=== PATIENT | female | born 1975 | race Caucasian/White ===

== ENCOUNTER 2022-12-01 08:30 | Outpatient (OUT) | payer MEDICARE, MEDICAID, SELFPAY ==
--- NOTE | 2022-12-01 08:45 | XR_ITS ---
The [address] [address] Patient Name: ELIAS SIMMS MRN: [id number] date: 1975 Sex: F Assigned Patient Location: [facility] Current Patient Location: [facility] Accession/Order Number: [id number] Exam Date: 12/01/2022 08:45 Report Date: 12/01/2022 13:02 At the request of: YVONNE KOLB Procedure: XR ankle RT min 3V EXAM: XR ankle RT min 3V HISTORY: RIGHT ANKLE PAIN COMPARISON: 09/02/2022 TECHNIQUE: 3 views of the right ankle FINDINGS: Calcaneal fixation screws appear intact, with similar changes of prior calcaneal osteotomy, alignment is unchanged. No acute fracture or dislocation. Ankle mortise is congruent. Degenerative change of the tibiotalar joint. Redemonstrated degenerative calcaneal Achilles and plantar enthesophytes. Mild circumferential swelling about the visualized lower extremity. IMPRESSION: 1. No acute osseous abnormality. 2. Intact calcaneal fixation hardware, with similar changes of osteotomy in unchanged alignment. 3. Mild soft tissue swelling about the visualized lower extremity. Electronically authenticated by: BETTY ALMENDAREZ Date: 12/01/2022 13:02
== END 2022-12-01 08:31 | disposition home or self-care (01) ==
LOC: RAD 08:30
PROVIDERS: Visit Provider Physician Assistant
DX: M25.571 Pain in right ankle and joints of right foot (principal)
CPT/HCPCS: 73610

== ENCOUNTER 2023-02-28 19:51 | Emergency (ER) | payer MEDICARE, MEDICAID, SELFPAY ==
[2023-02-28 19:54] VITALS: BP 128/95; PULSE 71; RESP 16; TEMP 36.6; O2SAT 99; BMI 54.6
--- NOTE | 2023-02-28 20:08 | PC.NURSE ---
pt states she noticed a red rash on bilateral lower legs on wednesday night [place]. states is is spreading despite starting a steroid yesterday.
--- NOTE | 2023-02-28 20:28 | ED.SKABFB1 ---
HPI - Skin/Abscess/Foreign Bdy General Chief complaint: Skin/Abscess/Foreign Body Stated complaint: RASH Time Seen by Provider: 02/28/23 20:25 History of Present Illness HPI narrative: patient states she was walking around [place] 3 days ago. Afterwards noticed a rash on her left leg mostly and some on the right. No pruritis . No fever . Not short of breath. Patient does complain of left calf pain MD complaint: Reports rash Related Data Allergies Allergy/AdvReac Type Severity Reaction Status Date / Time aspirin Allergy Unknown Verified 02/28/23 20:03 divalproex sodium Allergy Unknown Verified 02/28/23 20:03 heparin Allergy Unknown Verified 02/28/23 20:03 hydrocodone Allergy Unknown Verified 02/28/23 20:03 ibuprofen [From Motrin] Allergy Unknown Verified 02/28/23 20:03 latex Allergy Unknown Verified 02/28/23 20:03 naproxen Allergy Unknown Verified 02/28/23 20:03 nitroglycerin Allergy Unknown Verified 02/28/23 20:03 propoxyphene Allergy Unknown Verified 02/28/23 20:03 sumatriptan Allergy Unknown Verified 02/28/23 20:03 tramadol Allergy Unknown Verified 02/28/23 20:03 bees Allergy Unknown Uncoded 02/28/23 20:03 Review of Systems ROS Status of ROS 10 or more systems reviewed and unremarkable except as noted in history and below [facility] Social History Smoking status: Never smoker Exam Constitutional Vital Signs, click to edit/add: Last Vital Signs Temp 97.8 F 02/28/23 19:54 Pulse 71 02/28/23 19:54 Resp 16 02/28/23 19:54 BP 128/95 H 02/28/23 19:54 Pulse Ox 99 02/28/23 19:54 O2 Del Method Room Air 02/28/23 19:54 Common normals: no apparent distress, oriented x3, no limitations, alert and well nourished Eye Common normals: EOMs intact bilaterally and conjunctivae normal Respiratory Common normals: normal respiratory effort, no retractions, no use of accessory muscles and clear to auscultation bilaterally Cardio Common normals: regular rate, regular rhythm, S1 normal heart sound and S2 normal heart sound GI Common normals: Normal to inspection, nondistended, normoactive bowel sounds present, soft to palpation and non-tender Extremity Common normals: full ROM and no joint enlargement Other: faint erythematous rash left lower leg. nontender. non blanching. sparse similar rash right lower extremity left calf nontender Neuro Common normals: oriented x3, CN's II-XII intact bilaterally, moves all extremities and no focal motor deficits Psych Appearance: grossly normal Course Vital Signs Vital signs: Vital Signs Temperature 97.8 F 02/28/23 19:54 Pulse Rate 71 02/28/23 19:54 Respiratory Rate 16 02/28/23 19:54 Blood Pressure 128/95 H 02/28/23 19:54 Pulse Oximetry 99 02/28/23 19:54 Oxygen Delivery Method Room Air 02/28/23 19:54 Temperature 97.8 F 02/28/23 19:54 Pulse Rate 71 02/28/23 19:54 Respiratory Rate 16 02/28/23 19:54 Blood Pressure 128/95 H 02/28/23 19:54 Pulse Oximetry 99 02/28/23 19:54 Oxygen Delivery Method Room Air 02/28/23 19:54 MDM - Skin/Abscess/Foreign Bdy MDM Narrative Medical decision making narrative: patient presents with atypical rash of her lower extremities. more prominent LLE than the right. complains of pain left gastroc but it is not tender. Rash does not itch and nontender. Rash has the appearance of petechial like rash grouped together. She does have trace pitting of both lower extremities. Labs unremarkable except d-dimer elevated. Patient offered Lovenox or similar but states she is not able to take blood thinners due to past history of brain bleed . She also avoids ASA and NSAIDS for the same reason. 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 Clinically I have low suspicion for DVT also. Lab Data Labs: Lab Results 02/28/23 Range/Units 20:41 WBC 10.6 (4.0-11.0) 10^3/uL RBC 4.38 (4.20-5.40) 10^6/uL Hgb 14.3 (12.0-16.0) g/dL Hct 42.0 (36.0-48.0) % MCV 95.9 (81.0-99.0) fL MCH 32.6 (26.7-34.0) pg MCHC 34.0 (29.9-35.2) g/dL RDW 13.0 (11.0-15.0) % Plt Count 375 (150-450) 10^3/uL MPV 9.1 L (9.5-13.5) fL Neut % (Auto) 69.6 (43.0-75.0) % Lymph % (Auto) 23.2 (20.5-60.0) % Vance % (Auto) 6.9 (1.7-12.0) % Eos % (Auto) 0.0 L (0.9-7.0) % Baso % (Auto) 0.1 L (0.2-2.0) % Neut # (Auto) 7.4 H (1.4-6.5) 10^3/uL Lymph # (Auto) 2.5 (1.2-3.8) 10^3/uL Vance # (Auto) 0.7 (0.3-0.8) 10^3/uL Eos # (Auto) 0.0 (0.0-0.7) 10^3/uL Baso # (Auto) 0.0 (0.0-0.1) 10^3/uL Abs Immat Gran (auto) 0.02 (0.00-0.03) 10^3/uL Imm/Tot Granulo (auto) 0.2 (0.0-0.5) % PT 10.1 (9.0-11.6) sec INR 0.95 APTT 27.9 (22.3-36.2) sec D-Dimer 0.84 H* (<=0.59) mg/L FEU Sodium 142 (136-145) mmol/L Potassium 3.8 (3.5-5.1) mmol/L Chloride 109 H (98-107) mmol/L Carbon Dioxide 23.4 (21.0-32.0) mmol/L Anion Gap 13.4 BUN 15.0 (7.0-18.0) mg/dL Creatinine 0.90 (0.55-1.02) mg/dL Est GFR ( Amer) >60 (>=60) Est GFR (Non-Af Amer) >60 (>=60) BUN/Creatinine Ratio 16.7 Glucose 100 (74-106) mg/dL Calcium 8.8 (8.5-10.1) mg/dL Total Bilirubin 0.2 (0.2-1.0) mg/dL AST 11 L (15-37) U/L ALT 29 (14-59) U/L Alkaline Phosphatase 101 (46-116) U/L Total Protein 7.7 (6.4-8.2) g/dL Albumin 3.7 (3.4-5.0) g/dL Globulin 4.0 g/dL Albumin/Globulin Ratio 0.9 Discharge Plan Discharge Chief Complaint: Skin/Abscess/Foreign Body Clinical Impression: Rash and nonspecific skin eruption, D-dimer, elevated Patient Disposition: Home, Self-Care Instructions: Acute Rash (ED) Additional Instructions: return tomorrow for ultrasound at 7am. Come to registration a few minutes early, or pre-register tonight before leaving. Stand Alone Forms: Portal Instructions Referrals: Physician,Non-Staff, MD [Primary Care Provider] - 1 week Discharge Date/Time: 02/28/23 22:42
[2023-02-28 20:49] LABS: Basophils Percent Auto 0.1 % (0.2-2.0); Hemoglobin 14.3 g/dL (12.0-16.0); Immature Granulocytes Abs Auto 0.02 10^3/uL (0.00-0.03); Immature Granulocytes Pct Auto 0.2 % (0.0-0.5); Lymphocytes Absolute Auto 2.5 10^3/uL (1.2-3.8); Lymphocytes Percent Auto 23.2 % (20.5-60.0); Mean Corpuscular Hemoglobin 32.6 pg (26.7-34.0); Mean Corpuscular Volume 95.9 fL (81.0-99.0); Mean Platelet Volume 9.1 fL (9.5-13.5); Monocytes Absolute Auto 0.7 10^3/uL (0.3-0.8); Monocytes Percent Auto 6.9 % (1.7-12.0); Neutrophils Absolute Auto 7.4 10^3/uL (1.4-6.5); Neutrophils Percent Auto 69.6 % (43.0-75.0); Platelet Count 375 10^3/uL (150-450); Red Blood Count 4.38 10^6/uL (4.20-5.40); White Blood Count 10.6 10^3/uL (4.0-11.0)
[2023-02-28 21:09] LABS: INR 0.95; Partial Thromboplastin Time 27.9 sec (22.3-36.2); Prothrombin Time 10.1 sec (9.0-11.6)
[2023-02-28 21:12] LABS: Alanine Aminotransferase 29 U/L (14-59); Albumin Globulin Ratio 0.9; Albumin Level 3.7 g/dL (3.4-5.0); Alkaline Phosphatase 101 U/L (46-116); Anion Gap 13.4; Aspartate Amino Transferase 11 U/L (15-37); BUN Creatinine Ratio 16.7; Bilirubin Total 0.2 mg/dL (0.2-1.0); Calcium 8.8 mg/dL (8.5-10.1); Carbon Dioxide 23.4 mmol/L (21.0-32.0); Chloride 109 mmol/L (98-107); Estimated GFR (African America >60 (>=60); Estimated GFR (Non-African Ame >60 (>=60); Glucose 100 mg/dL (74-106); Potassium 3.8 mmol/L (3.5-5.1); Sodium 142 mmol/L (136-145); Total Protein 7.7 g/dL (6.4-8.2)
[2023-02-28 22:11] LABS: D Dimer 0.84 mg/L FEU (<=0.59)
== END 2023-02-28 22:42 | disposition home or self-care (01) ==
PROVIDERS: Emergency Provider Internal Medicine
DX: R21 Rash and other nonspecific skin eruption (principal); R79.1 Abnormal coagulation profile
CPT/HCPCS: 36415; 80053; 85025; 85378; 85610; 85730; 99283

== ENCOUNTER 2023-03-01 06:19 | Outpatient (OUT) | payer MEDICARE, MEDICAID, SELFPAY ==
--- NOTE | 2023-03-01 | US_ITS ---
The [place] [id number] Patient Name: ELIAS SIMMS MRN: [id number] date: 1975 Sex: F Assigned Patient Location: [facility] Current Patient Location: [facility] Accession/Order Number: [id number] Exam Date: 03/01/2023 07:00 Report Date: 03/01/2023 08:41 At the request of: MIKE ORNELAS Procedure: US venous doppler LE BI EXAMINATION: US venous doppler LE BI HISTORY: DVT ; leg swelling, left leg rash COMPARISON: No relevant comparison available. FINDINGS: REGION: Bilateral lower extremities THROMBI: None. COMPRESSIBILITY: Normal compressibility. FLOW: Normal waveform and antegrade flow between 5 and 20 cm/s. OTHER: None. US/US venous doppler LE BI IMPRESSION: 1. No deep vein thrombus within the right or left lower extremity. Electronically authenticated by: SOILA NIÑO Date: 03/01/2023 08:41
== END 2023-03-01 06:20 | disposition home or self-care (01) ==
LOC: RAD 06:22
PROVIDERS: Visit Provider Internal Medicine
DX: R21 Rash and other nonspecific skin eruption (principal); R79.89 Other specified abnormal findings of blood chemistry; M79.89 Other specified soft tissue disorders
CPT/HCPCS: 93970

== ENCOUNTER 2023-05-26 08:41 | Outpatient (OUT) | payer MEDICARE, MEDICAID, SELFPAY ==
--- NOTE | 2023-05-26 | XR_ITS ---
The [address] [address] Patient Name: ELIAS SIMMS MRN: [id number] date: 1975 Sex: F Assigned Patient Location: [facility] Current Patient Location: [facility] Accession/Order Number: [id number] Exam Date: 05/26/2023 08:50 Report Date: 05/26/2023 12:23 At the request of: CANDY LEONARDO Procedure: XR ankle RT min 3V EXAM: XR ankle RT min 3V HISTORY: RIGHT ANKLE PAIN COMPARISON: Ankle radiographs from 12/01/2022 TECHNIQUE: AP, lateral, oblique radiographs of the ankle labeled right FINDINGS: Soft tissue swelling about the ankle. 2 surgical screw fixation of the calcaneus osteotomy with plantar and Achilles calcaneal enthesophytes. Fragmentation of the plantar calcaneal enthesophyte again noted. Osteophyte at the tibial plafond. Osseous body at the anterior to the tibia. Unchanged lucency at the medial talar dome. No acute fracture or dislocation. XR/XR ankle RT min 3V IMPRESSION: 1. Medial talar dome osteochondral injury again noted. 2. Postsurgical changes of calcaneal osteotomy and fixation similar to prior. 3. 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 4. No acute fracture or dislocation. Electronically authenticated by: KURT JORDAN Date: 05/26/2023 12:23
== END 2023-05-26 08:42 | disposition home or self-care (01) ==
LOC: RAD 08:41
PROVIDERS: Visit Provider Podiatrist Foot & Ankle Surgery
DX: M25.871 Other specified joint disorders, right ankle and foot (principal)
CPT/HCPCS: 73610

== ENCOUNTER 2024-02-22 08:36 | Emergency (ER) | payer MEDICARE, MEDICAID, SELFPAY ==
[2024-02-22 08:43] VITALS: BP 147/84; PULSE 67; TEMP 36.6; O2SAT 100; BMI 51.5
--- NOTE | 2024-02-22 08:48 | XR_ITS ---
The [address] [address] Patient Name: ELIAS SIMMS MRN: [id number] date: 1975 Sex: F Assigned Patient Location: ER Current Patient Location: Accession/Order Number: [id number] Exam Date: 02/22/2024 09:00 Report Date: 02/22/2024 10:57 At the request of: MAEVE MORALES Procedure: XR foot LT min 3V EXAM: XR foot LT min 3V, XR ankle LT min 3V HISTORY: pain COMPARISON: None. FINDINGS/IMPRESSION: 1. No acute fracture or dislocation 2. Mild degeneration of the mid foot. 3. Mild degeneration of the ankle joint. 4. Small calcaneal Achilles and plantar enthesophytes. 5. Ossicle adjacent to the proximal aspect of the fifth metatarsal, may represent chronic/nonunited fracture. 6. Ankle mortise is maintained. 7. Small ankle joint effusion. 8. Small ossicles distal to the medial malleolus, possibly from chronic trauma. Electronically authenticated by: EMETERIO JI Date: 02/22/2024 10:57
--- NOTE | 2024-02-22 08:48 | XR_ITS ---
The [address] [address] Patient Name: ELIAS SIMMS MRN: [id number] date: 1975 Sex: F Assigned Patient Location: ER Current Patient Location: Accession/Order Number: [id number] Exam Date: 02/22/2024 09:00 Report Date: 02/22/2024 10:57 At the request of: MAEVE MORALES Procedure: XR ankle LT min 3V EXAM: XR foot LT min 3V, XR ankle LT min 3V HISTORY: pain COMPARISON: None. FINDINGS/IMPRESSION: 1. No acute fracture or dislocation 2. Mild degeneration of the mid foot. 3. Mild degeneration of the ankle joint. 4. Small calcaneal Achilles and plantar enthesophytes. 5. Ossicle adjacent to the proximal aspect of the fifth metatarsal, may represent chronic/nonunited fracture. 6. Ankle mortise is maintained. 7. Small ankle joint effusion. 8. Small ossicles distal to the medial malleolus, possibly from chronic trauma. Electronically authenticated by: EMETERIO JI Date: 02/22/2024 10:57
--- OUTSIDE RECORDS SUMMARY | 2024-02-22 09:07 | XMS_ITS | CCD ---
Author Organization [facility] Care Team Providers Care Piece Work Checker Name Role Phone Jeremiah Topete Unavailable Triny Vega MD, [facility] Primary Care Provider TRINY VEGA, [facility] Primary Care UnavailTALITA David Attending Unava ilable [facility] Primary Care UnavailTALITA David Attending Unava ilable [facility] Primary Care UnavailDENILSON Ruggiero Attending Un[facility] UnavailArjun Vega MD, [facility] Primary Care Provider Jeremiah Topete MD Primary Care Provider YVONNE KOLB Admitting Unavailable DR CANDELARIO ALBERT Primary Care Unavailable YVONNE KOLB Consulting Unavailable YVONNE KOLB Attending Unavailable MARCELA GIRALDO Consulting Unavailable CANDY LEONARDO Consulting Unavailable CANDY LEONARDO Attending Unavailable [facility] Unava ilable CANDY LEONARDO Admitting Unavailable ALEJO MACHUCA Consulting Unavailable CANDY LEONARDO Admitting Unavailable CANDY LEONARDO Consulting Unavailable CANDY LEONARDO Attending Unavailable [facility] Unava ilable [facility] Unava ilable LANCE ., VINCENZO Admitting Unavailable DR SOILA NIÑO Consulting Unavailable LANCE ., VINCENZO Attending Unavailable CANDY LEONARDO Consulting Unavailable GUEVARA SIBLEY Consulting Unavailable JOS LEE Consulting Unavailable LANCE ., VINCENZO Consulting Unavailable SHARMAINE SIMPSON Consulting Unavailable CORTES, YVONNE Attending Unavailable CORTES, YVONNE Admitting Unavailable [facility] Unava ilable WEST, DR CORBY Goncalves Consulting Unavailable CORTES, YVONNE Consulting Unavailable CORTES, YVONNE Attending Unavailable ZIEBER, DR SOILA Davison Consulting Unavailable [facility] Unava ilable CORTES, YVONNE Admitting Unavailable CORTES, YVONNE Consulting Unavailable ZIEBDARA, DR SOILA Davison Consulting Unavailable CANDY LEONARDO Admitting Unavailable CANDY LEONARDO Attending Unavailable [facility] Unava ilable MALISSA, CANDY Das Consulting Unavailable CORTES, YVONNE Attending Unavailable ZIEBER, DR SOILA Davison Consulting Unavailable [facility] Unava ilable CORTES, YVONNE Admitting Unavailable CORTES, YVONNE Consulting Unavailable CORTES, YVONNE Admitting Unavailable WEST, DR CORBY Goncalves Consulting Unavailable YVONNE KOLB Attending Unavailable MISC, DR PALOMINO Primary Care Unavailable YVONNE KOLB Consulting Unavailable MISC, DR PALOMINO Primary Care Unavailable ZIEBDARA, DR SOILA Davison Consulting Unavailable HIGHLCANDY ABERNATHY Attending Unavailable CANDY LEONARDO Admitting Unavailable CANDY LEONARDO Consulting Unavailable Rumschlag DO, Marium K Primary Care Provider RUMSCHLAG, MARIUM K Referring Unavailable RUMSCHLAG, MARIUM K Primary Care Unavailable RUTH SHEPHERD Attending Unava ilable FRANCK-RUTH FALL Referring Unava ilable RUMSCHLAG, MARIUM K Primary Care Unavailable KEN DICKEY Referring Unavailable RUMSCHLAG, MARIUM K Primary Care Unavailable RUTH SHEPHERD Attending Unava ilable FRANCK-RUTH FALL Referring Unava ilable RUMSCHLAG, MARIUM K Primary Care Unavailable PATTI LEONARD Referring Unavailable RUMSCHLAG, MARIUM K Primary Care Unavailable RUMSCHLAG, MARIUM K Referring Unavailable RUMSCHLAG, MARIUM K Primary Care Unavailable SHAHRAM ROA Attending Unavailable KATJA HUGHES Attending Unavailable FRANCK-RUTH FALL Referring Unava ilable RUMSCHLAG, MARIUM K Primary Care Unavailable BECKY MORENO Attending Unavailable BECKY MORENO Referring Unavailable RUMSCHLAG, MARIUM K Primary Care Unavailable BECKY MORENO Admitting Unavailable BECKY MORENO Attending Unavailable RUTH SHEPHERD Referring Unava ilable RUMSCHLAG, MARIUM K Primary Care Unavailable QUINCY GONZALEZ Attending Unavailable RUMSCHLAG, MARIUM K Primary Care Unavailable PATTI LEONARD Attending Unavailable PATTI LEONARD Referring Unavailable RUMSCHLAG, MARIUM K Primary Care Unavailable PATTI LEONARD L Referring Unavailable RUMSCHLAG, MARIUM K Primary Care Unavailable KATJA HUGHES Attending Unavailable RUMSCHLAG, MARIUM K Referring Unavailable RUMSCHLAG, MARIUM K Primary Care Unavailable PATTI LEONARD L Attending Unavailable PATTI LEONARD L Referring Unavailable RUMSCHLAG, MARIUM K Primary Care Unavailable PATTI LEONARD L Attending Unavailable PATTI LEONARD L Referring Unavailable RUMSCHLAG, MARIUM K Primary Care Unavailable KEN DICKEY Attending Unavailable KEN DICKEY Referring Unavailable RUMSCHLAG, MARIUM K Primary Care Unavailable GAYATRI GASPAR Referring Unavailable RUMSCHLAG, MARIUM K Primary Care Unavailable MYERHOLTZ, ALLA K Referring Unavailab le MYERHOLTZ, ALLA K Primary Care Unavailab le PATTI LEONARD Referring Unavailable MYERHOLTZ, ALLA K Primary Care Unavailab KATJA Hall Attending Unavailable RUMSCHLAG, MARIUM K Referring Unavailable MYERHOLTZ, ALLA K Primary Care Unavailab ROC Ochoa Attending Unavailable RUTH SHEPHERD Referring Unava ilable RUMSCHLAG, MARIUM K Primary Care Unavailable GAYATRI GASPAR Attending Unavailable RUMSCHLAG, MARIUM K Referring Unavailable RUMSCHLAG, MARIUM K Primary Care Unavailable PATTI LEONARD Attending Unavailable RUMSCHLAG, MARIUM K Referring Unavailable RUMSCHLAG, MARIUM K Primary Care Unavailable GAYATRI GASPAR Attending Unavailable RUMSCHLAG, MARUIM K Referring Unavailable RUMSCHLAG, MARIUM K Primary Care Unavailable PATTI LEONARD L Attending Unavailable RUMSCHLAG, MARIUM K Referring Unavailable MYERHOLTZ, ALLA K Primary Care Unavailab le PATTI LEONARD L Attending Unavailable MYERHOLTZ, ALLA K Referring Unavailab le MYERHOLTZ, ALLA K Primary Care Unavailab le FRANCK-BUBLICK, RUTH C Attending Unava ilable MARIUM GARCIA Referring Unavailable MARIUM GARCIA Primary Care Unavailable Allergies Allergy Classification Reported Allergen(s) Allergy Type Date of Onset Reaction(s) Facility Acetaminophen / HYDROcodone (3 sources) Acetaminophen / HYDROcodone; Translations: [HYDROCODONE-ACET AMINOPHEN] Drug Allergy 12-27-19 15 Other (See Comments) [facility] Aspirin (3 sources) Aspirin; Translations: [ASPIRIN] Drug Allergy 12-27-19 15 Other (See Comments) [facility] Coconut extract (3 sources) Coconut extract; Translations: [COCONUT] Drug Allergy 12-29-19 19 Anaphylaxis [facility] Coconut Oil (3 sources) Coconut Oil; Translations: [COCONUT OIL] Drug Allergy 03-21-20 15 Hives [facility] Latex (3 sources) Latex; Translations: [LATEX] Substance [facility] Nitrate Vasodilator (3 sources) Nitroglycerin; Translations: [NITROGLYCERIN] Drug Allergy 12-27-19 15 Other (See Comments) [facility] Serotonin-1b and Serotonin-1d Receptor Agonists (3 sources) SUMAtriptan; Translations: [SUMATRIPTAN SUCCINATE] Drug Allergy 12-27-19 15 Other (See Comments) [facility] Unclassified (16 sources) Pineapple; Translations: [PINEAPPLE] Propensity to adverse reactions to drug 11-09-19 Anaphylaxis [facility] Valproate (2 sources) Valproate Drug Allergy 12-27-19 15 Other (See Comments) [facility] (20 sources) acetaminophen / HYDROcodone; Translations: [HYDROCODONE-ACET AMINOPHEN] Propensity to adverse reactions to drug 12-27-19 15 Other (See Comments), Hallucinations [facility] Work Phone: (20 sources) Adhesive Tape; Translations: [ADHESIVE] Propensity to adverse reactions to drug 12-27-19 15 Rash [facility] Work Phone: (20 sources) aspirin; Translations: [ASPIRIN] Propensity to adverse reactions to drug 12-27-19 15 Other (See Comments) [facility] Work Phone: (17 sources) coconut oil; Translations: [COCONUT OIL] Propensity to adverse reactions to drug 20 15 Hives [facility] Work Phone: (20 sources) Latex; Translations: [LATEX] Propensity to adverse reactions to drug 12-27-19 15 Hives, Rash [facility] Work Phone: (20 sources) nitroglycerin; Translations: [NITROGLYCERIN] Propensity to adverse reactions to drug 12-27-19 15 Other (See Comments), Flushing, Headache [facility] Work Phone: (17 sources) SUMAtriptan; Translations: [SUMATRIPTAN SUCCINATE] Propensity to adverse reactions to drug 12-27-19 15 Other (See Comments) [facility] Work Phone: (20 sources) valproate; Translations: [DIVALPROEX] Propensity to adverse reactions to drug 12-27-19 15 Other (See Comments) [facility] Work Phone: (20 sources) PROPOXYPHENE N-ACETAMINOPHEN; Translations: [PROPOXYPHENE N-ACETAMINOPHEN] Propensity to adverse reactions to drug 12-27-19 15 Other (See Comments), Hallucinations [facility] Work Phone: (20 sources) HEPARIN ANALOGUES; Translations: [HEPARIN ANALOGUES] Propensity to adverse reactions to drug 12-27-19 15 Other (See Comments) [facility] Work Phone: (20 sources) VENOM-WASP; Translations: [VENOM-WASP] Propensity to adverse reactions to drug 03-21-20 15 Anaphylaxis [facility] Work Phone: (20 sources) BEE VENOM PROTEIN (HONEY BEE); Translations: [BEE VENOM PROTEIN (HONEY BEE)] Propensity to adverse reactions to drug 20 15 Anaphylaxis [facility] Work Phone: (6 sources) Coconut extract; Translations: [COCONUT] Drug Allergy 12-29-19 19 Anaphylaxis [facility] (11 sources) Coconut extract Drug Allergy 12-29-19 19 Anaphylaxis, Hives, Flushing, Headache [facility] (9 sources) Heparin Analogues Propensity to adverse reactions to drug 12-27-19 15 Other (See Comments) [facility] (1 source) Acetaminophen / HYDROcodone Drug Allergy 10-11-19 15 [facility] (1 source) Aminolevulinic Acid Drug Allergy 10-11-19 15 [facility] (1 source) Aspirin Drug Allergy 10-11-19 15 [facility] (1 source) bee venom Drug allergy (disorder) [facility] (1 source) Coconut extract Drug Allergy 10-09-19 15 [facility] (1 source) heparin Drug Allergy 10-11-19 15 [facility] (1 source) Ibuprofen Drug Allergy 10-11-19 15 [facility] (1 source) Latex Drug allergy (disorder) 10-09-19 15 [facility] (1 source) Naproxen Drug Allergy 10-11-19 15 [facility] (4 sources) Naproxen; Translations: [NAPROXEN] Drug Allergy 10-25-19 15 [facility] (1 source) Plasmin Drug Allergy 10-11-19 15 [facility] (4 sources) traMADol; Translations: [TRAMADOL] Drug Allergy 05-15-20 [facility] (1 source) Valproate Drug Allergy 10-11-19 15 [facility] (1 source) vitamin K3 Drug Allergy [facility] (1 source) wasp venom Drug allergy (disorder) 10-09-19 15 [facility] (1 source) Darvocet-N 100 Drug allergy (disorder) 10-11-19 15 [facility] (9 sources) beeswax; Translations: [BEESWAX] Drug Allergy 02-02-20 19 [facility] (9 sources) Ibuprofen; Translations: [IBUPROFEN] Drug Allergy 02-02-20 19 [facility] (6 sources) Naproxen Drug Allergy 02-02-20 19 [facility] (9 sources) SUMAtriptan; Translations: [SUMATRIPTAN] Drug Allergy 02-02-20 19 [facility] (6 sources) traMADol Drug Allergy 05-15-20 [facility] Medications Current Medications Medication Drug Class(es) Dates Sig (Normalized) Sig (Original) albuterol 0.83 mg/ml inhalation solution (20 sources) beta2-Adrenergic Agonist Start: 02-19-2023 take 3 mL by inhalation every six hours as needed for wheezing albuterol (PROVENTIL,VENTOLIN ) 2.5 mg /3 mL (0.083 %) nebulizer solution Indications: Mild persistent asthma, unspecified whether complicated Inhale 3 mL (2.5 mg total) by nebulization every 6 (six) hours as needed for wheezing or shortness of breath. 360 mL 02/19/2023 Active Start: 02-19-2023 take 2 puff(s) by in halation every six hours as needed for wheezing albuterol (PROVENTIL HFA;VENTOLIN HFA) 90 mcg/actuation inhaler Indications: Mild persistent asthma, unspecified whether complicated Inhale 2 puffs every 6 (six) hours as needed for wheezing or shortness of breath. 18 g 11 02/19/2023 Active take 2 puff(s) by in halation every four hours as needed for wheezing albuterol 90 mcg/actuation inhaler Inhale 2 puffs every 4 (four) hours as needed for wheezing. 0 Active take 2 puff(s) by in halation every four hours as needed for wheezing albuterol 90 mcg/actuation inhaler Inhale 2 puffs every 4 (four) hours as needed for wheezing. 0 Active albuterol 90 mcg /actuation inhaler Inhale 2 puffs every 4 (four) hours as needed for wheezing. Active amLODIPine 10 mg oral tablet (9 sources) Dihydropyridine Calcium Channel Vinh Start: 11-16-2019 take 1 tablet by mouth in the morning amLODIPine (NORVASC) 10 mg tablet Take 1 tablet (10 mg total) by mouth in the morning. 0 11/16/2019 Active take 1 tablet by mouth once mary y amLODIPine (NORVASC) 5 MG tablet Take 5 mg by mouth daily . 0 Active atogepant (QULIPTA) 60 mg tablet (3 sources) Start: 08-02-2023 take 1 tablet by mouth in the morning atogepant (QULIPTA) 60 mg tablet Indications: Chronic migraine without aura, intractable, with status migrainosus , Neuralgia and neuritis , Cerebral cavernous malformation Take 60 mg by mouth in the morning. 30 tablet 2 08/02/2023 Active calcium acetate 667 mg oral capsule (1 source) calcium acetate,phosphat bind, (PHOSLO) 667 mg capsule Take 1,334 mg by mouth 2 (two) times a day . 0 Active cholecalciferol, vitamin D3, (VITAMIN D3 ORAL) (1 source) cholecalciferol, vitamin D3, (VITAMIN D3 ORAL) Take by mouth . 0 Active [id number] 0.3 ml EPINEPHrine 1 mg/ml auto-injector (20 sources) alpha-Adrenergic Agonist, beta-Adrenergic Agonist, Catecholamine EPINEPHrine (EPIPEN) 0.3 mg/0.3 mL auto-injector Inject 0.3 mL (0.3 mg total) into the appropriate muscle as needed. 0 Active EPINEPHrine 1:1, 000 (EPIPEN) 0.3 mg/0.3 mL (1:1,000) AtIn Inject 0.3 mg into the shoulder, thigh, or buttocks once. 0 Active EPINEPHrine 1:1, 000 (EPIPEN) 0.3 mg/0.3 mL (1:1,000) AtIn Inject 0.3 mg into the shoulder, thigh, or buttocks once. 0 Active EPINEPHrine 1:1, 000 (EPIPEN) 0.3 mg/0.3 mL (1:1,000) AtIn Inject 0.3 mg into the shoulder, thigh, or buttocks once. Active 14 actuat fluticasone furoate 0.1 mg/actuat / vilanterol 0.025 mg/actuat dry powder inhaler (7 sources) Corticosteroid, beta2-Adrenergic Agonist Start: 12-02-2022 take 1 puff(s) by mouth once daily fluticasone furoate-vilanteroL (BREO ELLIPTA) 100-25 mcg/dose blister with device Inhale 1 puff by mouth once daily 60 each 5 12/02/2022 Active fluticasone/kerwin nterol (BREO ELLIPTA INHL) Inhale . 0 Active furosemide 20 mg oral tablet (20 sources) Loop Diuretic take 2 tablets by mouth once daily furosemide (LASIX) 20 mg tablet Take 2 tablets (40 mg total) by mouth daily. 0 Active take 1 tablet by mouth once mary y furosemide (LASIX) 20 MG tablet Take 20 mg by mouth daily. 0 Active 1 ml galcanezumab-gnlm 120 mg/ml auto-injector (13 sources) Start: 07-08-2023 inject 1 mL by subcutaneous injection every month galcanezumab-gnlm (EMGALITY PEN) 120 mg/mL pen injector Indications: Chronic migraine without aura, intractable, with status migrainosus INJECT 1 PEN SUBCUTANEOUSLY ONCE EVERY MONTH 1 mL 2 07/08/2023 Active Start: 03-15-2023 End: 07-08-2023 galcanezumab-gnlm (EMGALITY PEN) 120 mg/mL pen injector Indications: Chronic migraine without aura, intractable, with status migrainosus INJECT 1 PEN SUBCUTANEOUSLY EVERY 28 DAYS. 1 mL 3 03/15/2023 07/08/2023 Discontinued Start: 10-13-2019 End: 11-07-2020 galcanezumab-gnlm (Emgality Pen) 120 mg/mL Pen Indications: Chronic nonintractable headache, unspecified headache type Inject 1 mL (120 mg total) under the skin every 28 days . 1 Syringe 11 10/25/2020 11/07/2020 Discontinued (Reorder (Suppress CancelRx Message to Pharmacy)) Start: 07-04-2018 End: 04-06-2019 galcanezumab-gnlm (EMGALITY) 120 mg/mL Pen Indications: Intractable chronic migraine without aura and without status migrainosus Inject 120 mg under the skin every 28 days Take 2 injections for loading dose. . 2 Syringe 0 07/04/2018 04/06/2019 Discontinued (Reorder (Suppress CancelRx Message to Pharmacy)) galcanezumab-gnlm (Emgality Pen) 120 mg/mL Pen (2 sources) Start: 04-06-2019 galcanezumab-g nlm (Emgality Pen) 120 mg/mL Pen Indications: Intractable chronic migraine without aura and without status migrainosus Inject 120 mg under the skin every 28 days . 1 Syringe 5 04/06/2019 Active galcanezumab-gnlm (Emgality Pen) 120 mg/mL Pen (1 source) Start: 07-17-2019 galcanezumab-g nlm (Emgality Pen) 120 mg/mL Pen Indications: Chronic nonintractable headache, unspecified headache type Inject 120 mg under the skin every 28 days . 1 Syringe 11 07/17/2019 Active galcanezumab-gnlm (EMGALITY) 120 mg/mL Pen (4 sources) Start: 07-04-2018 End: 09-27-2018 galcanezumab-gnlm (EMGALITY) 120 mg/mL Pen Indications: Intractable chronic migraine without aura and without status migrainosus Inject 120 mg under the skin every 28 days . 1 Syringe 11 07/04/2018 09/27/2018 Discontinued Start: 07-04-2018 galcanezumab-g nlm (EMGALITY) 120 mg/mL Pen Indications: Intractable chronic migraine without aura and without status migrainosus Inject 120 mg under the skin every 28 days Take 2 injections for loading dose. . 2 Syringe 0 07/04/2018 Active Start: 07-04-2018 galcanezumab-g nlm (EMGALITY) 120 mg/mL Pen Indications: Intractable chronic migraine without aura and without status migrainosus Inject 120 mg under the skin every 28 days . 1 Syringe 11 07/04/2018 Active levothyroxine sodium 0.088 mg oral tablet (9 sources) l-Thyroxine Start: 12-03-2019 take 1 tablet by mouth in the morning EUTHYROX 88 mcg tablet Take 1 tablet (88 mcg total) by mouth in the morning. 0 12/03/2019 Active 24 hr metFORMIN hydrochloride 750 mg extended release oral tablet (16 sources) Biguanide take 1 tablet by mouth once daily at breakfast metFORMIN (GLUCOPHAGE-XR) 750 MG 24 hr tablet Take 750 mg by mouth daily with breakfast. 0 Active metoprolol tartrate 25 mg oral tablet (5 sources) beta-Adrenergic Vinh Start: 06-25-2023 take 1 tablet by mouth every twelve hours, then take 1 tablet by mouth every two hours metoprolol tartrate (LOPRESSOR) 25 mg tablet Take 1 tablet PO [address] and 1 tablet [address] 1 tablet 0 06/25/2023 Active montelukast 10 mg oral tablet (9 sources) Leukotriene Receptor Antagonist Start: 11-05-2019 take 1 tablet by mouth in the morning montelukast (SINGULAIR) 10 mg tablet Take 1 tablet (10 mg total) by mouth in the morning. 0 11/05/2019 Active multivitamin (THERAGRAN) per tablet (16 sources) take 1 tablet by mouth once daily multivitamin (THERAGRAN) per tablet Take 1 tablet by mouth daily. 0 Active take 1 tablet by mouth once mary y multivitamin (THERAGRAN) per tablet Take 1 tablet by mouth daily. Active multivitamin (THERAGRAN) tablet (6 sources) take 1 tablet by mouth in the morning multivitamin (THERAGRAN) tablet Take 1 tablet by mouth in the morning. 0 Active Multivitamin Tablet (2 sources) take 1 tablet by mouth once daily multivitamin (THERAGRAN) per tablet Take 1 tablet by mouth daily. Active nebulizer accessories Kit (9 sources) nebulizer access ories Kit by Miscellaneous route . 0 Active nystatin [id number] unt/ml topical cream (6 sources) Polyene Antifungal Start: nystatin (MYCOSTATIN) cream Indications: Candidiasis of breast , PCOS (polycystic ovarian syndrome) APPLY CREAM TOPICALLY TWICE DAILY (IN THE MORNING AND AT BEDTIME) 30 g 0 03/16/2023 Active omeprazole 20 mg delayed release oral tablet (6 sources) Proton Pump Inhibitor take 1 tablet by mouth in the morning omeprazole (PriLOSEC OTC) 20 mg EC tablet Take 1 tablet (20 mg total) by mouth in the morning. 0 Active potassium chloride 20 meq extended release oral tablet (20 sources) potassium chlori de (K-TAB,KLOR-CON) 20 mEq CR tablet Take 1 tablet (20 mEq total) by mouth in the morning. 0 Active potassium chlori de (MICRO-K) 10 MEQ CR capsule Take 10 mEq by mouth daily. 0 Active predniSONE (3 sources) Start: 08-02-2023 predniSONE (ST ERAPRED DS) 10 mg tablet pack Indications: Chronic migraine without aura, intractable, with status migrainosus , Neuralgia and neuritis 60mg x 1 day then 50mg x 1 day then 40mg x 1 day then 30mg x 1 day then 20mg x 1 day then 10mg x 1 day then stop 21 tablet 0 08/02/2023 Active pregabalin 100 mg oral capsule (20 sources) Start: 08-30-2023 take 1 capsule by mouth three times daily pregabalin (LYRICA) 100 mg capsule Indications: Chronic migraine without aura, intractable, with status migrainosus , Neuralgia and neuritis TAKE 1 CAPSULE BY MOUTH THREE TIMES DAILY 270 capsule 1 08/30/2023 Active Start: 03-08-2023 End: 08-27-2023 take 1 capsule by mouth three times daily pregabalin (LYRICA) 100 mg capsule Indications: Chronic migraine without aura, intractable, with status migrainosus , Neuralgia and neuritis TAKE 1 CAPSULE BY MOUTH THREE TIMES DAILY 270 capsule 1 03/08/2023 08/27/2023 Discontinued (Reorder) Start: 05-13-2020 End: 11-07-2020 take 1 capsule by mouth three times daily pregabalin (LYRICA) 100 MG capsule Indications: Chronic nonintractable headache, unspecified headache type Take 1 (one) capsule (100 mg total) by mouth 3 (three) times a day 90 days/fill . 270 capsule 1 05/13/2020 11/07/2020 Discontinued (Reorder (Suppress CancelRx Message to Pharmacy)) Start: 03-20-2019 End: 04-06-2019 take 1 capsule by mouth three times daily pregabalin (LYRICA) 100 MG capsule Indications: Chronic nonintractable headache, unspecified headache type Take 1 (one) capsule (100 mg total) by mouth 3 (three) times a day 90 days/fill . 270 capsule 1 04/06/2019 Active Start: 04-05-2018 End: 03-18-2019 take 1 capsule by mouth three times daily pregabalin (LYRICA) 100 MG capsule Indications: Chronic nonintractable headache, unspecified headache type Take 1 (one) capsule (100 mg total) by mouth 3 (three) times a day 90 days/fill . 270 capsule 1 01/26/2019 03/18/2019 Discontinued (Reorder (Suppress CancelRx Message to Pharmacy)) Start: 12-17-2016 End: 01-24-2018 take 1 capsule by mouth three times daily pregabalin (LYRICA) 100 MG capsule Indications: Chronic nonintractable headache, unspecified headache type Take 1 (one) capsule (100 mg total) by mouth 3 (three) times a day. 270 capsule 1 07/20/2017 01/24/2018 Discontinued (Reorder (Suppress CancelRx Message to Pharmacy)) 24 hr propranolol hydrochloride 80 mg extended release oral capsule (18 sources) beta-Adrenergic Vinh Start: 04-06-2019 take 1 capsule by mouth once daily propranolol (INDERAL LA) 80 MG 24 hr capsule Indications: Chronic nonintractable headache, unspecified headache type Take 1 (one) capsule (80 mg total) by mouth daily . 30 capsule 5 04/06/2019 Active Start: 03-20-2019 End: 04-06-2019 take 1 capsule by mouth once daily propranolol (INDERAL LA) 120 MG 24 hr capsule Indications: Chronic nonintractable headache, unspecified headache type Take 1 (one) capsule (120 mg total) by mouth daily . 90 capsule 1 03/20/2019 04/06/2019 Discontinued (Reorder) Start: 04-15-2017 End: 03-18-2019 take 1 capsule by mouth once daily propranolol (INDERAL LA) 120 MG 24 hr capsule Indications: Chronic nonintractable headache, unspecified headache type Take 1 (one) capsule (120 mg total) by mouth daily . 90 capsule 1 09/27/2018 03/18/2019 Discontinued (Reorder (Suppress CancelRx Message to Pharmacy)) Start: 12-17-2016 take 1 capsule by mo uth once daily propranolol (INDERAL LA) 120 MG 24 hr capsule Indications: Chronic nonintractable headache, unspecified headache type Take 1 (one) capsule (120 mg total) by mouth daily. 90 capsule 1 12/17/2016 Active topiramate 100 mg oral tablet (18 sources) Start: 03-15-2023 take 1 tablet by mouth twice daily topiramate (TOPAMAX) 100 mg tablet Indications: Chronic migraine without aura, intractable, with status migrainosus Take 1 tablet by mouth twice daily 180 tablet 1 03/15/2023 Active Start: 11-07-2020 take 1 tablet by emanuel th twice daily topiramate (TOPAMAX) 100 MG tablet Indications: Migraine without aura and without status migrainosus, not intractable Take 1 (one) tablet (100 mg total) by mouth 2 (two) times a day . 180 tablet 1 11/07/2020 Active Start: 05-13-2020 End: 11-07-2020 take 2 tablets by mouth twice daily topiramate (TOPAMAX) 50 MG tablet Indications: Migraine without aura and without status migrainosus, not intractable Take 2 (two) tablets (100 mg total) by mouth 2 (two) times a day . 360 tablet 1 05/13/2020 11/07/2020 Discontinued (Reorder (Suppress CancelRx Message to Pharmacy)) Start: 09-27-2018 End: 04-05-2020 take 2 tablets by mouth twice daily topiramate (TOPAMAX) 50 MG tablet Take 2 (two) tablets (100 mg total) by mouth 2 (two) times a day Gradually increase to this dose as instructed . 360 tablet 1 09/27/2018 03/18/2019 Discontinued (Reorder (Suppress CancelRx Message to Pharmacy)) Start: 05-04-2018 End: 05-04-2019 take 1 tablet by mouth twice daily topiramate (TOPAMAX) 50 MG tablet Take 1 (one) tablet (50 mg total) by mouth 2 (two) times a day Gradually increase to this dose as instructed . 60 tablet 5 05/04/2018 09/27/2018 Discontinued ubrogepant 100 mg oral tablet (6 sources) Start: 08-03-2022 ubrogepant (UB RELVY) 100 mg tablet Indications: Chronic migraine without aura, intractable, with status migrainosus , Neuralgia and neuritis Take one tablet at onset of severe headache. May repeat in 2 hours if needed. Limit 2 / 24hrs. Limit 2/week and 10/month 10 tablet 2 08/03/2022 Active vitamin b12 1 mg oral tablet (3 sources) Vitamin B12 take 1 tablet by mouth once daily cyanocobalamin (B-12) 1000 MCG tablet Take 1,000 mcg by mouth daily . 0 Active Completed/Discontinued Medications Medication Drug Class(es) Dates Sig (Normalized) Sig (Original) onabotulinumtoxina 200 unt injection (2 sources) Acetylcholine Release Inhibitor Start: 7 End: 7 onabotulinumtoxinA (BOTOX) injection 0-200 Units Start: 03-22-2017 End: 03-22-2017 onabotulinumtoxinA (BOTOX) i njection 0-200 Units 0-200 Units, Intramuscular, Once, 03/22/17 at 1700, For 1 dose Given 03/22/2017 16:12 EDT 155 Units Other galcanezumab-gnlm (EMGALITY) 120 mg/mL Pen (2 sources) Start: 07-04-2018 End: 04-06-2019 galcanezumab-gnlm (EMGALITY) 120 mg/mL Pen Indications: Intractable chronic migraine without aura and without status migrainosus Inject 120 mg under the skin every 28 days Take 2 injections for loading dose. . 2 Syringe 0 07/04/2018 04/06/2019 Discontinued (Reorder) Start: 07-04-2018 galcanezumab-g nlm (EMGALITY) 120 mg/mL Pen Indications: Intractable chronic migraine without aura and without status migrainosus Inject 120 mg under the skin every 28 days Take 2 injections for loading dose. . 2 Syringe 0 07/04/2018 Active onabotulinumtoxina 200 unt injection (6 sources) Start: 12-23-2017 End: 12-23-2017 onabotulinumtoxinA (BOTOX) injection 155 Units Start: 12-23-2017 End: 12-23-2017 onabotulinumtoxinA (BOTOX) i njection 155 Units Start: 09-23-2017 End: 09-23-2017 onabotulinumtoxinA (BOTOX) i njection 155 Units Start: 09-23-2017 End: 09-23-2017 onabotulinumtoxinA (BOTOX) i njection 155 Units Start: 06-24-2017 End: 06-24-2017 onabotulinumtoxinA (BOTOX) i njection 0-200 Units Start: 06-24-2017 End: 06-24-2017 onabotulinumtoxinA (BOTOX) i njection 0-200 Units 0-200 Units, Intramuscular, Once, Dominique 06/24/17 at 1245, For 1 dose Given 06/24/2017 11:52 EST 155 Units Other Problems Active Problems Problem Classification Problem Date Documented Da te Episodic/Chronic Acquired foot deformities (4 sources) Varus deformity, not elsewhere classified, right ankle; Translations: [VARUS DEFORMITY NEC RIGHT ANKLE] Onset: 06-15-2022 Episodic Asthma (7 sources) Unspecified asthma, uncomplicated; Translations: [Asthma] Onset: 07-23-2022 06-09-2023 Chronic Blindness and vision defects (6 sources) Visual impairment; Translations: [Unspecified visual loss] Onset: 06-09-2023 06-09-2023 Chronic Cardiac and circulatory congenital anomalies (2 sources) Other malformations of cerebral vessels; Translations: [Other malformations of cerebral vessels] Onset: 08-02-2023 Chronic Cardiac dysrhythmias (2 sources) Atrial premature depolarization; Translations: [Atrial premature depolarization] Onset: 06-14-2023 Chronic Complication of device; implant or graft (1 source) Displacement of intrauterine contraceptive device, initial encounter; Translations: [Displacement of intrauterine contraceptive device, initial encounter] Onset: 11-22-2023 Episodic Contraceptive and procreative management (4 sources) Encounter for routine checking of intrauterine contraceptive device; Translations: [Encounter for removal and reinsertion of intrauterine contraceptive device] Onset: 11-04-2023 Episodic Deficiency and other anemia (6 sources) Anemia; Translations: [Anemia, unspecified] Onset: 06-09-2023 06-09-2023 Episodic Diabetes mellitus without complication (7 sources) Type 2 diabetes mellitus without complications; Translations: [Diabetes mellitus] Onset: 06-16-2022 06-09-2023 Chronic Diabetes mellitus without complication (7 sources) Prediabetes; Translations: [Prediabetes] Onset: 07-23-2022 06-09-2023 Episodic Epilepsy; convulsions (6 sources) Seizure; Translations: [Unspecified convulsions] Onset: 06-09-2023 06-09-2023 Episodic Essential hypertension (7 sources) Essential (primary) hypertension; Translations: [Hypertensive disorder] Onset: 07-23-2022 06-09-2023 Chronic Headache; including migraine (20 sources) Migraine without aura; Translations: [Refractory migraine without aura] Onset: 12-26-2014 Resolved: 11-07-2020 12-26-2014 Chronic Headache; including migraine (20 sources) Drug-induced headache, not elsewhere classified, not intractable; Translations: [Headache] Onset: 12-26-2014 Resolved: 11-09-2019 12-26-2014 Episodic Intracranial injury (1 source) Concussion with no loss of consciousness; Translations: [Concussion without loss of consciousness, initial encounter] Episodic Menopausal disorders (1 source) Hormone replacement therapy; Translations: [HORMONE REPLACEMENT THERAPY] Onset: 07-23-2022 Episodic Menstrual disorders (6 sources) Excessive and frequent menstruation with irregular cycle; Translations: [Irregular menstruation, unspecified] Onset: 11-04-2023 Chronic Nutritional deficiencies (7 sources) Cobalamin deficiency; Translations: [Deficiency of other specified B group vitamins] Onset: 06-09-2023 06-09-2023 Episodic Osteoarthritis (6 sources) Arthritis; Translations: [Unspecified osteoarthritis, unspecified site] Onset: 06-09-2023 06-09-2023 Chronic Other acquired deformities (6 sources) Scoliosis deformity of spine; Translations: [Scoliosis, unspecified] Onset: 06-09-2023 06-09-2023 Chronic Other acquired deformities (1 source) Unspecified acquired deformity of right lower leg; Translations: [UNS ACQUIRED DEFORMITY RT LOWER LEG] Onset: 07-23-2022 Episodic Other aftercare (1 source) Other long-term (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; Translations: [[facility] CURRENT DRUG THERAPY] Onset: 07-23-2022 Episodic Other and ill-defined cerebrovascular disease (6 sources) Intracranial aneurysm; Translations: [Cerebral aneurysm, nonruptured] Onset: 06-09-2023 06-09-2023 Chronic Other and unspecified benign neoplasm (1 source) Hemangioma of other sites; Translations: [HEMANGIOMA OF OTHER SITES] Onset: 07-23-2022 Episodic Other and unspecified benign neoplasm (6 sources) Cavernous hemangioma of brain; Translations: [Hemangioma of intracranial structures] Onset: 06-09-2023 06-09-2023 Episodic Other connective tissue disease (5 sources) Pain in right foot; Translations: [PAIN IN RIGHT FOOT] Onset: 08-03-2022 Episodic Other connective tissue disease (1 source) Synovitis and tenosynovitis, unspecified; Translations: [SYNOVITIS AND TENOSYNOVITIS UNS] Onset: 07-23-2022 Episodic Other connective tissue disease (1 source) Neuropathy; Translations: [Neuralgia and neuritis, unspecified] 08-27-2023 Episodic Other endocrine disorders (6 sources) Polycystic ovary syndrome; Translations: [Polycystic ovarian syndrome] Onset: 06-09-2023 06-09-2023 Chronic Other endocrine disorders (3 sources) Polycystic ovarian syndrome; Translations: [Polycystic ovarian syndrome] Onset: 06-09-2023 Chronic Other female genital disorders (2 sources) Other specified abnormal uterine and vaginal bleeding; Translations: [Other specified abnormal uterine and vaginal bleeding] Onset: 12-22-2023 Chronic Other female genital disorders (1 source) Endometrial hyperplasia, unspecified; Translations: [Endometrial hyperplasia, unspecified] Onset: 01-25-2024 Chronic Other female genital disorders (1 source) Other specified conditions associated with female genital organs and menstrual cycle; Translations: [Other specified conditions associated with female genital organs and menstrual cycle] Onset: 01-25-2024 Episodic Other injuries and conditions due to external causes (1 source) Injury, unspecified, sequela; Translations: [INJURY UNSPECIFIED SEQUELA] Onset: 07-23-2022 Episodic Other non-traumatic joint disorders (1 source) Other specified joint disorders, right ankle and foot; Translations: [OTHER SPEC JOINT D/O RT ANKLE FOOT] Onset: 09-08-2022 Episodic Other non-traumatic joint disorders (5 sources) Pain in right ankle and joints of right foot; Translations: [PAIN IN RIGHT ANKLE] Onset: 07-30-2022 Episodic Other nutritional; endocrine; and metabolic disorders (7 sources) Body mass index 40+ - severely obese; Translations: [Body mass index (BMI) 50.0-59.9, adult] Onset: 05-01-2020 06-09-2023 Chronic Other nutritional; endocrine; and metabolic disorders (6 sources) Morbid obesity; Translations: [Morbid (severe) obesity due to excess calories] Onset: 06-09-2023 06-09-2023 Chronic Other nutritional; endocrine; and metabolic disorders (3 sources) Morbid (severe) obesity due to excess calories; Translations: [Morbid (severe) obesity due to excess calories] Onset: 06-09-2023 Chronic Other nutritional; endocrine; and metabolic disorders (2 sources) Body mass index (BMI) 50.0-59.9, adult; Translations: [Body mass index (BMI) 50.0-59.9, adult] Onset: 05-01-2020 Chronic Other upper respiratory disease (1 source) Other seasonal allergic rhinitis; Translations: [OTHER SEASONAL ALLERGIC RHINITIS] Onset: 07-23-2022 Chronic Residual codes; unclassified (20 sources) Sleep apnea; Translations: [Obstructive sleep apnea syndrome] Onset: 12-26-2014 12-26-2014 Chronic Residual codes; unclassified (19 sources) Obstructive sleep apnea syndrome; Translations: [Obstructive sleep apnea (adult) (pediatric)] Onset: 10-03-2015 10-03-2015 Chronic Residual codes; unclassified (1 source) Sleep apnea, unspecified; Translations: [SLEEP APNEA UNSPECIFIED] Onset: 07-23-2022 Chronic Residual codes; unclassified (2 sources) Genetic carrier of other disease; Translations: [Genetic carrier of other disease] Onset: 12-08-2023 Episodic Spondylosis; intervertebral disc disorders; other back problems (5 sources) Degeneration of cervical intervertebral disc; Translations: [Other cervical disc degeneration, unspecified cervical region] Onset: 09-30-2023 08-30-2023 Chronic Spondylosis; intervertebral disc disorders; other back problems (6 sources) Chronic low back pain; Translations: [Lumbago with sciatica, left side] Onset: 11-07-2020 Episodic Sprains and strains (2 sources) Sprain of other ligament of right ankle, sequela; Translations: [Sprain of deltoid ligament of right ankle, sequela] Onset: 02-27-2022 Episodic Thyroid disorders (7 sources) Hypothyroidism, unspecified; Translations: [Hypothyroidism] Onset: 07-23-2022 06-09-2023 Chronic Unclassified (5 sources) Myalgia, other site; Translations: [Myofascial pain syndrome] Onset: 08-09-2017 08-09-2017 Unclassified (1 source) CONTACT W/AND (SUSP) EXPOS COVID-19; Translations: [CONTACT W/AND (SUSP) EXPOS COVID-19] Onset: 06-16-2022 Unclassified (1 source) Botulinum Toxin Injection Onset: 08-24-2023 Unclassified (1 source) EMB/Hysteroscopy Onset: 12-22-2023 Unclassified (1 source) Menstrual Problem Onset: 11-04-2023 Unclassified (1 source) Consult Onset: 09-30-2023 Past or Other Problems Problem Classification Problem Date Documented Date Episodic/Chronic Biliary tract disease (18 sources) Cholecystitis; Translations: [Cholecystitis, unspecified] Onset: 12-28-2014 12-28-2014 Episodic Conditions associated with dizziness or vertigo (18 sources) Lightheadedness; Translations: [Dizziness and giddiness] Onset: 12-26-2014 12-26-2014 Episodic Mood disorders (6 sources) Mood disorders Onset: 08-03-2022 Resolved: 08-02-2023 08-03-2022 Nonspecific chest pain (2 sources) Other chest pain; Translations: [Other chest pain] Onset: 06-14-2023 Episodic Other connective tissue disease (10 sources) Myalgia; Translations: [Fibromyositis] Onset: 08-09-2017 08-09-2017 Episodic Other connective tissue disease (4 sources) Posterior tibial tendinitis, right leg; Translations: [POSTERIOR TIBIAL TENDINITIS RT LEG] Onset: 02-24-2022 Episodic Other connective tissue disease (3 sources) Neuralgia and neuritis, unspecified; Translations: [Neuralgia and neuritis, unspecified] Onset: 08-02-2023 Episodic Other lower respiratory disease (2 sources) Shortness of breath; Translations: [Shortness of breath] Onset: 06-14-2023 Episodic Other nervous system disorders (2 sources) Paresthesia of skin; Translations: [Paresthesia of skin] Onset: 08-02-2023 Episodic Other screening for suspected conditions (not mental disorders or infectious disease) (2 sources) Abnormal electrocardiogram [ECG] [EKG]; Translations: [Abnormal electrocardiogram (ECG) (EKG)] Onset: 06-14-2023 Episodic Unclassified (6 sources) Onset: 08-03-2022 08-03-2022 Results Test Name Value Interpretation Reference Range Facility Surgical Pathologyon 024 Surgical Pathology Normal [facility] Comment on above: Result Comment: [facility] [address] [place] [address] Surgical Pathology Consultation Patient Name:BRENDA NOVAK:1975 (Age: 48)Gender:FTaken:4Reported:4Physician(s):Patti Leonard DO ([phone])Copy To: Rec. #:[id number]: #[id number] Final Pathologic Diagnosis Uterus, endometrium, biopsy: - Extensive endometrial glandular and stromal breakdown with focal gland crowding, see comment. - Focal progestational effect. Comment: The stromal breakdown has elicited surface metaplastic change, which is not interpreted as neoplastic. Focal gland crowding is also present. The differential diagnosis includes artifactual gland crowding due to stromal breakdown and focal nonatypical hyperplasia. Chip Bin Operator slides were shown at gynecologic pathology consensus conference on January 04, 2024, where a diagnosis of focal nonatypical hyperplasia was considered. Clinical correlation is recommended to determine whether the patient carried a diagnosis of hyperplasia before placement of the intrauterine device. In this case, a diagnosis of residual nonatypical hyperplasia would be favored. If there is concern for persistent or residual nonatypical hyperplasia, an endometrial curettage should be considered. NOTE: The above diagnoses and comment is that of Grady Rodrigues M.D., [facility], [place], [place]. Please see the complete report in the patient's EMR. Report Electronically Signed Out [facility]/01/05/2024Shayy Lima MD Preliminary Report (PHS) Date Reported: 12/31/2023 This case is sent to [facility] for expert consult review, Final Diagnosis pending their review. Electronically Signed Out Shayy Lima MD Interpretation performed at [facility], [address] [place] [address], License number: [id number]. Clinical History DUB (dysfunctional bleeding). Gross Description Received in formalin labeled STICKLES, EMB are multiple lewis fragments of soft tissue, embedded in lewis cloudy mucoid debris tinged with blood, aggregating to 2.5 x 1.5 x 0.3 cm. Filtered and submitted in a single cassette. (1, ns, [id number], m7) MG mjg/4AO Specimen(s) Received Endometrial biopsy Fee Codes(s): 1; 80577, 40107, 16124 VITAMIN B12on 12-22-2023 Cobalamin (Vitamin B12) [Mass/Vol] pg/mL High 180-914 [facility] Comment on above: Performed By: #### 2 132-9 #### [facility] ([id number]) [address] [place] [address], [address] [place] [address] Alpha 1 antitrypsin Nephelom etry [Mass/Vol]on 12-13-2023 ALPHA 1 ANTITRYPSIN REQUEST CREDITED Normal 83-199 [facility] Comment on above: Result Comment: DUPL ICATE ORDER Corrected on 12/12 AT 2030: Previously reported as 143 Performed By: #### 6 771-0 #### [facility] ([id number]) [address] [place] [address], [address] [place] [address] #### 03137-8 #### [facility] ([id number]) [address] [place] [address] Alpha 1 antitrypsin phenotyp ing [Interp]on 12-13-2023 Pblaj-0-Cxlbwvfaod n Phenotype MS Normal [facility] Comment on above: Result Comment: NOTE Heterozygous for M and S isoforms. This phenotype is usually associated with normal uybmg-9-fkvderhgkld concentrations. ADDITIONAL INFORMATION Method: Isoelectric Focusing, This assay identifies the phenotype of the circulating ytktw-6-pgibszgtyrd (A1A) protein. If the patient is on replacement therapy or has been recently transfused, the phenotype will detect patient and replacement or transfused plasma A1A protein. This test also cannot detect a null allele which could be responsible for an A1A deficiency. Performed By: #### 6 771-0 #### [facility] ([id number]) [address] [place] [address], [address] [place] [address] #### 50754-4 #### [facility] ([id number]) [address] [place] [address] Jicsj-1-Iunnqezdhx n, S 143 mg/dL Normal 100 - 190 [facility] Comment on above: Result Comment: NOTE ADDITIONAL INFORMATION Method: Nephelometry Test Performed by: [facility] [address] [place] [address] Comb Winder: Sav Castro Ph.D.; CLIA# [id number] Performed By: #### 6 771-0 #### [facility] ([id number]) [address], [address] [place] [address] #### 21776-4 #### [facility] ([id number]) [address] [facility] [place] [address] CT [address] PELVIS W CONT CT PELVIS W CONT Clinical history: IUD placement. Bleeding and cramping. CT pelvis with contrast: 12/06/2023. PROCEDURE: Axial images were pelvis. Coronal and sagittal reconstructions were. All CT scans at this facility use dose modulation, iterative reconstruction, and/or weight based dosing when appropriate to reduce radiation dose to as low as reasonably achievable. FINDINGS: The IUD device is positioned within the endometrial canal with a relatively low position towards the cervix. The IUD device arms are obliquely positioned and may extend into the myometrium. There is no focal myometrial irregularity or fluid collection evident. The contours of the uterus are within normal limits and has normal size. Adnexal evaluation is not optimal with a 1.6 cm complex appearing area in the left ovary superiorly likely a corpus luteum. No free fluid or gas is present within the pelvis. Visualized bowel is unremarkable. Degenerative findings are present at L5-S1 with no focal osseous abnormality IMPRESSION: Low position of the IUD within the endometrial canal with oblique orientation and arms extending into the myometrium. Finalized by Talita Au MD on 12/07/2023 6:01 AM Normal [facility] XR PELVIS 1 OR 2 VWSon 11-22 XR PELVIS 1 OR 2 VWS XR PELVIS 1 OR 2 VWS CLINICAL HISTORY: Bleeding and cramping for 6 months Comparison: None Views: 1 view FINDINGS: * IUD overlies the pelvis. * No fracture, dislocation, erosion, nor periostitis. * Alignment satisfactory. * No radiopaque foreign body * Well-circumscribed radiopaque object overlying the right transitional transverse process of L5 may represent ingested pill or overlying artifact. IMPRESSION: * Unremarkable supine abdomen Finalized by Doug Porras MD on 11/23/2023 3:49 PM Normal [facility] US PELVIC WITH TRANSVAGINALo n 11-16-2023 US PELVIC WITH TRANSVAGINAL US PELVIC WITH TRANSVAGINAL *ADDENDUM*There is no evident intrauterine device visualized if there is concern for displaced intrauterine device consider correlation with plain film or CT. Finalized by Ryan Yeh MD on 11/16/2023 12:50 PM Normal [facility] CBC AND AUTO DIFFon 11-04-19 ABSOLUTE BASOPHIL 0.0 X10E9/L Normal 0.0-0.2 [facility] Comment on above: Performed By: #### C BCA, CMP, THYR, 2842-3, 50645-0, 65223-4 #### [facility] ([id number]) [address], [address] [place] [address] ABSOLUTE NEUTROPHIL 6.0 X10E9/L Normal 1.5-6.6 [facility] Comment on above: Performed By: #### C BCA, CMP, THYR, 2842-3, 76040-0, 13920-4 #### [facility] ([id number]) [address], [address] [place] [address] Basophils/100 WBC (Bld) 0.2 % Normal [facility] Comment on above: Performed By: #### C BCA, CMP, THYR, 2842-3, 48524-4, 32754-5 #### [facility] ([id number]) [address], [address] [place] [address] Eosinophils (Bld) [#/Vol] 0.1 10*3/uL Normal 0.0-0.4 [facility] Comment on above: Performed By: #### C BCA, CMP, THYR, 2842-3, 10736-6, 94065-9 #### [facility] ([id number]) [address], [address] [place] [address] Eosinophils/100 WBC (Bld) 0.8 % Normal [facility] Comment on above: Performed By: #### C BCA, CMP, THYR, 2842-3, 54478-9, 07263-8 #### [facility] ([id number]) [address] [address] [place] [address] Erythrocyte distribution width (RBC) [Ratio] 14.1 % Normal 11.5-15.0 [facility] Comment on above: Performed By: #### C BCA, CMP, THYR, 2842-3, 45169-7, 88131-0 #### [facility] ([id number]) [address] [address] [place] [address] Hematocrit (Bld) [Volume fraction] 46.6 % Normal 35-47 [facility] Comment on above: Performed By: #### C BCA, CMP, THYR, 2842-3, 57146-1, 22480-1 #### [facility] ([id number]) [address] [address] [place] [address] Hemoglobin (Bld) [Mass/Vol] 15.5 g/dL Normal 11.7-15.5 [facility] Comment on above: Performed By: #### C BCA, CMP, THYR, 2842-3, 43973-2, 93604-8 #### [facility] ([id number]) [address] [address] Lymphocytes (Bld) [#/Vol] 2.6 10*3/uL Normal 1.0-3.5 [facility] Comment on above: Performed By: #### C BCA, CMP, THYR, 2842-3, 81269-2, 33084-0 #### [facility] ([id number]) [address] [address] Lymphocytes/100 WBC (Bld) 27.3 % Normal [facility] Comment on above: Performed By: #### C BCA, CMP, THYR, 2842-3, 52365-1, 57743-9 #### [facility] ([id number]) [address], [facility] [address] [place] [address] MCH (RBC) [Entitic mass] 32.8 pg Normal 27-34 [facility] [facility] Comment on above: Performed By: #### C BCA, CMP, THYR, 2842-3, 41891-2, 44375-7 #### [facility] ([id number]) [address] [address] [place] [address] MCHC (RBC) [Mass/Vol] 33.4 g/dL Normal 32-36 [facility] Comment on above: Performed By: #### C BCA, CMP, THYR, 2842-3, 62478-8, 79074-4 #### [facility] ([id number]) [address] [address] [place] [address] MCV (RBC) [Entitic vol] 98 fL Normal 80-100 [facility] Comment on above: Performed By: #### C BCA, CMP, THYR, 2842-3, 45191-9, 85760-8 #### [facility] ([id number]) [address] [address] [place] [address] Monocytes (Bld) [#/Vol] 0.8 10*3/uL Normal 0-0.9 [facility] Comment on above: Performed By: #### C BCA, CMP, THYR, 2842-3, 30198-9, 60302-9 #### [facility] ([id number]) [address] [address] [place] [address] Monocytes/100 WBC (Bld) 8.1 % Normal [facility] Comment on above: Performed By: #### C BCA, CMP, THYR, 2842-3, 14435-3, 58648-2 #### [facility] ([id number]) [address] [address] [place] [address] Neutrophils/100 WBC (Bld) 63.6 % Normal [facility] Comment on above: Performed By: #### C BCA, CMP, THYR, 2842-3, 71170-2, 25985-1 #### [facility] ([id number]) [address] [place] [address] Platelet mean volume (Bld) [Entitic vol] 7.8 fL Normal 7-12 [facility] Comment on above: Performed By: #### C BCA, CMP, THYR, 2842-3, 64320-0, 14554-0 #### [facility] ([id number]) [address] [place] [address] Platelets (Bld) [#/Vol] 378 10*3/uL Normal 150-450 [facility] Comment on above: Performed By: #### C BCA, CMP, THYR, 2842-3, 54573-1, 59116-4 #### [facility] ([id number]) [address] [place] [address] RBC COUNT 4.74 X10E12/L Normal 3.80-5.20 [facility] Comment on above: Performed By: #### C BCA, CMP, THYR, 2842-3, 75368-6, 87150-0 #### [facility] ([id number]) [address] [place] [address] WBC (Bld) [#/Vol] 9.4 10*3/uL Normal 4.0-11.0 [facility] Comment on above: Performed By: #### C BCA, CMP, THYR, 2842-3, 94549-6, 00930-5 #### [facility] ([id number]) [address] [place] [address] COMPREHENSIVE METABOLIC PANE Ciro 11-04-2023 Albumin [Mass/Vol] 4.3 g/dL Normal 3.2-5.3 [facility] Comment on above: Performed By: #### C BCA, CMP, THYR, 2842-3, 11821-5, 96037-8 #### [facility] ([id number]) [address] [place] [address] ALP [Catalytic activity/Vol] 96 U/L Normal 39-130 [facility] Comment on above: Performed By: #### C BCA, CMP, THYR, 2842-3, 60390-1, 09366-5 #### [facility] ([id number]) [address] [place] [address] ALT [Catalytic activity/Vol] 13 U/L Normal 0-31 [facility] Comment on above: Performed By: #### C BCA, CMP, THYR, 2842-3, 26021-5, 78738-0 #### [facility] ([id number]) [address] [place] [address] Anion gap [Moles/Vol] 8 mmol/L Normal 5-15 [facility] Comment on above: Performed By: #### C BCA, CMP, THYR, 2842-3, 49721-8, 71294-9 #### [facility] ([id number]) [address] [place] [address] AST [Catalytic activity/Vol] 10 U/L Normal 0-41 [facility] Comment on above: Performed By: #### C BCA, CMP, THYR, 2842-3, 32804-0, 52241-7 #### [facility] ([id number]) [address] [place] [address] Bilirubin [Mass/Vol] 0.5 mg/dL Normal 0.3-1.2 [facility] Comment on above: Performed By: #### C BCA, CMP, THYR, 2842-3, 12748-2, 54289-3 #### [facility] ([id number]) [address] [place] [address] Calcium [Mass/Vol] 9.4 mg/dL Normal 8.5-10.5 [facility] Comment on above: Performed By: #### C BCA, CMP, THYR, 2842-3, 19708-3, 17938-0 #### [facility] ([id number]) [address], [facility] [address] [place] [address] Chloride [Moles/Vol] 106 mmol/L Normal 98-109 [facility] Comment on above: Performed By: #### C BCA, CMP, THYR, 2842-3, 47636-7, 80402-5 #### [facility] ([id number]) [address] [place] [address] CO2 [Moles/Vol] 25 mmol/L Normal 22-32 [facility] Comment on above: Performed By: #### C BCA, CMP, THYR, 2842-3, 36064-4, 56101-6 #### [facility] ([id number]) [address], [facility] [address] [place] [address] Creatinine [Mass/Vol] 0.84 mg/dL Normal 0.40-1.00 [facility] Comment on above: Result Comment: METH OD TRACEABLE TO IDMS STANDARD Performed By: #### C BCA, CMP, THYR, 2842-3, 86105-8, 68827-5 #### [facility] ([id number]) [address] [address] [place] [address] GFR/1.73 sq M.predicted among non-blacks MDRD (S/P/Bld) [Vol rate/Area] 87 mL/min/{1.73_m2} Normal >59 [facility] Comment on above: Result Comment: Reported eGFR is based on the CKD-EPI 2020 equation that does not use a race coefficient. Performed By: #### C BCA, CMP, THYR, 2842-3, 18412-8, 60212-0 #### [facility] ([id number]) [address] [place] [address] Glucose [Mass/Vol] 97 mg/dL Normal 65-99 [facility] Comment on above: Performed By: #### C BCA, CMP, THYR, 2842-3, 40253-0, 17483-4 #### [facility] ([id number]) [address] [place] [address] Potassium [Moles/Vol] 4.2 mmol/L Normal 3.5-5.0 [facility] Comment on above: Performed By: #### C BCA, CMP, THYR, 2842-3, 65946-7, 22577-2 #### [facility] ([id number]) [address] [place] [address] Protein [Mass/Vol] 7.6 g/dL Normal 6.0-8.0 [facility] Comment on above: Performed By: #### C BCA, CMP, THYR, 2842-3, 78179-0, 60440-5 #### [facility] ([id number]) [address] [place] [address] Sodium [Moles/Vol] 139 mmol/L Normal 134-146 [facility] Comment on above: Performed By: #### C BCA, CMP, THYR, 2842-3, 86073-7, 39836-0 #### [facility] ([id number]) [address] [place] [address] Urea nitrogen [Mass/Vol] 14 mg/dL Normal 5-23 [facility] Comment on above: Performed By: #### C BCA, CMP, THYR, 2842-3, 22995-7, 36445-0 #### [facility] ([id number]) [address] [place] [address] Follitropin Qnon 11-04-2023 FOLLICLE STIM HORMONE 5.7 mIU/mL Normal [facility] Comment on above: Result Comment: NORMAL FEMALE Luteal 1.8-5.1 mIU/mL Follicular 3.8-8.8 mIU/mL Mid Cycle 4.5-22.5 mIU/mL [place] 16.7-113.6 mIU/mL Performed By: #### C BCA, CMP, THYR, 2842-3, 08802-8, 14265-2 #### [facility] ([id number]) [address] [place] [address] Lutropin Qnon 11-04-2023 LUTEINIZING HORMONE 12.0 mIU/mL Normal [facility] Comment on above: Result Comment: NORMAL FEMALE Follicular 2.1-10.9 mIU/mL Mid Cycle 19.2-103 mIU/mL Luteal 1.2-12.9 mIU/mL [place] 10.9-58.6 mIU/mL Performed By: #### C BCA, CMP, THYR, 2842-3, 04302-7, 85565-3 #### [facility] ([id number]) [address] [place] [address] Prolactin [Mass/Vol]on 11-03 PROLACTIN 21.6 ng/mL Normal 3.3-26.7 [facility] Comment on above: Performed By: #### C BCA, CMP, THYR, 2842-3, 85062-6, 96515-2 #### [facility] ([id number]) [address] [place] [address] THYROID PROFILEon 11-04-2023 Free T4 [Mass/Vol] 0.99 ng/dL Normal 0.61-1.60 [facility] Comment on above: Performed By: #### C BCA, CMP, THYR, 2842-3, 65794-6, 79622-6 #### [facility] ([id number]) [address] [place] [address] TSH 1.16 uIU/mL Normal 0.49-4.67 [facility] Comment on above: Performed By: #### C BCA, CMP, THYR, 2842-3, 10910-2, 50820-9 #### [facility] ([id number]) [address] [place] [address] MR BRAIN W WO CONTon 024 MR BRAIN W WO CONT MR BRAIN W WO CONT STUDY: MR BRAIN W WO CONT INDICATION: Chronic migraine without aura, intractable, with status migrainosus; Neuralgia and neuritis; Cerebral cavernous malformation. TECHNIQUE: * Routine multiplanar multisequence MR imaging of the brain was performed with and without intravenous contrast. FINDINGS: Comparison is made to 08/29/2023. No evidence of acute infarct, significant mass effect or midline shift. Multiple foci of susceptibility artifact left basal ganglia, left temporal lobe, left frontal operculum, right periatrial white matter, left occipital lobe, right middle cerebellar peduncle/right hemipons and cerebellar hemispheres which may reflect the sequela of hemorrhagic cavernous malformations, with new regions of hemorrhage in the right middle cerebellar peduncle/tre, left paramidline medulla oblongata and bilateral cerebral hemispheres. Regions of possible intrinsic T1 hyperintensity of minimal enhancement associated with the cavernous malformations in the left basal ganglia cavernous operations. Ventricles, sulci and cistern are unremarkable. Brain volume is age appropriate. No significant parenchymal signal abnormality. Globes and orbits are unremarkable. Paranasal sinuses are clear. Temporal bones are clear. No pathologic intracranial enhancement. IMPRESSION: * Redemonstrated multiple suspected cavernous malformations associated with susceptibility artifact, some of which are slightly more conspicuous compared to prior (possibly related to technique). * New small regions of susceptibility artifact are noted in the brainstem and infratentorial brain may reflect new foci of microhemorrhage since prior exam on 02/19/2021 or new cavernous malformations. Continued attention on follow-up imaging in one year is recommended to assess for stability. Finalized by Jaguar Santana on 08/29/2023 12:40 PM Normal [facility] MR CERVICAL SPINE W WO CONTo n 08-29-2023 MR CERVICAL SPINE W WO CONT MR CERVICAL SPINE W WO CONT STUDY: MR CERVICAL SPINE W WO CONT HISTORY: Chronic migraine without aura, intractable, with status migrainosus; Cerebral cavernous malformation; Paresthesia of arm TECHNIQUE: * Routine multiplanar multisequence MR imaging of the cervical spine was performed with and without intravenous contrast. FINDINGS: Mild motion artifact. Vertebral body heights and alignment are maintained. Mild degenerative spondylosis with intervertebral disc space narrowing and posterior disc osteophyte complex most prominent at C6-C7 and to a lesser extent C5-C6. No suspicious marrow signal changes or pathologic enhancement. No susceptibility artifact in the cervical cord to suggest cavernous malformation in this region. No cord signal abnormality. C2-C3: Mild right neuroforaminal narrowing as a result of facet arthropathy. No significant spinal canal narrowing. C3-C4: Mild bilateral neuroforaminal narrowing. Minimal spinal canal narrowing. C4-C5: Minimal broad-based disc osteophyte complex and minimal facet catheter results in [id number]-yp-[id number] right neuroforaminal narrowing. Mild spinal canal narrowing. C5-C6: Moderate left paracentral disc osteophyte complex results in mild spinal canal narrowing and left hemicord flattening. Bilateral facet and uncovertebral arthropathy results in moderate right and mild left neuroforaminal narrowing. C6-C7: Moderate right paracentral disc osteophyte complex results in mild spinal canal narrowing and mild right hemicord flattening. Facet and uncovertebral arthropathy results in bolk-pj-nbteerzs right and dfwhmwbn-rh-[id number] left neuroforaminal narrowing. C7-T1: No significant spinal canal or neural foraminal narrowing. Cavernous malformations are again noted within the brain, dictated separately. Small nonspecific cyst near the right parotid gland. IMPRESSION: * Multilevel degenerative spondylosis most significant at C5-C6 and C6-C7 as described. * No suspected susceptibility artifact within the cervical cord to suggest cervical spine cavernous malformations. Finalized by Jaguar Santana on 08/29/2023 12:52 PM Normal [facility] CT CTA COR ARTERIES W OR WO SCORINGon 07-14-2023 CT CTA COR ARTERIES W OR WO SCORING CT CTA COR ARTERIES W OR WO SCORING CLINICAL INFORMATION: Chest pain. High CAD risk. TECHNIQUE: Computed tomography (CT) of the heart was obtained using electrocardiography (ECG) triggering. 100 mL of Omni 350 contrast was administered intravenously. In preparation for the examination, the patient received 20 mg oral metoprolol for heart rate/rhythm control and 0.4 mg sublingual nitroglycerin tablet for coronary vasodilation. There were no complications 3-D volume rendered maximum intensity projection images were generated and reviewed under concurrent physician supervision on an independent workstation.. No FFR performed. All CT scans at this facility use dose modulation, iterative reconstruction, and/or weight based dosing when appropriate to reduce radiation dose to as low as reasonably achievable. COMPARISON: No relevant prior studies available. EXTRACARDIAC FINDINGS: The visualized lungs are clear and mediastinum is within normal limits. Images of the upper abdomen demonstrate no significant findings. The pulmonary arteries are normal. The visualized thoracic aorta is normal. CARDIAC MORPHOLOGY: The right atrium is normal. The right ventricle is normal. The left atrium is normal. The left ventricle is normal. Valves within normal limits. The pericardium is normal CALCIUM SCORE: Agatston Score: The total (aggregate) calcium score using the AJ-130 method is [address] Angiogram: The overall quality of the CT angiographic examination is excellent. It is limited by poor arterial opacification. Coronary Artery Angiogram Findings: Stenoses are reported as maximum percentage diameter stenosis. Stenosis grading is reported using the following scheme: Normal: no stenosis Mild: 1-49% stenosis Moderate: 50-70% stenosis Severe: >70% stenosis Occluded The coronary artery system is right dominant with normal origins. The LM has no stenosis with no plaque. The proximal LAD and first diagonal branch (D1) have no stenosis with no plaque. The mid-distal LAD, D2 and D3 branches) have no stenosis with no plaque. The LCx and its obtuse marginal (OM) branches have no stenosis with no plaque. The RCA and acute marginal right posterior descending artery (RPDA)/right posterolateral {RPL} branches branches have no stenosis with no plaque. IMPRESSION: No coronary artery stenosis or plaque. No FFR performed. Total calcium score of 0. The coronary arteries and cardiac structures were co-interpreted by Dr. Soila Fairbanks MD of the department of radiology and Dr. Vinson of department of cardiology. The extracardiac structures including the lungs were solely interpreted by Dr. Soila Fairbanks MD of the department of radiology. Calcium Score interpretation and guidelines for asymptomatic individuals, 45 - 75 years of age are as follows: Estimated Risk of a Total Score Relative Risk Coronary Event Each Year 0 very low risk 2 per 1000 1-10 low risk 5 per 1000 11-100 intermediate risk 5 to 20 per 1000 101-400 moderately high risk more than 2 per 100 over 400 high risk between 2 and 5 per 100; approximately 15% chance of significant blockages; consideration should be given to obtaining stress echo or stress nuclear testing. Finalized by Soila Fairbanks MD on 07/14/2023 3:35 PM Normal [facility] CBC AUTO DIFFon 06-18-2022 BASO # 0.0 103/ul Normal 0.0-0.1 [facility] Comment on above: Performed By: #### C BC #### [facility] [address] [address] [address] Dl Suarez Basophils/100 WBC (Bld) 0.4 % Normal 0.2-2.0 [facility] Comment on above: Performed By: #### C BC #### [facility] [address] [place] [address] Dr. Dl Suarez EO # 0.3 103/ul Normal 0.0-0.7 [facility] Comment on above: Performed By: #### C BC #### [facility] [address] [place] [address] Dr. Dl Suarez Eosinophils/100 WBC (Bld) 3.2 % Normal 0.9-7.0 [facility] Comment on above: Performed By: #### C BC #### [facility] [address] [place] [address] Dr. Dl Suarez Erythrocyte distribution width (RBC) [Ratio] 13.7 % Normal 11.0-15.0 [facility] Comment on above: Performed By: #### C BC #### [facility] [address] [place] [address] Dr. Dl Suarez Hematocrit (Bld) [Volume fraction] 41.5 % Normal 36.0-48.0 [facility] Comment on above: Performed By: #### C BC #### [facility] [address] [place] [address] Dr. Dl Suarez Hemoglobin (Bld) [Mass/Vol] 13.0 g/dL Normal 12.0-16.0 [facility] Comment on above: Performed By: #### C BC #### [facility] [address] [place] [address] Dr. Dl Suarez IG # 0.04 10e3/ul Critically high 0.00-0.03 [facility] Comment on above: Performed By: #### C BC #### [facility] [address] [place] [address] Dr. Dl Suarez IG % 0.4 % Normal 0.0-0.5 [facility] Comment on above: Performed By: #### C BC #### [facility] [address] [place] [address] Dr. Dl Suarez LYMPH # 3.8 103/ul Normal 1.2-3.8 [facility] Comment on above: Performed By: #### C BC #### [facility] [address] [place] [address] Dr. Dl Suarez Lymphocytes/100 WBC (Bld) 42.0 % Normal 20.5-60.0 [facility] Comment on above: Performed By: #### C BC #### [facility] [address] [place] [address] Dr. Dl Suarez MANUAL DIFF REQ NO Normal [facility] Comment on above: Performed By: #### C BC #### [facility] [address] [place] [address] Dr. Dl Suarez MCH (RBC) [Entitic mass] 32.3 pg Normal 26.7-34.0 [facility] Comment on above: Performed By: #### C BC #### [facility] [address] [place] [address] Dr. Dl Suarez MCHC (RBC) [Mass/Vol] 31.3 g/dL Normal 29.9-35.2 [facility] Comment on above: Performed By: #### C BC #### [facility] [address] [place] [address] Dr. Dl Suarez MCV (RBC) [Entitic vol] 103.2 fL Critically high 81.0-99.0 [facility] Comment on above: Performed By: #### C BC #### [facility] [address] [place] [address] Dr. Dl Suarez MONO # 0.9 103/ul Critically high 0.3-0.8 [facility] Comment on above: Performed By: #### C BC #### [facility] [address] [place] [address] Dr. Dl Suarez Monocytes/100 WBC (Bld) 9.5 % Normal 1.7-12.0 [facility] Comment on above: Performed By: #### C BC #### [facility] [address] [place] [address] Dr. Dl Suarez NEUT # 4.1 103/ul Normal 1.4-6.5 [facility] Comment on above: Performed By: #### C BC #### [facility] [address] [place], [place] [id number] Dr. Dl Suarez Neutrophils/100 WBC (Bld) 44.5 % Normal 43.0-75.0 [facility] Comment on above: Performed By: #### C BC #### [facility] [address] [place] [address] Dr. Dl Suarez Platelet mean volume (Bld) [Entitic vol] 9.6 fL Normal 9.5-13.5 [facility] Comment on above: Performed By: #### C BC #### [facility] [address] [place] [address] Dr. Dl Suarez PLT 295 103/ul Normal 150-450 [facility] Comment on above: Performed By: #### C BC #### [facility] [address] [place] [address] Dr. Dl Suarez RBC 4.02 106/ul Critically low 4.20-5.40 [facility] Comment on above: Performed By: #### C BC #### [facility] [address] [place] [address] Dr. Dl Suarez WBC 9.2 103/ul Normal 4.0-11.0 [facility] Comment on above: Performed By: #### C BC #### [facility] [address] [place] [address] Dr. Dl Suarez PROF 14(COMP METB)on 023 Albumin [Mass/Vol] 3.0 g/dL Critically low 3.4-5.0 [facility] Comment on above: Performed By: #### C MP #### [facility] [address] [place] [address] Dr. lD Suarez Albumin/Globulin [Mass ratio] 0.9 {ratio} Normal [facility] Comment on above: Performed By: #### C MP #### [facility] [address] [place] [address] Dr. Dl Suarez ALP [Catalytic activity/Vol] 71 U/L Normal 46-116 [facility] Comment on above: Performed By: #### C MP #### [facility] [address] [place] [address] Dr. Dl Suarez ALT [Catalytic activity/Vol] 25 U/L Normal 14-59 [facility] Comment on above: Performed By: #### C MP #### [facility] [address] [place] [address] Dr. Dl Suarez Anion gap [Moles/Vol] 9.1 mmol/L Normal [facility] Comment on above: Performed By: #### C MP #### [facility] [address] [address] [address] Dl Suarez AST [Catalytic activity/Vol] 16 U/L Normal 15-37 [facility] Comment on above: Performed By: #### C MP #### [facility] [address] [place] [address] Dr. Dl Suarez Bilirubin [Mass/Vol] 0.2 mg/dL Normal 0.2-1.0 [facility] Comment on above: Performed By: #### C MP #### [facility] [address] [place] [address] Dr. Dl Suarez Calcium [Mass/Vol] 8.7 mg/dL Normal 8.5-10.1 [facility] Comment on above: Performed By: #### C MP #### [facility] [address] [place] [address] Dr. Dl Suarez Chloride [Moles/Vol] 106 mmol/L Normal 98-107 [facility] Comment on above: Performed By: #### C MP #### [facility] [address] [place] [address] Dr. Dl Suarez CO2 [Moles/Vol] 26.6 mmol/L Normal 21.0-32.0 [facility] Comment on above: Performed By: #### C MP #### [facility] [address] [place] [address] Dr. Dl Suarez Creatinine [Mass/Vol] 0.76 mg/dL Normal 0.55-1.02 [facility] Comment on above: Performed By: #### C MP #### [facility] [address] [place] [address] Dr. Dl Suarez EGFR-AF WELSH >60 Normal >=60 [facility] Comment on above: Performed By: #### C MP #### [facility] [address] [address] [address] Dl Suarez EGFR-NON AF WELSH >60 Normal >=60 [facility] Comment on above: Performed By: #### C MP #### [facility] [address] [address] [address] Dl Suarez Globulin (S) [Mass/Vol] 3.3 g/dL Normal [facility] Comment on above: Performed By: #### C MP #### [facility] [address] [address] [address] Dl Suarez Glucose [Mass/Vol] 92 mg/dL Normal 74-106 [facility] [facility] Comment on above: Performed By: #### C MP #### [facility] [address] [address] [address] Dl Suarez Potassium [Moles/Vol] 3.7 mmol/L Normal 3.5-5.1 [facility] Comment on above: Performed By: #### C MP #### [facility] [address] [address] [address] Dl Suarez Protein [Mass/Vol] 6.3 g/dL Critically low 6.4-8.2 [facility] Comment on above: Performed By: #### C MP #### [facility] [address] [address] [address] Dl Suarez Sodium [Moles/Vol] 138 mmol/L Normal 136-145 [facility] Comment on above: Performed By: #### C MP #### [facility] [address] [address] [address] Dl Suarez Urea nitrogen [Mass/Vol] 15.0 mg/dL Normal 7.0-18.0 [facility] Comment on above: Performed By: #### C MP #### [facility] [address] [address] [address] Dl Suarez Urea nitrogen/Creatinin e [Mass ratio] 19.7 mg/mg Normal [facility] Comment on above: Performed By: #### C MP #### [facility] [address] [address] [address] Dl Suarez CBC AUTO DIFFon 06-17-2022 BASO # 0.0 103/ul Normal 0.0-0.1 [facility] Comment on above: Performed By: #### C BC #### [facility] [address] [place] [address] Dr. Dl Suarez Basophils/100 WBC (Bld) 0.4 % Normal 0.2-2.0 [facility] Comment on above: Performed By: #### C BC #### [facility] [address] [place] [address] Dr. Dl Suarez EO # 0.1 103/ul Normal 0.0-0.7 [facility] Comment on above: Performed By: #### C BC #### [facility] [address] [place] [address] Dr. Dl Suarez Eosinophils/100 WBC (Bld) 1.4 % Normal 0.9-7.0 [facility] Comment on above: Performed By: #### C BC #### [facility] [address] [place] [address] Dr. Dl Suarez Erythrocyte distribution width (RBC) [Ratio] 13.5 % Normal 11.0-15.0 [facility] Comment on above: Performed By: #### C BC #### [facility] [address] [place] [address] Dr. Dl Suarez Hematocrit (Bld) [Volume fraction] 38.2 % Normal 36.0-48.0 [facility] Comment on above: Performed By: #### C BC #### [facility] [address] [place] [address] Dr. Dl Suarez Hemoglobin (Bld) [Mass/Vol] 12.7 g/dL Normal 12.0-16.0 [facility] Comment on above: Performed By: #### C BC #### [facility] [address] [place] [address] Dr. Dl Suarez IG # 0.07 10e3/ul Critically high 0.00-0.03 [facility] Comment on above: Performed By: #### C BC #### [facility] [address] [address] [address] Dl Suarez IG % 0.7 % Critically high 0.0-0.5 [facility] Comment on above: Performed By: #### C BC #### [facility] [address] [place] [address] Dr. Dl Suarez LYMPH # 4.4 103/ul Critically high 1.2-3.8 [facility] Comment on above: Performed By: #### C BC #### [facility] [address] [place] [address] Dr. Dl Suarez Lymphocytes/100 WBC (Bld) 45.5 % Normal 20.5-60.0 [facility] Comment on above: Performed By: #### C BC #### [facility] [address] [place] [address] Dr. Dl Suarez MANUAL DIFF REQ NO Normal [facility] Comment on above: Performed By: #### C BC #### [facility] [address] [place] [address] Dr. Dl Suarez MCH (RBC) [Entitic mass] 32.1 pg Normal 26.7-34.0 [facility] Comment on above: Performed By: #### C BC #### [facility] [address] [place] [address] Dr. Dl Suarez MCHC (RBC) [Mass/Vol] 33.2 g/dL Normal 29.9-35.2 [facility] Comment on above: Performed By: #### C BC #### [facility] [address] [place] [address] Dr. Dl Suarez MCV (RBC) [Entitic vol] 96.5 fL Normal 81.0-99.0 [facility] Comment on above: Performed By: #### C BC #### [facility] [address] [place] [address] Dr. Dl Suarez MONO # 0.9 103/ul Critically high 0.3-0.8 [facility] Comment on above: Performed By: #### C BC #### [facility] [id number] Dl Suarez Monocytes/100 WBC (Bld) 9.6 % Normal 1.7-12.0 [facility] Comment on above: Performed By: #### C BC #### [facility] [address] [address] [address] Dl Suarez NEUT # 4.1 103/ul Normal 1.4-6.5 [facility] Comment on above: Performed By: #### C BC #### [facility] [address] [address] [address] Dl Suarez Neutrophils/100 WBC (Bld) 42.4 % Critically low 43.0-75.0 [facility] Comment on above: Performed By: #### C BC #### [facility] [address] [place] [address] Dr. Dl Suarez Platelet mean volume (Bld) [Entitic vol] 10.5 fL Normal 9.5-13.5 [facility] Comment on above: Performed By: #### C BC #### [facility] [address] [address] [address] Dl Suarez PLT 174 103/ul Normal 150-450 [facility] Comment on above: Result Comment: SLIG HT PLT CLUMPS PRESENT Performed By: #### C BC #### [facility] [address] [place] [address] Dr. Dl Suarez RBC 3.96 106/ul Critically low 4.20-5.40 [facility] Comment on above: Performed By: #### C BC #### [facility] [address] [address] [address] Dl Suarez WBC 9.6 103/ul Normal 4.0-11.0 [facility] Comment on above: Performed By: #### C BC #### [facility] [address] [place] [address] Dr. Dl Suarez PROF 14(COMP METB)on 023 Albumin [Mass/Vol] 3.0 g/dL Critically low 3.4-5.0 [facility] Comment on above: Performed By: #### C MP #### [facility] [address] [address] [address] Dl Suarez Albumin/Globulin [Mass ratio] 0.9 {ratio} Normal [facility] Comment on above: Performed By: #### C MP #### [facility] [address] [place] [address] Dr. Dl Suarez ALP [Catalytic activity/Vol] 73 U/L Normal 46-116 [facility] Comment on above: Performed By: #### C MP #### [facility] [address] [place] [address] Dr. Dl Suarez ALT [Catalytic activity/Vol] 24 U/L Normal 14-59 [facility] Comment on above: Performed By: #### C MP #### [facility] [address] [place] [address] Dr. Dl Suarez Anion gap [Moles/Vol] 10.1 mmol/L Normal [facility] Comment on above: Performed By: #### C MP #### [facility] [address] [place] [address] Dr. Dl Suarez AST [Catalytic activity/Vol] 15 U/L Normal 15-37 [facility] Comment on above: Performed By: #### C MP #### [facility] [address] [place] [address] Dr. Dl Suarez Bilirubin [Mass/Vol] 0.2 mg/dL Normal 0.2-1.0 [facility] Comment on above: Performed By: #### C MP #### [facility] [address] [place] [address] Dr. Dl Suarez Calcium [Mass/Vol] 8.6 mg/dL Normal 8.5-10.1 [facility] Comment on above: Performed By: #### C MP #### [facility] [address] [place] [address] Dr. Dl Suarez Chloride [Moles/Vol] 106 mmol/L Normal 98-107 [facility] Comment on above: Performed By: #### C MP #### [facility] [address] [address] [address] Dl Suarez CO2 [Moles/Vol] 26.0 mmol/L Normal 21.0-32.0 [facility] Comment on above: Performed By: #### C MP #### [facility] [address] [place] [address] Dr. Dl Suarez Creatinine [Mass/Vol] 0.84 mg/dL Normal 0.55-1.02 [facility] Comment on above: Performed By: #### C MP #### [facility] [address] [place] [address] Dr. Dl Suarez EGFR-AF WELSH >60 Normal >=60 [facility] Comment on above: Performed By: #### C MP #### [facility] [address] [place] [address] Dr. Dl Suarez EGFR-NON AF WELSH >60 Normal >=60 [facility] Comment on above: Performed By: #### C MP #### [facility] [address] [place] [address] Dr. Dl Suarez Globulin (S) [Mass/Vol] 3.4 g/dL Normal [facility] Comment on above: Performed By: #### C MP #### [facility] [address] [place] [address] Dr. Dl Suarez Glucose [Mass/Vol] 99 mg/dL Normal 74-106 [facility] Comment on above: Performed By: #### C MP #### [facility] [address] [place] [address] Dr. Dl Suarez Potassium [Moles/Vol] 4.1 mmol/L Normal 3.5-5.1 [facility] Comment on above: Performed By: #### C MP #### [facility] [address] [place] [address] Dr. Dl Suarez Protein [Mass/Vol] 6.4 g/dL Normal 6.4-8.2 [facility] Comment on above: Performed By: #### C MP #### [facility] [address] [place] [address] Dr. Dl Suarez Sodium [Moles/Vol] 138 mmol/L Normal 136-145 [facility] Comment on above: Performed By: #### C MP #### [facility] [address] [address] [address] Dl Suarez Urea nitrogen [Mass/Vol] 13.0 mg/dL Normal 7.0-18.0 [facility] Comment on above: Performed By: #### C MP #### [facility] [address] [address] [address] Dl Suarez Urea nitrogen/Creatinin e [Mass ratio] 15.5 mg/mg Normal [facility] Comment on above: Performed By: #### C MP #### [facility] [address] [place] [address] Dr. Dl Suarez CBC AUTO DIFFon 06-16-2022 BASO # 0.0 103/ul Normal 0.0-0.1 [facility] Comment on above: Performed By: #### C BC ####[facility] [address] [place] [address]Dr. Dl Suarez Basophils/100 WBC (Bld) 0.2 % Normal 0.2-2.0 [facility] Comment on above: Performed By: #### C BC ####[facility] [address] [place] [address]Dr. Dl Suarez EO # 0.0 103/ul Normal 0.0-0.7 [facility] Comment on above: Performed By: #### C BC ####[facility] [address] [address]Dr. Dl Suarez Eosinophils/100 WBC (Bld) 0.0 % Critically low 0.9-7.0 [facility] Comment on above: Performed By: #### C BC ####[facility] [address] [address]Dr. Dl Suarez Erythrocyte distribution width (RBC) [Ratio] 12.8 % Normal 11.0-15.0 [facility] Comment on above: Performed By: #### C BC ####[facility] [address] [address]Dr. Dl Suarez Hematocrit (Bld) [Volume fraction] 36.7 % Normal 36.0-48.0 [facility] Comment on above: Performed By: #### C BC ####[facility] [address] [address]DrPorter Dl Erick Hemoglobin (Bld) [Mass/Vol] 12.9 g/dL Normal 12.0-16.0 [facility] Comment on above: Performed By: #### C BC ####[facility] [address] [place] [address]DrPorter Suarez IG # 0.08 10e3/ul Critically high 0.00-0.03 [facility] Comment on above: Performed By: #### C BC ####[facility] [address] [place] [address]DrPorter Suarez IG % 0.6 % Critically high 0.0-0.5 [facility] Comment on above: Performed By: #### C BC ####[facility] [address] [place] [address]DrPorter Suarez LYMPH # 1.8 103/ul Normal 1.2-3.8 [facility] Comment on above: Performed By: #### C BC ####[facility] [address] [place] [address]DrPorter Suarez Lymphocytes/100 WBC (Bld) 14.3 % Critically low 20.5-60.0 [facility] Comment on above: Performed By: #### C BC ####[facility] [address] [place] [address]DrPorter Suarez MANUAL DIFF REQ NO Normal [facility] Comment on above: Performed By: #### C BC ####[facility] [address] [place] [address]DrPorter Suarez MCH (RBC) [Entitic mass] 32.4 pg Normal 26.7-34.0 [facility] Comment on above: Performed By: #### C BC ####[facility] [address] [place] [address]DrPorter Suarez MCHC (RBC) [Mass/Vol] 35.1 g/dL Normal 29.9-35.2 [facility] Comment on above: Performed By: #### C BC ####[facility] [address] [address]DrPorter Suarez MCV (RBC) [Entitic vol] 92.2 fL Normal 81.0-99.0 [facility] Comment on above: Performed By: #### C BC ####[facility] [address] [place] [address]DrPorter Suarez MONO # 0.8 103/ul Normal 0.3-0.8 [facility] Comment on above: Performed By: #### C BC ####[facility] [address] [place] [address]DrPorter Suarez Monocytes/100 WBC (Bld) 6.5 % Normal 1.7-12.0 [facility] Comment on above: Performed By: #### C BC ####[facility] [address] [place] [address]DrPorter Suarez NEUT # 9.9 103/ul Critically high 1.4-6.5 [facility] Comment on above: Performed By: #### C BC ####[facility] [address] [place] [address]DrPorter Suarez Neutrophils/100 WBC (Bld) 78.4 % Critically high 43.0-75.0 [facility] Comment on above: Performed By: #### C BC ####[facility] [address] [place] [address]DrPorter Suarez Platelet mean volume (Bld) [Entitic vol] 9.2 fL Critically low 9.5-13.5 [facility] Comment on above: Performed By: #### C BC ####[facility] [address] [place], [place] [id number] Suarez PLT 305 103/ul Normal 150-450 [facility] Comment on above: Performed By: #### C BC ####[facility] [address] [place], [place] [address]Dr. Dl Suarez RBC 3.98 106/ul Critically low 4.20-5.40 [facility] Comment on above: Performed By: #### C BC ####[facility] [address] [place], [place] [address]HwDr. Dl Suarez WBC 12.7 103/ul Critically high 4.0-11.0 [facility] Comment on above: Performed By: #### C BC ####[facility] [address] [id number]. Dl Suarez PROF 14(COMP METB)on 023 Albumin [Mass/Vol] 3.1 g/dL Critically low 3.4-5.0 [facility] Comment on above: Performed By: #### C MP #### [facility] [address] [address] [address] Dl Suarez Albumin/Globulin [Mass ratio] 0.9 {ratio} Normal [facility] Comment on above: Performed By: #### C MP #### [facility] [address] [address] [address] Dl Suarez ALP [Catalytic activity/Vol] 75 U/L Normal 46-116 [facility] Comment on above: Performed By: #### C MP #### [facility] [address] [address] [address] Dl Suarez ALT [Catalytic activity/Vol] 32 U/L Normal 14-59 [facility] Comment on above: Performed By: #### C MP #### [facility] [address] [address] [address] Dl Suarez Anion gap [Moles/Vol] 11.2 mmol/L Normal [facility] Comment on above: Performed By: #### C MP #### [facility] [address] [address] [address] Dl Suarez AST [Catalytic activity/Vol] 17 U/L Normal 15-37 [facility] Comment on above: Performed By: #### C MP #### [facility] [address] [address] [address] Dl Suarez Bilirubin [Mass/Vol] 0.2 mg/dL Normal 0.2-1.0 [facility] Comment on above: Performed By: #### C MP #### [facility] [address] [place] [address] Dr. Dl Suarez Calcium [Mass/Vol] 8.5 mg/dL Normal 8.5-10.1 [facility] Comment on above: Performed By: #### C MP #### [facility] [address] [place] [address] Dr. Dl Suarez Chloride [Moles/Vol] 106 mmol/L Normal 98-107 [facility] Comment on above: Performed By: #### C MP #### [facility] [address] [place] [address] Dr. Dl Suarez CO2 [Moles/Vol] 24.5 mmol/L Normal 21.0-32.0 [facility] Comment on above: Performed By: #### C MP #### [facility] [address] [place] [address] Dr. Dl Suarez Creatinine [Mass/Vol] 0.80 mg/dL Normal 0.55-1.02 [facility] Comment on above: Performed By: #### C MP #### [facility] [address] [place] [address] Dr. Dl Suarez EGFR-AF WELSH >60 Normal >=60 [facility] Comment on above: Performed By: #### C MP #### [facility] [address] [place] [address] Dr. Dl Suarez EGFR-NON AF WELSH >60 Normal >=60 [facility] Comment on above: Performed By: #### C MP #### [facility] [address] [place] [address] Dr. Dl Suarez Globulin (S) [Mass/Vol] 3.5 g/dL Normal [facility] Comment on above: Performed By: #### C MP #### [facility] [address] [place] [address] Dr. Dl Suarez Glucose [Mass/Vol] 130 mg/dL Critically high 74-106 [facility] Comment on above: Performed By: #### C MP #### [facility] [address] [address] [address] Dl Suarez Potassium [Moles/Vol] 3.7 mmol/L Normal 3.5-5.1 [facility] Comment on above: Performed By: #### C MP #### [facility] [address] [address] [address] Dl Suarez Protein [Mass/Vol] 6.6 g/dL Normal 6.4-8.2 [facility] Comment on above: Performed By: #### C MP #### [facility] [address] [address] [address] Dl Suarez Sodium [Moles/Vol] 138 mmol/L Normal 136-145 [facility] Comment on above: Performed By: #### C MP #### [facility] [address] [address] [address] Dl Suarez Urea nitrogen [Mass/Vol] 12.0 mg/dL Normal 7.0-18.0 [facility] Comment on above: Performed By: #### C MP #### [facility] [address] [address] [address] Dl Suarez Urea nitrogen/Creatinin e [Mass ratio] 15.0 mg/mg Normal [facility] Comment on above: Performed By: #### C MP #### [facility] [address] [address] [address] Dl Suarez POINT OF CARE GLUCOSEon Glucose [Mass/Vol] 110 mg/dL Critically high 74-106 [facility] Comment on above: Performed By: #### P OCGLUC #### [facility] [address] [address] [address] Dl Suarez Glucose [Mass/Vol] 97 mg/dL Normal 74-106 [facility] Comment on above: Performed By: #### P OCGLUC ####[facility] [address] [place], [place] [address]FpDr. Dl Suarez PREG HCG QUALon 06-15-2022 , QUAL Negative Normal NEGATIVE [facility] Comment on above: Performed By: #### P REG ####[facility] [address] [place], [place] [address]UjDr. Dl Suarez CBC AUTO DIFFon 06-11-2022 BASO # 0.0 103/ul Normal 0.0-0.1 [facility] Comment on above: Performed By: #### C BC #### [facility] [address] [address] [address] Dl Suarez Basophils/100 WBC (Bld) 0.4 % Normal 0.2-2.0 [facility] Comment on above: Performed By: #### C BC #### [facility] [address] [address] [address] Dl Suarez EO # 0.1 103/ul Normal 0.0-0.7 [facility] Comment on above: Performed By: #### C BC #### [facility] [address] [address] [address] Dl Suarez Eosinophils/100 WBC (Bld) 1.4 % Normal 0.9-7.0 [facility] Comment on above: Performed By: #### C BC #### [facility] [address] [address] [address] Dl Suarez Erythrocyte distribution width (RBC) [Ratio] 13.5 % Normal 11.0-15.0 [facility] Comment on above: Performed By: #### C BC #### [facility] [address] [address] [address] Dl Suarez Hematocrit (Bld) [Volume fraction] 43.8 % Normal 36.0-48.0 [facility] Comment on above: Performed By: #### C BC #### [facility] [address] [address] [address] Dl Suarez Hemoglobin (Bld) [Mass/Vol] 15.0 g/dL Normal 12.0-16.0 [facility] Comment on above: Performed By: #### C BC #### [facility] [address] [address] [address] Dl Suarez IG # 0.01 10e3/ul Normal 0.00-0.03 [facility] Comment on above: Performed By: #### C BC #### [facility] [address] [place] [address] Dr. Dl Suarez IG % 0.1 % Normal 0.0-0.5 [facility] Comment on above: Performed By: #### C BC #### [facility] [address] [place] [address] Dr. Dl Suarez LYMPH # 3.1 103/ul Normal 1.2-3.8 [facility] Comment on above: Performed By: #### C BC #### [facility] [address] [place] [address] Dr. Dl Suarez Lymphocytes/100 WBC (Bld) 38.3 % Normal 20.5-60.0 [facility] Comment on above: Performed By: #### C BC #### [facility] [address] [place] [address] Dr. Dl Suarez MANUAL DIFF REQ NO Normal [facility] Comment on above: Performed By: #### C BC #### [facility] [address] [place] [address] Dr. Dl Suarez MCH (RBC) [Entitic mass] 32.6 pg Normal 26.7-34.0 [facility] Comment on above: Performed By: #### C BC #### [facility] [address] [place] [address] Dr. Dl Suarez MCHC (RBC) [Mass/Vol] 34.2 g/dL Normal 29.9-35.2 [facility] Comment on above: Performed By: #### C BC #### [facility] [address] [place] [address] Dr. Dl Suarez MCV (RBC) [Entitic vol] 95.2 fL Normal 81.0-99.0 [facility] Comment on above: Performed By: #### C BC #### [facility] [address] [place] [address] Dr. Dl Suarez MONO # 0.6 103/ul Normal 0.3-0.8 [facility] Comment on above: Performed By: #### C BC #### [facility] [address] [place] [address] Dr. Dl Suarez Monocytes/100 WBC (Bld) 7.7 % Normal 1.7-12.0 [facility] Comment on above: Performed By: #### C BC #### [facility] [address] [place] [address] Dr. Dl Suarez NEUT # 4.2 103/ul Normal 1.4-6.5 [facility] Comment on above: Performed By: #### C BC #### [facility] [address] [place] [address] Dr. Dl Suarez Neutrophils/100 WBC (Bld) 52.1 % Normal 43.0-75.0 [facility] Comment on above: Performed By: #### C BC #### [facility] [address] [place] [address] Dr. Dl Suarez Platelet mean volume (Bld) [Entitic vol] 8.8 fL Critically low 9.5-13.5 [facility] Comment on above: Performed By: #### C BC #### [facility] [address] [place] [address] Dr. Dl Suarez PLT 341 103/ul Normal 150-450 [facility] Comment on above: Performed By: #### C BC #### [facility] [address] [place] [address] Dr. Dl Suarez RBC 4.60 106/ul Normal 4.20-5.40 [facility] Comment on above: Performed By: #### C BC #### [facility] [address] [place] [address] Dr. Dl Suarez WBC 8.1 103/ul Normal 4.0-11.0 [facility] Comment on above: Performed By: #### C BC #### [facility] [address] [place] [address] Dr. Dl Suarez [facility]on SARS-CoV-2 (COVID-19) RNA HEIDY+probe Ql (Unsp spec) Not detected Normal NOT DETECTED [facility] Comment on above: Result Comment: This test is not yet approved or cleared by the [place] FDA. When there are no FDA-approved or cleared tests available, and other criteria are met, FDA can make tests available under an emergency access mechanism called an Emergency Use Authorization (EUA). The EUA for this test is supported by the Events Administrative Assistant of Health and Human Service's (HHS's) declaration that circumstances exist to justify the emergency use of in vitro diagnostics for the detection and/or diagnosis of the virus that causes COVID-19. This EUA will remain in effect (meaning this test can be used) for the duration of the COVID-19 declaration justifying emergency of IVDs, unless it is terminated or revoked by FDA (after which the test may no longer be used). When diagnostic testing is negative, the possibility of a false negative should be considered in the context of a patient's recent exposures and the presence of clinical signs and symptoms consistent with SARS-CoV-2. Performed By: #### C [facility], [facility] ####[id number] [place], [place] [address]Tt. Dl Suarez MRI ANKLE RT WO CONon 2021 MRI ANKLE RT WO CON HISTORY: Acute pain along the medial aspect of the right ankle when bearing weight. Evaluate for posterior tibialis tendinitis and tear of the deltoid ligament complex. MRI ANKLE RT WO CON: 02/24/2022 7:53 AM EDT COMPARISON: Radiographs right ankle 12/24/2021 and MRI right ankle 04/07/2019. TECHNIQUE: Multiplanar, multisequence MRI images of the right ankle were obtained without contrast. FINDINGS: LIGAMENTS: The anterior talofibular ligament appears within normal limits. The calcaneofibular ligament, posterior talofibular ligament, and distal tibiofibular ligaments appear within normal limits. The posterior tibiotalar ligament of the deltoid ligament complex now appears slightly diminutive in size, but it is of low signal intensity. The superior peroneal retinaculum appears grossly intact. TENDONS: There is a moderate amount of fluid now seen within the flexor digitorum longus tendon sheath in the region of the medial malleolus and the flexor hallucis longus tendon sheath posterior to the posterior subtalar joint. There is a small amount of fluid within the posterior tibialis tendon sheath. However, no significant tendinopathy of these tendons is seen. The other tendons of the ankle appear within normal limits as well. SINUS TARSI AND TARSAL TUNNEL: No space-occupying mass is seen in the tarsal tunnel or the sinus tarsi. BONES AND JOINTS: The bone marrow signal intensity is age appropriate. 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 There is new moderate subchondral cystic change and bone marrow edema in this region. No unstable osteochondral fragment is seen in this region. There are moderate degenerative changes better seen to involve the anterior aspect of the tibiotalar joint with prominent osteophyte formation anteriorly in this region. A 6 mm ovoid low signal intensity filling defect is again seen interposed between the anterior aspect of the tibial plafond and the body of the talus as best seen on image 15 of the sagittal proton-density fat-saturated sequence. There is a moderate amount of fluid again seen within a bursa along the dorsolateral aspect of the talonavicular joint. PLANTAR FASCIA: There is no abnormal thickening or abnormal signal intensity of the plantar fascia and there is no surrounding soft tissue edema to suggest plantar fasciitis. SOFT TISSUES: There is a similar appearance of moderate-severe atrophy of the proximal abductor digiti minimi muscle. IMPRESSION: 1. 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 There are moderate degenerative changes of the anterior aspect of the tibiotalar joint with a 6 mm loose body interposed between the anterior aspect of the tibial plafond and the body of the talus in this region. Prominent osteophyte formation along the anterior aspect of the tibiotalar joint in this region may be a cause for anterior ankle impingement syndrome. 2. There are MRI findings compatible with the sequela of a probable remote grade 2 sprain of the posterior tibiotalar ligament of the deltoid ligament complex. The other ligaments of the ankle appear within normal limits. 3. Possible tenosynovitis of the medial ankle tendons. However, no tendinopathy or tear of the ankle tendons is seen. Specifically, no tendinopathy of the posterior tibialis tendon is identified. 4. There is a moderate bursitis along the dorsolateral aspect of the talonavicular joint again seen. Electronically authenticated by: MARCELA GIRALDO Date: 2022-02-26 12:34 Normal [facility] Coding Summary.on 06-23-2021 Coding Summary. [id number] Gh0 bWw+PGhlYWQ+QN1OHOVoO65 teOSztP7CW9rNOQ1BIUCTIO BLJW1RLZ0ykEH3HTktM9Cxo iAv DxydcHVeZN91PXz4MRE4qWp kSDvduA1kzXKyQ2f9RgTwSF 85sS55GQpdBCGcUsC3AcUqr jsgbWFy S7yxEtGvwDPqWxi+PHRhYmx lIHdpZHRoPScxMDAlJyBzdH jyYG9nXr3yPCFqNFLvtRkse HNlOiBj h4saHXQkWLpxLN0osBrrH3I pcTL9MULpg6b0Nk22oEV+PH SzDQY5vSqmPHvlt489SqXmt 9hxDAV3 mJWfVNoqXJP7L10cz6B6CZT lICZrMYG5aGQ7xO1mwNeszg jzU9CijSCrMvS6CCV8sFBkx A6rkUca oplemA0qStb+N38QPO4SGAX HLN6GGrk5M5UzRvtvuGX+PC 54GTLqSA03qLGmbAPhi5pjd Is7CgIb KDXwRVU3iYacMYbdy6IeFRE uA95guHLzi5C5BTLesLvtgR ExZeXzvMC1aG3oTHmwkqeju 2hvdzsn Lyqbl5oeuo13sC60G65wDIi mGHMjHWR4DSTjBVZxiUgopj 7qzM8nWs0+WYnce1loh8rey Ly0FjVq EDUcycMqbIouLFL9x0EoKu1 0U8LslLjfi5FgKjk2we47vB Eqk7D2lYR7XRwnZGKxoA1uX WxlZnQ6 VUOiAzOkeA22wVWrKHpfAz7 fuEdebMowWI3sQYZlzxfhGZ BjcG6tYOBkrEAwaFdjQM1oG TBpbjtm c431UhAgAYN3VLEogAReC4W dbB1pZxExUDRqPVRiU7NkoR DdCElkR943TRogIlD6ZSXik sGyJ8Ks UATabBkdLeI6f1F9Jj4Iu7F cniehIKQ0WTtdMDFqWkL6Ey PyNwH5J0YxPva0UCRteFrnX I8aG4Vn TLUyaylyidyofBZ9XUZzJRU oaF07fVSeLIvlIi7yz7E5p2 56XUAyLVLleD02Kn5cjObgE TBwdCBU aJ4udoyix2qgohwnJkSaMQM nKYq4ZPr0RGIbcXehLiIuPZ T9BdN0QIN5vMHxrZ4dsZlqr iwidF4n Oyc+G17dqV1rRXS2ANK3hgn kAGCngoXcAG27FC98S4DuJm wvdGFibGU+PGRpdiBzdHlsZ K8kLiUd u6sue9GzLObhW3DsMHWvSFq xVpf2QWKsAGN0yRV7kK9tCX SmDLyej3B5yUA7F6LhxaCar p2lu5jq HLFlPBlsK14gnOApt2Q1LAD jgVP5XPFsyLwxRzZrbG63Ke c+KQSxqMwcl1JbIjvdg3skt 1bazRg7 NtWwQUEevxRnaDdlEBE3d1P kOd00M90bNYhwIIAuBYBiDF TsOLAmmFqhrv0gwR3qMs0+P GNvbCB3 oUX2wL3gTQAqWzH6BFmaX65 4KhWnxDMqMznip7umu0tebY y8FmSpUVWyirNkvSooHFA3p 2HoYv99 U34vWPnzNBNnLRBpGXYwJVI ruOgmma4yuW9iRv6+PC9jb2 mcne50gQ52oRW+UBFzZRZ9z WxlPSdw DHDaoC6uRPknDoG3EZSoLhL nvO47tACgNHydEt7wvHcfbT qlYV0vLAJvqnlwk067NbNko 2xkIDEw eFYhIXteJBM1Q62ob4S5ZZR hLJPxKAF5fSZ9hR9qsJauzu ogbGVmdDsgdmVydGljYWwtY AttC084 IHRvcDsnPlBhdGllbnQgTmF jGIn1Y3KnQso0GEPmoUccTW 9yyYHqOIowCq1xpSacyIncJ Z2vLIDo rxhua272KaSzy7esSOPloAC cTHxrDZX3V67th6M3WTPyVW KsEGG2dQS8iY9yyEzazveir GVmdDsg btVsjMxcSGhgMRthX931WHQ weJuyGzOzenWwMXGlrZQ9HX 38PA42hAXeu1Z4aBI7G0UkT GRpbmct xizdnIG1QMEbQWSddH66Ph2 dsFjvZw0mYHMyFVE1UDAehR BsU8UkdL2aQtLsTTXxVRYhZ 3RleHQt TPrwF419BBxwAgL1JYUdolO hG6ZqUHUrpRprCcZ5e0R4Hq 0OK6H9LR16JI19bLIfm3B9w JQ5G2Zo PYNfjaoqbpjstYI3FKGyUGL jzX26Ie3qjErrYg9mOMVkFE B9HEYnoKJeP7RfbB2pWvEbE DAwMDAw P7RqxQUpLWvmG427NDaqEoP 5HLStfsSiO8WnXLZdpQpbFu G9h4N5Jc6VGCw2YR54SC28h AVfb6Y2 pDM9C2VpQRRmxtjfcccboKR 1ETJwVUOdhD98Rp6amEelCl 1qLJUuVJX2CVKqmLFdP8Ufs D7fXyUh DZWpETPgI0IezQNiEOfeN99 2IWqnZhY6ZLUpahUfH0MvQI UnuFwdHjF8d3N9Aj6UFHJtA C74TXP5 zBD0OW73DV19M0XcQneerMF ibGU+PHRhYmxlIHdpZHRoPS caUFMnTdCdoSryDS4iUo3kO GVyLWNv qVsqfEHiPyQvk2qhBQEbFPc jJV2akSvoA3MqqGA1AEXyy4 u6Wo04A81sX7AkzDI+PGNvb KU9uCZ5 tF8bNaGsZyL6GTfoS515TaK xxFKtGhhef2dlk6nnxPf0Wy Z2VKBvqjMnfPcyDCB4h1BmI c48R71b IHdpZHRoPSIxNSUiIHZhbGl jdi1eaC0zSw3+POHlqRU2xR D6uY6tZnObBfI0UQjtF848B nRvcCIv Knvco5dre5vxkJz5QvHgSJV jdbNbnWwgCYB5i8EqLy79O2 WqnAijs0MxNlv5qy32ySWvx 3B2sLB2 X2UkPWUlxiryrPLzaQzkOF0 eQPUftvvwDSSxpO9rSBRlD5 o9UtVdEiQ5MOwfQ6AfxuM1R DEwcHQg ZMrlDSX3F12vm8F4SIOuNCY eQOU3xII7lT0fcQqywvhndA VmdDsgdmVydGljYWwtYWxpZ 246IHRv kAqoVKYxiS1bANKmvGPsvSw iOH1hDXGpehkdEhYYEODSLG SCVWHHNNlCCdiJWOa6O6AtB wk8SKRd vPvgOD3ktRBvPGemFi8fqLj ziHvtBF0hPVMpovdlKPDewU 2dGUYojLQotQckMG0aRPCpq nzqb318 VyFrMDA0OAIunAWoN9EyeD8 gFrQmOOXpFLScB6KcyVYqSK 2FsLWFs nIypGlG9p4K4Ja8fRY8qCO9 hJJp0AI51JL62pUJpt1H5pG S6J6UdMEEqogvqtmonkTH4N DAuMDUw sP16aGDnHKbcHi8tu6V8w57 5LLQmPMBinL32Pc1fgCxyWI UbpPBQvW3oovnht6ksdsvjO zAwMDAw QHs6SEb2HJWeuRgaFyJdEBA 1GiR0CUC8qWWwnE4tqHpynb ffxD5oOlb+BGNwFLFptxF9D 0OaMmn6 PFRusQauRP8wpMQaMLgqJd0 yhVosnNktRZ2eWFSgbetaYL KmwI3kXNNvtUWhaKvqEG4xN TBpbjtm c707ArBsEHK1GEQcmMDaB0A scB5rAnQnCSFpAOSzO1PirV TaQKaiG226MLvlVqL4VPVeu sFiT1Bj YFUauQkfRiG0v6F3Xk3RPQ2 jhAL9J0XuUjo7ITZpwDfvIR 0yqCZwHIqlHd4odMnetFhmN B4aUDJe qdkvLHGjlD3uIGOkmVVbpUz eCW5nWMBtsvxjg236TfUvDV C4YXPkzSHvV7InmX0zJzRfG DAwMDAw U8VveWGeCFmnK607XXksBdC 8IYCdcqXrQ4RiQNJbwBwqHg Y6h5H6Um8BbDNgZWXzAP30F N64TU57 O1TgGtxwqWEjnVK+PHRhYmx lIHdpZHRoPScxMDAlJyBzdH ynRN7vWl5vLMMcPBGewHexz HNlOiBj z2pjVNDeXZhfPM3frOefW4N geJY9ENPak4i9Zq25R52gJ5 JvdXA+ZPElaLF3kSZ5eN3nL zAlIiB2 YQppB080DxSkjGElAqmjo6p bl4nioJy7HhGwJIOhfvXcfO tuNHW3w0JeTn51K60aXEtwF HRoPSIy BAZwRFGviTiwps1xsC4mOz8 +WESwvKG0lPP1rT1qXcXdRy L3IUhzF274TrCffNVgDvyjU 82mE0Ll dXA+APIeUed2ADHsiBnqEV7 hbCXuGYbuUk7zFBS5LbYyTt HuGXkiJ5UzJPAmrnukhwwcm EK8JFKz MGFtrX39Zg2vpTnsJp6pNTE aLJU9PEBpoIUwJ3RkiB1pJx HpGUAfKOLgU5LanEUpNMeaJ 246IGxl EcZ1FKRgjaRmO6MxDXQrxSb rXzM3t0K9Ov5HpNhijLUqSD 9bCbLqPEg6P9XtFni6CZSry ChvYW4n iMZkOCokWf8jcFmhzWfcYZ0 eEBFyitrgg577OpChd2ukUG GvlBLdHCtvJNZ3Q39lz1E5H CMwMDAw JQD7kDN7rL2jtTpfdgnogZH mdDsgdmVydGljYWwtYWxpZ2 35HSLswFjkCkCZCms5T3VzV hr2JZPl zPczRQ2spBHwKRlhNz2srGm xyIzlLW5tQRYemonhz896Za Mvp4pkVFVrnNUrSHklUEW4N 06yd9P4 EYLrVURxTGX0nWE4vS5zwPb nbjogbGVmdDsgdmVydGljYW ovTSqnR045CKSzeNuhOt4IM ne3W6Uc Qhy8IUVpuSvdTV9omJGsLWy bDt7snXxynQmhTZ2gSRSetm xkk909BrEux2bbBCMuzRUhR GltZXM7 F78ns4O0PYJaUXNpPIW6kUC 4hK3ucDtisgqgzENjwWimdm RzfNyrICmwJWygE680GDPhr DsnPlBh eWVyOjwvdGQ+PU34vk55U0I tKstaIjg7SHZhHUF4bIS3pC 1lSHPiOCwrg9C6tQR1L9Cem jAryc9c b2xs (more content not included)... Normal [facility] Consent for Treatmenton Consent for Treatment [id number] D:127 Normal [facility] MA Mamm Screen w/CAD if perf and 3D Bilon 06-13-2021 MA Mamm Screen w/CAD if perf and 3D Martín Exam Date/Time: 06/13/2021 08:35 EST Reason for Exam: SCREENING Report IMPRESSION: BIRADS 2 BENIGN FINDINGS, NORMAL INTERVAL FOLLOW-UP Follow-up: 12 MONTH RECALL Dense Breast: No EXAM: MA Mamm Screen w/CAD if perf and 3D Martín DATE: 06/13/2021 CLINICAL HISTORY: SCREENING. COMPARISONS: 05/27/2020, 05/27/2019, and 05/26/2018. TECHNIQUE: Routine full-field digital mammograms and 3D breast tomosynthesis of both breasts were obtained. FINDINGS: Scattered fibroglandular densities are present with stable asymmetry and mild nodularity. There are no developing masses, suspicious microcalcifications, or areas of architectural distortion identified on the current study. No significant changes are identified from the prior studies, given differences in technique and positioning. CAD analysis was performed and used in the interpretation. Board Certified Radiologists. Accredited by the ACR and FDA. MAMMOGRAPHY IS VERY IMPORTANT TO YOUR HEALTH. THE CURRENT [employer] GUIDELINES RECOMMENDS ANNUAL MAMMOGRAPHY BEGINNING AT AGE 40. THIS FACILITY UTILIZES A REMINDER SYSTEM TO ENSURE ALL PATIENTS RECEIVE REMINDER NOTIFICATIONS AT THE APPROPRIATE TIME BASED ON THE RECOMMENDATIONS OF THIS EXAM. Report \X09\ FINAL REPORT Dictated: 06/13/2021 2:35 pm Yousko MD, Richy J Signed (Electronic Signature): 06/13/2021 2:35 pm Signed by: Richy Barrera MD Transcribed by: AURELIA Technologist: [facility] Assessment: BI-RADS Category 2-Benign finding Recommendation: Normal interval follow-up Normal [facility] Physician Orderon 05-22-2021 Physician Order [id number] :127 Normal [facility] Basic metabolic 2000 panelOr dered By: Talita Ritchie on 11-07-2020 Anion gap [Moles/Vol] 14 mmol/L 10 - 20 mmol/L [facility] Calcium [Mass/Vol] 9.5 mg/dL 8.4 - 10. 2 mg/dL [facility] Chloride [Moles/Vol] 106 mmol/L 98 - 108 mmol/L [facility] Creatinine [Mass/Vol] 0.89 mg/dL 0.40 - 1.10 [facility] GFR/1.73 sq M.predicted CKD-EPI (S/P/Bld) [Vol rate/Area] 80 >=60 mL/min/1.73 m2 [facility] Glucose [Mass/Vol] 75 mg/dL 65 - 99 mg/dL [facility] [Moles/Vol] 24 mmol/L 21 - 32 mmol/L [facility] Interpretation and review of laboratory results Normal [facility] Potassium [Moles/Vol] 4.0 mmol/L 3.5 - 5.1 mmol/L [facility] Sodium [Moles/Vol] 140 mmol/L 135 - 145 mmol/L [facility] Urea nitrogen [Mass/Vol] 13 mg/dL 8 - 25 mg/dL [facility] Urea nitrogen/Creatinin e [Mass ratio] 14.6 mg/mg [facility] The eGFR should be u sed for monitoring renal function only and not for medication dosing. [facility] Destruction by neurolytic ag enton 12-23-2017 Destruction by neurolytic agent Talita Ritchie MD 12/23/2017 12:40 PM Botox Date/Time: 12/23/2017 12:18 PM Performed by: TALITA RITCHIE Authorized by: TALITA RITCHIE Invalid Interpretation Code [facility] Destruction by neurolytic ag enton 09-23-2017 Destruction by neurolytic agent Talita Ritchie MD 09/23/2017 1:17 PM Botox Date/Time: 09/23/2017 12:44 PM Performed by: TALITA RITCHIE Authorized by: TALITA RITCHIE Invalid Interpretation Code [facility] Destruction by neurolytic ag enton 06-24-2017 Destruction by neurolytic agent Talita Ritchie MD 06/24/2017 11:53 AM Botox Date/Time: 06/24/2017 11:28 AM Performed by: TALITA RITCHIE Authorized by: TALITA RITCHIE Invalid Interpretation Code [facility] Work Phone: Destruction by neurolytic ag enton 03-22-2017 Destruction by neurolytic agent Talita Ritchie MD 03/22/2017 4:15 PM Botox Date/Time: 03/22/2017 4:10 PM Performed by: TALITA RITCHIE Authorized by: TALITA RITCHIE Invalid Interpretation Code [facility] Work Phone: Vital Signs Date Time Vital Sign Value Performing Clinician Facility 06-09-2023 11:37-0500 Body height 162.6 cm Gayatri Gaspar [employer] Work Phone: [facility] 06-09-2023 11:37-0500 Body mass index (BMI) [Ratio] 53.3 kg/m2 Gayatri Gaspar [employer] Work Phone: [facility] 06-09-2023 11:37-0500 Body weight 140.84 kg Gayatri Gaspar [employer] Work Phone: [facility] 06-09-2023 11:37-0500 Diastolic blood pressure 90 mm[Hg] Gayatri Gaspar [employer] Work Phone: [facility] 06-09-2023 11:37-0500 Heart rate 63 /min Gayatri Gaspar [employer] Work Phone: [facility] 06-09-2023 11:37-0500 SaO2% (BldA) [Mass fraction] 99 % Gayatri Gaspar [employer] Work Phone: [facility] 06-09-2023 11:37-0500 Systolic blood pressure 138 mm[Hg] Gayatri Gaspar [employer] Work Phone: [facility] 11-07-2020 13:56-0400 Body height 162.6 cm Talita Ritchie MD Work Phone: [facility] 11-07-2020 13:56-0400 Diastolic blood pressure 73 mm[Hg] Talita Ritchie MD Work Phone: [facility] 11-07-2020 13:56-0400 Heart rate 71 /min Talita Ritchie MD Work Phone: [facility] 11-07-2020 13:56-0400 Systolic blood pressure 111 mm[Hg] Talita Ritchie MD Work Phone: [facility] 07-17-2019 12:32-0500 BP Diastolic 77 mm[Hg] [facility] 07-17-2019 12:32-0500 BP Systolic 119 mm[Hg] [facility] 07-17-2019 12:32-0500 Pulse (Heart Rate) 73 /min [facility] 04-06-2019 15:26-0400 BP Diastolic 69 mm[Hg] Taliat Rust [facility] 04-06-2019 15:26-0400 BP Systolic 135 mm[Hg] Talita Rust [facility] 04-06-2019 15:26-0400 Height 163.8 cm Talita Rust [facility] 04-06-2019 15:26-0400 Pulse (Heart Rate) 58 /min Talita Rust [facility] 04-06-2019 15:26-0400 Respiratory Rate 16 /min Talita Rust [facility] 12-28-2018 12:57-0400 BP Diastolic 76 mm[Hg] Talita Rust [facility] 12-28-2018 12:57-0400 BP Systolic 132 mm[Hg] Talita Rust [facility] 12-28-2018 12:57-0400 Height 162.6 cm Talita Rust [facility] 12-28-2018 12:57-0400 Pulse (Heart Rate) 61 /min Talita Rust [facility] 12-28-2018 12:57-0400 Respiratory Rate 16 /min [facility] 09-27-2018 12:50-0400 BP Diastolic 65 mm[Hg] [facility] 09-27-2018 12:50-0400 BP Systolic 127 mm[Hg] [facility] 09-27-2018 12:50-0400 Height 163.8 cm [facility] 09-27-2018 12:50-0400 Pulse (Heart Rate) 66 /min [facility] 09-27-2018 12:50-0400 Respiratory Rate 16 /min [facility] 07-04-2018 09:19-0500 BMI (Body Mass Index) 61.11 kg/m2 [facility] 07-04-2018 09:19-0500 BP Diastolic 82 mm[Hg] [facility] 07-04-2018 09:19-0500 BP Systolic 124 mm[Hg] [facility] 07-04-2018 09:19-0500 Height 162.6 cm [facility] 07-04-2018 09:19-0500 Pulse (Heart Rate) 63 /min [facility] 07-04-2018 09:19-0500 Weight 161.48 kg [facility] 10-18-2017 13:15-0400 BMI (Body Mass Index) 60.94 kg/m2 [facility] 10-18-2017 13:15-0400 BP Diastolic 67 mm[Hg] [facility] 10-18-2017 13:15-0400 BP Systolic 123 mm[Hg] Alexandra Sweet [facility] 10-18-2017 13:15-0400 Height 162.6 cm [facility] 10-18-2017 13:15-0400 Pulse (Heart Rate) 66 /min [facility] 10-18-2017 13:15-0400 Weight 161.03 kg Alexandra Sweet [facility] 09-23-2017 10:39-0400 BMI (Body Mass Index) 60.94 kg/m2 [facility] 09-23-2017 10:39-0400 BP Diastolic 81 mm[Hg] Alexandra Sweet [facility] 09-23-2017 10:39-0400 BP Systolic 137 mm[Hg] Alexandra Sweet [facility] 09-23-2017 10:39-0400 Height 162.6 cm [facility] 09-23-2017 10:39-0400 Pulse (Heart Rate) 61 /min Alexandra Sweet [facility] 09-23-2017 10:39-0400 Weight 161.03 kg Alexandra Sweet [facility] 08-09-2017 12:34-0500 BMI (Body Mass Index) 56.64 kg/m2 [facility] 08-09-2017 12:34-0500 BP Diastolic 77 mm[Hg[facility] 12:34-0500 BP Systolic 149 mm[Hg] [facility] 08-09-2017 12:34-0500 Height 162.6 cm [facility] 08-09-2017 12:34-0500 Pulse (Heart Rate) 66 /min [facility] 08-09-2017 12:34-0500 Weight 149.69 kg [facility] 07-20-2017 08:26-0500 BP Diastolic 86 mm[Hg] Talita Rust [facility] Work Phone: 07-20-2017 08:26-0500 BP Systolic 159 mm[Hg] [facility] Work Phone: 07-20-2017 08:26-0500 Height 162.[address] [facility] Work Phone: 07-20-2017 08:26-0500 Pulse (Heart Rate) 65 /min [facility] Work Phone: 07-20-2017 08:26-0500 Respiratory Rate 16 /min [facility] Work Phone: Encounters Encounter Date Encounter Type Care Provider Facility Start: 01-25-2024 End: 01-25-2024 ambulatory PATTI Hoyt [facility] Start: 12-30-2023 End: 12-30-2023 ambulatory KATJA HUGHES [facility] Start: 12-22-2023 End: 12-22-2023 ambulatory PATTI Hoyt [facility] Start: 12-22-2023 End: 12-22-2023 ambulatory ALLA ROY [facility] Start: 12-13-2023 End: 12-13-2023 ambulatory [facility] Start: 12-08-2023 End: 12-08-2023 ambulatory [facility] Start: 12-07-2023 End: 12-07-2023 ambulatory SAHHRAM ROA Not Available Start: 12-06-2023 End: 12-06-2023 ambulatory [facility] Start: 11-30-2023 End: 11-30-2023 ambulatory MARIUM Schaffer [facility] Start: 11-25-2023 End: 11-25-2023 ambulatory [facility] Start: 11-25-2023 End: 11-25-2023 ambulatory [facility] Start: 11-22-2023 End: 11-22-2023 ambulatory [facility] Start: 11-09-2023 End: 11-09-2023 ambulatory [facility] Start: 11-06-2023 End: 11-06-2023 ambulatory QUINCY GONZALEZ [facility] Start: 11-05-2023 End: 11-05-2023 ambulatory BECKY MORENO [facility] Start: 11-04-2023 End: 11-04-2023 ambulatory [facility] Start: 11-04-2023 End: 11-04-2023 ambulatory [facility] Start: 10-14-2023 End: 10-14-2023 ambulatory [facility] Start: 09-30-2023 End: 09-30-2023 ambulatory ROC Evelina BETH [facility] [facility] Start: 08-30-2023 Orders Only Ruth Shepherd MD Work Phone: [facility] Comment on above: Degenerative disc di sease, cervical (Primary Dx) Start: 08-29-2023 End: 08-29-2023 ambulatory RUTH SHEPHERD [facility] Start: 08-27-2023 Telephone encounter Shagufta Ferris [facility] Comment on above: neck issues ; Botuli num Toxin Injection Chronic migraine wit hout aura, intractable, with status migrainosus; Neuralgia and neuritis Start: 08-24-2023 End: 08-24-2023 ambulatory MARIUM GARICA [facility] Start: 08-02-2023 End: 08-02-2023 [facility]ulatory [facility] Start: 07-13-2023 End: 07-13-2023 ambulatory [facility] Start: 07-07-2023 Refill Ruth Shepherd MD Work Phone: [facility] Comment on above: Chronic migraine wit hout aura, intractable, with status migrainosus Start: 06-25-2023 Telephone encounter [facility]asmyn North [facility] Comment on above: Lopressor 25 mg for Pre CTA cors Start: 06-14-2023 End: 06-14-2023 ambulatory [facility] Start: 06-09-2023 End: 06-09-2023 Office outpatient visit 25 minutes Gayatri Gaspar [employer] Work Phone: [facility] Comment on above: LUIS MIGUEL (obstructive sle ep apnea) (Primary Dx); LUIS MIGUEL treated with BiPAP; BMI 50.0-59.9, adult ([facility]) Start: 06-09-2023 End: 06-09-2023 ambulatory GAYATRIBIANKA GASPAR [facility] Start: 09-02-2022 End: 09-03-[address] SOILA NIÑO Facility:H1 Start: 08-13-2022 End: 08-14-2022 ambulatory YVONNE KOLB Facility:H1 Start: 07-30-2022 End: 07-31-2022 ambulatory YVONNE KOLB Facility:H1 Start: 07-09-2022 End: 07-10-2022 ambulatory YVONNE KOLB Facility:H1 Start: 06-16-2022 Encounter for preprocedural laboratory examination CANDY LEONARDO [facility] Start: 06-15-2022 End: 06-18-2022 ambulatory [facility] Facility:H1 Start: 06-11-2022 Encounter for other preprocedural examination CANDY LEONARDO [facility] Start: 06-11-2022 Encounter for preprocedural cardiovascular examination [facility] Start: 06-11-2022 End: 06-12-2022 ambulatory CANDY LEONARDO Facility:H1 Start: 06-11-2022 End: 06-12-2022 Encounter for preprocedural laboratory examination CANDY LEONARDO Facility:H1 Start: 06-05-2022 End: 06-06-2022 ambulatory CANDY LEONARDO Facility:H1 Start: 06-05-2022 End: 06-06-2022 Encounter for other preprocedural examination CANDY LEONARDO Facility:H1 Start: 02-24-2022 End: 02-25-2022 ambulatory YVONNE CORTES Facility:H1 Start: 12-24-2021 End: 12-25-[address] DOCTOR ALBERT Facility:H1 Start: 12-02-2021 End: 12-03-2021 ambulatory YVONNEDEVORA KOLB Facility:H1 Start: 06-25-2021 ambulatory [facility] Start: 11-07-2020 End: 11-11-2020 ambulatory [facility] Start: 11-07-2020 End: 11-11-2020 ambulatory TALITA RITCHIE [facility] Ambulatory Start: 11-07-2020 End: 11-07-2020 Office outpatient visit 25 minutes Talita Ritchie MD Work Phone: [facility] Comment on above: Chronic migraine wit hout aura without status migrainosus, not intractable (Primary Dx); Migraine without aura and without status migrainosus, not intractable; Chronic nonintractable headache, unspecified headache type; Chronic midline low back pain with left-sided sciatica Start: 10-25-2020 End: 10-25-2020 Refjaylyn Dawson MA [facility] Comment on above: Chronic nonintractab le headache, unspecified headache type Start: 10-25-2020 Refill Carrolanniebjorn Jacobs FLAVIA Work Phone: [facility] Comment on above: Chronic nonintractab le headache, unspecified headache type Start: 10-15-2020 ambulatory TALITA RITCHIE [facility] Start: 07-17-2019 End: 07-17-2019 Office outpatient visit 15 minutes Denilson Jacobs Work Phone: [facility] Comment on above: Chronic nonintractab le headache, unspecified headache type Start: 04-06-2019 End: 04-06-2019 Office outpatient visit 25 minutes Talita Ritchie Work Phone: [facility] Comment on above: Chronic nonintractab le headache, unspecified headache type; Intractable chronic migraine without aura and without status migrainosus Start: 01-26-2019 Refill Talita Ritchie MD Work Phone: [facility] Comment on above: Chronic nonintractab le headache, unspecified headache type Start: 12-28-2018 End: 12-28-2018 Office outpatient visit 25 minutes Talita Ritchie Work Phone: [facility] Comment on above: Concussion without l oss of consciousness, initial encounter (Primary Dx); Migraine without aura and without status migrainosus, not intractable Start: 09-27-2018 End: 09-27-2018 Office outpatient visit 25 minutes Talita Ritchie Work Phone: [facility] Comment on above: Chronic nonintractab le headache, unspecified headache type Start: 07-04-2018 End: 07-04-2018 Office outpatient visit 25 minutes Denilson Jacobs Work Phone: [facility] Comment on above: Intractable chronic migraine without aura and without status migrainosus (Primary Dx) Start: 12-23-2017 End: 12-23-2017 Patient encounter Talita Ritchie Work Phone: [facility] Start: 10-18-2017 End: 10-18-2017 Office/outpatient visit, est, level 2 Alexandra Sweet Work Phone: [facility] Start: 09-23-2017 End: 09-23-2017 Ambulatory Talita Ritchie Work Phone: [facility] Start: 09-23-2017 End: 09-23-2017 Office/outpatient visit, est, level 2 Alexandra Sweet Work Phone: [facility] Start: 08-09-2017 Office/outpatient vi sit, new, level 3 Talita Ritchie Work Phone: [facility] Start: 07-21-2017 Refill Talita Ritchie MD Work Phone: [facility] Comment on above: Chronic nonintractab le headache, unspecified headache type Start: 07-20-2017 Office/outpatient vi sit, est, level 4 Talita Ritchie Work Phone: [facility] Start: 06-24-2017 Ambulatory Talita Ritchie Work Phone: [facility] Start: 03-22-2017 End: 03-22-2017 Office outpatient visit 15 minutes Talita Ritchie Work Phone: [facility] Comment on above: Chronic migraine wit hout aura without status migrainosus, not intractable (Primary Dx) Procedures Date Procedure Procedure Detail Performing Clinician Start: 08-02-2023 Follow-up visit Follow-up RUTH SHEPHERD Start: 08-02-2023 Adult depression scr eening assessment Shagufta Ferris Start: 05-07-2023 Colonoscopy Gayatribianka Avelar gel [employer] Work Phone: Start: 08-03-2022 Adult depression scr eening assessment Gayatri Gaspar [employer] Work Phone: Start: 12-23-2017 End: 12-23-2017 DESTRUCTION BY NEUROLYTIC AGENT Talita Ritchie Work Phone: Start: 09-23-2017 End: 09-23-2017 DESTRUCTION BY NEUROLYTIC AGENT Talita Ritchie Work Phone: Start: 06-24-2017 End: 06-24-2017 DESTRUCTION BY NEUROLYTIC AGENT Talita Ritchie Work Phone: Start: 03-22-2017 End: 03-22-2017 DESTRUCTION BY NEUROLYTIC AGENT Talita Ritchie Work Phone: Plan of Treatment Date Care Activity Detail Author Start: 05-07-2033 Screening for malignant neoplasm of colon Colonoscopy [facility] Start: 01-22-2032 DTaP,Tdap and Td Vaccines (2 - Td or Tdap) DTaP,Tdap and Td Vaccines (2 - Td or Tdap) [facility] Start: 12-29-2028 Tetanus vaccination [facility] Start: 08-22-2024 Adult BMI Screening Adult BMI Screening [facility] Start: 08-02-2024 Depression Screening Depression Screening [facility] Start: 08-02-2024 Tobacco Screening Tobacco Screening [facility] Start: 06-14-2024 Adult BMI Screening Adult [facility] Screening [facility] Start: 06-09-2024 Adult BMI Screening Adult BMI Screening [facility] Start: 06-09-2024 Tobacco Screening Tobacco Screening [facility] Start: 04-10-2024 End: 04-10-2024 Patient encounter procedure 04/10/2024 2:30 PM EST Office Visit [facility] [address] [place] [phone] Ruth Shepherd MD [address] [place] [address], [address] [address] [facility] Start: 12-08-2023 End: 12-08-2023 Patient encounter procedure 12/08/2023 9:45 AM EDT Office Visit [facility] [address] [place] [address] Gayatri Gaspar, [employer] [address], [address] [place] [address] [facility] Start: 11-30-2023 End: 11-30-2023 Patient encounter procedure 11/30/2023 10:00 AM EDT Appointment [facility] - Neurophysiology [address] [place] [address] [facility] - Neurophysiology Start: 08-29-2023 End: 08-29-2023 Patient encounter procedure 08/29/2023 8:00 AM EDT Appointment [facility] [address] [place] [address] Ruth Shepherd MD [address] [place] [address], [address] [place] [address] [facility] Start: 08-29-2023 Subsequent hospital visit by physician 08/29/2023 7:30 AM EDT Hospital Encounter [facility] [address] [place] [address] Ruth Shepherd MD [address] [place] [address], [address] [place] [address] [facility] Start: 08-17-2023 End: 08-17-2023 Patient encounter procedure 08/17/2023 10:45 AM EDT Appointment [facility] - Neurophysiology [address] [facility] [address] [place] [address] [facility] - Neurophysiology Start: 08-03-2023 Adult BMI Follow Up Plan Adult BMI Follow Up Plan [facility] Start: 08-03-2023 Depression Screening Depression Screening [facility] Start: 08-02-2023 End: 08-02-2023 Patient encounter procedure 08/02/2023 11:15 AM EST Office Visit [facility] [address] [place] [phone] Ruth Shepherd MD [address] [facility], [address] [place] [address] [facility] Start: 07-13-2023 End: 07-13-2023 Patient encounter procedure 07/13/2023 3:30 PM EST Appointment [facility] [place] [address] [place] [address] [facility] Start: 06-22-2023 End: 06-22-2023 Patient encounter procedure 06/22/2023 10:30 AM EST Appointment [facility] [address] [place] [address] [facility] [place] Start: 06-14-2023 End: 06-14-2023 Patient encounter procedure 06/14/2023 10:00 AM EST Appointment [facility] Cardi[facility] [address] [place] [phone] Ken Dickey DO [address] [place] [address] [facility] - Cardiovascular Start: 02-05-2023 COVID-19 Vaccine ( season) COVID-19 Vaccine ( season) [facility] Start: 02-05-2023 Influenza vaccination Influenza Vaccine [facility] Start: 02-05-2022 Influenza vaccination Sequential Influenza Vaccine (#1) [facility] Start: 05-12-2021 End: 05-12-2021 Patient encounter procedure 05/12/2021 Office Visit Neurology Denilson Jacobs, [employer] [address] [place] [address] [phone] [facility] Start: 06-15-2021 COVID-19 Vaccine (3 - Booster for Moderna series) COVID-19 Vaccine (3 - Booster for Moderna series) [facility] Start: 11-07-2020 End: 11-07-2020 Patient encounter procedure 11/07/2020 Office Visit Neurology Talita Ritchie MD [address] [place] [address] [phone] [facility] Start: 11-09-2019 End: 11-09-2019 Office Visit 11/09/2019 Office Visit Talita Sagastume MD [address] [place] [address] [phone] [facility] Start: 10-21-2019 History and physical examination, annual for health maintenance Wellness Visit [facility] Start: 07-10-2019 End: 07-10-2019 Office Visit 07/10/2019 Office Visit Neurology Denilson Jacobs CNP [address] [place] [address] [phone] [facility] Start: 04-06-2019 End: 04-06-2019 Office Visit 04/06/2019 Office Visit Talita Sagastume MD [address] [place] [address] [phone] [facility] Start: 02-05-2019 Influenza vaccination given SEQUENTIAL INFLUENZA VACCINE (#1) [facility] Start: 12-28-2018 End: 12-28-2018 Office Visit 12/28/2018 Office Visit Talita Sagastume MD [address] [place] [address] [phone] [facility] Start: 09-27-2018 End: 09-27-2018 Office Visit 09/27/2018 Office Visit Talita Sagastume MD [address] [place] [address] [phone] [facility] Start: 02-05-2018 Influenza vaccination [facility] Start: 02-05-2018 Influenza vaccination given SEQUENTIAL INFLUENZA VACCINE (#1) [facility] Start: 10-18-2017 End: 10-18-2017 Ambulatory 10/18/2017 Office Visit Physical Medicine and Rehabilitation Alexandra Sweet MD [address] [facility] [address] [place] [address] [phone] [facility] Start: 2017 Screening for malignant neoplasm of breast Mammogram [facility] Start: 2017 Screening mammography Mammogram [facility] Start: 09-23-2017 End: 09-23-2017 Ambulatory [facility] Start: 02-05-2017 Influenza vaccination SEQUENTIAL INFLUENZA VACCINE (#1) [facility] Work Phone: Start: 1998 Screening for malignant neoplasm of cervix Pap Smear [facility] Start: 10-05-1995 Hepatitis C screening Hepatitis C Screening [facility] Start: 1992 HIV screening HIV Screening [facility] Start: 1989 COVID-19 Vaccine (1) COVID-19 Vaccine (1) [facility] Start: 1989 Depression screening using PHQ-9 (Patient Health Questionnaire 9) score [facility] Start: 1980 History and physical examination, annual for health maintenance Wellness Visit [facility] Start: 1977 Protein mass conc Mammogram [facility] Start: 1977 Screening for malignant neoplasm of cervix PAP SMEAR [facility] Start: 1977 Screening mammography Mammogram [facility] Start: 1977 Tetanus vaccination TETANUS EVERY 10 YR [facility] Work Phone: End: 12-29-2019 Basic metabolic 2000 panel Basic Metabolic Panel Lab Routine Concussion without loss of consciousness, initial encounter Migraine without aura and without status migrainosus, not intractable 1 Occurrences starting 12/28/2018 until 12/29/2019 [facility] Comment on above: 1 Occurrences starting 12/28/2018 until 12/29/2019 Basic metabolic 2000 panel Basic Metabolic Panel Lab Routine Concussion without loss of consciousness, initial encounter Migraine without aura and without status migrainosus, not intractable 12/28/2018 1:36 PM EDT [facility] End: 12-29-2019 Complete blood count with white cell differential, manual CBC and Differential Lab Routine Concussion without loss of consciousness, initial encounter Migraine without aura and without status migrainosus, not intractable 1 Occurrences starting 12/28/2018 until 12/29/2019 [facility] Comment on above: 1 Occurrences starting 12/28/2018 until 12/29/2019 Complete blood count with white cell differential, manual CBC and Differential Lab Routine Concussion without loss of consciousness, initial encounter Migraine without aura and without status migrainosus, not intractable 12/28/2018 1:36 PM EDT [facility] End: 12-29-2019 CT of head without contrast CT Head Or Brain Without Contrast Imaging Routine Concussion without loss of consciousness, initial encounter Migraine without aura and without status migrainosus, not intractable 1 Occurrences starting 12/28/2018 until 12/29/2019 [facility] Comment on above: 1 Occurrences starting 12/28/2018 until 12/29/2019 Immunizations Immunization Date Immunization Notes Care Provider Willian finch 04-14-2021 influenza virus vaccine, unspecified formulation Gayatri Gaspar [employer] Work Phone: [facility] System Payers Date Payer Category Payer Medicare ANTHEM MANAGED M BIANCA JORGE MEDIBLUE ESSENTIAL/PLUS/CONNECT/SNP HMO [id number] 2020-Present [id number] 2019 Medicare AETNA MANAGED MD JANETH AETNA MEDICARE PLAN (PPO) xxxxxxxx 2019-Present xxxxxxxx [id number]. [id number] 2019 Medicare [id number] 2015 Medicaid xxxxxxxxxxxx [id number] 2015 [facility] [id number] 2015-Present [id number]. [id number] 2015 Medicaid [id number]. 1.13.385.2.7.3. [id number] 2013 Medicare MEDICARE MEDICAR E PART A & B xxxxxxxxxxx 2013-Present [place] xxxxxxxxxxx [id number]. [id number] 2013 Medicare [id number] 2013 Medicare [id number]. 1.13.385.2.7.3. [id number] 1977 Unknown [id number] 2.16840.1.819207.3.579.2.900 1977 Unknown [id number] 2.16840.1.770386.3.579.2.903 1977 Unknown [id number] 2.16840.1.064995.3.579.2.903 1977 Unknown [id number] 2.16840.1.422836.3.579.2.903 1977 Unknown [id number] 2.16840.1.525623.3.579.2.593 1977 Unknown [id number] 2.16840.1.506672.3.579.2.593 1977 Unknown [id number] 2.16.840.1.951837.3.579.2.593 1977 Unknown [id number] 2.16.840.1.834597.3.579.2.593 1977 Unknown [id number] 2.16.840.1.294830.3.579.2.593 1977 Unknown [id number] 2.16.840.1.843609.3.579.2.593 1977 Unknown [id number] 2.16.840.1.874591.3.579.2.593 1977 Unknown [id number] 2.16.840.1.371962.3.579.2.593 1977 Unknown [id number] 2.16.840.1.759969.3.579.2.593 1977 Unknown [id number] 2.16.840.1.103856.3.579.2. 1977 Unknown [id number] 2.16.840.1.742913.3.579.2.1285 1977 Unknown [id number] 2.16840.1.824753.3.579.2.1285 1977 Unknown [id number] 2.840.1.072071.3.579.2.1285 1977 Unknown [id number] 2.840.1.835232.3.579.2.1285 1977 Unknown [id number] 2.840.1.535181.3.579.2.1285 1977 Unknown [id number] 2.840.1.406688.3.579.2.1285 1977 Unknown [id number] 2.840.1.821121.3.579.2.9 1977 Unknown [id number] 2.840.1.631075.3.579.2.1285 1977 Unknown [id number] 2.840.1.962739.3.579.2.1285 1977 Unknown [id number] 2.840.1.295984.3.579.2.1285 1977 Unknown [id number] 2.840.1.258348.3.579.2.1285 1977 Unknown [id number] 2.16840.1.929508.3.579.2.1285 1977 Unknown [id number] 2.16840.1.608089.3.579.2.1285 1977 Unknown [id number] 2.16840.1.096495.3.579.2.1285 1977 Unknown [id number] 2.840.1.252378.3.579.2.1285 1977 Unknown [id number] 2.16840.1.721334.3.579.2.1285 1977 Unknown [id number] 2.0.1.934974.3.579.2.1285 1977 Unknown [id number] 2.840.1.625771.3.579.2.1285 1977 Unknown [id number] 2.0.1.080916.3.579.2.1285 1977 Unknown [id number] 2.0.1.809410.3.579.2.1285 1977 Unknown [id number] 2.0.1.370755.3.579.2.1285 1977 Unknown [id number] 2.840.1.497441.3.579.2.1285 1977 Unknown [id number] 2..1.402918.3.579.2.1285 1977 Unknown [id number] 2.0.1.662022.3.579.2.1285 1977 Unknown [id number] 2.0.1.383734.3.579.2.1285 1977 Unknown [id number] 2.840.1.902667.3.579.2.1285 1977 Unknown [id number] 2.840.1.318977.3.579.2.1285 1977 Unknown [id number] 2.840.1.099803.3.579.2.1285 1977 Unknown [id number] 2.840.1.899044.3.579.2.1285 1959 Medicaid [id number] .840.1.478354.3.249.13 1959 Medicare [id number] Medicare xxxxxxxxxx [id number] Medicare [id number] .16.840.1.184080.3.249.13 Social History Date Type Detail Facility Start: 10-18-2017 End: 04-07-2023 Tobacco smoking status NHIS Former smoker [facility] Work Phone: End: 06-07-2011 History of tobacco use Current smoker [facility] Work Phone: Start: 10-18-2017 End: 06-19-2020 Cigarettes smoked current (pack per day) - Reported [facility] Start: 1975 Sex Assigned At Not on file [facility] Work Phone: Start: 07-20-2017 End: 04-06-2019 Alcohol intake Current non-drinker of alcohol (finding) [facility] Start: 05-13-2020 End: 04-07-2023 Tobacco use and exposure Never used [facility] Start: 10-08-2020 End: 11-07-2020 Exposure to SARS-CoV-2 (event) Not sure [facility] End: 06-07-2011 History of tobacco use Cigarette Smoker [facility] Start: 06-09-2023 End: 08-02-2023 Alcohol intake Ex-drinker (finding) [facility] Start: 02-01-2019 End: 06-19-2020 Alcohol Use Disorder Identification Test - Consumption [AUDIT-C] [facility] Frequency of Alcohol Consumption Never [facility] Start: 1975 Sex Assigned At Female [facility] Start: 03-11-2022 Gender identity Identifies as female gender (finding) [facility] Start: 03-11-2022 Sexual orientation Heterosexual (finding) [facility] Clinical Notes 07-21-2017 to 08-27-2023 Telephone Encounter - Terri Willoughby RN - 08/27/2023 9:37 AM EDTTelephone Encounter - Terri Willoughby RN - 08/27/2023 9:37 AM EDTTelephone Encounter - Shagufta Ferris - 08/27/2023 8:16 AM EDT Note Date & Type Note Facility 08-27-2023 Miscellaneous Notes Formattin g of this note might be different from the original. Received refill request for Lyrica (pregabalin) 100 mg via patient call. Last refill was e-scribed on 03/08/23 90 days + 1 refill Prescription verified and pended to for approval and signature. Next follow up is to be around March 2024 documented in this encounter [facility] 08-27-2023 Telephone encount er Note Received refill request for Lyrica (pregabalin) 100 mg via patient call. Last refill was e-scribed on 03/08/23 90 days + 1 refill Prescription verified and pended to for approval and signature. Next follow up is to be around March 2024 [facility] 08-27-2023 Miscellaneous Notes Formattin g of this note might be different from the original. Patient [phone] states that they had a Botox procedure 08/02/23 and now is experiencing neck pain. Patient states that they are also having difficulty controlling and holding their neck up. Patient has requested a call back from clinical staff. Spoke with patient. She reports the following: She had Botox this week on 08/24/23 ( 3 days ago). She has had a headache and neck pain radiating across her shoulders. She has difficulty holding her head up and tilting her head back. If she tries to tilt her head back she gets dizzy and the pain increases. Advised patient Dr DENT is not in clinic today, however, we will try to get a message to her. When we have a response we will call patient back. Response from Dr DENT: If symptoms are from Botox it should improve with time. The ED will only be able to help with pain relief. Encourage patient to get MRI's done as scheduled on 08/29/23 and let us know how she is feeling next week. Spoke with patient to convey comments and recommendation in message noted below. Patient is agreeable. documented in this encounter [facility] 08-27-2023 Telephone encount er Note Patient [phone] states that they had a Botox procedure 08/02/23 and now is experiencing neck pain. Patient states that they are also having difficulty controlling and holding their neck up. Patient has requested a call back from clinical staff. [facility] 08-27-2023 Telephone encount er Note Spoke with patient. She reports the following: She had Botox this week on 08/24/23 ( 3 days ago). She has had a headache and neck pain radiating across her shoulders. She has difficulty holding her head up and tilting her head back. If she tries to tilt her head back she gets dizzy and the pain increases. Advised patient Dr DENT is not in clinic today, however, we will try to get a message to her. When we have a response we will call patient back. [facility] 08-27-2023 Telephone encount er Note Response from Dr DENT: If symptoms are from Botox it should improve with time. The ED will only be able to help with pain relief. Encourage patient to get MRI's done as scheduled on 08/29/23 and let us know how she is feeling next week. Spoke with patient to convey comments and recommendation in message noted below. Patient is agreeable. [facility] 06-25-2023 Miscellaneous Notes Formattin g of this note might be different from the original. P/c from pt requesting 1 metoprolol lopressor 25 mg tablet d/t her CTA cors scheduled 06/22/23 being rescheduled for 07/13/23. Pt had taken the 1 tablet the night before the 06/22/23 CTA but then it was canceled the morning of 06/22/23. Previous printed metoprolol 25 mg prescription found to confirm sig and dosage. Pt would like the 1 tablet sent to [facility] in [place]. Med pending signature. documented in this encounter [facility] 06-25-2023 Telephone encount er Note P/c from pt requesting 1 metoprolol lopressor 25 mg tablet d/t her CTA cors scheduled 06/22/23 being rescheduled for 07/13/23. Pt had taken the 1 tablet the night before the 06/22/23 CTA but then it was canceled the morning of 06/22/23. Previous printed metoprolol 25 mg prescription found to confirm sig and dosage. Pt would like the 1 tablet sent to [facility] in [place]. Med pending signature. [facility] 06-09-2023 History of Presen t illness Narrative . SERENE Flanagan 06/09/23 1453 Chief Complaint: Brenda Novak returns to the [facility] for follow up on 06/09/2023. She is a 47 y.o. female followed at the Sleep Clinic for LUIS MIGUEL, for which BPAP 15/8/4 cm H2O was prescribed. At the time of the last visit on 05/20/22, the plan was to continue BiPAP. HPI: The patient reports that she is adherent to her nocturnal ventilatory support for 6.5 hours a night 7 days per week. She reports feeling the benefits of wearing it nightly and denies any am fatigue or excessive daytime sleepiness. Denies any aerophagia. She did have COVID in May and since this time she has been having a lot of fatigue. She will fall asleep during the day at times. She denies any dyspnea, fevers, chills, hemoptysis, wheezing, or chest pain. Overall, she is very pleased with her current status. She denies sleepiness while driving. Supplemental O2 use: None Current PAP interface: She uses a Full Face Mask. She does not use a chinstrap. She does use the heated inline humidifier. Cleaning supplies with soap and water. [place] Sleepiness Scale: Sitting and Reading: Slight Chance Watching TV: (!) Moderate Chance Sitting inactive in a public place (theater, meeting): (!) Moderate Chance As a passenger in a car for an hour without a break: (!) High Chance Lying down in the afternoon to rest: (!) High Chance Sitting and talking to someone: Slight Chance Sitting quietly after lunch (without alcohol): Slight Chance In a car, while stopped for a few minutes in traffic: Never Total: 13 OARRS: Reviewed: no PMH: Pertinent History: Her pertinent medical history includes Past Medical History: Diagnosis Date Anemia Arthritis Asthma B12 deficiency Back pain Always Borderline diabetes Cavernous hemangioma of brain ([facility]) Cerebral aneurysm diagnosed in 2010 Diabetes mellitus ([facility]) Borderline HTN (hypertension) Hypothyroidism Migraines Morbid obesity ([facility]) LUIS MIGUEL on CPAP Polycystic ovary syndrome Scoliosis When I was little Acute Seizures ([facility]) stress related, no episodes since 2013, never officially diagnosed Varicella 3 times child Visual impairment Medications: Reviewed with patient. Current Outpatient Medications: albuterol (PROVENTIL HFA;VENTOLIN HFA) 90 mcg/actuation inhaler, Inhale 2 puffs every 6 (six) hours as needed for wheezing or shortness of breath., Disp: 18 g, Rfl: 11 albuterol (PROVENTIL,VENTOLIN) 2.5 mg /3 mL (0.083 %) nebulizer solution, Inhale 3 mL (2.5 mg total) by nebulization every 6 (six) hours as needed for wheezing or shortness of breath., Disp: 360 mL, Rfl: 11 amLODIPine (NORVASC) 10 mg tablet, Take 1 tablet (10 mg total) by mouth in the morning., Disp: , Rfl: EPINEPHrine (EPIPEN) 0.3 mg/0.3 mL auto-injector, Inject 0.3 mL (0.3 mg total) into the appropriate muscle as needed., Disp: , Rfl: EUTHYROX 88 mcg tablet, Take 1 tablet (88 mcg total) by mouth in the morning., Disp: , Rfl: fluticasone furoate-vilanteroL (BREO ELLIPTA) 100-25 mcg/dose blister with device, Inhale 1 puff by mouth once daily, Disp: 60 each, Rfl: 5 furosemide (LASIX) 20 mg tablet, Take 2 tablets (40 mg total) by mouth daily., Disp: , Rfl: galcanezumab-gnlm (EMGALITY PEN) 120 mg/mL pen injector, INJECT 1 PEN SUBCUTANEOUSLY EVERY 28 DAYS., Disp: 1 mL, Rfl: 3 montelukast (SINGULAIR) 10 mg tablet, Take 1 tablet (10 mg total) by mouth in the morning., Disp: , Rfl: multivitamin (THERAGRAN) tablet, Take 1 tablet by mouth in the morning., Disp: , Rfl: nystatin (MYCOSTATIN) cream, APPLY CREAM TOPICALLY TWICE DAILY (IN THE MORNING AND AT BEDTIME), Disp: 30 g, Rfl: 0 omeprazole (PriLOSEC OTC) 20 mg EC tablet, Take 1 tablet (20 mg total) by mouth in the morning., Disp: , Rfl: potassium chloride (K-TAB,KLOR-CON) 20 mEq CR tablet, Take 1 tablet (20 mEq total) by mouth in the morning., Disp: , Rfl: pregabalin (LYRICA) 100 mg capsule, TAKE 1 CAPSULE BY MOUTH THREE TIMES DAILY, Disp: 270 capsule, Rfl: 1 topiramate (TOPAMAX) 100 mg tablet, Take 1 tablet by mouth twice daily, Disp: 180 tablet, Rfl: 1 ubrogepant (UBRELVY) 100 mg tablet, Take one tablet at onset of severe headache. May repeat in 2 hours if needed. Limit 2 / 24hrs. Limit 2/week and 10/month, Disp: 10 tablet, Rfl: 2 Vitals: 06/09/23 1137 BP: 138/90 Pulse: 63 SpO2: 99% Weight: (!) 140.8 kg (310 lb 8 oz) Height: 162.6 cm (5' 4 ) Allergies: Reviewed with patient. Bee venom protein (honey bee), Pineapple, Venom-wasp, Aspirin, Beeswax, Coconut, Darvocet a500 [propoxyphene n-acetaminophen], Depakote [divalproex], Heparin analogues, Ibuprofen, Imitrex [sumatriptan], Naproxen, Nitroglycerin, Tramadol, Vicodin [hydrocodone-acetaminophen], Adhesive, and Latex Family History: Family History Problem Relation Age of Onset Cancer Mother Hypertension Mother Thyroid disease Mother Arthritis Mother Diabetes Father Bleeding Disorder Father Heart attack Father Hypertension Father Stroke Father Diabetes Brother Learning disabilities Brother Stroke Paternal Uncle Vision loss Paternal Uncle Diabetes Maternal Grandmother Diabetes Paternal Grandmother Stroke Paternal Grandmother Prostate cancer Paternal Grandfather Social History: Social History Socioeconomic History Marital status: Spouse name: Not on file Number of children: Not on file Years of education: Not on file Highest education level: Not on file Occupational History Not on file Tobacco Use Smoking status: Former Packs/day: 0.50 Years: 15.00 Additional pack years: 0.00 Total pack years: 7.50 Types: Cigarettes Quit date: 06/07/2011 Years since quittin.0 Smokeless tobacco: Never Vaping Use Vaping Use: Never used Substance and Sexual Activity Alcohol use: Not Currently Drug use: Never Sexual activity: Defer Other Topics Concern Caffeine Use No Social History Narrative Not on file Social Determinants of Health Financial Resource Strain: Not on file Food Insecurity: No Food Insecurity (05/21/2023) Hunger Screening Food Insecurity - Worry: Never True Food Insecurity - Inability: Never True Transportation Needs: Not on file Physical Activity: Not on file Stress: Not on file Social Connections: Not on file Interpersonal Safety: Not on file Travel History: Denies recent travel. ROS: All 11 systems have been reviewed: Review of Systems Constitutional: Negative for chills, fatigue and fever. Respiratory: Negative for cough, shortness of breath and wheezing. Cardiovascular: Negative for chest pain/discomfort. All other systems are reviewed and are negative except as noted. Physical Examination: Vital signs BP 138/90 Pulse 63 Ht 162.6 cm (5' 4 ) Wt (!) 140.8 kg (310 lb 8 oz) SpO2 99% BMI 53.30 kg/m Physical Exam Vitals and nursing note reviewed. Constitutional: Appearance: Normal appearance. She is obese. Cardiovascular: Heart sounds: Normal heart sounds. Pulmonary: Breath sounds: Normal breath sounds. Musculoskeletal: Cervical back: Neck supple. Skin: General: Skin is warm and dry. Neurological: Mental Status: She is alert and oriented to person, place, and time. Psychiatric: Mood and Affect: Mood normal. Behavior: Behavior normal. Laboratory DATA: Lab Results Component Value Date CO2 23 05/21/2023 Lab Results Component Value Date TSH 2.31 05/21/2023 Lab Results Component Value Date WBC 9.3 06/25/2022 HGB 15.3 06/25/2022 HCT 45.4 06/25/2022 MCV 97 06/25/2022 PLT 380 06/25/2022 No results found for: FERRITIN Chemistry Component Value Date/Time K 3.6 05/21/2023 0952 CL 107 05/21/2023 0952 CO2 23 05/21/2023 0952 BUN 13 05/21/2023 0952 CREATININE 0.87 05/21/2023 0952 GLU 98 05/21/2023 0952 Component Value Date/Time CALCIUM 9.0 05/21/2023 0952 ALKPHOS 87 05/21/2023 0952 AST 13 05/21/2023 0952 ALT 22 05/21/2023 0952 Lab Results Component Value Date TSH 2.31 05/21/2023 No results found. DATA: BIPAP-Auto: Re-titration: 02/2020 Titration: 10/2015 PS06/2015 w/ AHI of 9 DME: [facility] Data card was available for PAP usage data download. PAP compliance is excellent. PAP data card download 05/09/23 - 06/07/23 Device: AirCurve 10 VAuto Pressure: Percent days with device use =80% Average use: 6 hours51 minutes per day Percent days with use >=4 hours: 80% Average AHI = 2.8 Average time in large leak/day = min seconds 95th percentile leak = 24.6L/min Impression: There are no diagnoses linked to this encounter. LUIS MIGUEL with adherence to nocturnal ventilatory support on a nightly basis. Obesity Body mass index is 53.3 kg/m . History of asthma with management per PCP Family history of alpha one GERD Plan: Discussed diagnosis, its evaluation, treatment and usual course. All questions answered. Educational material distributed. No orders of the defined types were placed in this encounter. No orders of the defined types were placed in this encounter. She is to both machines to be set at BiPAP 15/8/4 cm H20 on a nightly basis. New mask and supplies as needed. Independently reviewed and interpreted data download and ESS. Start a walking program Swabbed for alpha one Diet and exercise were discussed in detail. Any age appropriate or routine screening per PCP. Follow up in 12 Months time. If her condition should change prior to this she is encouraged to give our office a call. Discussed triggers to call back before follow up including weight change > 10%, major medical issues including stroke, arrhythmia or heart attack, or significant change in symptoms. EDUCATION: Driving precautions were reviewed. I advised the patient not to drive if sleepy, and to wool puller if sleepiness occurs while driving. Above plan as discussed with the patient who acknowledged understanding and agreement. Health risks associated with untreated LUIS MIGUEL were discussed (cardiopulmonary, cerebrovascular, and anesthesia/sedative-related). Discussed triggers to call back before next visit including weight change > 10%, major medical issues including stroke, arrhythmia or heart attack, or significant change in symptoms. This note is dictated with the use of M*Modal.Please note that this dictation was completed with computer voice recognition software. Quite often unanticipated grammatical, syntax, homophones, and other interpretive errors are inadvertently transcribed by the computer software. Please disregard these errors. Please excuse any errors that have escaped final proofreading. Gayatri Gaspar [facility] Office: [phone] 2:51 PM on 06/09/2023 CC: DO Gayatri DE LA GARZA APRN-CNP 06/09/23 1451 SERENE Flanagan 06/09/23 1452 SERENE Flanagan 06/09/23 1453 documented in this encounter [facility] 06-09-2023 Instructions SERENE Flanagan - 06/09/2023 11:45 AM EST If you re looking for general health and wellness resources, please visit [email or web address]. documented in this encounter [facility] 09-02-2022 Note PROCEDURE: XR ANKLE RT MIN 3 VIEWS, XR FOOT RT MIN 3 VIEWS HISTORY: Pain of right ankle joint COMPARISON: XR ankle and foot right 08/13/2022 2 FINDINGS: BONES:Prior posterior calcaneal osteotomy and repair via 2 lag screws; no hardware fracture or loosening. Stable bone alignment. SOFT TISSUES:No visible soft tissue swelling. EFFUSION:None visible. OTHER: Negative. IMPRESSION: 1. Stable surgical changes without evidence of hardware failure or change in alignment. Electronically authenticated by: SOILA NIÑO Date: 2022-09-02 11:34 [facility] 09-02-2022 Note PROCEDURE: XR ANKLE RT MIN 3 VIEWS, XR FOOT RT MIN 3 VIEWS HISTORY: Pain of right ankle joint COMPARISON: XR ankle and foot right 08/13/2022 2 FINDINGS: BONES:Prior posterior calcaneal osteotomy and repair via 2 lag screws; no hardware fracture or loosening. Stable bone alignment. SOFT TISSUES:No visible soft tissue swelling. EFFUSION:None visible. OTHER: Negative. IMPRESSION: 1. Stable surgical changes without evidence of hardware failure or change in alignment. Electronically authenticated by: SOILA NIÑO Date: 2022-09-02 11:34 [facility] 08-14-2022 Note PROCEDURE: XR ANKLE RT MIN 3 VIEWS, XR FOOT RT MIN 3 VIEWS HISTORY: Pain of right ankle joint COMPARISON: XR right ankle and foot 07/30/2022 FINDINGS: BONES:Posterior calcaneal osteotomy and realignment with stable lag screws. Small degenerative osteophytes along the anterior margin of the ankle joint. SOFT TISSUES:No visible soft tissue swelling. EFFUSION:None visible. OTHER: Negative. IMPRESSION: 1. Stable surgical changes of the calcaneus without evidence of hardware failure or change in alignment. 2. Stable mild degenerative changes of ankle joint. Electronically authenticated by: SOILA NIÑO Date: 2022-08-14 06:58 [facility] 08-14-2022 Note PROCEDURE: XR ANKLE RT MIN 3 VIEWS, XR FOOT RT MIN 3 VIEWS HISTORY: Pain of right ankle joint COMPARISON: XR right ankle and foot 07/30/2022 FINDINGS: BONES:Posterior calcaneal osteotomy and realignment with stable lag screws. Small degenerative osteophytes along the anterior margin of the ankle joint. SOFT TISSUES:No visible soft tissue swelling. EFFUSION:None visible. OTHER: Negative. IMPRESSION: 1. Stable surgical changes of the calcaneus without evidence of hardware failure or change in alignment. 2. Stable mild degenerative changes of ankle joint. Electronically authenticated by: SOILA NIÑO Date: 2022-08-14 06:58 [facility] 07-30-2022 Note PROCEDURE: XR ANKLE RT MIN 3 VIEWS, XR FOOT RT MIN 3 VIEWS HISTORY: Pain of right ankle joint COMPARISON: XR ankle and foot right 07/09/2022 FINDINGS: BONES:Posterior calcaneal osteotomy and realignment without evidence of hardware fracture or loosening. Degenerative spurring along the anterior margin of the tibiotalar joint. SOFT TISSUES:No visible soft tissue swelling. EFFUSION:None visible. OTHER: Negative. IMPRESSION: 1. Stable surgical changes without evidence of hardware failure or change in alignment. Electronically authenticated by: SOILA NIÑO Date: 2022-07-30 18:53 [facility] 07-30-2022 Note PROCEDURE: XR ANKLE RT MIN 3 VIEWS, XR FOOT RT MIN 3 VIEWS HISTORY: Pain of right ankle joint COMPARISON: XR ankle and foot right 07/09/2022 FINDINGS: BONES:Posterior calcaneal osteotomy and realignment without evidence of hardware fracture or loosening. Degenerative spurring along the anterior margin of the tibiotalar joint. SOFT TISSUES:No visible soft tissue swelling. EFFUSION:None visible. OTHER: Negative. IMPRESSION: 1. Stable surgical changes without evidence of hardware failure or change in alignment. Electronically authenticated by: SOILA NIÑO Date: 2022-07-30 18:53 [facility] 07-10-2022 Note PROCEDURE: XR FOOT R T MIN 3 VIEWS, XR ANKLE RT MIN 3 VIEWS COMPARISON: 12/02/2021, 06/15/2022 HISTORY: Pain in right foot FINDINGS: BONES:Continued healing of a stable posterior calcaneal osteotomy transfixed with 2 cannulated screws. No acute fracture, dislocation or mechanical failure. Stable mixed lytic and sclerotic appearance anterior distal tibia SOFT TISSUES:Moderate medial soft tissue swelling EFFUSION:None visible. OTHER: Negative. IMPRESSION: Stable exam with continued healing of calcaneal osteotomy Electronically authenticated by: CORBY MARQUEZ Date: 2022-07-10 08:27 [facility] 07-10-2022 Note PROCEDURE: XR FOOT R T MIN 3 VIEWS, XR ANKLE RT MIN 3 VIEWS COMPARISON: 12/02/2021, 06/15/2022 HISTORY: Pain in right foot FINDINGS: BONES:Continued healing of a stable posterior calcaneal osteotomy transfixed with 2 cannulated screws. No acute fracture, dislocation or mechanical failure. Stable mixed lytic and sclerotic appearance anterior distal tibia SOFT TISSUES:Moderate medial soft tissue swelling EFFUSION:None visible. OTHER: Negative. IMPRESSION: Stable exam with continued healing of calcaneal osteotomy Electronically authenticated by: CORBY MARQUEZ Date: 2022-07-10 08:27 [facility] 06-15-2022 Note PROCEDURE: XR ANKLE RT 2V HISTORY: Pain COMPARISON: XR ankle right 12/24/2021 FINDINGS: BONES:Multiple intraoperative spot fluoroscopic images demonstrate osteotomy of the posterior calcaneus with realignment attachment via 2 lag screws. Small amount of bone harvesting from proximal tibia. SOFT TISSUES:No visible soft tissue swelling. EFFUSION:None visible. OTHER: Negative. IMPRESSION: 1. Posterior calcaneal osteotomy and repair. Electronically authenticated by: SOILA NIÑO Date: 2022-06-15 15:00 [facility] 06-15-2022 Note PROCEDURE: XR ANKLE RT MIN 3 VIEWS HISTORY: Pain COMPARISON: XR ankle right 06/15/2022 intraoperative images FINDINGS: BONES:Posterior calcaneal osteotomy with realignment and attachment. No hardware fracture or loosening. No bone fracture dislocation. SOFT TISSUES:Subcutaneous air; not unexpected following surgery. Images were obtained to cast material. EFFUSION:None visible. OTHER: Negative. IMPRESSION: 1. Stable surgical changes without appreciable change compared to intraoperative images. Electronically authenticated by: SOILA NIÑO Date: 2022-06-15 14:56 [facility] 12-24-2021 Note PROCEDURE: XR ANKLE RT MIN 3 VIEWS HISTORY: Pain ; posterior ankle pain COMPARISON: XR ankle right 10/12/2019 FINDINGS: BONES:No acute fracture dislocation. Degenerative osteophyte along the anterior margin of tibial plafond. Small degenerative enthesophyte at Achilles tendon insertion into calcaneus. SOFT TISSUES:No visible soft tissue swelling. EFFUSION:None visible. OTHER: Negative. IMPRESSION: 1. No acute bone abnormality or specific findings to account for patient's symptoms. 2. Stable mild degenerative changes. Electronically authenticated by: SOILA NIÑO Date: 2021-12-24 21:49 [facility] 12-03-2021 Note PROCEDURE: XR FOOT R T MIN 3 VIEWS COMPARISON: 08/01/2019 HISTORY: Pain in right foot FINDINGS: BONES:No acute fracture or dislocation. Stable degenerative changes with marginal osteophyte formation. Enthesopathic spurring of the calcaneus. SOFT TISSUES:Negative. No visible soft tissue swelling. EFFUSION:None visible. OTHER: Negative. IMPRESSION: Stable degenerative changes Electronically authenticated by: CORBY MARQUEZ Date: 2021-12-03 07:41 [facility] 11-07-2020 Instructions Talita Ritchie MD - 11/07/2020 2:10 PM EDT 1. Lab work 2. Physical therapy referral for back pain (okay to do locally) 3. Follow up with [facility] in six months documented in this encounter [facility] 11-07-2020 History of Presen t illness Narrative [facility] DATE OF VISIT: 11/07/20 PATIENT NAME: Brenda Novak DATE OF : 1975 IMPRESSION: 45 y.o. female with history of TIA, psychogenic non-epileptic spells, cavernous hemangiomas, obstructive sleep apnea, and PCOS, presenting with headaches and lower back pain. The differential diagnosis for her chronic headaches includes chronic migraine or tension-type headache. PLAN: Continue topiramate 100 mg BID (She has an IUD in place), Emgality, and Lyrica 100 mg TID for headache prophylaxis. Will check monitoring lab work. Physical therapy for lower back pain. If this does not help, then a lumbar spine MRI and Medical Spine referral can be considered. Follow up with six months with [facility] or sooner if problems. MDM: 2 stable chronic illnesses; prescription drug management Thank you for allowing me to participate in the care of this patient. If you have any questions, please feel free to contact my office. Talita Ritchie MD, ABPN Neurologist [facility] _ Chief Complaint Patient presents with Headache says had a clark everyday in August, good since August INTERVAL HISTORY: At today's visit, she last saw our [facility] in the office and was continued on topiramate, Emgality, and pregabalin. Recently, her headaches have been under good control. There is no clear trigger for her headaches when they worsen. She is tolerating Emgality, topiramate, or pregabalin. She is having lower back pain with some pain radiating down her left leg. HISTORY OF PRESENT ILLNESS: This is a 45 y.o. female presenting with seizures and headaches. She has had migraine headaches for years. She started to have spells concerning for seizures in 2011. She describes these as feeling lightheaded and funny. She does not lose consciousness and remembers the spells in their entirety. She has never had convulsions. They last for 30-45 minutes. She states that she had EEG monitoring and was diagnosed with non-epileptic spells. She has had three of these spells since March 2015. She was diagnosed with cavernous hemangiomas around 2010 when she had head imaging for headaches. As far as she knows, she has never had hemorrhage from one of these lesions. Headache description Location: all over head Quality: sharp Severity: 10/10 Associated symptoms: photophobia, phonophobia and nausea Duration: hours Frequency: 3/week Alleviating factors: rest Aggravating factors: nothing Interventions tried: topiramate (helps), propranolol, cyproheptadine (helping), meloxicam, naproxen, Lyrica, nortriptyline, occipital nerve block, Fioricet, venlafaxine (ineffective), Botox (ineffective), Emgality (helps) Headache hygiene Daily water intake: 2-3 liters Daily caffeine intake: nothing regular Exercise: 2-3/week Skipping meals: no Sleep: sleep apnea not on treatment Review of Systems Past Medical History: Diagnosis Date Asthma Back pain Cavernous hemangiomas Cholelithiasis Headache(784.0) PCOS (polycystic ovarian syndrome) Psychogenic spell Sleep apnea, obstructive DOES NOT USEE CPAP Spinal hemangioma TIA (transient ischemic attack) Past Surgical History: Procedure Laterality Date CHOLECYSTECTOMY LAPAROSCOPIC N/A 12/28/2014 Procedure: LAPAROSCOPIC CHOLECYSTECTOMY POSSIBLE OPEN; Surgeon: Alan Fall MD; Location: [facility] Main OR; Service: steroid injections to back TONSILLECTOMY 2002 Family History Problem Relation Age of Onset Migraines Mother Hypertension Father Stroke Father Diabetes Father Diabetes Brother Seizures Paternal Uncle Transient ischemic attack Paternal Uncle Heart disease Maternal Grandmother Diabetes Maternal Grandmother Transient ischemic attack Paternal Grandmother Diabetes Paternal Grandmother Cancer Paternal Grandfather Social History Socioeconomic History Marital status: Spouse name: Not on file Number of children: Not on file Years of education: Not on file Highest education level: Not on file Occupational History Not on file Tobacco Use Smoking status: Former Smoker Packs/day: 0.50 Years: 10.00 Pack years: 5.00 Quit date: 12/26/2008 Years since quittin.8 Smokeless tobacco: Never Used Substance and Sexual Activity Alcohol use: No Alcohol/week: 0.0 standard drinks Drug use: No Sexual activity: Yes Other Topics Concern Not on file Social History Narrative Not on file Social Determinants of Health Financial Resource Strain: Difficulty of Paying Living Expenses: Food Insecurity: Worried About Running Out of Food in the Last Year: Ran Out of Food in the Last Year: Transportation Needs: Lack of Transportation (Medical): Lack of Transportation (Non-Medical): Physical Activity: Days of Exercise per Week: Minutes of Exercise per Session: Stress: Feeling of Stress : Social Connections: Frequency of Communication with Friends and Family: Frequency of Social Gatherings with Friends and Family: Attends Restoration[employer] Services: Active Member of Clubs or Organizations: Attends Club or Organization Meetings: Marital Status: Allergies: Coconut, Honey bee treatment [bee venom protein (honey bee)], Pineapple, Venom-wasp, Aspirin, Coconut oil, Darvocet a500 [propoxyphene n-acetaminophen], Depakote [divalproex], Heparin analogues, Imitrex [sumatriptan succinate], Latex, Nitroglycerin, Vicodin [hydrocodone-acetaminophen], and Adhesive SticklesBrenda Home Medication Instructions Prior to Surgery CECILY: Printed on:11/07/20 9185 Medication Information Take last dose on Take the morning of surgery Comment(s) albuterol 90 mcg/actuation inhaler Inhale 2 puffs every 4 (four) hours as needed for wheezing. amLODIPine (NORVASC) 5 MG tablet Take 5 mg by mouth daily . calcium acetate,phosphat bind, (PHOSLO) 667 mg capsule Take 1,334 mg by mouth 2 (two) times a day . cholecalciferol, vitamin D3, (VITAMIN D3 ORAL) Take by mouth . cyanocobalamin (B-12) 1000 MCG tablet Take 1,000 mcg by mouth daily . EPINEPHrine 1:1,000 (EPIPEN) 0.3 mg/0.3 mL (1:1,000) AtIn Inject 0.3 mg into the shoulder, thigh, or buttocks once. fluticasone/vilanterol (BREO ELLIPTA INHL) Inhale . furosemide (LASIX) 20 MG tablet Take 20 mg by mouth daily. galcanezumab-gnlm (Emgality Pen) 120 mg/mL Pen Inject 1 mL (120 mg total) under the skin every 28 days . levothyroxine (SYNTHROID, LEVOTHROID) 88 MCG tablet Take 88 mcg by mouth once daily . metFORMIN (GLUCOPHAGE-XR) 750 MG 24 hr tablet Take 750 mg by mouth daily with breakfast. montelukast (SINGULAIR) 10 mg tablet Take 10 mg by mouth nightly . multivitamin (THERAGRAN) per tablet Take 1 tablet by mouth daily. nebulizer accessories Kit by Miscellaneous route . potassium chloride (MICRO-K) 10 MEQ CR capsule Take 10 mEq by mouth daily. pregabalin (LYRICA) 100 MG capsule Take 1 (one) capsule (100 mg total) by mouth 3 (three) times a day 90 days/fill . topiramate (TOPAMAX) 50 MG tablet Take 2 (two) tablets (100 mg total) by mouth 2 (two) times a day . Physical Examination: Vital signs in last 24 hours: BP 111/73 (BP Location: Left arm, Patient Position: Sitting, BP Cuff Size: X-large Adult) Pulse 71 Ht 5' 4 BMI 61.11 kg/m GENERAL: Sitting comfortably Well-groomed; in no acute distress EYES: Sclera clear Fundoscopic examination reveals optic discs without palor or papilledema NEUROLOGICAL EXAMINATION MENTAL STATUS: Awake and alert Oriented to person, place, and time Recent and remote memory intact Normal attention Normal fund of knowledge SPEECH/LANGUAGE: Fluent Follows commands CRANIAL NERVES: Pupils equal round and reactive to light Extraocular movements intact Facial strength full and symmetric Hearing grossly intact Palate elevates symmetrically Tongue midline with full movement MOTOR: RIGHT STRENGTH TESTING LEFT 5 Shoulder abduction 5 5 Elbow flexion 5 5 Elbow extension 5 Wrist extension Wrist flexion Finger extension Finger flexion 5 Finger abduction 5 Thumb abduction 5 Hip flexion 5 Hip abduction Hip adduction 5 Knee extension 5 5 Knee flexion 5 5 Dorsiflexion 5 5 Plantarflexion 5 Toe spread REFLEXES: RIGHT REFLEXES LEFT 1+ Biceps 1+ Triceps 1+ Brachioradialis 1+ 1+ Patellar 1+ 0 Achilles 0 down Babinski down Stubbs's Jaw jerk SENSATION: Pin prick intact throughout LABS: Lumbar puncture 11/21/2015 - opening pressue 26 cm H2O; prot 36, glu 67, 2 WBC, 0 RBC, negative cytology IMAGING/PROCEDURES: Brain MRI with and without contrast 05/11/2012 - Bilateral cavernous hemangiomas in the right and left cerebral hemispheres and in the posterior medial aspect of left cerebellar hemisphere Brain MRA 2011 - normal documented in this encounter [facility] 10-25-2020 Miscellaneous Notes Patient needs emgality refill documented in this encounter [facility] 07-21-2017 Telephone encount er Note Can't send electronic, will call in script. [facility] 07-21-2017 Miscellaneous Notes Formattin g of this note might be different from the original. Can't send electronic, will call in script. documented in this encounter [facility] Evaluation note Diagnosis Chronic nonintractable headache, unspecified headache type [facility] Diagnosis Chronic migraine without aura without status migrainosus, not intractable- Primary Migraine without aura and without status migrainosus, not intractable Chronic nonintractable headache, unspecified headache type Chronic midline low back pain with left-sided sciatica [facility] Diagnosis Chronic nonintractable headache, unspecified headache type [facility] Diagnosis Chronic nonintractable headache, unspecified headache type [facility] Diagnosis Chronic nonintractable headache, unspecified headache type [facility] Diagnosis LUIS MIGUEL (obstructive sleep apnea)- Primary Obstructive sleep apnea (adult) (pediatric) LUIS MIGUEL treated with BiPAP BMI 50.0-59.9, adult ([facility]) [facility] Diagnosis Chronic migraine without aura, intractable, with status migrainosus [facility] Diagnosis Chronic migraine without aura, intractable, with status migrainosus Neuralgia and neuritis [facility] Diagnosis Degenerative disc disease, cervical- Primary [facility] filedocumented in this [facility] filedocumented in this [facility] filedocumented in this [facility] filedocumented in this [facility] filedocumented in this [facility] (narrative)* Consultation (Routine) - Pending Review Specialty Diagnoses / Procedures Referred By Violeta durham Referred To Contact Neurosurgery Diagnoses Degenerative disc disease, cervical Ruth Shepherd MD [address] [place] [address], [address] [place] [address] Roc Beth MD [address] [place] [id number] Referral ID Status Reason Start Date Expiration Date Visits Requested Visits Authorized [id number] Pending Review Specialty Services Required 08/30/2023 08/29/2024 1 1 [facility] Assessments Diagnosis Myofascial pain - Primary Unspecified myalgia and myositis Diagnosis Chronic thoracic back pain, unspecified back pain laterality - Primary Diagnosis Chronic migraine without aur a without status migrainosus, not intractable - Primary Diagnosis Neck pain Cervicalgia Back pain, unspecified back location, unspecified back pain laterality, unspecified chronicity Myofascial pain dysfunction syndrome Unspecified myalgia and myositis Diagnosis Chronic nonintractable heada poonam, unspecified headache type - Primary Neck pain Cervicalgia Back pain, unspecified back location, unspecified back pain laterality, unspecified chronicity Diagnosis Chronic migraine without aur a without status migrainosus, not intractable - Primary Diagnosis Chronic migraine without aur a without status migrainosus, not intractable - Primary Diagnosis Intractable chronic migraine without aura and without status migrainosus- Primary Diagnosis Chronic nonintractable headache, unspecified headache type Diagnosis Concussion without loss of consciousness, initial encounter- Primary Migraine without aura and without status migrainosus, not intractable Diagnosis Chronic nonintractable headache, unspecified headache type Intractable chronic migraine without aura and without status migrainosus Diagnosis Chronic nonintractable headache, unspecified headache type Instructions * Patient Instructions - Talita Ritchie MD - 07/20/2017 8:39 AM EST 1. Try a Medrol dose pack (steroid taper) to try and break your current headache cycle 2. Referral to Medical Spine 3. Follow up for next round of Botox in this encounter* Patient Instructions - Tailta Ritchie MD - 03/22/2017 3:48 PM EDT 1. Stop taking cyproheptadine in this encounter* Patient Instructions* Denilson Jacobs CNP - 07/04/2018 9:38 AM EST Emgality (galcanezumab-gnlm) 120 mg injection -A CGRP binging antibody specifically developed to prevent migraines -Loading dose of 240 mg (2 injections) -Monthly 120 mg (1 injection) -Potential side effects: injection site reaction such as: pain, redness, and itching - [email or web address].com/taking-[email or web address] -Leave pen at room temperature for 30 minutes prior to injection -Injection sites include: back of arms, abdomen, or thigh Denilson Jacobs CNP Additional Instructions: Call my site medical director, Courtney Dawson, at [phone] with any questions in this encounter* Patient Instructions* Taltia Ritchie MD - 09/27/2018 1:07 PM EDT 1. Increase topiramate 50-mg tablets Weeks 1-2: take 1 tab in the morning and 1.5 tabs in the evening Weeks 3-4: take 1.5 tabs in the morning and 1.5 tabs in the evening Weeks 5-6: take 1.5 tabs in the morning and 2 tabs in the evening Week 7: take 2 tabs in the morning and 2 tabs in the evening documented in this encounter* Patient Instructions* Talita Ritchie MD - 12/28/2018 1:07 PM EDT 1. Lab work 2. Make an appointment with your primary care physician to check out your neck and left shoulder 3. Discussed avoiding screen time, vigorous physical activity, or alcohol. The focus should be ongetting plenty of rest. 4. Head CT (okay to have done locally) documented in this encounter* Patient Instructions* Talita Ritchie MD - 04/06/2019 3:57 PM EDT 1. Decrease Inderal LA to 80 mg daily 2. Follow up with [facility] in three months documented in this encounter* Patient Instructions* Denilson Jacobs CNP - 07/17/2019 12:57 PM EST Denilson Jacobs CNP Additional Instructions: Call my site medical director, Courtney Dawson, at [phone] with any questions documented in this encounter History of Present Illness * Talita Ritchie MD - 03/22/2017 4:13 PM EDT S: Headaches continue to be improved with Botox. She would like to decrease her number of headache medications. She thinks that cyproheptadine may actually be hurting her sleep quality. O: Awake and alert; no papilledema on fundoscopic examination; PERRL; EOMI; face symmetric; hearinggrossly intact; arm strength full A: Chronic migraine P: Stop cyproheptadine Will refill Lyrica and Inderal LA for headache prevention Follow up in 12 weeks for repeat Botox injections Talita Ritchie MD Neurologist [facility] * Talita Ritchie MD - 03/22/2017 4:10 PM EDT Associated Order(s): DESTRUCTION BY NEUROLYTIC AGENT Post-Procedure Diagnose(s): Chronic migraine without aura without status migrainosus, not intractable Botox Date/Time: 03/22/2017 4:10 PM Performed by: TALITA RITCHIE Authorized by: TALITA RITCHIE Botox Injection Procedure for Chronic Migraine Patient Name: Brenda Novak : 1975 Procedure date: 03/22/17 Patient reports outcome of previous injection as: benefit; denies side effects I discussed risks, benefits, and alternatives with the patient and the patient wishes to proceed. The following muscles were injected with the following dosages: Frontalis 20 units (4 sites) [employer] 10 units (2 sites) Procerus 5 units (1 site) Occipitalis 30 units (6 sites) Temporalis 40 units (8 sites) Trapezius 30 units (6 sites) Cervical paraspinal muscle group 20 units (4 sites) 155 units of Botox were injected into the 31 sites. 45 units of Botox were wasted at the conclusionof the procedure. The patient tolerated the procedure well without complication. The NDC and Lot number were recorded in electronic chart. Follow-up plan: Repeat injections in 12 weeks Talita Ritchie MD Neurologist [facility] in this encounter* Denilson Jacobs CNP - 06/29/2018 10:22 AM EST NEUROLOGY Follow-up (Outpatient) on 07/04/2018 [facility] at [address] [place] [address] / [phone] (office) / [phone] (fax) Provider: Denilson Jacobs CNP - - - - - - - - - - - - - - - - - - - - - - - - - - - - - - - - - - - - - - - - - Patient: Brenda Novak (: 1975) Neurology Assessment on 07/04/2018 for this 42 y.o. female patient of Dr. Ritchie with history of TIA, psychogenic nonepileptic spells, cavernous meningiomas, obstructive sleep apnea and PCOS presenting in follow-up for chronic headaches. Unfortunately Topamax did not decrease her headache frequency orseverity, and she is now having daily headaches. She is tolerating the current dose of Topamax without side effects however it has not improved her headaches at all. We had a lengthy discussion abouttrying a new injectable for headache prevention. We discussed trying a Aimovig, however she has a latex allergy and this injectable is not latex free. I will have her try Emgality to see if we can decrease her headache frequency. Plan: 1. Start Emgality 120mg self injection monthly for chronic migraines. Loading dose provided to patient as sample in office today. 120 mg injection monthly dose sent to pharmacy. Indications and potential side effects of this medication were discussed. A demonstration of how to administer the medication was provided and the patient verbalized understanding. Information pamphlet provided as well asreminder tips on AVS. 2. Continue Topamax and Inderal for headache prevention 3. Follow-up with Dr. Ritchie in 3 months. If Emgality is not beneficial she may need a referral to a headache specialist we discussed this briefly today. She [place] 2[place]2 hours away from [place] and wondered if there is a specialist closer to [facility]. No orders of the defined types were placed in this encounter. Requested Prescriptions Signed Prescriptions Disp Refills galcanezumab-gnlm (EMGALITY) 120 mg/mL Pen 2 Syringe 0 Sig: Inject 120 mg under the skin every 28 days Take 2 injections for loading dose. . galcanezumab-gnlm (EMGALITY) 120 mg/mL Pen 1 Syringe 11 Sig: Inject 120 mg under the skin every 28 days . Follow-up: Return in about 3 months (around 10/02/2018) for follow up with Dr. Ritchie. Denilson Luu, [facility] Neurology This note was partially created using voice recognition software and is inherently subject to errors including those of syntax and sound-alike substitutions which may escape proofreading. In such instances, original meaning may be extrapolated by contextual derivation. Please call with questions. - - - - - - - - - - - - - - - - - - - - - - - - - - - - - - - - - - - - - - - - - PCP: Jeremiah Topete MD Chief Complaint: Follow-up for headaches Previous History: This is a 42 y.o. female presenting with seizures and headaches. She has had migraine headaches foryears. She started to have spells concerning for seizures in 2011. She describes these as feeling lightheaded and funny. She does not lose consciousness and remembers the spells in their entirety. She has never had convulsions. They last for 30-45 minutes. She states that she had EEG monitoring and was diagnosed with non-epileptic spells. She has had three of these spells since March 2015. She was diagnosed with cavernous hemangiomas around 2010 when she had head imaging for headaches. As far as she knows, she has never had hemorrhage from one of these lesions. She is scheduled for gallbladder surgery in two days and was sent here to get cleared for surgery by a neurologist. Headache description Location: all over head Quality: sharp Severity: 10/10 Associated symptoms: photophobia, phonophobia and nausea Duration: hours Frequency: 3/week Alleviating factors: rest Aggravating factors: nothing Interventions tried: topiramate (helps), propranolol, cyproheptadine (helping), meloxicam, naproxen, Lyrica, nortriptyline, occipital nerve block, Fioricet, venlafaxine (ineffective), Botox (ineffective) Headache hygiene Daily water intake: 2-3 liters Daily caffeine intake: nothing regular Exercise: 2-3/week Skipping meals: no Sleep: sleep apnea not on treatment Interval History: Informant(s): patient She states her headaches have been worse. The intensity has been worse since stopping Botox and shereports daily headaches. She is tolerating propranolol and Topamax without side effects. She has not seen any improvement with her headaches since starting Topamax. Her daily headaches are severe andshe has light and sound sensitivity along with nausea. Her headache pain is all over her head and is mostly a sharp pain. She is not taking anything abortive for her headaches at this time. Review of Systems: All pertinent positives and negative in HPI/Interval History. All others negative.Except otherwise listed below: Excessive thirst, blurred vision, light sensitivity, back pain, headache, numbness/tingling. Tobacco use: reports that she quit smoking about 9 years ago. She has a 5.00 pack-year smoking history. She has never used smokeless tobacco. Medications: Current Outpatient Medications Medication Sig Dispense Refill albuterol 90 mcg/actuation inhaler Inhale 2 puffs every 4 (four) hours as needed for wheezing. EPINEPHrine 1:1,000 (EPIPEN) 0.3 mg/0.3 mL (1:1,000) AtIn Inject 0.3 mg into the shoulder, thigh, or buttocks once. furosemide (LASIX) 20 MG tablet Take 20 mg by mouth daily. metFORMIN (GLUCOPHAGE-XR) 750 MG 24 hr tablet Take 750 mg by mouth daily with breakfast. multivitamin (THERAGRAN) per tablet Take 1 tablet by mouth daily. nebulizer accessories Kit by Miscellaneous route . potassium chloride (MICRO-K) 10 MEQ CR capsule Take 10 mEq by mouth daily. pregabalin (LYRICA) 100 MG capsule Take 1 (one) capsule (100 mg total) by mouth 3 (three) times a day 90 days/fill. 270 capsule 1 propranolol (INDERAL LA) 120 MG 24 hr capsule Take 1 (one) capsule (120 mg total) by mouth daily. 90 capsule 1 topiramate (TOPAMAX) 50 MG tablet Take 1 (one) tablet (50 mg total) by mouth 2 (two) times a day Gradually increase to this dose as instructed . 60 tablet 5 galcanezumab-gnlm (EMGALITY) 120 mg/mL Pen Inject 120 mg under the skin every 28 days Take 2 injections for loading dose. . 2 Syringe 0 galcanezumab-gnlm (EMGALITY) 120 mg/mL Pen Inject 120 mg under the skin every 28 days . 1 Syringe 11 No current facility-administered medications for this visit. Medication note: due to EMR limitations: DISCONTINUED medications may mean: PREVIOUSLY stopped STOPPING today REFILLING today Medications prescribed at this visit may show up in this list, including newly prescribed ones (seeplan above for Rx's actually made at this visit) OBJECTIVE (Exam): DNFC = Does NOT follow commands JUJU = Unable to assess BP 124/82 Pulse 63 Ht 5' 4 Wt (!) 161.5 kg (356 lb) BMI 61.11 kg/m GENERAL: General appearance: NAD and otherwise well, non-toxic appearing Extremities: No cyanosis Neck: Supple EYES: Sclera clear Fundoscopic examination reveals optic discs without pallor or papilledema EARS: Grossly intact RESPIRATORY: No accessory muscle use noted in respiratory effort SKIN: No rashes noted MENTAL STATUS/PSYCHIATRIC: Alertness, attention span & concentration: normal Language: normal Speech: normal Orientation to self, place & time: normal Recent and remote memory intact Mood and affect normal (depressed, anxious, agitated) CRANIAL NERVES: III, IV, : Eye movements: normal (EOMI, No ptosis, No nystagmus) VII: Face symmetry & strength: normal Tongue midline with full movement Pupils PERRLA @ 3 No nystagmus, no ptosis MOTOR - GROSS: Gait & stance: normal Gait aid used during exam: none or N/A Gait assistance required during exam: none or N/A Tone: normal Bulk: normal Abnormal movements: none Rapid alternating movements: normal [id number] intact bilaterally [id number]-yp-[id number] intact bilaterally Rhomberg - negative MOTOR - MUSCLE STRENGTH: Right Muscle Strength Left 5 Shoulder abduction 5 5 Elbow flexion 5 5 Elbow extension 5 5 Finger abduction 5 5 Hip flexion 5 5 Knee extension 5 5 Knee flexion 5 5 Dorsiflexion 5 5 Plantarflexion 5 REFLEXES: Right Reflexes Left 2+ Biceps 2+ 2+ Brachioradialis 2+ 2+ Patellar 2+ 2+ Achilles 2+ down Plantar response down Stubbs's Carpal tunnel Jaw Jerk SENSORY: Fine Touch: normal DATA Review: LABS: Lumbar puncture 11/21/2015 - opening pressue 26 cm H2O; prot 36, glu 67, 2 WBC, 0 RBC, negative cytology IMAGING/PROCEDURES: Brain MRI with and without contrast 05/11/2012 - Bilateral cavernous hemangiomas in the right and left cerebral hemispheres and in the posterior medial aspect of left cerebellar hemisphere Brain MRA 2012 - normal in this encounter* Talita Ritchie MD - 09/27/2018 12:48 PM EDT [facility] DATE OF VISIT: 09/27/18 PATIENT NAME: Brenda Novak DATE OF : 1975 IMPRESSION: 41 y.o. female with history of TIA, psychogenic non-epileptic spells, cavernous hemangiomas, obstructive sleep apnea, and PCOS, presenting with headaches and neck/back pain. The differential diagnosis includes chronic migraine or tension-type headache. PLAN: Increase topiramate to 100 mg BID. She has an IUD in place. Continue Emgality, Inderal LA 120 mg daily, and Lyrica 100 mg TID for headache prophylaxis. I will consider weaning her off one of these medications in the future. Follow up with three months. A referal to headache specialist Dr. Cassidy at [facility] can be considered in the future.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 including those of syntax and sound-alike substitutions which may escape proofreading. In such instances, original meaning may be extrapolated by contextual derivation. Please call with questions. - - - - - - - - - - - - - - - - - - - - - - - - - - - - - - - - - - - - - - - - - PCP: Jeremiah Topete MD Chief Complaint: Follow-up for headaches Previous History: This is a 42 y.o. female presenting with seizures and headaches. She has had migraine headaches foryears. She started to have spells concerning for seizures in 2011. She describes these as feeling lightheaded and funny. She does not lose consciousness and remembers the spells in their entirety. She has never had convulsions. They last for 30-45 minutes. She states that she had EEG monitoring and was diagnosed with non-epileptic spells. She has had three of these spells since March 2015. She was diagnosed with cavernous hemangiomas around 2010 when she had head imaging for headaches. As far as she knows, she has never had hemorrhage from one of these lesions. She is scheduled for gallbladder surgery in two days and was sent here to get cleared for surgery by a neurologist. Headache description Location: all over head Quality: sharp Severity: 10/10 Associated symptoms: photophobia, phonophobia and nausea Duration: hours Frequency: 3/week Alleviating factors: rest Aggravating factors: nothing Interventions tried: topiramate (helps), propranolol, cyproheptadine (helping), meloxicam, naproxen, Lyrica, nortriptyline, occipital nerve block, Fioricet, venlafaxine (ineffective), Botox (ineffective) Headache hygiene Daily water intake: 2-3 liters Daily caffeine intake: nothing regular Exercise: 2-3/week Skipping meals: no Sleep: sleep apnea not on treatment Interval History: Informant(s): patient She reports improvement in her headache frequency. She is having 1-2 headaches per month. She is not treating these with any medications. She is able to function through these headaches. The severityof her headaches has not changed. She denies any side effects to the medication. Her photophobia, phonophobia and nausea has improved. She has this occassionally with her headaches. She continues to take Inderal 80 mg daily, Topamax 100 mg BID and Lyrica 100 TID. Review of Systems: All pertinent positives and negative in HPI/Interval History. All others negative.Except otherwise listed below: Weight loss, fever, chills, cough, shortness of breath, wheezing, excessive thirst, back pain, headache, numbness/tingling, shortness of breath, earache, seasonal allergies. Tobacco use: reports that she quit smoking about 10 years ago. She has a 5.00 pack-year smoking history. She has never used smokeless tobacco. Medications: Current Outpatient Medications Medication Sig Dispense Refill albuterol 90 mcg/actuation inhaler Inhale 2 puffs every 4 (four) hours as needed for wheezing. EPINEPHrine 1:1,000 (EPIPEN) 0.3 mg/0.3 mL (1:1,000) AtIn Inject 0.3 mg into the shoulder, thigh, or buttocks once. furosemide (LASIX) 20 MG tablet Take 20 mg by mouth daily. galcanezumab-gnlm (Emgality Pen) 120 mg/mL Pen Inject 120 mg under the skin every 28 days . 1 Syringe 5 metFORMIN (GLUCOPHAGE-XR) 750 MG 24 hr tablet Take 750 mg by mouth daily with breakfast. multivitamin (THERAGRAN) per tablet Take 1 tablet by mouth daily. nebulizer accessories Kit by Miscellaneous route . potassium chloride (MICRO-K) 10 MEQ CR capsule Take 10 mEq by mouth daily. pregabalin (LYRICA) 100 MG capsule Take 1 (one) capsule (100 mg total) by mouth 3 (three) times a day 90 days/fill . 270 capsule 1 propranolol (INDERAL LA) 80 MG 24 hr capsule Take 1 (one) capsule (80 mg total) by mouth daily . 30capsule 5 topiramate (TOPAMAX) 50 MG tablet Take 2 (two) tablets (100 mg total) by mouth 2 (two) times a day . 360 tablet 1 galcanezumab-gnlm (Emgality Pen) 120 mg/mL Pen Inject 120 mg under the skin every 28 days . 1 Syringe 11 No current facility-administered medications for this visit. Medication note: due to EMR limitations: DISCONTINUED medications may mean: PREVIOUSLY stopped STOPPING today REFILLING today Medications prescribed at this visit may show up in this list, including newly prescribed ones (seeplan above for Rx's actually made at this visit) OBJECTIVE (Exam): DNFC = Does NOT follow commands JUJU = Unable to assess BP 119/77 Pulse 73 GENERAL: General appearance: NAD and otherwise well, non-toxic appearing Extremities: No cyanosis Neck: Supple EYES: Sclera clear Fundoscopic examination reveals optic discs without pallor or papilledema EARS: Grossly intact RESPIRATORY: No accessory muscle use noted in respiratory effort SKIN: No rashes noted MENTAL STATUS/PSYCHIATRIC: Alertness, attention span & concentration: normal Language: normal Speech: normal Orientation to self, place & time: normal Recent and remote memory intact Mood and affect normal CRANIAL NERVES: III, IV, : Eye movements: normal (EOMI, No ptosis, No nystagmus) VII: Face symmetry & strength: normal Tongue midline with full movement Pupils PERRLA @ 3 No nystagmus, no ptosis MOTOR - GROSS: Gait & stance: normal Tone: normal Abnormal movements: none Rapid alternating movements: normal Hwejiy-sj-ngsm intact bilaterally Dnbm-wq-yier intact bilaterally MOTOR - MUSCLE STRENGTH: Right Muscle Strength Left 5 Shoulder abduction 5 5 Elbow flexion 5 5 Elbow extension 5 5 Finger abduction 5 5 Hip flexion 5 5 Knee extension 5 5 Knee flexion 5 5 Dorsiflexion 5 5 Plantarflexion 5 SENSORY: Fine Touch: normal DATA Review: LABS: Lumbar puncture 11/21/2015 - opening pressue 26 cm H2O; prot 36, glu 67, 2 WBC, 0 RBC, negative cytology IMAGING/PROCEDURES: Brain MRI with and without contrast 05/11/2012 - Bilateral cavernous hemangiomas in the right and left cerebral hemispheres and in the posterior medial aspect of left cerebellar hemisphere Brain MRA 2011 - normal documented in this encounter Advance Directives No Advanced Directives Records FoundLatest Code Status on File Code Status Date Activated Date Inactivated Comments Full Code - Unverified 12/28/2014 10:25 AM 12/29/2014 11 :58 AM Documents on File Type Date Recorded Patient Chip Bin Operator Expl anation Advance Directives and Living Will Latest Code Status on File Code Status Date Activated Date Inactivated Comments Full Code - Unverified 12/28/2014 10:25 AM 12/29/2014 11 :58 AM Documents on File Type Date Recorded Patient Chip Bin Operator Expl anation Advance Directives and Living Will Latest Code Status on File Code Status Date Activated Date Inactivated Comments Full Code - Unverified 12/28/2014 10:25 AM 12/29/2014 11 :58 AM Reason for Referral Status Reason Specialty Diagnoses / Procedures Referred By Contact Referred To Contact Pending Review Radiology Diagnoses Concussion without loss of consciousness, initial encounter Migraine without aura and without status migrainosus, not intractable Procedures CT Head Or Brain Without Contrast Talita Ritchie MD [address] [place] [address] Status Reason Specialty Diagnoses / Procedures Re ferred By Contact Referred To Contact Pending Review Diagnoses Chronic nonintractable headache, unspecified headache type Denilson Jacobs CNP [address] [facility] [address] [place] [address] Status Reason Specialty Diagnoses / Procedures Referred By Contact Referred To Contact Authorized Specialty Services Required/Patien t's Best Interest Physical Therapy Diagnoses Chronic midline low back pain with left-sided sciatica Talita Ritchie MD [address] [facility] [address] [place] [address] Status Reason Specialty Diagnoses / Procedures Re ferred By Contact Referred To Contact Closed Diagnoses Chronic nonintractable headache, unspecified headache type Talita Ritchie MD [address] [facility] [address] [place] [address] Summary Purpose Family History No Family History Records FoundNo Family History Records FoundNo Family History Records FoundNo Family History Records FoundNo Family History Records FoundNo Family History Records FoundNo Family History Records FoundNo Family History Records Found Additional Source Comments Reason for Visit (unrecogniz ed section and content) Reason Comments Migraine patient states she i s having a hadache everyday. Reason Comments Headache good in the beginnin g of the month, thinks the shot is wearing off at the end of month, says having minor clark during the month but they only last an hr Reason Comments Headache was doing good, then hit her head on a camper awning 12/18/18 Difficulty Walking pt limping at today' s visit, says her legs and feet hurt Reason Comments Concussion pt broke her R foot about 2 months ago; Headache says she is doing aw esome on the shots! Reason Comments Migraine patient states that migraines have been alot better Reason Onset Date Comments Medication Refill 10/25/2020 Reason Comments Headache says had a clark everyd ay in August, good since August Reason Comments Medication Refill Reason Comments Sleep Apnea DME: [facility] Reason Onset Date Comments Lopressor 25 mg for Pre CTA cors 06/25/2023 Reason Comments Med Refill Reason Onset Date Comments neck issues 08/27/2023 Botulinum Toxin Injection 08/27/2023 Reason Onset Date Comments Med Refill 08/27/2023 INFORMATION SOURCE (unrecogn ized section and content) DATE CREATED AUTHOR 11/11/2020 [facility] DATE CREATED AUTHOR AUTHOR'S ORGANIZ ATION 06/24/2021 [facility] DATE CREATED AUTHOR AUTHOR'S ORGANIZ ATION 07/26/2021 [facility] DATE CREATED AUTHOR AUTHOR'S ORGANIZ ATION 09/11/2022 [facility] DATE CREATED AUTHOR AUTHOR'S ORGANIZ ATION 12/05/2023 [facility] DATE CREATED AUTHOR AUTHOR'S ORGANIZ ATION 12/09/2023 [facility] DATE CREATED AUTHOR AUTHOR'S ORGANIZ ATION 01/07/2024 [facility] DATE CREATED AUTHOR AUTHOR'S ORGANIZ ATION 01/26/2024 [facility] Care Teams (unrecognized sec tion and content) Piece Work Checker Relationship Specialty Start Date End Date Enio Dupont MD [address] [place] [id number] PCP - General Internal Medicine 11/08/19 Piece Work Checker Relationship Specialty Start Date End Date October, Jeremiah Lund MD [address] [place] [address] PCP - General Family Medicine 12/24/14 11/07/19 Enio Dupont MD [address] [place] [phone] PCP - General Internal Medicine 11/08/19 Piece Work Checker Relationship Specialty Start Date End Date October, Jeremiah Lund MD [address] [place] [address] PCP - General Family Medicine 12/24/14 11/07/19 Enio Dupont MD [address] [facility] [address] PCP - General Internal Medicine 11/08/19 Piece Work Checker Relationship Specialty Start Date End Date Marium Garcia DO [address] [place] [address] PCP - General Family Medicine 05/08/22 Piece Work Checker Relationship Specialty Start Date End Date Marium Garcia DO [address] [place] [address] PCP - General Family Medicine 05/08/22 Piece Work Checker Relationship Specialty Start Date End Date Marium Garcia DO [address] [place] [address] PCP - General Family Medicine 05/08/22 Piece Work Checker Relationship Specialty Start Date End Date Marium Garcia DO [address] [place] [address] PCP - General Family Medicine 05/08/22 Piece Work Checker Relationship Specialty Start Date End Date Marium Garcia DO [address] [place] [address] PCP - General Family Medicine 05/08/22 FOR RECORDS PERTAINING TO PATIENTS WHO ARE OR HAVE BEEN ENROLLED IN A CHEMICAL DEPENDENCY/SUBSTANCEABUSE PROGRAM, SOME INFORMATION MAY BE OMITTED. This clinical summary was aggregated from multiple sources. Caution should be exercised in using it in the provision of clinical care. This summary normalizes information from multiple sources, and as a consequence, information in this document may materially change the coding, format and clinical context of patient data. In addition, data may be omitted in some cases. CLINICAL DECISIONS SHOULD BE BASED ON THE PRIMARY CLINICAL RECORDS. [facility] [employer] [facility]. provides no warranty or guarantee of the accuracy or completeness of information in this document.
--- NOTE | 2024-02-22 09:24 | ED.GENADUL1 ---
HPI HPI - General Adult General Chief complaint: Extremity Injury, Lower Stated complaint: LOWER RIGHT EXTREMITY INJURY Time Seen by Provider: 02/22/24 08:56 Source: patient Mode of arrival: walk-in Limitations: no limitations History of Present Illness HPI narrative: Patient is a very pleasant 48-year-old female who had a inversion injury to the left ankle on Wednesday. Patient had a misstep, heard a popping sensation to her left lower ankle. On Wednesday patient went to [facility], was walking around throughout the day, frequent breaks to rest. Patient stated that she walked over 5000 steps. Patient has been taking Tylenol and ice for pain. Patient still having swelling and pain to the left lateral malleolus, patient came in today for an x-ray. Patient is currently not employed. No acute complaints. No other injuries. All systems are negative except as noted/marked. All systems reviewed and otherwise negative. Nurses note and vital signs reviewed and patient is not hypoxic. General: The patient appears well and in no apparent distress. Patient is resting comfortably on cart. Patient is not toxic, lethargic, or listless Skin: Warm, dry, no pallor noted. There is no rash noted. No petechiae, purpura. Head: Normocephalic, atraumatic Eye: Normal conjunctiva, no drainage, EOMI. PERRL Ears, Nose, Mouth, and Throat: oral mucosa is moist. Nares patent. Mouth without vesicles. Cardiovascular: Regular Rate and Rhythm, no murmur, gallop, rub Respiratory: Patient is in no distress, no accessory muscle use, lungs are clear to auscultation, no wheezing, rales or rhonchi Musculoskeletal: Patient has full range of motion of all of the extremities except to the left foot and ankle. Patient has mild to moderate amount of swelling on the left lateral malleolus,, no motor, sensory, or focal neurological deficits. Patient has minimal tenderness to palpation to the left medial malleolus. Patient has moderate amount of tenderness to palpation to the left lateral malleolus. Left Achilles tendon is intact. No pain or proximal fibular head, on the left. Patient has no pain to the base of the left fifth metatarsal. Patient has moderate pain with plantar dorsiflexion and inversion of the left foot and ankle. Neurological: A&O x4, normal speech Psychiatric: Cooperative Related Data Allergies Allergy/AdvReac Type Severity Reaction Status Date / Time aspirin Allergy Unknown Verified 02/28/23 20:03 divalproex sodium Allergy Unknown Verified 02/28/23 20:03 heparin Allergy Unknown Verified 02/28/23 20:03 hydrocodone Allergy Unknown Verified 02/28/23 20:03 ibuprofen [From Motrin] Allergy Unknown Verified 02/28/23 20:03 latex Allergy Unknown Verified 02/28/23 20:03 naproxen Allergy Unknown Verified 02/28/23 20:03 nitroglycerin Allergy Unknown Verified 02/28/23 20:03 propoxyphene Allergy Unknown Verified 02/28/23 20:03 sumatriptan Allergy Unknown Verified 02/28/23 20:03 tramadol Allergy Unknown Verified 02/28/23 20:03 bees Allergy Unknown Uncoded 02/28/23 20:03 Opioid HPI Opioid Management Most Recent Opioid Data: Last Pain Scale 6 02/22/24 09:00 PFSH PFSH Social History Smoking status: Never smoker Little interest or pleasure in doing things: not at all Feeling down, depressed, or hopeless: not at all Exam Constitutional Vital Signs, click to edit/add: Last Vital Signs Temp 97.8 F 02/22/24 08:43 Pulse 67 02/22/24 08:43 Resp 16 02/22/24 08:43 BP 147/84 H 02/22/24 08:43 Pulse Ox 100 02/22/24 08:43 O2 Del Method Room Air 02/22/24 08:43 Course Vital Signs Vital signs: Vital Signs Temperature 97.8 F 02/22/24 08:43 Pulse Rate 67 02/22/24 08:43 Respiratory Rate 16 02/22/24 08:43 Blood Pressure 147/84 H 02/22/24 08:43 Pulse Oximetry 100 02/22/24 08:43 Oxygen Delivery Method Room Air 02/22/24 08:43 Temperature 97.8 F 02/22/24 08:43 Pulse Rate 67 02/22/24 08:43 Respiratory Rate 16 02/22/24 08:43 Blood Pressure 147/84 H 02/22/24 08:43 Pulse Oximetry 100 02/22/24 08:43 Oxygen Delivery Method Room Air 02/22/24 08:43 Medical Decision Making MDM Narrative Medical decision making narrative: Left ankle x-ray showed no acute fracture, dislocation, or acute abnormality. IMPRESSION: 1. Medial talar dome osteochondral injury again noted. 2. Postsurgical changes of calcaneal osteotomy and fixation similar to prior. 3. 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 4. No acute fracture or dislocation Procedure note: Patient was placed in left ankle Randal wrap Aircast. Splint was assisted with . the patient was neurovascularly intact before and after the splint was placed. the affected bones/injured area had proper alignment in a splint. Education on splint care at home was given at bedside. Patient and family have no questions at discharge. Patient will continue using Tylenol. Patient will continue with ice. Education on Randal wrap and Aircast was done at bedside and on discharge paperwork. No questions at discharge. Patient will follow-up with Dr. Peña, she has seen him before. Patient is not working, does not need a work note Discharge Plan Discharge Chief Complaint: Extremity Injury, Lower Clinical Impression: Ankle pain, left, Left ankle sprain Patient Disposition: Home, Self-Care Time of Disposition Decision: 09:24 Condition: Fair Mode of Transportation: Private Vehicle Print Language: Luxembourger Instructions: Ankle Sprain (ED), P.R.I.C.E. Treatment (ED) Additional Instructions: Ice 20 minutes on, 20 minutes off. Do not use warm compresses. Use Randal wrap and Aircast to wear them all the time besides ice and shower for the next 7 to 10 days. In the next 7 to 10 days eventually remove Aircast, and then a few days after that remove Randal wrap if possible. Follow-up with Dr. Peña, call today for an appointment next week. Use Tylenol for pain as well. Referrals: Physician,Non-Staff, [Primary Care Provider] - 1 week Young Peña DPM [Physician] - 1 week Discharge Date/Time: 02/22/24 09:38
== END 2024-02-22 09:38 | disposition home or self-care (01) ==
PROVIDERS: Emergency Provider Emergency Medicine
DX: S93.402A Sprain of unspecified ligament of left ankle, initial encounter (principal); M25.572 Pain in left ankle and joints of left foot; X50.9XXA Other and unspecified overexertion or strenuous movements or postures, initial encounter
CPT/HCPCS: 73610; 73630; 99283

== ENCOUNTER 2024-07-11 07:55 | Outpatient (OUT) | payer MEDICARE, MEDICAID, SELFPAY ==
--- NOTE | 2024-07-11 07:58 | XR_ITS ---
The [address] [address] Patient Name: ELIAS SIMMS MRN: [id number] date: 1975 Sex: F Assigned Patient Location: [facility] Current Patient Location: Accession/Order Number: [id number] Exam Date: 07/11/2024 08:05 Report Date: 07/13/2024 10:24 At the request of: CANDY LEONARDO Procedure: XR ankle LT min 3V PROCEDURE: XR ankle LT min 3V COMPARISON: 02/22/2024 HISTORY: Right Ankle Pain FINDINGS: BONES:No acute fracture or dislocation. Stable corticated bone fragments along the inferior medial malleolus, remote injuries. Degenerative changes with marginal osteophyte formation and enthesopathic spurring of the calcaneus SOFT TISSUES:Negative. No visible soft tissue swelling. EFFUSION:None visible. OTHER: Negative. XR/XR ankle LT min 3V IMPRESSION: Degenerative changes, no acute fracture Electronically authenticated by: CORBY MARQUEZ Date: 07/13/2024 10:24
--- OUTSIDE RECORDS SUMMARY | 2024-07-11 08:10 | XMS_ITS | CCD ---
Author Organization [facility] CliniSyde Care Team Providers Care Car Conditioner Name Role Phone October, Jeremiah Lund Unavailable Triny Vega MD, [facility] Primary Care Provider TRINY VEGA, [facility] Primary Care UnavailTALITA David Attending Unava ilable [facility] Primary Care UnavailTALITA David Attending [facility]ava il[facility] Primary Care UnavailDENILSON Ruggiero Attending Unavailable TRINY VEGA, [facility] Primary Care UnavailArjun Vega MD, [facility] Primary Care Provider October Jeremiah CORBETT Primary Care Provider YVONNE KOLB Admitting Unavailable DR CANDELAIRO ALBERT Primary Care Unavailable YVONNE KOLB Consulting Unavailable YVONNE KOLB Attending Unavailable MARCELA GIRALDO Consulting Unavailable CANDY LEONARDO Consulting Unavailable CANDY LEONARDO Attending Unavailable [facility] Unava ilable CANDY LEONARDO Admitting Unavailable WENDY MACHUCA Consulting Unavailable CANDY LEONARDO Admitting Unavailable CANDY LEONARDO Consulting Unavailable CANDY LEONARDO Attending Unavailable [facility] Unava ilable [facility] Unava ilable LANCE ., VINCENZO Admitting Unavailable DR SOILA NIÑO Consulting Unavailable LANCE .VINCENZO Attending Unavailable CANDY LEONARDO Consulting Unavailable GUEVARA SIBLEY Consulting Unavailable JOS LEE Consulting Unavailable LANCE ., VINCENZO Consulting Unavailable SHARMAINE SIMPSON Consulting Unavailable YVONNE KOLB Attending Unavailable YVONNE KOLB Admitting Unavailable [facility] Unava ilable DR CORBY MARQUEZ V Consulting Unavailable YVONNE KOLB Consulting Unavailable CORTES, YVONNE Attending Unavailable UZIELEBDARA, DR SOILA Davison Consulting Unavailable [facility] Unava ilable CORTES, YVONNE Admitting Unavailable CORTES, YVONNE Consulting Unavailable RENAY, DR SOILA Davison Consulting Unavailable CANDY LEONARDO Admitting Unavailable CANDY LEONARDO Attending Unavailable [facility] Unava ilable MALISSA, CANDY Das Consulting Unavailable CORTES, YVONNE Attending Unavailable UZIELEBDARA, DR SOILA Davison Consulting Unavailable [facility] Unava ilable CORTES, YVONNE Admitting Unavailable CORTES, YVONNE Consulting Unavailable CORTES, YVONNE Admitting Unavailable WEST, DR CORBY Goncalves Consulting Unavailable YVONNE KOLB Attending Unavailable MISC, DR PALOMINO Primary Care Unavailable CORTES, YVONNE Consulting Unavailable MISC, DR PALOMINO Primary Care Unavailable UZIELEBDARA, DR SOILA Davison Consulting Unavailable CANDY LEONARDO Attending Unavailable MALISSA, CANDY Das Admitting Unavailable HIGHLMICHELA, CANDY Das Consulting Unavailable Rumschlag DO, Marium K Primary Care Provider RUMSCHLAG, MARIUM K Referring Unavailable RUMSCHLAG, MARIUM K Primary Care Unavailable RUTH SHEPHERD Attending Unava ilable RUTH SHEPHERD Referring Unava ilable RUMSCHLAG, MARIUM K Primary Care Unavailable KEN DICKEY Referring Unavailable RUMSCHLAG, MARIUM K Primary Care Unavailable RUTH SHEPHERD Attending Unava ilable RUTH SHEPHERD Referring Unava ilable RUMSCHLAG, MARIUM K Primary Care Unavailable PATTI LEONARD Referring Unavailable RUMSCHLAG, MARIUM K Primary Care Unavailable RUMSCHLAG, MARIUM K Referring Unavailable RUMSCHLAG, MARIUM K Primary Care Unavailable ROC BETH Attending Unavailable VANCE-RUTH FALL Referring Unava ilable RUMSCHLAG, MARIUM K Primary Care Unavailable GAYATRI GASPAR Attending Unavailable RUMSCHLAG, MARIUM K Referring Unavailable RUMSCHLAG, MARIUM K Primary Care Unavailable PATTI LEONARD Attending Unavailable RUMSCHLAG, MARIUM K Referring Unavailable RUMSCHLAG, MARIUM K Primary Care Unavailable KREGEL, GAYATRI L Attending Unavailable RUMSCHLAG, MARIUM K Referring Unavailable RUMSCHLAG, MARIUM K Primary Care Unavailable LEONARD, PATTI L Attending Unavailable RUMSCHLAG, MARIUM K Referring Unavailable MYERHOLTZ, LILIAM K Primary Care Unavailab le LEONARDPATTI L Attending Unavailable MYERHOLTZ, LILIAM K Referring Unavailab le MYERHOLTZ, LILIAM K Primary Care Unavailab le LEONARD PATTI L Attending Unavailable MYERHOLTZ, LILIAM K Referring Unavailab le MYERHOLTZ, LILIAM K Primary Care Unavailab RUTH Teixeira Attending Unava ilable RUMSCHLAG, MARIUM K Referring Unavailable RUMSCHLAG, MARIUM K Primary Care Unavailable Hosea CORBETT, Malaika Ramos Primary Care Provider Unallocated MD, Noms Provider Primary Care Provi alex Linda CORBETT, Liliam Unavailable Shahram Matt DO Unavailable SHAHRAM MATT Attending Unavailable SHAHRAM MATT Attending Unavailable REECE CHENG Attending Unavailable HIGHLANDERCANDY Referring Unavailable EDUPARMINDER Attending Unavailable HIGHLANDER, CANDY Das Referring Unavailable EDU, PARMINDER Attending Unavailable HIGHLANDER, CANDY Das Referring Unavailable BRINKTY Attending Unavailable HIGHLANDER, CANDY Das Referring Unavailable EDUPARMINDER Attending Unavailable HIGHLANDERCANDY Referring Unavailable BRTY LIZ Attending Unavailable HIGHLANDERCANDY Referring Unavailable ТАТЬЯНА PAGE Attending Unavailable HIGHLANDER, CANDY Das Referring Unavailable BRINKTY Attending Unavailable HIGHLANDER, CANDY Das Referring Unavailable EDUPARMINDER Attending Unavailable HIGHLANDERCANDY Referring Unavailable WENDY DOMINGUEZ Attending Unavailable BRINKTY Attending Unavailable HIGHLANDER, CANDY Das Referring Unavailable EDUPARMINDER Attending Unavailable HIGHLANDER, CANDY Das Referring Unavailable BRINKTY Attending Unavailable HIGHLANDER, CANDY Das Referring Unavailable MARISOL WALLIS Attending Unavailable HIGHLANDER, CANDY Das Referring Unavailable BRINKTY Attending Unavailable HIGHLANDERCANDY Referring Unavailable MARISOL WALLIS Attending Unavailable HIGHLANDER, CANDY Das Referring Unavailable SHAHRAM MATT Attending Unavailable [facility]erholtz JOB PRINTER APPRENTICE-REVIEW RN, Liliam K Primary Care Pro vider KATJA HUGHES Attending Unavailable RUTH SHEPHERD Referring Unava ilable RUMSCHCURTISG, MARIUM K Primary Care Unavailable ARMAND HERNANDEZ Attending Unavailable ARMAND HERNANDEZ Referring Unavailable RUMSCHLAG, MARIUM K Primary Care Unavailable ARMAND HERNANDEZ Admitting Unavailable ARMAND HERNANDEZ Attending Unavailable RUTH SHEPHERD Referring Unava ilable [...] Primary Care Unavailable PATTI LEONARD Attending Unavailable STACY PATTI L Referring Unavailable RUMSCHLAG, MARIUM K Primary Care Unavailable PATTI LEONARD L Attending Unavailable PATTI LEONARD L Referring Unavailable RUMSCHLAG, MARIUM K Primary Care Unavailable GAYATRI GASPAR Referring Unavailable RUMSCHLAG, MARIUM K Primary Care Unavailable SEJALERHOLKHURRAM, LILIAM K Referring Unavailab le MYERHOLTZ, LILIAM K Primary Care Unavailab le PATTI LEONARD Referring Unavailable MYERHOLTZ, LILIAM K Primary Care Unavailab le KATJA HUGHES Attending Unavailable EDDIEG MARIUM K Referring Unavailable MYERHOLTZ, LILIAM K Primary Care Unavailab CANDY Griffith Referring Unavailable MYERHOLTZ, LILIAM K Primary Care Unavailab le MYERHOLTZ, LILIAM K Primary Care Unavailab MONICA Lundberg Attending Unavailable MYERHOLTZ, LILIAM K Referring Unavailab le MYERHOLTZ, LILIAM K Primary Care Unavailab ANUEL Valverde Attending Unavailable SEJALEREVELIN, LILIAM K Referring Unavailab le MYERHOLTZ, LILIAM K Primary Care Unavailab ANUEL Valverde Referring Unavailable MYERHOLTZ, LILIAM K Primary Care Unavailab le Allergies Allergy Classification Reported Allergen(s) Allergy Type Date of Onset Reaction(s) Facility Acetaminophen / HYDROcodone (3 sources) Acetaminophen / HYDROcodone; Translations: [HYDROCODONE-ACET AMINOPHEN] Drug Allergy 12-27-19 15 Other (See Comments) [facility] Aspirin (3 sources) Aspirin; Translations: [ASPIRIN] Drug Allergy 12-27-19 Other (See Comments) [facility] Coconut extract (3 sources) Coconut extract; Translations: [COCONUT] Drug Allergy 12-29-19 19 Anaphylaxis [facility] Coconut Oil (3 sources) Coconut Oil; Translations: [COCONUT OIL] Drug Allergy 03-21-20 Hives [facility] Latex (3 sources) Latex; Translations: [LATEX] Substance [facility] Nitrate Vasodilator (3 sources) Nitroglycerin; Translations: [NITROGLYCERIN] Drug Allergy 12-27-19 Other (See Comments) [facility] Serotonin-1b and Serotonin-1d Receptor Agonists (3 sources) SUMAtriptan; Translations: [SUMATRIPTAN SUCCINATE] Drug Allergy 12-27-19 Other (See Comments) [facility] Unclassified (20 sources) Pineapple; Translations: [PINEAPPLE] Propensity to adverse reactions to drug 11-09-19 Anaphylaxis [facility] Valproate (2 sources) Valproate Drug Allergy 12-27-19 Other (See Comments) [facility] (20 sources) acetaminophen / HYDROcodone; Translations: [HYDROCODONE-ACET AMINOPHEN] Propensity to adverse reactions to drug 12-27-19 Other (See Comments), Hallucinations, Unknown [facility] Work Phone: (20 sources) Adhesive Tape; Translations: [ADHESIVE] Propensity to adverse reactions to drug 12-27-19 15 Rash [facility] Work Phone: (20 sources) aspirin; Translations: [ASPIRIN] Propensity to adverse reactions to drug 12-27-19 Other (See Comments) [facility] Work Phone: (17 sources) coconut oil; Translations: [COCONUT OIL] Propensity to adverse reactions to drug 03-21-20 Hives [facility] Work Phone: (20 sources) Latex; Translations: [LATEX] Propensity to adverse reactions to drug 12-27-19 Hives, Rash [facility] Work Phone: (20 sources) nitroglycerin; Translations: [NITROGLYCERIN] Propensity to adverse reactions to drug 12-27-19 15 Other (See Comments), Flushing, Headache [facility] Work Phone: (17 sources) SUMAtriptan; Translations: [SUMATRIPTAN SUCCINATE] Propensity to adverse reactions to drug 12-27-19 15 Other (See Comments) [facility] Work Phone: (20 sources) valproate; Translations: [DIVALPROEX] Propensity to adverse reactions to drug 12-27-19 15 Other (See Comments) [facility] Work Phone: (20 sources) PROPOXYPHENE N-ACETAMINOPHEN; Translations: [PROPOXYPHENE N-ACETAMINOPHEN] Propensity to adverse reactions to drug 12-27-19 15 Other (See Comments), Hallucinations [facility] Work Phone: (20 sources) HEPARIN ANALOGUES; Translations: [HEPARIN ANALOGUES] Propensity to adverse reactions to drug 12-27-19 15 Other (See Comments) [facility] Work Phone: (20 sources) VENOM-WASP; Translations: [VENOM-WASP] Propensity to adverse reactions to drug 03-21-20 15 Anaphylaxis [facility] Work Phone: (20 sources) BEE VENOM PROTEIN (HONEY BEE); Translations: [BEE VENOM PROTEIN (HONEY BEE)] Propensity to adverse reactions to drug 20 15 Anaphylaxis [facility] Work Phone: (6 sources) Coconut extract; Translations: [COCONUT] Drug Allergy 12-29-19 19 Anaphylaxis [facility] (15 sources) Coconut extract Drug Allergy 12-29-19 19 Anaphylaxis, Hives, Flushing, Headache [facility] (13 sources) Heparin Analogues Propensity to adverse reactions to drug 12-27-19 15 Other (See Comments) [facility] (1 source) Acetaminophen / HYDROcodone Drug Allergy 10-11-19 15 [facility] (1 source) Aminolevulinic Acid Drug Allergy 10-11-19 15 [facility] (1 source) Aspirin Drug Allergy 10-11-19 15 [facility] (1 source) bee venom Drug allergy (disorder) [facility] (1 source) Coconut extract Drug Allergy 10-09-19 15 [facility] (1 source) heparin Drug Allergy 10-11-19 15 [facility] (1 source) Ibuprofen Drug Allergy 10-11-19 15 [facility] (1 source) Latex Drug allergy (disorder) 10-09-19 15 [facility] (1 source) Naproxen Drug Allergy 10-11-19 15 [facility] (4 sources) Naproxen; Translations: [NAPROXEN] Drug Allergy 10-25-19 15 [facility] (1 source) Plasmin Drug Allergy 10-11-19 15 [facility] (4 sources) traMADol; Translations: [TRAMADOL] Drug Allergy 05-15-20 [facility] (1 source) Valproate Drug Allergy 10-11-19 15 [facility] (1 source) vitamin K3 Drug Allergy [facility] (1 source) wasp venom Drug allergy (disorder) 10-09-19 15 [facility] (1 source) Darvocet-N 100 Drug allergy (disorder) 10-11-19 15 [facility] (20 sources) beeswax; Translations: [BEESWAX] Drug Allergy 02-02-20 19 [facility] (20 sources) Ibuprofen; Translations: [IBUPROFEN] Drug Allergy 02-02-20 19 [facility] (20 sources) Naproxen Drug Allergy 02-02-20 19 Unknown [facility] (20 sources) SUMAtriptan; Translations: [SUMATRIPTAN] Drug Allergy 12-27-19 15 [facility] ([facility] traMADol Drug Allergy 05-15-20 20 [facility] (20 sources) Aluminum aspirin Drug Allergy 12-27-19 15 Unknown [facility] (20 sources) heparin Drug Allergy 12-27-19 15 [facility] (20 sources) Honey bee venom Propensity to adverse reactions 03-21-20 15 Anaphylaxis [facility] (20 sources) Latex Allergy to substance 12-27-19 15 Unknown, Hives, Rash [facility] (20 sources) Nitroglycerin Allergy to substance 12-27-19 15 Headache, Unknown [facility] (20 sources) pineapple allergenic extract Drug Allergy 11-09-19 20 Anaphylaxis [facility] (20 sources) Propoxyphene Drug Allergy 12-27-19 15 Hallucinations [facility] (20 sources) Valproate Drug Allergy 12-27-19 15 Unknown [facility] (20 sources) Coconut Fatty Acid Propensity to adverse reactions 12-29-19 19 Anaphylaxis, Headache, Hives [facility] (20 sources) Wound Dressing Adhesive Drug Intolerance 12-27-19 15 Rash [facility] Medications Current Medications Medication Drug Class(es) Dates Sig (Normalized) Sig (Original) albuterol 0.83 mg/ml inhalation solution (20 sources) beta2-Adrenergic Agonist Start: 02-28-2024 albuterol (PROVENTIL,VENTOLIN ) 2.5 mg /3 mL (0.083 %) nebulizer solution Indications: Mild persistent asthma, unspecified whether complicated USE 1 VIAL IN NEBULIZER EVERY 6 HOURS NEEDED FOR WHEEZING OR FOR SHORTNESS OF BREATH 360 mL 02/28/2024 Active Start: 02-19-2023 take 2 puff(s) by in halation every six hours as needed for wheezing albuterol (PROVENTIL HFA;VENTOLIN HFA) 90 mcg/actuation inhaler Indications: Mild persistent asthma, unspecified whether complicated Inhale 2 puffs every 6 (six) hours as needed for wheezing or shortness of breath. 18 g 11 02/19/2023 Active Start: 02-19-2023 take 2 puff(s) by in halation every six hours albuterol HFA 90 mcg/act inhaler Inhale 2 puffs every 6 (six) hours if needed 02/19/2023 Active Start: 02-19-2023 take 3 mL by inhalat ion every six hours as needed for wheezing albuterol (PROVENTIL,VENTOLIN) 2.5 mg /3 mL (0.083 %) nebulizer solution Indications: Mild persistent asthma, unspecified whether complicated Inhale 3 mL (2.5 mg total) by nebulization every 6 (six) hours as needed for wheezing or shortness of breath. 360 mL 11 02/19/2023 Active take 2 puff(s) by [...] wheezing. Active amLODIPine 10 mg oral tablet (20 sources) Dihydropyridine Calcium Channel Vinh Start: 11-16-2019 take 1 tablet by mouth in the morning amLODIPine (NORVASC) 10 mg tablet Take 1 tablet (10 mg total) by mouth in the morning. 11/16/2019 Active take 1 tablet by mouth once mary y amLODIPine (NORVASC) 5 MG tablet Take 5 mg by mouth daily . 0 Active atogepant (QULIPTA) 60 mg tablet (8 sources) Start: 06-26-2024 take 1 tablet by mouth in the morning atogepant (QULIPTA) 60 mg tablet Indications: Chronic migraine without aura, intractable, with status migrainosus , Neuralgia and neuritis , Cerebral cavernous malformation TAKE 1 TABLET BY MOUTH IN THE MORNING 30 tablet 3 06/26/2024 Active Start: 02-28-2024 End: 06-26-2024 take 1 tablet by mouth in the morning atogepant (QULIPTA) 60 mg tablet Indications: Chronic migraine without aura, intractable, with status migrainosus , Neuralgia and neuritis , Cerebral cavernous malformation take 1 tablet by mouth in the morning 30 tablet 3 02/28/2024 06/26/2024 Discontinued Start: 02-28-2024 take 1 tablet by emanuel th in the morning atogepant (QULIPTA) 60 mg tablet Indications: Chronic migraine without aura, intractable, with status migrainosus , Neuralgia and neuritis , Cerebral cavernous malformation take 1 tablet by mouth in the morning 30 tablet 3 02/28/2024 Active Start: 08-02-2023 take 1 tablet by emanuel th in the morning atogepant (QULIPTA) 60 mg tablet Indications: Chronic migraine without aura, intractable, with status migrainosus , Neuralgia and neuritis , Cerebral cavernous malformation Take 60 mg by mouth in the morning. 30 tablet 2 08/02/2023 Active Atogepant (Qulipta) 60 MG tablet (20 sources) Start: 11-02-2023 take 1 tablet by mouth in the morning Atogepant (Qulipta) 60 MG tablet Take 1 tablet by mouth in the morning. 11/02/2023 Active onabotulinumtoxina 200 unt injection (6 sources) Acetylcholine Release Inhibitor Start: 06-14-2024 End: 06-14-2024 onabotulinumtoxinA (Botox) injection 155 Units Start: 06-14-2024 End: 06-14-2024 inject 155 [IU] by intramuscular injection once 155 Units, Intramuscular, Once, On Wed06/14/24 at 1145, For 1 dose, Charging context for this clinic-administered medication: Medically Necessary/Insurance Start: 03-02-2024 End: 03-02-2024 onabotulinumtoxinA (Botox) i njection 155 Units Start: 03-02-2024 End: 03-02-2024 inject 155 [IU] by intramuscular injection once 155 Units, Intramuscular, Once, On Dominique 03/02/24 at 1200, For 1 dose, Charging context for this clinic-administered medication: Medically Necessary/Insurance Start: 03-22-2017 End: 03-22-2017 onabotulinumtoxinA (BOTOX) i njection 0-200 Units Start: 03-22-2017 End: 03-22-2017 onabotulinumtoxinA (BOTOX) i njection 0-200 Units 0-200 Units, Intramuscular, Once, 03/22/17 at 1700, For 1 dose Given 03/22/2017 16:12 EDT 155 Units Other calcium acetate 667 mg oral capsule (1 source) calcium acetate, phosphat bind, (PHOSLO) 667 mg capsule Take 1,334 mg by mouth 2 (two) times a day . 0 Active cholecalciferol, vitamin D3, (VITAMIN D3 ORAL) (1 source) cholecalciferol, vitamin D3, (VITAMIN D3 ORAL) Take by mouth . 0 Active cyclobenzaprine hydrochloride 10 mg oral tablet (19 sources) Muscle Relaxant Start: 02-29-20 take 1 tablet by mouth every eight hours as needed for pain cyclobenzaprine (FLEXERIL) 10 mg tablet Indications: DUB (dysfunctional uterine bleeding) , Intrauterine device (IUD) migration, initial encounter , Endometrial hyperplasia without atypia , Uterine cramping , IUD (intrauterine device) in place Take 1 tablet (10 mg total) by mouth every 8 (eight) hours as needed for muscle spasms. Or pain associated with menses 30 tablet 3 02/29/2024 Active cyclobenzaprine (Flexeril) 5 MG tablet Take 10 mg by mouth if needed for muscle spasms Active [id number] 0.3 ml EPINEPHrine 1 mg/ml auto-injector (20 sources) alpha-Adrenergic Agonist, beta-Adrenergic Agonist, Catecholamine EPINEPHrine (EPIPEN) 0.3 mg/0.3 mL auto-injector Inject 0.3 mL (0.3 mg total) into the appropriate muscle as needed. Active inject 0.3 mg by int ramuscular injection every twenty-four hours as needed EPINEPHrine (Epipen) 0.3 MG/0.3ML injection syringe Inject 0.3 mg into the shoulder, thigh, or buttocks Daily as needed Active EPINEPHrine 1:1, 000 (EPIPEN) 0.3 mg/0.3 [...] / vilanterol 0.025 mg/actuat dry powder inhaler (20 sources) Corticosteroid, beta2-Adrenergic Agonist Start: 10-01-2023 take 1 puff(s) by inhalation in the morning fluticasone furoate-vilanteroL (BREO ELLIPTA) 100-25 mcg/dose blister with device Inhale 1 puff in the morning. 10/01/2023 Active Start: 10-01-2023 Breo Ellipta 1 00-25 MCG/ACT aerosol powder 10/01/2023 Active Start: 12-02-2022 take 1 puff(s) by mo [facility] once daily fluticasone furoate-vilanteroL (BREO ELLIPTA) 100-25 mcg/dose blister with device Inhale 1 puff by mouth once daily 60 each 5 12/02/2022 Active fluticasone/kerwin nterol (BREO ELLIPTA INHL) Inhale . 0 Active furosemide 20 mg oral tablet (20 sources) Loop Diuretic take 2 tablets by mouth once daily furosemide (LASIX) 20 mg tablet Take 2 tablets (40 mg total) by mouth daily. Active take 1 tablet by mouth once mary y furosemide (LASIX) 20 MG tablet Take 20 mg by mouth daily. 0 Active 1 ml galcanezumab-gnlm 120 m g/ml auto-injector (20 sources) Start: 07-08-2023 galcanezumab ( Emgality) 120 MG/ML auto-injector INJECT 1 PEN SUBCUTANEOUSLY ONCE EVERY MONTH 07/08/2023 Active Start: 03-15-2023 End: 07-08-2023 galcanezumab-gnlm [...] Active levothyroxine sodium 0.088 mg oral tablet (20 sources) l-Thyroxine Start: 12-03-2019 take 1 tablet by mouth in the morning EUTHYROX 88 mcg tablet Take 1 tablet (88 mcg total) by mouth in the morning. 12/03/2019 Active loratadine 10 mg oral tablet (2 sources) take 1 tablet by mouth in the morning loratadine (CLARITIN) 10 mg tablet Take 1 tablet (10 mg total) by mouth in the morning. Active 24 hr metFORMIN hydrochloride 750 mg extended release oral tablet (20 sources) Biguanide take 1 tablet by mouth every twenty-four hours at mealtime metFORMIN XR (Glucophage-XR) 750 MG 24 hr tablet Take 750 mg by mouth in the morning. Take with meals. Active take 1 tablet by once daily at breakfast metFORMIN (GLUCOPHAGE-XR) 750 MG 24 hr tablet Take 750 mg by mouth daily with breakfast. 0 Active metoprolol tartrate 25 mg oral tablet (20 sources) beta-Adrenergic Vinh Start: 06-25-2023 take 1 tablet by mouth every twelve hours, then take 1 tablet by mouth every two hours metoprolol tartrate (Lopressor) 25 MG tablet Take 1 tablet PO [address] and 1 tablet [address] 06/25/2023 Active montelukast 10 mg oral tablet (20 sources) Leukotriene Receptor Antagonist Start: 11-05-2019 take 1 tablet by mouth in the morning montelukast (SINGULAIR) 10 mg tablet Take 1 tablet (10 mg total) by mouth in the morning. 11/05/2019 Active multivitamin (THERAGRAN) per tablet (16 [...] by Miscellaneous route . 0 Active nystatin [id number] unt/ml topical cream (20 sources) Polyene Antifungal Start: nystatin (MYCOSTATIN) cream Indications: Candidiasis of breast , PCOS (polycystic ovarian syndrome) APPLY CREAM TOPICALLY TWICE DAILY (IN THE MORNING AND AT BEDTIME) 30 g 03/16/2023 Active Start: 03-16-2023 nystatin (Myco statin) cream APPLY CREAM TOPICALLY TWICE DAILY (IN THE MORNING AND AT BEDTIME) 03/16/2023 Active omeprazole 20 mg delayed release oral capsule (20 sources) Proton Pump Inhibitor Start: 07-13-2023 take 1 capsule by mouth at breakfast omeprazole (PriLOSEC) 20 mg capsule TAKE 1 CAPSULE BY MOUTH IN THE MORNING 30 MINUTES BEFORE MORNING MEAL 07/13/2023 Active End: 06-27-2024 take 1 tablet by mouth in the morning omeprazole (PriLOSEC OTC) 20 mg EC tablet Take 1 tablet (20 mg total) by mouth in the morning. 06/27/2024 Discontinued (Therapy completed) potassium chloride 20 meq ex tended release oral tablet (20 sources) potassium chlori de (K-TAB,KLOR-CON) 20 mEq CR tablet Take 1 tablet (20 mEq total) by mouth in the morning. Active potassium chlori de (MICRO-K) 10 MEQ [...] 100 mg oral capsule (20 sources) Start: 11-30-2023 End: 09-03-2024 take 1 capsule by mouth three times daily pregabalin (LYRICA) 100 mg capsule Indications: Chronic migraine without aura, intractable, with status migrainosus , Neuralgia and neuritis TAKE 1 CAPSULE BY MOUTH THREE TIMES DAILY 270 capsule 1 11/30/2023 Active Start: 08-30-2023 take 1 capsule by mo [facility] three times daily pregabalin (LYRICA) 100 mg [...] Start: 12-17-2016 take 1 capsule by mo ut once daily propranolol (INDERAL LA) 120 MG 24 hr capsule Indications: Chronic nonintractable headache, unspecified headache type Take 1 (one) capsule (120 mg total) by mouth daily. 90 capsule 1 12/17/2016 Active topiramate 100 mg oral tablet (20 sources) Start: 11-30-2023 End: 05-10-2024 take 1 tablet by mouth twice daily topiramate (TOPAMAX) 100 mg tablet Indications: Chronic migraine without aura, intractable, with status migrainosus Take 1 tablet by mouth twice daily 180 tablet 1 11/30/2023 Active Start: 03-15-2023 take 1 tablet by emanuel th twice daily topiramate (TOPAMAX) 100 mg tablet [...] 09/27/2018 Discontinued ubrogepant 100 mg oral tablet (20 sources) Start: 08-03-2022 ubrogepant (UB RELVY) 100 [...] Drug Class(es) Dates Sig (Normalized) Sig (Original) galcanezumab-gnlm (EMGALITY) 120 mg/mL Pen (2 sources) [...] Active Problems Problem Classification Problem Date Documented Date Episodic/Chronic Acquired foot deformities (4 sources) Varus deformity, not elsewhere classified, right ankle; Translations: [VARUS DEFORMITY NEC RIGHT ANKLE] Onset: 3 Episodic Asthma (13 sources) Unspecified asthma, uncomplicated; Translations: [Asthma] Onset: 3 06-09-2023 Chronic Blindness and vision defects (10 sources) Visual impairment; Translations: [Unspecified visual loss] Onset: 4 06-09-2023 Chronic 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; 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] Onset: 4 04-24-2024 Chronic Cardiac dysrhythmias (4 sources) Atrial premature depolarization; Translations: [Premature atrial contraction] Onset: 4 06-27-2024 Chronic Cardiac dysrhythmias (3 sources) Palpitations; Translations: [Palpitations] Onset: 5 06-27-2024 Episodic Diabetes mellitus without complication (11 sources) Type 2 diabetes mellitus without complications; Translations: [Diabetes mellitus] Onset: 3 06-09-2023 Chronic Epilepsy; convulsions (3 sources) Seizure disorder; Translations: [Epilepsy, unspecified, not intractable, without status epilepticus] 04-24-2024 Chronic Essential hypertension (13 sources) Essential (primary) hypertension; Translations: [Hypertensive disorder] Onset: 3 06-09-2023 Chronic Headache; including migraine (20 sources) Migraine without aura; Translations: [Refractory migraine without aura] Onset: 5 Resolved: 1 12-26-2014 Chronic Headache; including migraine (20 sources) Drug-induced headache, not elsewhere classified, not intractable; Translations: [Headache] Onset: 5 Resolved: 0 12-26-2014 Episodic Intracranial injury (1 source) Concussion with no loss of consciousness; Translations: [Concussion without loss of consciousness, initial encounter] Episodic Menopausal disorders (1 source) Hormone replacement therapy; Translations: [HORMONE REPLACEMENT THERAPY] Onset: 3 Episodic Menstrual disorders (6 sources) Excessive and frequent menstruation with irregular cycle; Translations: [Irregular menstruation, unspecified] Onset: 4 Chronic Nonspecific chest pain (3 sources) Other chest pain; Translations: [Chest pain, unspecified] Onset: 4 Episodic Osteoarthritis (10 sources) Arthritis; Translations: [Unspecified osteoarthritis, unspecified site] Onset: 4 06-09-2023 Chronic Other acquired deformities (10 sources) Scoliosis deformity of spine; Translations: [Scoliosis, unspecified] Onset: 4 06-09-2023 Chronic Other acquired deformities (1 source) Unspecified acquired deformity of right lower leg; Translations: [UNS ACQUIRED DEFORMITY RT LOWER LEG] Onset: 3 Episodic Other aftercare (1 source) Other terminal block assembler (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; Translations: [OTH PRODUCT ANALYST CURRENT DRUG THERAPY] Onset: 3 Episodic Other and ill-defined cerebrovascular disease (11 sources) Intracranial aneurysm; Translations: [Cerebral aneurysm, nonruptured] Onset: 4 06-09-2023 Chronic Other and ill-defined cerebrovascular disease (1 source) Cerebral aneurysm, nonruptured; Translations: [Cerebral aneurysm, nonruptured] Onset: 4 Chronic Other and unspecified benign neoplasm (1 source) Hemangioma of other sites; Translations: [HEMANGIOMA OF OTHER SITES] Onset: 3 Episodic Other connective tissue disease (5 sources) Pain in right foot; Translations: [PAIN IN RIGHT FOOT] Onset: 3 Episodic Other connective tissue disease (1 source) Synovitis and tenosynovitis, unspecified; Translations: [SYNOVITIS AND TENOSYNOVITIS UNS] Onset: 3 Episodic Other connective tissue disease (2 sources) Neuropathy; Translations: [Neuralgia and neuritis, unspecified] 08-27-2023 Episodic Other endocrine disorders (10 sources) Polycystic ovary syndrome; Translations: [Polycystic ovarian syndrome] Onset: 4 06-09-2023 Chronic Other endocrine disorders (3 sources) Polycystic ovarian syndrome; Translations: [Polycystic ovarian syndrome] Onset: 4 Chronic Other female genital disorders (1 source) Endometrial hyperplasia, unspecified; Translations: [Endometrial hyperplasia, unspecified] Onset: 4 Chronic Other female genital disorders (2 sources) Other specified abnormal uterine and vaginal bleeding; Translations: [Other specified abnormal uterine and vaginal bleeding] Onset: 4 Chronic Other female genital disorders (1 source) Other specified conditions associated with female genital organs and menstrual cycle; Translations: [Other specified conditions associated with female genital organs and menstrual cycle] Onset: 4 Episodic Other injuries and conditions due to external causes (1 source) Injury, unspecified, sequela; Translations: [INJURY UNSPECIFIED SEQUELA] Onset: 3 Episodic Other non-traumatic joint disorders (1 source) Other specified joint disorders, right ankle and foot; Translations: [OTHER SPEC JOINT D/O RT ANKLE FOOT] Onset: 3 Episodic Other non-traumatic joint disorders (5 sources) Pain in right ankle and joints of right foot; Translations: [PAIN IN RIGHT ANKLE] Onset: 3 Episodic Other non-traumatic joint disorders (15 sources) Acute ankle pain; Translations: [Pain in left ankle and joints of left foot] 03-15-2024 Episodic Other non-traumatic joint disorders (1 source) Other specified joint disorders, left ankle and foot; Translations: [Other specified joint disorders, left ankle and foot] Onset: 4 Episodic Other nutritional; endocrine; and metabolic disorders (11 sources) Body mass index 40+ - severely obese; Translations: [Body mass index (BMI) 50.0-59.9, adult] Onset: 0 06-09-2023 Chronic Other nutritional; endocrine; and metabolic disorders (10 sources) Morbid obesity; Translations: [Morbid (severe) obesity due to excess calories] Onset: 4 06-09-2023 Chronic Other nutritional; endocrine; and metabolic disorders (3 sources) Morbid (severe) obesity due to excess calories; Translations: [Morbid (severe) obesity due to excess calories] Onset: 4 Chronic Other nutritional; endocrine; and metabolic disorders (2 sources) Body mass index (BMI) 50.0-59.9, adult; Translations: [Body mass index (BMI) 50.0-59.9, adult] Onset: 0 Chronic Other screening for suspected conditions (not mental disorders or infectious disease) (2 sources) Abnormal electrocardiogram [ECG] [EKG]; Translations: [Encounter for screening for cardiovascular disorders] Onset: 4 Episodic Other upper respiratory disease (1 source) Other seasonal allergic rhinitis; Translations: [OTHER SEASONAL ALLERGIC RHINITIS] Onset: 3 Chronic Residual codes; unclassified (20 sources) Sleep apnea; Translations: [Obstructive sleep apnea syndrome] Onset: 5 12-26-2014 Chronic Residual codes; unclassified (20 sources) Obstructive sleep apnea syndrome; Translations: [Obstructive sleep apnea (adult) (pediatric)] Onset: 6 10-03-2015 Chronic Residual codes; unclassified (1 source) Sleep apnea, unspecified; Translations: [SLEEP APNEA UNSPECIFIED] Onset: 3 Chronic Residual codes; unclassified (1 source) Obstructive sleep apnea (adult) (pediatric); Translations: [Obstructive sleep apnea (adult) (pediatric)] Onset: 4 Chronic Spondylosis; intervertebral disc disorders; other back problems (9 sources) Degeneration of cervical intervertebral disc; Translations: [Other cervical disc degeneration, unspecified cervical region] Onset: 4 08-30-2023 Chronic Sprains and strains (2 sources) Sprain of other ligament of right ankle, sequela; Translations: [Sprain of deltoid ligament of right ankle, sequela] Onset: 2 Episodic Thyroid disorders (11 sources) Hypothyroidism, unspecified; Translations: [Hypothyroidism] Onset: 3 06-09-2023 Chronic Unclassified (5 sources) Myalgia, other site; Translations: [Myofascial pain syndrome] Onset: 8 08-09-2017 Unclassified (1 source) CONTACT W/AND (SUSP) EXPOS COVID-19; Translations: [CONTACT W/AND (SUSP) EXPOS COVID-19] Onset: 3 Unclassified (1 source) Botulinum Toxin Injection Onset: 4 Unclassified (1 source) EMB/Hysteroscopy Onset: 4 Unclassified (1 source) Menstrual Problem Onset: 4 Unclassified (1 source) Consult Onset: 4 Past or Other Problems Problem Classification Problem Date Documented Date Episodic/Chronic Biliary tract disease (18 sources) Cholecystitis; Translations: [Cholecystitis, unspecified] Onset: 12-28-2014 12-28-2014 Episodic Complication of device; implant or graft (2 sources) Displacement of intrauterine contraceptive device, initial encounter; Translations: [Displacement of intrauterine contraceptive device, initial encounter] Onset: 11-22-2023 Episodic Conditions associated with dizziness or vertigo (18 sources) Lightheadedness; Translations: [Dizziness and giddiness] Onset: 12-26-2014 12-26-2014 Episodic Contraceptive and procreative management (4 sources) Encounter for routine checking of intrauterine contraceptive device; Translations: [Encounter for removal and reinsertion of intrauterine contraceptive device] Onset: 11-04-2023 Episodic Deficiency and other anemia (10 sources) Anemia; Translations: [Anemia, unspecified] Onset: 06-09-2023 06-09-2023 Episodic Diabetes mellitus without complication (11 sources) Prediabetes; Translations: [Prediabetes] Onset: 07-23-2022 06-09-2023 Episodic Epilepsy; convulsions (10 sources) Seizure; Translations: [Unspecified convulsions] Onset: 06-09-2023 06-09-2023 Episodic Mood disorders (10 sources) Mood disorders Onset: 08-03-2022 Resolved: 08-02-2023 08-03-2022 Nutritional deficiencies (11 sources) Cobalamin deficiency; Translations: [Deficiency of other specified B group vitamins] Onset: 06-09-2023 06-09-2023 Episodic Other and unspecified benign neoplasm (10 sources) Cavernous hemangioma of brain; Translations: [Hemangioma of intracranial structures] Onset: 06-09-2023 06-09-2023 Episodic Other connective tissue disease (10 sources) Myalgia; Translations: [Fibromyositis] Onset: 08-09-2017 08-09-2017 Episodic Other connective tissue disease (4 sources) Posterior tibial tendinitis, right leg; Translations: [POSTERIOR TIBIAL TENDINITIS RT LEG] Onset: 02-24-2022 Episodic Other connective tissue disease (3 sources) Neuralgia and neuritis, unspecified; Translations: [Neuralgia and neuritis, unspecified] Onset: 08-02-2023 Episodic Other lower respiratory disease (1 source) Shortness of breath; Translations: [Shortness of breath] Onset: 07-13-2023 Episodic Other nervous system disorders (2 sources) Paresthesia of skin; Translations: [Paresthesia of skin] Onset: 08-02-2023 Episodic Residual codes; unclassified (2 sources) Genetic carrier of other disease; Translations: [Genetic carrier of other disease] Onset: 12-08-2023 Episodic Spondylosis; intervertebral disc disorders; other back problems (6 sources) Chronic low back pain; Translations: [Lumbago with sciatica, left side] Onset: 11-07-2020 Episodic Unclassified (10 sources) Onset: 08-03-2022 08-03-2022 Results Test Name Value Interpretation Reference Range Facility COMPREHENSIVE METABOLIC PANE [facility] 05-26-2024 Albumin [Mass/Vol] 4.1 g/dL Normal 3.2-5.3 [facility] Comment on above: Performed By: #### C FRANCESCO, 49438-1, THYR ####[facility] ([id number])[address], [address] [place] [address] ALP [Catalytic activity/Vol] 98 U/L Normal 39-130 [facility] Comment on above: Performed By: #### Ceci MAYA, 23065-8, THYR ####[facility] ([id number])[address] [facility], [place] [address] ALT [Catalytic activity/Vol] 13 U/L Normal 0-31 [facility] Comment on above: Performed By: #### Ceci MAYA, 93957-3, THYR ####[facility] ([id number])[address], [address], [place] [address] Anion gap [Moles/Vol] 11 mmol/L Normal 5-15 [facility] Comment on above: Performed By: #### Ceci MAYA, 33530-1, THYR ####[facility] ([id number])[address], [address], [place] [address] AST [Catalytic activity/Vol] 12 U/L Normal 0-41 [facility] Comment on above: Performed By: #### Ceci MAYA, 16200-8, THYR ####[facility] ([id number])[address], [address], [place] [address] Bilirubin [Mass/Vol] 0.3 mg/dL Normal 0.3-1.2 [facility] Comment on above: Performed By: #### Ceci MAYA, 52809-3, THYR ####[facility] ([id number])[address], [address], [place] [address] Calcium [Mass/Vol] 9.5 mg/dL Normal 8.5-10.5 [facility] Comment on above: Performed By: #### Ceci MAYA, 91971-6, THYR ####[facility] ([id number])[address], [address], [place] [address] Chloride [Moles/Vol] 108 mmol/L Normal 98-109 [facility] Comment on above: Performed By: #### Ceci MAYA, 09520-6, THYR ####[facility] ([id number])[address], [address], [place] [address] CO2 [Moles/Vol] 22 mmol/L Normal 22-32 [facility] Comment on above: Performed By: #### Ceci MAYA, 97575-3, THYR ####[facility] ([id number])[address], [address], [place] [address] Creatinine [Mass/Vol] 0.93 mg/dL Normal 0.40-1.00 [facility] Comment on above: Result Comment: METH OD TRACEABLE TO IDMS STANDARD Performed By: #### Ceci MAYA 30796-3, THYR ####[facility] ([id number])[address] [address], [place] [address] GFR/1.73 sq M.predicted among non-blacks MDRD (S/P/Bld) [Vol rate/Area] 77 mL/min/{1.73_m2} Normal >59 [facility] Comment on above: Result Comment: Reported eGFR is based on the CKD-EPI 2020 equation that does not use a race coefficient. Performed By: #### Janiya Ornelas MP31-1, THYR ####[facility] ([id number])[address] [address], [place] [address] Glucose [Mass/Vol] 99 mg/dL Normal 65-99 [facility] Comment on above: Performed By: #### Ccei MAYA 20913-9, THYR ####[facility] ([id number])[address] [address], [place] [address] Potassium [Moles/Vol] 4.0 mmol/L Normal 3.5-5.0 [facility] Comment on above: Performed By: #### Ceci MAYA 81956-7, THYR ####[facility] ([id number])[address] [address], [place] [address] Protein [Mass/Vol] 7.3 g/dL Normal 6.0-8.0 [facility] Comment on above: Performed By: #### Janiya Ornelas MP31-1, THYR ####[facility] ([id number])[address] [address], [place] [address] Sodium [Moles/Vol] 141 mmol/L Normal 134-146 [facility] Comment on above: Performed By: #### Janiya Ornelas MP31-1, THYR ####[facility] ([id number])[address], [address], [place] [address] Urea nitrogen [Mass/Vol] 20 mg/dL Normal 5-23 [facility] Comment on above: Performed By: #### Ceci MAYA, 35999-3, THYR ####[facility] ([id number])[address], [address] [place] [address], [place] [address] Lipid 1996 panelon 4 Cholesterol [Mass/Vol] 143 mg/dL Low 150-200 [facility] Comment on above: Performed By: #### Ceci MAYA, 42486-4, THYR ####[facility] ([id number])[address] [address] [place] [address] Cholesterol in HDL [Mass/Vol] 45 mg/dL Normal >39 [facility] Comment on above: Result Comment: HDL <40 mg/dL - High Risk HDL > or = 40mg/dL- Desirable HDL >60 mg/dL - Negative Risk Performed By: #### Ceci MAYA, 89125-1, THYR ####[facility] ([id number])[address] [address] [place] [address], [place] [address] Cholesterol in LDL [Mass/Vol] 82 mg/dL Normal <130 [facility] Comment on above: Result Comment: LDL <100 mg/dL - Desirable LDL >160 mg/dL - High Risk Performed By: #### Ceci MAYA, 59732-0, THYR ####[facility] ([id number])[address] [address] [place] [address], [place] [address] Cholesterol in VLDL [Mass/Vol] 16 mg/dL Normal 0-30 [facility] Comment on above: Performed By: #### Ceci MAYA, 89118-6, THYR ####[facility] ([id number])[address] [address] [place] [address] CHOLESTEROL:HDL 3.2 Normal 1.0-5.0 [facility] Comment on above: Performed By: #### Ceci MAYA, 95757-0, THYR ####[facility] ([id number])[address], [place] [address] Triglyceride [Mass/Vol] 81 mg/dL Normal 27-150 [facility] Comment on above: Performed By: #### Ceci MAYA, 25258-3, THYR ####[facility] ([id number])[address], [place] [address] THYROID PROFILEon 05-26-2024 Free T4 [Mass/Vol] 0.75 ng/dL Normal 0.61-1.60 [facility] Comment on above: Result Comment: NEW REFERENCE RANGE FOR PEDIATRIC PATIENTS Performed By: #### Ceci MAYA, 54121-6, THYR ####[facility] ([id number])[address] [address] [place] [address] TSH 1.98 uIU/mL Normal 0.49-4.67 [facility] Comment on above: Result Comment: NEW REFERENCE RANGE FOR PEDIATRIC PATIENTS Performed By: #### Ceci MAYA, 32129-1, THYR ####[facility] ([id number])[address] [address] [place] [address] MR ANKLE LT WO CONTon 2023 MR ANKLE LT WO CONT MR ANKLE LT WO CONT History: Twisting injury 3 months ago. Persistent pain laterally. Pain after trauma. MRI Left Ankle Comparison: None Technique: Multiplanar multisequence imaging of the ankle was obtained without contrast. Findings: The Achilles tendon is intact. The plantar aponeurosis is intact. Osteochondral lesion to the medial dome is appreciated. This is a sequela of trauma likely remote in age. Portion of the cortex is missing. The overlying cartilage is also absent. There is some residual edema and also sclerosis is noted.. The talus appears somewhat tilted within the tibiotalar articulation. The syndesmosis does not appear to be grossly widened. Small area of edema along the lateral talar dome is noted. Sequela of remote fifth metatarsal fracture with no residual edema. Sequela of remote injury to the deltoid with heterotopic calcification noted. Prior intermediate grade injury to the anterior talofibular ligament. Remaining ligament is quite then. The tibiofibular ligaments are intact. Prior injury to the spring ligament is noted Longitudinal tear of the distal peroneal brevis tendon. The posterior medial and anterior tendon groups are intact. No evidence of bursitis. Nonspecific soft tissue edema is appreciated particularly posteriorly but also seen laterally. Impression: * Sequela of trauma is confirmed. Axial load/impaction type fracture to the medial talar dome previously occurred. Coarse the cortex and overlying cartilage is absent. Injuries to the deltoid and anterior talofibular ligaments have occurred. Partial-thickness tear of the distal peroneal brevis tendon. Additional findings are detailed above. Continued follow-up is suggested. If there is concern for instability consider stress imaging. Finalized by Leilani Sood MD on 05/25/2024 11:09 AM Normal [facility] CBC AND AUTO DIFFon 05-24-20 24 ABSOLUTE BASOPHIL 0.0 X10E9/L Normal 0.0-0.2 [facility] Comment on above: Performed By: #### C BCA, CMP, 3040-3, 25784-2, 35296-7, 80466- 4, 71587-7, PINR, 56570-2 #### [facility] ([id number]) [address] [place] [address], [place] [address] ABSOLUTE NEUTROPHIL 5.6 X10E9/L Normal 1.5-6.6 [facility] Comment on above: Performed By: #### C BCA, CMP, 3040-3, 97366-4, 13368-8, 26357- 4, 24915-8, PINR, 79200-2 #### [facility] ([id number]) [address] [place] [address] Basophils/100 WBC (Bld) 0.4 % Normal [facility] Comment on above: Performed By: #### C BCA, CMP, 3040-3, 26155-2, 02202-6, 98009- 4, 97526-6, PINR, 30926-4 #### [facility] ([id number]) [address] [place] [address] Eosinophils (Bld) [#/Vol] 0.2 10*3/uL Normal 0.0-0.4 [facility] Comment on above: Performed By: #### C BCA, CMP, 3040-3, 32652-7, 63247-0, 21990- 4, 51939-3, PINR, 30646-7 #### [facility] ([id number]) [address] [place] [address] Eosinophils/100 WBC (Bld) 2.3 % Normal [facility] Comment on above: Performed By: #### C BCA, CMP, 3040-3, 36220-5, 78830-6, 45654- 4, 28624-6, PINR, 98855-5 #### [facility] ([id number]) [address] [place] [address] Erythrocyte distribution width (RBC) [Ratio] 13.7 % Normal 11.5-15.0 [facility] Comment on above: Performed By: #### C BCA, CMP, 3040-3, 11749-3, 57881-2, 13870- 4, 79029-2, PINR, 29111-8 #### [facility] ([id number]) [address] [place] [address] Hematocrit (Bld) [Volume fraction] 43.4 % Normal 35-47 [facility] Comment on above: Performed By: #### C BCA, CMP, 3040-3, 35530-2, 99934-9, 72493- 4, 65461-6, PINR, 52701-2 #### [facility] ([id number]) [address] [place] [address] Hemoglobin (Bld) [Mass/Vol] 15.1 g/dL Normal 11.7-15.5 [facility] Comment on above: Performed By: #### C BCA, CMP, 3040-3, 96102-7, 82414-9, 06963- 4, 97588-7, PINR, 04126-6 #### [facility] ([id number]) [address] [place] [address] 16385 Lymphocytes (Bld) [#/Vol] 3.0 10*3/uL Normal 1.0-3.5 [facility] Comment on above: Performed By: #### C BCA, CMP, 3040-3, 03724-3, 57995-9, 15046- 4, 72356-5, PINR, 36721-9 #### [facility] ([id number]) [address] [place] [address] 64702 Lymphocytes/100 WBC (Bld) 30.6 % Normal [facility] Comment on above: Performed By: #### C BCA, CMP, 3040-3, 02318-1, 69508-1, 49856- 4, 67543-3, PINR, 47823-9 #### [facility] ([id number]) [address] [place] [address] 96011 MCH (RBC) [Entitic mass] 32.7 pg Normal 27-34 [facility] Comment on above: Performed By: #### C BCA, CMP, 3040-3, 26046-6, 15997-8, 17901- 4, 84026-3, PINR, 62540-4 #### [facility] ([id number]) [address] [place] [address] 66712 MCHC (RBC) [Mass/Vol] 34.7 g/dL Normal 32-36 [facility] Comment on above: Performed By: #### C BCA, CMP, 3040-3, 78536-2, 89705-3, 87499- 4, 89712-9, PINR, 02656-9 #### [facility] ([id number]) [address] [place] [address] 05769 MCV (RBC) [Entitic vol] 94 fL Normal 80-100 [facility] Comment on above: Performed By: #### C BCA, CMP, 3040-3, 84750-9, 15531-4, 66573- 4, 17579-2, PINR, 78802-9 #### [facility] ([id number]) [address] [place] [address] 19882 Monocytes (Bld) [#/Vol] 0.9 10*3/uL Normal 0-0.9 [facility] Comment on above: Performed By: #### C BCA, CMP, 3040-3, 24811-6, 53492-5, 16410- 4, 95684-5, PINR, 62652-5 #### [facility] ([id number]) [address] [place] [address] 50574 Monocytes/100 WBC (Bld) 9.5 % Normal [facility] Comment on above: Performed By: #### C BCA, CMP, 3040-3, 82878-8, 87426-4, 70127- 4, 00206-5, PINR, 24567-7 #### [facility] [facility] ([id number]) [address] [place] [address] 59205 Neutrophils/100 WBC (Bld) 57.2 % Normal [facility] Comment on above: Performed By: #### C BCA, CMP, 3040-3, 97766-8, 59752-8, 16387- 4, 63586-7, PINR, 10881-9 #### [facility] ([id number]) [address] [place] [address] 41272 Platelet mean volume (Bld) [Entitic vol] 7.1 fL Normal 7-12 [facility] Comment on above: Performed By: #### C BCA, CMP, 3040-3, 44553-8, 24158-9, 94566- 4, 16446-8, PINR, 02030-0 #### [facility] ([id number]) [address] [place] [address] 40694 Platelets (Bld) [#/Vol] 397 10*3/uL Normal 150-450 [facility] Comment on above: Performed By: #### C BCA, CMP, 3040-3, 74779-0, 81067-3, 20073- 4, 23338-1, PINR, 78911-3 #### [facility] ([id number]) [address] [place] [address] 20502 RBC COUNT 4.61 X10E12/L Normal 3.80-5.20 [facility] Comment on above: Performed By: #### C BCA, CMP, 3040-3, 98972-0, 95817-6, 45139- 4, 23184-1, PINR, 19260-1 #### [facility] ([id number]) [address] [place] [address] 08793 WBC (Bld) [#/Vol] 9.8 10*3/uL Normal 4.0-11.0 [facility] Comment on above: Performed By: #### C BCA, CMP, 3040-3, 73742-2, 69175-7, 63857- 4, 42654-4, PINR, 50369-3 #### [facility] ([id number]) [address] [place] [address] 93600 COMPREHENSIVE METABOLIC PANE [facility] 05-24-2024 Albumin [Mass/Vol] 4.3 g/dL Normal 3.2-5.3 [facility] Comment on above: Performed By: #### C BCA, CMP, 3040-3, 61187-2, 44283-2, 62389- 4, 51364-0, PINR, 38022-9 ####[facility] ([id number])[address] [place] [address] 03918 ALP [Catalytic activity/Vol] 94 U/L Normal 39-130 [facility] Comment on above: Performed By: #### C BCA, CMP, 3040-3, 37018-6, 61299-3, 65184- 4, 44027-9, PINR, 43950-1 ####[facility] ([id number])[address] [place] [address] 76294 ALT [Catalytic activity/Vol] 18 U/L Normal 0-31 [facility] Comment on above: Performed By: #### C BCA, CMP, 3040-3, 99168-7, 48496-9, 48276- 4, 68066-9, PINR, 18781-1 ####[facility] ([id number])[address] [place] [address] 08916 Anion gap [Moles/Vol] 8 mmol/L Normal 5-15 [facility] Comment on above: Performed By: #### C BCA, CMP, 3040-3, 96572-6, 57677-7, 99913- 4, 35471-5, PINR, 01502-9 ####[facility] ([id number])[address] [place] [address] 30245 AST [Catalytic activity/Vol] 13 U/L Normal 0-41 [facility] Comment on above: Performed By: #### C BCA, CMP, 3040-3, 52617-9, 45290-6, 93693- 4, 87747-4, PINR, 66060-4 ####[facility] ([id number])[address] [place] [address] 92773 Bilirubin [Mass/Vol] 0.3 mg/dL Normal 0.3-1.2 [facility] Comment on above: Performed By: #### C BCA, CMP, 3040-3, 94763-4, 14437-9, 29204- 4, 94695-1, PINR, 07282-0 ####[facility] ([id number])[address] [place] [address] 43872 Calcium [Mass/Vol] 8.9 mg/dL Normal 8.5-10.5 [facility] Comment on above: Performed By: #### C BCA, CMP, 3040-3, 10452-7, 83709-3, 49854- 4, 10522-5, PINR, 68412-6 ####[facility] ([id number])[address] [place] [address] 17471 Chloride [Moles/Vol] 106 mmol/L Normal 98-109 [facility] Comment on above: Performed By: #### C BCA, CMP, 3040-3, 90374-2, 09587-8, 99793- 4, 92835-5, PINR, 68320-3 ####[facility] ([id number])[address] [place] [address] 92470 CO2 [Moles/Vol] 21 mmol/L Low 22-32 [facility] Comment on above: Performed By: #### C BCA, CMP, 3040-3, 25407-4, 27152-3, 76748- 4, 15583-2, PINR, 73483-5 ####[facility] ([id number])[address] [place] [address] 06507 Creatinine [Mass/Vol] 0.81 mg/dL Normal 0.40-1.00 [facility] Comment on above: Result Comment: METH OD TRACEABLE TO IDMS STANDARD Performed By: #### C BCA, CMP, 3040-3, 85499-0, 80566-7, 52264-2, 40563-2, PINR, 36093-7 ####[facility] ([id number])[address] [place] [address] 29988 eGFR (CKD-EPI) NON-RACE DEPENDENT >90 Normal >59 [facility] Comment on above: Result Comment: Reported eGFR is based on the CKD-EPI 2020 equation that does not use a race coefficient. Performed By: #### C BCA, CMP, 3040-3, 69532-6, 78331-9, 39336-5, 78520-7, PINR, 20975-8 ####[facility] ([id number])[address] [place] [address] 44192 Glucose [Mass/Vol] 93 mg/dL Normal 65-99 [facility] Comment on above: Performed By: #### C BCA, CMP, 3040-3, 49336-0, 63002-8, 67399- 4, 52981-1, PINR, 85691-0 ####[facility] ([id number])[address] [place] [address] 08408 Potassium [Moles/Vol] 3.5 mmol/L Normal 3.5-5.0 [facility] Comment on above: Performed By: #### C BCA, CMP, 3040-3, 31402-3, 55154-4, 64987- 4, 01452-1, PINR, 64872-8 ####[facility] ([id number])[address] [place] [address] 76402 Protein [Mass/Vol] 7.7 g/dL Normal 6.0-8.0 [facility] Comment on above: Performed By: #### C BCA, CMP, 3040-3, 01648-6, 52009-5, 29583- 4, 52391-4, PINR, 69330-8 ####[facility] ([id number])[address] [place] [address] Sodium [Moles/Vol] 135 mmol/L Normal 134-146 [facility] Comment on above: Performed By: #### C BCA, CMP, 3040-3, 69663-5, 11682-4, 91655- 4, 68461-8, PINR, 17424-8 ####[facility] ([id number])[address] [place] [address] Urea nitrogen [Mass/Vol] 17 mg/dL Normal 5-23 [facility] Comment on above: Performed By: #### C BCA, CMP, 3040-3, 90587-8, 38736-3, 92139- 4, 33525-4, PINR, 50065-2 ####[facility] ([id number])[address] [place] [address] CT CTA CHESTon 05-24-[address] CTA CHEST EXAM: CT PULMONARY ANGIOGRAM OF THE CHEST WITH CONTRAST CLINICAL INFORMATION: Pulmonary embolism (PE) suspected, low to intermediate prob, positive D-dimer. TECHNIQUE: CT angiography of the chest was performed utilizing thin section axial images with coronal and sagittal reformatted images generated. 3-D maximum intensity projection coronal and sagittal reformatted images generated and reviewed. Images acquired following the uneventful administration of nonionic intravenous contrast. Automated exposure control was utilized. COMPARISON: None. FINDINGS: There is suboptimal opacification of the pulmonary arteries, limiting evaluation at the segmental and subsegmental levels. No convincing large central acute pulmonary embolism is identified, within the limitations of the examination. The lungs are clear and well aerated. There are no pleural effusions. There is no pericardial effusion. There are no enlarged or pathologic-appearing thoracic lymph nodes. The thoracic aorta is normal in diameter. The limited visualized upper abdominal contents and a straight changes of cholecystectomy. IMPRESSION: 1. There is suboptimal evaluation of the pulmonary arteries. No convincing central acute pulmonary embolism is identified, although evaluation at the segmental and subsegmental levels is very limited. 2. No acute abnormalities in the chest. All CT scans at this facility use dose modulation, iterative reconstruction, and/or weight based dosing when appropriate to reduce radiation dose to as low as reasonably achievable. Finalized by Burton Coles MD on 05/24/2024 4:59 PM Normal [facility] Fibrin D-dimer DDU (PPP) [Ma ss/Vol]on 05-24-2024 D DIMER 364 ng/mL DDU High <255 [facility] Comment on above: Result Comment: Results >=255ng/mL DDU: Results may be indicative of the presence of VTE. The use of the Wells score and further diagnostic tests should be considered. Elevated D-Dimer levels can also be associated with DIC, neoplasm, , trauma and liver disease. Elevated levels of rheumatoid factor may lead to an overestimation of the D-Dimer level. Performed By: #### C GODFREY MARIA, 3040-3, 40559-2, 47820-5, 80675-0, 83201-1, PINR, 87115-4 ####[facility] ([id number])[address] [place] [address] 19654 HCG ( test) Ql (U)o n 05-24-2024 Beta HCG ( test) Ql (U) Negative Normal NEG [facility] Comment on above: Performed By: #### 2 106-3 ####[facility] ([id number])[address] [place] [address] 78181 LIPASEon 05-24-2024 Lipase [Catalytic activity/Vol] 29 U/L Normal 17-40 [facility] Comment on above: Performed By: #### C GODFREY MARIA, 3040-3, 22000-8, 70184-8, 59231- 4, 49406-5, PINR, 91272-0 ####[facility] ([id number])[address] [place] [address] 77665 MAGNESIUMon 05-24-2024 Magnesium [Mass/Vol] 2.1 mg/dL Normal 1.8-2.6 [facility] Comment on above: Performed By: #### C GODFREY MARIA, 3040-3, 69007-9, 67788-6, 14201- 4, 48088-1, PINR, 02202-5 ####[facility] ([id number])[address] [place] [address] 27852 Natriuretic peptide B [Mass/ Vol]on 05-24-2024 BRN NATRIURETIC PEP <5 Normal <100.0 [facility] Comment on above: Performed By: #### C BCA, CMP, 3040-3, 31405-4, 06725-3, 23755- 4, 55002-5, PINR, 81175-4 ####[facility] ([id number])[address] [place] [address] 35480 PROTIME AND INRon 05-24-2024 INR Coag (PPP) [Relative time] 1.0 {INR} Normal 0.8-1.1 [facility] Comment on above: Performed By: #### C BCA, CMP, 3040-3, 99281-7, 28874-3, 77558- 4, 25378-3, PINR, 28803-0 ####[facility] ([id number])[address] [place] [address] 17518 PT Coag (PPP) [Time] 11.6 s Normal 9.8-13.2 [facility] Comment on above: Result Comment: NEW REFERENCE RANGE Performed By: #### C BCA, CMP, 3040-3, 99086-2, 15296-2, 41136-0, 51390-3, PINR, 07917-9 ####[facility] ([id number])[address] [place] [address] 42715 Troponin I.cardiac High sens itivity method [Mass/Vol]on 05-24-2024 1 HOUR TROP I, HIGH SENSITIVITY 2 ng/L Normal <16 [facility] Comment on above: Performed By: #### 8 9579-7 ####[facility] ([id number])[address] [place] [address] 47606 TROPONIN I, HIGH SENSITIVITY 3 ng/L Normal <16 [facility] Comment on above: Performed By: #### C BCA, CMP, 3040-3, 00483-8, 48291-2, 51665- 4, 69998-9, PINR, 84310-6 ####[facility] ([id number])[address] [place] [address] 33778 URN MACROSCOPIC NURon 2023 BILIRUBIN BECKY Negative Normal NEG [facility] Comment on above: Performed By: #### N UM #### [facility] ([id number]) [address] [place] [address] 60357 BLOOD/HGB BECKY Negative Normal NEG [facility] Comment on above: Performed By: #### N UM #### [facility] ([id number]) [address] [place] [address] [place] [address] GLUCOSE BECKY Negative Normal NEG [facility] Comment on above: Performed By: #### N UM #### [facility] ([id number]) [address] [place] [address] [place] [address] KETONES BECKY Negative Normal NEG [facility] Comment on above: Performed By: #### N UM #### [facility] ([id number]) [address] [place] [address] [place] [address] LEUKOCYTE ESTERASE BECKY Small Abnormal NEG [facility] Comment on above: Performed By: #### N UM #### [facility] ([id number]) [address] [place] [address] [place] [address] NITRITE BECKY Negative Normal NEG [facility] Comment on above: Performed By: #### N UM #### [facility] ([id number]) [address] [place] [address] 45181 PH BECKY 6.5 Normal 5.0-8.5 [facility] Comment on above: Performed By: #### N UM #### [facility] ([id number]) [address] [place] [address] 92162 PROTEIN BECKY Negative Normal NEG [facility] Comment on above: Performed By: #### N UM #### [facility] ([id number]) [address] [place] [address] 40648 SPECIFIC GRAVITY BECKY 1.020 Normal 1.003-1.035 [facility] Comment on above: Performed By: #### N UM #### [facility] ([id number]) [address] [place] [address] 66020 UROBILINOGEN BECKY 1.0 eu/dL Normal <1.1 [facility] Comment on above: Performed By: #### N UM #### [facility] ([id number]) [address] [place] [address] 81590 aPTT Coag (PPP) [Time]on aPTT Coag (Bld) [Time] 32 s Normal 26-37 [facility] Comment on above: Result Comment: NEW REFERENCE RANGE Performed By: #### C BCA, CMP, 3040-3, 43236-4, 63017-4, 30786-9, 35450-1, PINR, 27071-1 ####[facility] ([id number])[address] [place] [address] 09062 Surgical Pathologyon 024 Surgical Pathology Normal [facility] Comment on above: Result Comment: [facility] [address] [place] [address] Surgical Pathology Consultation Patient Name:BRENDA NOVAK:1975 (Age: 48)Gender:FTaken:4Reported:4Physician(s):Patti Leonard DO ([phone])Copy To: Rec. #:[id number]: #[id number] Final Pathologic Diagnosis Uterus, endometrium, biopsy: - Extensive endometrial glandular and stromal breakdown with focal gland crowding, see comment. - Focal progestational effect. Comment: The stromal breakdown has elicited surface metaplastic change, which is not interpreted as neoplastic. Focal gland crowding is also present. The differential diagnosis includes artifactual gland crowding due to stromal breakdown and focal nonatypical hyperplasia. [employer] slides were shown at gynecologic pathology consensus [...] comment is that of Grady Rodrigues M.D., [facility], [place], [place]. Please see the complete report in the patient's EMR. Report Electronically Signed Out [facility]/01/05/2024Shayy Lima MD Preliminary Report ([facility]) Date Reported: 12/31/2023 This case is sent to [facility] for expert consult review, Final Diagnosis pending their review. Electronically Signed Out Shayy Lima MD Interpretation performed [place] [address], License number: [id number]. Clinical History DUB (dysfunctional bleeding). Gross Description Received in formalin labeled STICKLES, EMB are multiple lewis fragments of soft tissue, embedded in lewis cloudy mucoid debris tinged with blood, aggregating to 2.5 x 1.5 x 0.3 cm. Filtered and submitted in a single cassette. (1, ns, [id number], m7) [place] [facility]/4AO Specimen(s) Received Endometrial biopsy Fee Codes(s): 1; 25666, 68971, 69909 VITAMIN B12on 12-22-2023 Cobalamin (Vitamin B12) [Mass/Vol] pg/mL High 180-914 [facility] Comment on above: Performed By: #### 2 132-9 #### [facility] ([id number]) [address] [place] [address], [address] [place] [address] Alpha 1 antitrypsin Nephelom etry [Mass/Vol]on 12-13-2023 ALPHA 1 ANTITRYPSIN REQUEST CREDITED Normal 83-199 [facility] Comment on above: Result Comment: DUPL ICATE ORDER Corrected on 12/12 AT 2030: Previously reported as 143 Performed By: #### 6 771-0 #### [facility] ([id number]) [address] [place] [address], [address] [place] [address] #### 64358-9 #### [facility] ([id number]) [address] [place] [address], [place] [address] Alpha 1 antitrypsin phenotyp ing [Interp]on 12-13-2023 Xmtuu-3-Plahscyvdk n Phenotype MS Normal [facility] Comment on above: Result Comment: NOTE Heterozygous for M and S isoforms. This phenotype is usually associated with normal ikldt-6-vmgckoiuklc concentrations. ADDITIONAL INFORMATION Method: Isoelectric Focusing, This assay identifies the phenotype of the circulating fwadv-0-nidklmsyjvm (A1A) protein. If the patient is on replacement therapy or has been recently transfused, the phenotype will detect patient and replacement or transfused plasma A1A protein. This test also cannot detect a null allele which could be responsible for an A1A deficiency. Performed By: #### 6 771-0 #### [facility] ([id number]) [address] [place] [address], [address] [place] [address] #### 76637-1 #### [facility] ([id number]) [address] [place] [address], [place] [address] Zunvc-9-Kefzjviign n, S 143 mg/dL Normal 100 - 190 [facility] Comment on above: Result Comment: NOTE ADDITIONAL INFORMATION Method: Nephelometry Test Performed by: [facility] [address] [id number] [employer]: Sav Castro Ph.D.; CLIA# [id number] Performed By: #### 6 771-0 #### [facility] ([id number]) [address] [facility] [address] [place] [address] #### 81323-1 #### [facility] ([id number]) [address] [place] [address]EL[address] PELVIS W [...] Au MD on 12/07/2023 6:01 AM Normal [facility] XR PELVIS 1 OR 2 VWSon 11-22 [...] Porras MD on 11/23/2023 3:49 PM Normal [facility] US PELVIC WITH TRANSVAGINALo n 11-16-2023 US PELVIC WITH TRANSVAGINAL US PELVIC WITH TRANSVAGINAL *ADDENDUM*There is no evident intrauterine device visualized if there is concern for displaced intrauterine device consider correlation with plain film or CT. Finalized by Ryan Yeh MD on 11/16/2023 12:50 PM Normal [facility] CBC AND AUTO DIFFon 11-04-19 24 ABSOLUTE BASOPHIL 0.0 X10E9/L Normal 0.0-0.2 [facility] Comment on above: Performed By: #### C BCA, CMP, THYR, 2842-3, 75060-0, 12436-5 #### [facility] ([id number]) [address], [address] [place] [address] ABSOLUTE NEUTROPHIL 6.0 X10E9/L Normal 1.5-6.6 [facility] Comment on above: Performed By: #### C BCA, CMP, THYR, 2842-3, 12615-3, 60219-4 #### [facility] ([id number]) [address], [address] [place] [address] Basophils/100 WBC (Bld) 0.2 % Normal [facility] Comment on above: Performed By: #### C BCA, CMP, THYR, 2842-3, 75566-7, 58059-7 #### [facility] ([id number]) [address] [address] [place] [address] Eosinophils (Bld) [#/Vol] 0.1 10*3/uL Normal 0.0-0.4 [facility] Comment on above: Performed By: #### C BCA, CMP, THYR, 2842-3, 61105-3, 88509-2 #### [facility] ([id number]) [address] [address] Eosinophils/100 WBC (Bld) 0.8 % Normal [facility] Comment on above: Performed By: #### C BCA, CMP, THYR, 2842-3, 28789-0, 70779-1 #### [facility] ([id number]) [address] [address] Erythrocyte distribution width (RBC) [Ratio] 14.1 % Normal 11.5-15.0 [facility] Comment on above: Performed By: #### C BCA, CMP, THYR, 2842-3, 03134-9, 49696-1 #### [facility] ([id number]) [address] [address] Hematocrit (Bld) [Volume fraction] 46.6 % Normal 35-47 [facility] Comment on above: Performed By: #### C BCA, CMP, THYR, 2842-3, 17423-4, 86589-1 #### [facility] ([id number]) [address] [address] Hemoglobin (Bld) [Mass/Vol] 15.5 g/dL Normal 11.7-15.5 [facility] Comment on above: Performed By: #### C BCA, CMP, THYR, 2842-3, 50551-8, 95361-0 #### [facility] ([id number]) [address] [address] Lymphocytes (Bld) [#/Vol] 2.6 10*3/uL Normal 1.0-3.5 [facility] Comment on above: Performed By: #### C BCA, CMP, THYR, 2842-3, 90110-7, 23617-8 #### [facility] ([id number]) [address] [address] [place] [address] Lymphocytes/100 WBC (Bld) 27.3 % Normal [facility] Comment on above: Performed By: #### C BCA, CMP, THYR, 2842-3, 13069-4, 20700-9 #### [facility] ([id number]) [address] [address] MCH (RBC) [Entitic mass] 32.8 pg Normal 27-34 [facility] Comment on above: Performed By: #### C BCA, CMP, THYR, 2842-3, 15352-7, 53741-3 #### [facility] ([id number]) [address], [address] [place] [address] MCHC (RBC) [Mass/Vol] 33.4 g/dL Normal 32-36 [facility] Comment on above: Performed By: #### C BCA, CMP, THYR, 2842-3, 91150-3, 46436-0 #### [facility] ([id number]) [address], [address] [address] MCV (RBC) [Entitic vol] 98 fL Normal 80-100 [facility] Comment on above: Performed By: #### C BCA, CMP, THYR, 2842-3, 66814-7, 78842-1 #### [facility] ([id number]) [address] [address] [place] [address] Monocytes (Bld) [#/Vol] 0.8 10*3/uL Normal 0-0.9 [facility] Comment on above: Performed By: #### C BCA, CMP, THYR, 2842-3, 59616-8, 07270-7 #### [facility] ([id number]) [address] [address] Monocytes/100 WBC (Bld) 8.1 % Normal [facility] Comment on above: Performed By: #### C BCA, CMP, THYR, 2842-3, 38151-6, 09161-4 #### [facility] ([id number]) [address] [address] Neutrophils/100 WBC (Bld) 63.6 % Normal [facility] Comment on above: Performed By: #### C BCA, CMP, THYR, 2842-3, 46528-8, 15967-9 #### [facility] ([id number]) [address] [address] Platelet mean volume (Bld) [Entitic vol] 7.8 fL Normal 7-12 [facility] Comment on above: Performed By: #### C BCA, CMP, THYR, 2842-3, 78612-9, 95534-6 #### [facility] ([id number]) [address] [address] Platelets (Bld) [#/Vol] 378 10*3/uL Normal 150-450 [facility] Comment on above: Performed By: #### C BCA, CMP, THYR, 2842-3, 86606-0, 23005-9 #### [facility] ([id number]) [address] [address] RBC COUNT 4.74 X10E12/L Normal 3.80-5.20 [facility] Comment on above: Performed By: #### C BCA, CMP, THYR, 2842-3, 75668-3, 14473-6 #### [facility] ([id number]) [address] [address] WBC (Bld) [#/Vol] 9.4 10*3/uL Normal 4.0-11.0 [facility] Comment on above: Performed By: #### C BCA, CMP, THYR, 2842-3, 62509-8, 22910-2 #### [facility] ([id number]) [address], [address] [place] [address] COMPREHENSIVE METABOLIC PANE Ciro 11-04-2023 Albumin [Mass/Vol] 4.3 g/dL Normal 3.2-5.3 [facility] Comment on above: Performed By: #### C BCA, CMP, THYR, 2842-3, 89574-6, 78819-9 #### [facility] ([id number]) [address], [address] [place] [address] ALP [Catalytic activity/Vol] 96 U/L Normal 39-130 [facility] Comment on above: Performed By: #### C BCA, CMP, THYR, 2842-3, 85073-6, 62364-7 #### [facility] ([id number]) [address], [facility] [address] [place] [address] ALT [Catalytic activity/Vol] 13 U/L Normal 0-31 [facility] Comment on above: Performed By: #### C BCA, CMP, THYR, 2842-3, 68256-4, 57430-6 #### [facility] ([id number]) [address], [address] [place] [address] Anion gap [Moles/Vol] 8 mmol/L Normal 5-15 [facility] Comment on above: Performed By: #### C BCA, CMP, THYR, 2842-3, 16174-3, 35863-1 #### [facility] ([id number]) [address], [address] [place] [address] AST [Catalytic activity/Vol] 10 U/L Normal 0-41 [facility] Comment on above: Performed By: #### C BCA, CMP, THYR, 2842-3, 37066-1, 34832-3 #### [facility] ([id number]) [address], [address] [place] [address] Bilirubin [Mass/Vol] 0.5 mg/dL Normal 0.3-1.2 [facility] Comment on above: Performed By: #### C BCA, CMP, THYR, 2842-3, 08414-6, 53334-7 #### [facility] ([id number]) [address], [address] [place] [address] Calcium [Mass/Vol] 9.4 mg/dL Normal 8.5-10.5 [facility] Comment on above: Performed By: #### C BCA, CMP, THYR, 2842-3, 99742-4, 78563-3 #### [facility] ([id number]) [address], [address] [place] [address] Chloride [Moles/Vol] 106 mmol/L Normal 98-109 [facility] Comment on above: Performed By: #### C BCA, CMP, THYR, 2842-3, 42228-5, 30435-5 #### [facility] ([id number]) [address], [address] [place] [address] CO2 [Moles/Vol] 25 mmol/L Normal 22-32 [facility] Comment on above: Performed By: #### C BCA, CMP, THYR, 2842-3, 22801-0, 61558-1 #### [facility] ([id number]) [address], [address] [place] [address] Creatinine [Mass/Vol] 0.84 mg/dL Normal 0.40-1.00 [facility] Comment on above: Result Comment: METH OD TRACEABLE TO IDMS STANDARD Performed By: #### C BCA, CMP, THYR, 2842-3, 18518-2, 03822-9 #### [facility] ([id number]) [address] [place] [address] GFR/1.73 sq M.predicted among non-blacks MDRD (S/P/Bld) [Vol rate/Area] 87 mL/min/{1.73_m2} Normal >59 [facility] Comment on above: Result Comment: Reported eGFR is based on the CKD-EPI 2020 equation that does not use a race coefficient. Performed By: #### C BCA, CMP, THYR, 2842-3, 09134-5, 03094-9 #### [facility] ([id number]) [address] [address] Glucose [Mass/Vol] 97 mg/dL Normal 65-99 [facility] Comment on above: Performed By: #### C BCA, CMP, THYR, 2842-3, 87471-9, 29468-8 #### [facility] ([id number]) [address] [address] Potassium [Moles/Vol] 4.2 mmol/L Normal 3.5-5.0 [facility] Comment on above: Performed By: #### C BCA, CMP, THYR, 2842-3, 94536-1, 12201-7 #### [facility] ([id number]) [address] [address] Protein [Mass/Vol] 7.6 g/dL Normal 6.0-8.0 [facility] Comment on above: Performed By: #### C BCA, CMP, THYR, 2842-3, 32621-6, 39701-1 #### [facility] ([id number]) [address] [place] [address] Sodium [Moles/Vol] 139 mmol/L Normal 134-146 [facility] Comment on above: Performed By: #### C BCA, CMP, THYR, 2842-3, 07421-2, 56757-0 #### [facility] ([id number]) [address] [place] [address] Urea nitrogen [Mass/Vol] 14 mg/dL Normal 5-23 [facility] Comment on above: Performed By: #### C BCA, CMP, THYR, 2842-3, 18957-9, 99509-4 #### [facility] ([id number]) [address] [place] [address] Follitropin Qnon 11-04-2023 FOLLICLE STIM HORMONE 5.7 mIU/mL Normal [facility] Comment on above: Result Comment: NORMAL FEMALE Luteal 1.8-5.1 mIU/mL Follicular 3.8-8.8 mIU/mL Mid Cycle 4.5-22.5 mIU/mL Post Viv 16.7-113.6 mIU/mL Performed By: #### C BCA, CMP, THYR, 2842-3, 86541-0, 62502-5 #### [facility] ([id number]) [address] [place] [address] Lutropin Qnon 11-04-2023 LUTEINIZING HORMONE 12.0 mIU/mL Normal [facility] Comment on above: Result Comment: NORMAL FEMALE Follicular 2.1-10.9 mIU/mL Mid Cycle 19.2-103 mIU/mL Luteal 1.2-12.9 mIU/mL Post Viv 10.9-58.6 mIU/mL Performed By: #### C BCA, CMP, THYR, 2842-3, 73047-2, 87022-6 #### [facility] ([id number]) [address] [place] [address] Prolactin [Mass/Vol]on 11-03 PROLACTIN 21.6 ng/mL Normal 3.3-26.7 [facility] Comment on above: Performed By: #### C BCA, CMP, THYR, 2842-3, 08479-6, 72629-0 #### [facility] ([id number]) [address] [place] [address] THYROID PROFILEon 11-04-2023 Free T4 [Mass/Vol] 0.99 ng/dL Normal 0.61-1.60 [facility] Comment on above: Performed By: #### C BCA, CMP, THYR, 2842-3, 13140-2, 33223-0 #### [facility] ([id number]) [address] [place] [address] TSH 1.16 uIU/mL Normal 0.49-4.67 [facility] Comment on above: Performed By: #### C BCA, CMP, THYR, 2842-3, 39319-3, 49767-9 #### [facility] ([id number]) [address] [place] [address] MR BRAIN W WO CONTon 024 MR [...] Jaguar Santana on 08/29/2023 12:40 PM Normal [facility] MR CERVICAL SPINE W WO CONTo n [...] complex and minimal facet catheter results in [id number] right neuroforaminal narrowing. Mild spinal canal narrowing. C5-C6: Moderate left paracentral disc osteophyte complex results in mild spinal canal narrowing and left hemicord flattening. Bilateral facet and uncovertebral arthropathy results in moderate right and mild left neuroforaminal narrowing. C6-C7: Moderate right paracentral disc osteophyte complex results in mild spinal canal narrowing and mild right hemicord flattening. Facet and uncovertebral arthropathy results in crpd-nk-sudvumbj right and wlerijtx-ws-nlzflc left neuroforaminal narrowing. C7-T1: No significant spinal [...] Jaguar Santana on 08/29/2023 12:52 PM Normal [facility] CT CTA COR ARTERIES W OR WO [...] [place] MD on 07/14/2023 3:35 PM Normal [facility] CBC AUTO DIFFon 06-18-2022 BASO # 0.0 103/ul Normal 0.0-0.1 [facility] Comment on above: Performed By: #### C BC #### [facility] [address] [address] [address] Dl Suarez Basophils/100 WBC (Bld) 0.4 % Normal 0.2-2.0 [facility] Comment on above: Performed By: #### C BC #### [facility] [address] [address] [address] Dl Suarez EO # 0.3 103/ul Normal 0.0-0.7 [facility] Comment on above: Performed By: #### C BC #### [facility] [address] [address] [address] Dl Suarez Eosinophils/100 WBC (Bld) 3.2 % Normal 0.9-7.0 [facility] Comment on above: Performed By: #### C BC #### [facility] [address] [address] [address] Dl Suarez Erythrocyte distribution width (RBC) [Ratio] 13.7 % Normal 11.0-15.0 [facility] Comment on above: Performed By: #### C BC #### [facility] [address] [address] [address] Dl Suarez Hematocrit (Bld) [Volume fraction] 41.5 % Normal 36.0-48.0 [facility] Comment on above: Performed By: #### C BC #### [facility] [address] [address] [address] Dl Suarez Hemoglobin (Bld) [Mass/Vol] 13.0 g/dL Normal 12.0-16.0 [facility] Comment on above: Performed By: #### C BC #### [facility] [address] [address] [address] Dl Suarez IG # 0.04 10e3/ul Critically high 0.00-0.03 [facility] Comment on above: Performed By: #### C BC #### [facility] [address] [place] [address] Dr. Dl Suarez IG % 0.4 % Normal 0.0-0.5 [facility] Comment on above: Performed By: #### C BC #### [facility] [address] [address] [address] Dl Suarez LYMPH # 3.8 103/ul Normal 1.2-3.8 [facility] Comment on above: Performed By: #### C BC #### [facility] [address] [place] [address] Dr. Dl Suarez Lymphocytes/100 WBC (Bld) 42.0 % Normal 20.5-60.0 [facility] Comment on above: Performed By: #### C BC #### [facility] [address] [place] [address] Dr. Dl Suarez MANUAL DIFF REQ NO Normal [facility] Comment on above: Performed By: #### C BC #### [facility] [address] [place] [address] Dr. Dl Suarez MCH (RBC) [Entitic mass] 32.3 pg Normal 26.7-34.0 [facility] Comment on above: Performed By: #### C BC #### [facility] [address] [place] [address] Dr. Dl Suarez MCHC (RBC) [Mass/Vol] 31.3 g/dL Normal 29.9-35.2 [facility] Comment on above: Performed By: #### C BC #### [facility] [address] [place] [address] Dr. Dl Suarez MCV (RBC) [Entitic vol] 103.2 fL Critically high 81.0-99.0 [facility] Comment on above: Performed By: #### C BC #### [facility] [address] [place] [address] Dr. Dl Suarez MONO # 0.9 103/ul Critically high 0.3-0.8 [facility] Comment on above: Performed By: #### C BC #### [facility] [address] [address] [address] Dl Suarez Monocytes/100 WBC (Bld) 9.5 % Normal 1.7-12.0 [facility] Comment on above: Performed By: #### C BC #### [facility] [address] [address] [address] Dl Suarez NEUT # 4.1 103/ul Normal 1.4-6.5 [facility] Comment on above: Performed By: #### C BC #### [facility] [address] [address] [address] Dl Suarez Neutrophils/100 WBC (Bld) 44.5 % Normal 43.0-75.0 [facility] Comment on above: Performed By: #### C BC #### [facility] [address] [place] [address] Dr. Dl Suarez Platelet mean volume (Bld) [Entitic vol] 9.6 fL Normal 9.5-13.5 [facility] Comment on above: Performed By: #### C BC #### [facility] [address] [address] [address] Dl Suarez PLT 295 103/ul Normal 150-450 [facility] Comment on above: Performed By: #### C BC #### [facility] [address] [place] [address] Dr. Dl Suarez RBC 4.02 106/ul Critically low 4.20-5.40 [facility] Comment on above: Performed By: #### C BC #### [facility] [address] [place] [address] Dr. Dl Suarez WBC 9.2 103/ul Normal 4.0-11.0 [facility] Comment on above: Performed By: #### C BC #### [facility] [address] [place] [address] Dr. Dl Suarez PROF 14(COMP METB)on 023 Albumin [Mass/Vol] 3.0 g/dL Critically low 3.4-5.0 [facility] Comment on above: Performed By: #### C MP #### [facility] [address] [address] [address] Dl Suarez Albumin/Globulin [Mass ratio] 0.9 {ratio} Normal [facility] Comment on above: Performed By: #### C MP #### [facility] [address] [place] [address] Dr. Dl Suarez ALP [Catalytic activity/Vol] 71 U/L Normal 46-116 [facility] Comment on above: Performed By: #### C MP #### [facility] [address] [place] [address] Dr. Dl Suarez ALT [Catalytic activity/Vol] 25 U/L Normal 14-59 [facility] Comment on above: Performed By: #### C MP #### [facility] [address] [place] [address] Dr. Dl Suarez Anion gap [Moles/Vol] 9.1 mmol/L Normal [facility] Comment on above: Performed By: #### C MP #### [facility] [address] [place] [address] Dr. Dl Suarez AST [Catalytic activity/Vol] 16 U/L Normal 15-37 [facility] Comment on above: Performed By: #### C MP #### [facility] [address] [place] [address] Dr. Dl Suarez Bilirubin [Mass/Vol] 0.2 mg/dL Normal 0.2-1.0 [facility] Comment on above: Performed By: #### C MP #### [facility] [address] [place] [address] Dr. Dl Suarez Calcium [Mass/Vol] 8.7 mg/dL Normal 8.5-10.1 [facility] Comment on above: Performed By: #### C MP #### [facility] [address] [place] [address] Dr. Dl Suarez Chloride [Moles/Vol] 106 mmol/L Normal 98-107 [facility] Comment on above: Performed By: #### C MP #### [facility] [address] [place] [address] Dr. Dl Suarez CO2 [Moles/Vol] 26.6 mmol/L Normal 21.0-32.0 [facility] Comment on above: Performed By: #### C MP #### [facility] [address] [address] [address] Dl Suarez Creatinine [Mass/Vol] 0.76 mg/dL Normal 0.55-1.02 [facility] Comment on above: Performed By: #### C MP #### [facility] [address] [address] [address] Dl Suarez EGFR-AF VENEZUELAN >60 Normal >=60 [facility] Comment on above: Performed By: #### C MP #### [facility] [address] [address] [address] Dl Suarez EGFR-NON AF VENEZUELAN >60 Normal >=60 [facility] Comment on above: Performed By: #### C MP #### [facility] [address] [address] [address] Dl Suarez Globulin (S) [Mass/Vol] 3.3 g/dL Normal [facility] Comment on above: Performed By: #### C MP #### [facility] [address] [address] [address] Dl Suarez Glucose [Mass/Vol] 92 mg/dL Normal 74-106 [facility] Comment on above: Performed By: #### C MP #### [facility] [address] [address] [address] Dl Suarez Potassium [Moles/Vol] 3.7 mmol/L Normal 3.5-5.1 [facility] Comment on above: Performed By: #### C MP #### [facility] [address] [address] [address] Dl Suarez Protein [Mass/Vol] 6.3 g/dL Critically low 6.4-8.2 [facility] Comment on above: Performed By: #### C MP #### [facility] [address] [address] [address] Dl Suarez Sodium [Moles/Vol] 138 mmol/L Normal 136-145 [facility] Comment on above: Performed By: #### C MP #### [facility] [address] [place] [address] Dr. Dl Suarez Urea nitrogen [Mass/Vol] 15.0 mg/dL Normal 7.0-18.0 [facility] Comment on above: Performed By: #### C MP #### [facility] [address] [place] [address] Dr. Dl Suarez Urea nitrogen/Creatinin e [Mass ratio] 19.7 mg/mg Normal [facility] Comment on above: Performed By: #### C MP #### [facility] [address] [place] [address] Dr. Dl Suarez CBC AUTO DIFFon 06-17-2022 BASO # 0.0 103/ul Normal 0.0-0.1 [facility] Comment on above: Performed By: #### C BC #### [facility] [address] [place] [address] Dr. Dl Suarez Basophils/100 WBC (Bld) 0.4 % Normal 0.2-2.0 [facility] Comment on above: Performed By: #### C BC #### [facility] [address] [place] [address] Dr. Dl Suarez EO # 0.1 103/ul Normal 0.0-0.7 [facility] Comment on above: Performed By: #### C BC #### [facility] [address] [place] [address] Dr. Dl Suarez Eosinophils/100 WBC (Bld) 1.4 % Normal 0.9-7.0 [facility] Comment on above: Performed By: #### C BC #### [facility] [address] [place] [address] Dr. Dl Suarez Erythrocyte distribution width (RBC) [Ratio] 13.5 % Normal 11.0-15.0 [facility] Comment on above: Performed By: #### C BC #### [facility] [address] [place] [address] Dr. Dl Suarez Hematocrit (Bld) [Volume fraction] 38.2 % Normal 36.0-48.0 [facility] Comment on above: Performed By: #### C BC #### [facility] [address] [place] [address] Dr. Dl Suarez Hemoglobin (Bld) [Mass/Vol] 12.7 g/dL Normal 12.0-16.0 [facility] Comment on above: Performed By: #### C BC #### [facility] [address] [place] [address] Dr. Dl Suarez IG # 0.07 10e3/ul Critically high 0.00-0.03 [facility] Comment on above: Performed By: #### C BC #### [facility] [address] [place] [address] Dr. Dl Suarez IG % 0.7 % Critically high 0.0-0.5 [facility] Comment on above: Performed By: #### C BC #### [facility] [address] [place] [address] Dr. Dl Suarez LYMPH # 4.4 103/ul Critically high 1.2-3.8 [facility] Comment on above: Performed By: #### C BC #### [facility] [address] [place] [address] Dr. Dl Suarez Lymphocytes/100 WBC (Bld) 45.5 % Normal 20.5-60.0 [facility] Comment on above: Performed By: #### C BC #### [facility] [address] [place] [address] Dr. Dl Suarez MANUAL DIFF REQ NO Normal [facility] Comment on above: Performed By: #### C BC #### [facility] [address] [place] [address] Dr. Dl Suarez MCH (RBC) [Entitic mass] 32.1 pg Normal 26.7-34.0 [facility] Comment on above: Performed By: #### C BC #### [facility] [address] [place] [address] Dr. Dl Suarez MCHC (RBC) [Mass/Vol] 33.2 g/dL Normal 29.9-35.2 [facility] Comment on above: Performed By: #### C BC #### [facility] [address] [address] [address] Dl Suarez MCV (RBC) [Entitic vol] 96.5 fL Normal 81.0-99.0 [facility] Comment on above: Performed By: #### C BC #### [facility] [address] [address] [address] Dl Suarez MONO # 0.9 103/ul Critically high 0.3-0.8 [facility] Comment on above: Performed By: #### C BC #### [facility] [address] [address] [address] Dl Suarez Monocytes/100 WBC (Bld) 9.6 % Normal 1.7-12.0 [facility] Comment on above: Performed By: #### C BC #### [facility] [address] [address] [address] Dl Suarez NEUT # 4.1 103/ul Normal 1.4-6.5 [facility] Comment on above: Performed By: #### C BC #### [facility] [address] [address] [address] Dl Suarez Neutrophils/100 WBC (Bld) 42.4 % Critically low 43.0-75.0 [facility] Comment on above: Performed By: #### C BC #### [facility] [address] [address] [address] Dl Suarez Platelet mean volume (Bld) [Entitic vol] 10.5 fL Normal 9.5-13.5 [facility] Comment on above: Performed By: #### C BC #### [facility] [address] [address] [address] Dl Suarez PLT 174 103/ul Normal 150-450 [facility] Comment on above: Result Comment: SLIG HT PLT CLUMPS PRESENT Performed By: #### C BC #### [facility] [address] [address] [address] Dl Suarez RBC 3.96 106/ul Critically low 4.20-5.40 [facility] Comment on above: Performed By: #### C BC #### [facility] [address] [place] [address] Dr. Dl Suarez WBC 9.6 103/ul Normal 4.0-11.0 [facility] Comment on above: Performed By: #### C BC #### [facility] [address] [place] [address] Dr. Dl Suarez PROF 14(COMP METB)on 023 Albumin [Mass/Vol] 3.0 g/dL Critically low 3.4-5.0 [facility] Comment on above: Performed By: #### C MP #### [facility] [address] [place] [address] Dr. Dl Suarez Albumin/Globulin [Mass ratio] 0.9 {ratio} Normal [facility] Comment on above: Performed By: #### C MP #### [facility] [address] [place] [address] Dr. Dl Suarez ALP [Catalytic activity/Vol] 73 U/L Normal 46-116 [facility] Comment on above: Performed By: #### C MP #### [facility] [address] [place] [address] Dr. Dl Suarez ALT [Catalytic activity/Vol] 24 U/L Normal 14-59 [facility] Comment on above: Performed By: #### C MP #### [facility] [address] [place] [address] Dr. Dl Suarez Anion gap [Moles/Vol] 10.1 mmol/L Normal [facility] Comment on above: Performed By: #### C MP #### [facility] [address] [place] [address] Dr. Dl Suarez AST [Catalytic activity/Vol] 15 U/L Normal 15-37 [facility] Comment on above: Performed By: #### C MP #### [facility] [address] [place] [address] Dr. Dl Suarez Bilirubin [Mass/Vol] 0.2 mg/dL Normal 0.2-1.0 [facility] Comment on above: Performed By: #### C MP #### [facility] [address] [address] [address] Dl Suarez Calcium [Mass/Vol] 8.6 mg/dL Normal 8.5-10.1 [facility] Comment on above: Performed By: #### C MP #### [facility] [address] [address] [address] Dl Suarez Chloride [Moles/Vol] 106 mmol/L Normal 98-107 [facility] Comment on above: Performed By: #### C MP #### [facility] [address] [address] [address] Dl Suarez CO2 [Moles/Vol] 26.0 mmol/L Normal 21.0-32.0 [facility] Comment on above: Performed By: #### C MP #### [facility] [address] [address] [address] Dl Suarez Creatinine [Mass/Vol] 0.84 mg/dL Normal 0.55-1.02 [facility] Comment on above: Performed By: #### C MP #### [facility] [address] [address] [address] Dl Suarez EGFR-AF VENEZUELAN >60 Normal >=60 [facility] Comment on above: Performed By: #### C MP #### [facility] [address] [address] [address] Dl Suarez EGFR-NON AF VENEZUELAN >60 Normal >=60 [facility] Comment on above: Performed By: #### C MP #### [facility] [address] [address] [address] Dl Suarez Globulin (S) [Mass/Vol] 3.4 g/dL Normal [facility] Comment on above: Performed By: #### C MP #### [facility] [address] [address] [address] Dl Suarez Glucose [Mass/Vol] 99 mg/dL Normal 74-106 [facility] Comment on above: Performed By: #### C MP #### [facility] [address] [address] [address] Dl Suarez Potassium [Moles/Vol] 4.1 mmol/L Normal 3.5-5.1 [facility] Comment on above: Performed By: #### C MP #### [facility] [address] [address] [address] Dl Suarez Protein [Mass/Vol] 6.4 g/dL Normal 6.4-8.2 [facility] Comment on above: Performed By: #### C MP #### [facility] [address] [address] [address] Dl Suarez Sodium [Moles/Vol] 138 mmol/L Normal 136-145 [facility] Comment on above: Performed By: #### C MP #### [facility] [address] [address] [address] Dl Suarez Urea nitrogen [Mass/Vol] 13.0 mg/dL Normal 7.0-18.0 [facility] Comment on above: Performed By: #### C MP #### [facility] [address] [address] [address] Dl Suarez Urea nitrogen/Creatinin e [Mass ratio] 15.5 mg/mg Normal [facility] Comment on above: Performed By: #### C MP #### [facility] [address] [address] [address] Dl Suarez CBC AUTO DIFFon 06-16-2022 BASO # 0.0 103/ul Normal 0.0-0.1 [facility] Comment on above: Performed By: #### C BC ####[facility] [address] [address]Dr[address] Dl Suarez Basophils/100 WBC (Bld) 0.2 % Normal 0.2-2.0 [facility] Comment on above: Performed By: #### C BC ####[facility] [address] [id number][address] Dl Suarez EO # 0.0 103/ul Normal 0.0-0.7 [facility] Comment on above: Performed By: #### C BC ####[facility] [address] [address]Dr. Dl Suarez Eosinophils/100 WBC (Bld) 0.0 % Critically low 0.9-7.0 [facility] Comment on above: Performed By: #### C BC ####[facility] [address] [place], [place] [address]Dr. Dl Suarez Erythrocyte distribution width (RBC) [Ratio] 12.8 % Normal 11.0-15.0 [facility] Comment on above: Performed By: #### C BC ####[facility] [address] [place], [place] [address]Dr. Dl Suarez Hematocrit (Bld) [Volume fraction] 36.7 % Normal 36.0-48.0 [facility] Comment on above: Performed By: #### C BC ####[facility] [address] [place], [place] [address]Dr. Dl Suarez Hemoglobin (Bld) [Mass/Vol] 12.9 g/dL Normal 12.0-16.0 [facility] Comment on above: Performed By: #### C BC ####[facility] [address] [place], [place] [address]Dr. Dl Suarez IG # 0.08 10e3/ul Critically high 0.00-0.03 [facility] Comment on above: Performed By: #### C BC ####[facility] [address] [place], [place] [address]Dr. Dl Suarez IG % 0.6 % Critically high 0.0-0.5 [facility] Comment on above: Performed By: #### C BC ####[facility] [address] [place], [place] [address]Dr. Dl Suarez LYMPH # 1.8 103/ul Normal 1.2-3.8 [facility] Comment on above: Performed By: #### C BC ####[facility] [address] [place], [place] [address]Dr. Dl Suarez Lymphocytes/100 WBC (Bld) 14.3 % Critically low 20.5-60.0 [facility] Comment on above: Performed By: #### C BC ####[facility] [address] [place] [id number]. Dl Suarez MANUAL DIFF REQ NO Normal [facility] Comment on above: Performed By: #### C BC ####[facility] [address] [place] [id number]. Dl Suarez MCH (RBC) [Entitic mass] 32.4 pg Normal 26.7-34.0 [facility] Comment on above: Performed By: #### C BC ####[facility] [address] [place] [address]Dr. Dl Suarez MCHC (RBC) [Mass/Vol] 35.1 g/dL Normal 29.9-35.2 [facility] Comment on above: Performed By: #### C BC ####[facility] [address] [place] [address]Dr. Dl Suarez MCV (RBC) [Entitic vol] 92.2 fL Normal 81.0-99.0 [facility] Comment on above: Performed By: #### C BC ####[facility] [address] [place] [address]Dr. Dl Suarez MONO # 0.8 103/ul Normal 0.3-0.8 [facility] Comment on above: Performed By: #### C BC ####[facility] [address] [place], [place] [address]Dr. Dl Erick Monocytes/100 WBC (Bld) 6.5 % Normal 1.7-12.0 [facility] Comment on above: Performed By: #### C BC ####[facility] [address] [place] [address]Dr. Dl Suarez NEUT # 9.9 103/ul Critically high 1.4-6.5 [facility] Comment on above: Performed By: #### C BC ####[facility] [address] [place] [address]Dr. Dl Erick Neutrophils/100 WBC (Bld) 78.4 % Critically high 43.0-75.0 [facility] Comment on above: Performed By: #### C BC ####[facility] [address] [place], [place] [address]Sm. Dl Suarez Platelet mean volume (Bld) [Entitic vol] 9.2 fL Critically low 9.5-13.5 [facility] Comment on above: Performed By: #### C BC ####[facility] [address] [place], [place] [address]Tx. Dl Suarez PLT 305 103/ul Normal 150-450 [facility] Comment on above: Performed By: #### C BC ####[facility] [address] [place], [place] [address]It. Dl Suarez RBC 3.98 106/ul Critically low 4.20-5.40 [facility] Comment on above: Performed By: #### C BC ####[facility] [address] [place], [place] [address]LzPoretr Suarez WBC 12.7 103/ul Critically high 4.0-11.0 [facility] Comment on above: Performed By: #### C BC ####[facility] [address] [place] [phone]. Dl Suarez PROF 14(COMP METB)on 023 Albumin [Mass/Vol] 3.1 g/dL Critically low 3.4-5.0 [facility] Comment on above: Performed By: #### C MP #### [facility] [address] [address] [address] Dl Suarez Albumin/Globulin [Mass ratio] 0.9 {ratio} Normal [facility] Comment on above: Performed By: #### C MP #### [facility] [address] [address] [address] Dl Suarez ALP [Catalytic activity/Vol] 75 U/L Normal 46-116 [facility] Comment on above: Performed By: #### C MP #### [facility] [address] [address] [address] Dl Suarez ALT [Catalytic activity/Vol] 32 U/L Normal 14-59 [facility] Comment on above: Performed By: #### C MP #### [facility] [address] [address] [address] Dl Suarez Anion gap [Moles/Vol] 11.2 mmol/L Normal [facility] Comment on above: Performed By: #### C MP #### [facility] [address] [place] [address] Dr. Dl Suarez AST [Catalytic activity/Vol] 17 U/L Normal 15-37 [facility] Comment on above: Performed By: #### C MP #### [facility] [address] [place] [address] Dr. Dl Suarez Bilirubin [Mass/Vol] 0.2 mg/dL Normal 0.2-1.0 [facility] Comment on above: Performed By: #### C MP #### [facility] [address] [place] [address] Dr. Dl Suarez Calcium [Mass/Vol] 8.5 mg/dL Normal 8.5-10.1 [facility] Comment on above: Performed By: #### C MP #### [facility] [address] [place] [address] Dr. Dl Suarez Chloride [Moles/Vol] 106 mmol/L Normal 98-107 [facility] Comment on above: Performed By: #### C MP #### [facility] [address] [place] [address] Dr. Dl Suarez CO2 [Moles/Vol] 24.5 mmol/L Normal 21.0-32.0 [facility] Comment on above: Performed By: #### C MP #### [facility] [address] [place] [address] Dr. Dl Suarez Creatinine [Mass/Vol] 0.80 mg/dL Normal 0.55-1.02 [facility] Comment on above: Performed By: #### C MP #### [facility] [address] [place] [address] Dr. Dl Suarez EGFR-AF [place] >60 Normal >=60 [facility] Comment on above: Performed By: #### C MP #### [facility] [address] [place] [address] Dr. Dl Suarez EGFR-NON AF [place] >60 Normal >=60 [facility] Comment on above: Performed By: #### C MP #### [facility] [address] [place] [address] Dr. Dl Suarez Globulin (S) [Mass/Vol] 3.5 g/dL Normal [facility] Comment on above: Performed By: #### C MP #### [facility] [address] [address] [address] Dl Suarez Glucose [Mass/Vol] 130 mg/dL Critically high 74-106 [facility] Comment on above: Performed By: #### C MP #### [facility] [address] [address] [address] Dl Suarez Potassium [Moles/Vol] 3.7 mmol/L Normal 3.5-5.1 [facility] Comment on above: Performed By: #### C MP #### [facility] [address] [place] [address] Dr. Dl Suarez Protein [Mass/Vol] 6.6 g/dL Normal 6.4-8.2 [facility] Comment on above: Performed By: #### C MP #### [facility] [address] [place] [address] Dr. Dl Suarez Sodium [Moles/Vol] 138 mmol/L Normal 136-145 [facility] Comment on above: Performed By: #### C MP #### [facility] [address] [place] [address] Dr. Dl Suarez Urea nitrogen [Mass/Vol] 12.0 mg/dL Normal 7.0-18.0 [facility] Comment on above: Performed By: #### C MP #### [facility] [address] [address] [address] Dl Suarez Urea nitrogen/Creatinin e [Mass ratio] 15.0 mg/mg Normal [facility] Comment on above: Performed By: #### C MP #### [facility] [address] [id number] Dl Suarez POINT OF CARE GLUCOSEon Glucose [Mass/Vol] 110 mg/dL Critically high 74-106 [facility] Comment on above: Performed By: #### P OCGLUC #### [facility] [address] [address] [address] Dl Suarez Glucose [Mass/Vol] 97 mg/dL Normal 74-106 [facility] Comment on above: Performed By: #### P OCGLUC ####[facility] [address] [place] [address]Dr. Dl Suarez PREG HCG QUALon 06-15-2022 , QUAL Negative Normal NEGATIVE [facility] Comment on above: Performed By: #### P REG ####[facility] [address] [place] [address]Dr. Dl Suarez CBC AUTO DIFFon 06-11-2022 BASO # 0.0 103/ul Normal 0.0-0.1 [facility] Comment on above: Performed By: #### C BC #### [facility] [address] [place] [address] Dr. Dl Suarez Basophils/100 WBC (Bld) 0.4 % Normal 0.2-2.0 [facility] Comment on above: Performed By: #### C BC #### [facility] [address] [place] [address] Dr. Dl Suarez EO # 0.1 103/ul Normal 0.0-0.7 [facility] Comment on above: Performed By: #### C BC #### [facility] [address] [place] [address] Dr. Dl Suarez Eosinophils/100 WBC (Bld) 1.4 % Normal 0.9-7.0 [facility] Comment on above: Performed By: #### C BC #### [facility] [address] [place] [address] Dr. Dl Suarez Erythrocyte distribution width (RBC) [Ratio] 13.5 % Normal 11.0-15.0 [facility] Comment on above: Performed By: #### C BC #### [facility] [address] [place] [address] Dr. Dl Suarez Hematocrit (Bld) [Volume fraction] 43.8 % Normal 36.0-48.0 [facility] Comment on above: Performed By: #### C BC #### [facility] [address] [place] [address] Dr. Dl Suarez Hemoglobin (Bld) [Mass/Vol] 15.0 g/dL Normal 12.0-16.0 [facility] Comment on above: Performed By: #### C BC #### [facility] [address] [place] [address] Dr. Dl Suarez IG # 0.01 10e3/ul Normal 0.00-0.03 [facility] Comment on above: Performed By: #### C BC #### [facility] [address] [place] [address] Dr. Dl Suarez IG % 0.1 % Normal 0.0-0.5 [facility] Comment on above: Performed By: #### C BC #### [facility] [address] [place] [address] Dr. Dl Suarez LYMPH # 3.1 103/ul Normal 1.2-3.8 [facility] Comment on above: Performed By: #### C BC #### [facility] [address] [place] [address] Dr. Dl Suarez Lymphocytes/100 WBC (Bld) 38.3 % Normal 20.5-60.0 [facility] Comment on above: Performed By: #### C BC #### [facility] [address] [place] [address] Dr. Dl Suarez MANUAL DIFF REQ NO Normal [facility] Comment on above: Performed By: #### C BC #### [facility] [address] [place] [address] Dr. Dl Suarez MCH (RBC) [Entitic mass] 32.6 pg Normal 26.7-34.0 [facility] Comment on above: Performed By: #### C BC #### [facility] [address] [place] [address] Dr. Dl Suarez MCHC (RBC) [Mass/Vol] 34.2 g/dL Normal 29.9-35.2 [facility] Comment on above: Performed By: #### C BC #### [facility] [address] [address] [address] Dl Suarez MCV (RBC) [Entitic vol] 95.2 fL Normal 81.0-99.0 [facility] Comment on above: Performed By: #### C BC #### [facility] [address] [place] [address] [address] Dl Suarez MONO # 0.6 103/ul Normal 0.3-0.8 [facility] Comment on above: Performed By: #### C BC #### [facility] [address] [place] [address] Dr. Dl Suarez Monocytes/100 WBC (Bld) 7.7 % Normal 1.7-12.0 [facility] Comment on above: Performed By: #### C BC #### [facility] [address] [place] [address] Dr. lD Suarez NEUT # 4.2 103/ul Normal 1.4-6.5 [facility] Comment on above: Performed By: #### C BC #### [facility] [address] [place] [address] Dr. Dl Suarez Neutrophils/100 WBC (Bld) 52.1 % Normal 43.0-75.0 [facility] Comment on above: Performed By: #### C BC #### [facility] [address] [place] [address] Dr. Dl Suarez Platelet mean volume (Bld) [Entitic vol] 8.8 fL Critically low 9.5-13.5 [facility] Comment on above: Performed By: #### C BC #### [facility] [address] [place] [address] Dr. Dl Suarez PLT 341 103/ul Normal 150-450 [facility] Comment on above: Performed By: #### C BC #### [facility] [address] [place] [address] Dr. Dl Suarez RBC 4.60 106/ul Normal 4.20-5.40 [facility] Comment on above: Performed By: #### C BC #### [facility] [address] [place], [place] [address] Dr. Dl Suarez WBC 8.1 103/ul Normal 4.0-11.0 [facility] Comment on above: Performed By: #### C BC #### [facility] [address] [place], [place] [address] Dr. Dl Suarez [facility]on SARS-CoV-2 (COVID-19) RNA HEIDY+probe Ql (Unsp spec) Not detected Normal NOT DETECTED [facility] Comment on above: Result Comment: This test is not yet approved or cleared by the [place] FDA. When there are no FDA-approved or cleared tests available, and other criteria are met, FDA can make tests available under an emergency access mechanism called an Emergency Use Authorization (EUA). The EUA for this test is supported by the [place] of Health and Human Service's (HHS's) declaration [...] consistent with SARS-CoV-2. Performed By: #### [facility] ####[facility] [address] [place], [place] [address]Dr. Dl Suarez MRI ANKLE RT WO CONon [...] MARCELA GIRALDO Date: 2022-02-26 12:34 Normal [facility] Coding Summary.on 06-23-2021 Coding Summary. CD:[id number] Gh0 bWw+PGhlYWQ+BP5QSOZxL67 qrJRpgP7KN7mOMY2PPPYZRS LVWZ7KCA0heDZ8IFcrR7Lse iAv TzxhrSNnOR48LTh1LRK1oUh pNKkakB6quEWaO4q0FmPeOC 24nZ10RMfmFTToLcF8YpTtb jsgbWFy V5wsSfEefZEgHql+PHRhYmx lIHdpZHRoPScxMDAlJyBzdH jkUI4bEj1mUUCsTYHmrBknx HNlOiBj j4aaOYYgHEwrLW6oyPkaM5U bmSP7BAXsx9f1Xn53iYL+PH AyUTB9cZfiSAnel779ArSjs 1tdDWI4 jNRtFWqpJYU5L91oi3Y0RXV rEBUbEWY6mAN6lK5xkYhbap aaI5XrtVGnHsV2EIQ6fSOer Y6zvZja oxtkrV4tVpy+U14HRH3GKZN JBT0CDwo1P4XiOntowEE+PC 33JTFhAX12eIChpYNsp0jdr Zu7OgXc HVBdKQK3uSfpIRmkc7YuOAI oT68jhURls4G4UIAhbTodfL JxAfXcrUG6yK5zLGgqfkjkw 2hvdzsn Veddn7jqzp26zL21A02jSDo eWDYmHDG9MDHbFFLoiRlzcn 0wlQ0rQo6+SIxkz2kmq4whn Fc8KwFj BAToqvDqbNutNQI0j6HbXx7 6X1RdmQngs9PbGij8pk03qA Kgj4F2pDH1LStjJVVppE4bX WxlZnQ6 HOPoSmXdtE57kEFiMYwiPu5 xtUjdtFuwFS7mASYzhwevBT KkfW1kCAAdzOZfdNmzBU4eG TBpbjtm e335BcLmRHW8BEUiwQDqV1C zaX5wSmRuONMkWPDeY6IdtP SzXApaY258TQefBlT1FRYhn rCwU6Rd KPBwyXglDbZ6u8S2Yt9Sp9W mgokjMDW7AIixDWJtMiE1Vw YhUrB8A8BcLwv0IBLhbVuzG C3mP8Sm OTQfxdloqooalHK1GZIpJGX gkP83sJKmWXgcRq2dr4X6h8 67UUFuSJHksU79Ly5pmDzbH TBwdCBU pI7nqfnvm7suqburBbYhTQX uHHa6VNx2LAUzhDubQmKtRL G4VuY4MJZ4vWIdjE8shRaym nfwjK8q Oyc+E77vyS6aRVV8JBP0one pPXKolaVfXM25UB50F0GnCa wvdGFibGU+PGRpdiBzdHlsZ D8oVoMw s8reo3ZtGQazU2YoVNWfAYw eMfq0CVAiSFD4dVI0dJ2mYQ OkSGsbf1M0rFD1F6HnolRit g9uc6hs MQPcOLddU09tuOJgk7E1IBW vpQK8NBOihBolQlPtoP80Vf c+MFBzhDbqp7XxVwete1ijp 6lroHm4 FiScVXBbxrPavWzoWUL8j0U zJo67J19cGDrhMXOfBTRwBP IiXNPnwXinki1yzI4rOj5+P GNvbCB3 dYI2vI6cRTKsPtP4XJzcS26 2JoOkuZAxQupel8rnf4ogbV s8PsWvHLHwctDohEpbCJM4c 7YpQb77 P60qKGbfELElWWCjBCLrNRZ giNvwut1owL3uFj5+PC9jb2 vpdm25dT78iWJ+HROvXEA2k WxlPSdw KFVqjA6tWVwuInB9CSAoClR bfZ78aANfVJvmNe5tcCxdxZ hqID6aYCAqikkru145TwNkj 2xkIDEw cWMhQBtkAPK0K06vq3Q1AFN fDAScJYW3bLL2yX0gbLonac ogbGVmdDsgdmVydGljYWwtY NriG547 IHRvcDsnPlBhdGllbnQgTmF uMGo4I3SiCrw4EKJhrQbwFX 3auODgJLkxMs3lyFmmhOswP R3eFHHp qaoxn997LeGpo9veAIEbxGG xHSyeIEA1L46mo6A1UIVxDC GyQBF6xEN8mC9skGemmrvxx GVmdDsg bfKywDteFPpcWDbbP493EGI imIcmEnTeupRzYWIfwSX3OV 37UK82eFNeh1D3ePG5D2FkE GRpbmct wsnatUP7AJBlZHUtiL44Nm6 ggFpjSp6wCFRbMHK8COBotX GyV2JdxI2iUqGnRFGoKNJdP 3RleHQt GVjsQ004GVfrRiR1OWKqbzC nO3UnZTEepPcxTzG6m2J0Sn 2QN1K9PL49QW43sJJis4C9n AT0G7Vd TYXxbbfdlkkfgYZ7YICrUKX wkW96Kb1bsQakTv2rVXQvWB C9HGBxmULdA1MigF2lHzOqS DAwMDAw X5MrtMHmLJwcD006LJdbOdO 3DBPfqqSqW6ErSOUgeJaiZp M1l6I7Ut4DRNm6WN43XO21p EYgg2L7 pJJ0T1PbNFMdyiuhrfexjPN 4ZILbWRCkvC26Ul0geFyuXx 4cAVQcACO2QRFpiWRhX1Ngh R4oYmZb DIPsJDBdN1VhmEKrTHjmN28 1WIseCqP2EHLjawUqI2BwMM CutJvrUgG1z8W9Cr3OJPRjU U62SQI5 fQV3PB58JA88F7VeMhjtpUQ ibGU+PHRhYmxlIHdpZHRoPS irVROpDoPhyFbkQT3eIc6iS GVyLWNv pVjgcEQsQaQjd7smYJAxWGr kHZ8kqMlfZ1YwcFG0IVAli7 x4Sp71P35yE2NgvDQ+PGNvb XH1mFM8 wY4yInYwAtD3GYpgI651GcF ujPKaHnkpq8yqu5xuwDq0Ab Z4IIHpgaTbwDkyWQI6q4MvB q39J10o IHdpZHRoPSIxNSUiIHZhbGl rmw6hgY8wIx8+IARbqPK7zH U5vR4uRwHePxY5JEoxS170A nRvcCIv Ifzft8qzx1fwxNs2FnCbOOH xfcVtcAxwJNF8q6AgZp05Z6 MqmIfpq5AjVfi3cm72mMZyd 2Z2hUK8 V7AhJEJymxkuyRVwvMgmFV5 aTWIutiobHQJwgI1kSKZrA0 f5NzVeNrA4APwkX7JwbdD1O DEwcHQg MTpkMPS9J92qd3U5ODEaBLB vIIP9mAM7uY4wqYjcfjzbdN VmdDsgdmVydGljYWwtYWxpZ 246IHRv hQavPWRcnL8bNXQgxCGwmLt tAQ9eHYUenbihXjGDYQHODH ANCZOHBUzYQvhGKDr0L5ZxW cy7ZGXs bXhfEE2njPLpYGheXx6rpQt laNgtKQ4kACKewahdSZKtvE 9pOLBtxGGtmJzsBU5dPJHfh ugke816 PjQyUPN6DEGpdODqL8AarH0 nVjXdDHRqRPOwI5NrpNPnMI ywP953RSfcUoE9TRJesvDmV 2FsLWFs sQfzClT1b7C4Tz9gKW0kQY0 pMOq4JA06RD27vXFsm8X7nG N0T1FgQAPvosochgrxeGV9L DAuMDUw jU61gJXpEMgnRe0jr4K2k26 4BOFmFKXuuX80Md2dsEkrRK WtrBDXrR7cvkalk3evvkhjP zAwMDAw IMr0GAl8RVOcnJjvNeWrMQR 6LhY4RRR6oIBjjQ0seHcmgp wkcD7nVmo+QESjVQHkxnY9H 5RvExs3 MLChtYucUR8jkVTlNGqpZg0 wlRnpmNpoTL6wXGUrponnUN HvvN5kFUUloUUxeKqeIU8bB TBpbjtm c368PtHbYGG3QOZzvRBuO6H kpW2pNfVgQMSpBSQoT9WzzZ RgEFbnH140SKntLeY7SALoc vFmP3Mn LWLubSlwQpL7o1F0Uz8RZH3 jgJO4S7QmBtf2HOHsbMdkSK 7gsYCxBOvkNs7zyTnkkXvoJ M9qRMJi hcgoUYKruD6qRLPjwDOufIo qOP1cWRBdtdqnn939IuGoCN D9YSOtxCDpY8NxkL3cKgZmR DAwMDAw U9SghLFpFPjpL594XEnwWdU 2SKLeuuRnB7ZnZPQgoWdkYp U2n4W2Tc1EiKAiXDUgVQ92W U37IH55 A9EtQtppjISyuWK+PHRhYmx lIHdpZHRoPScxMDAlJyBzdH gkEI4gCx4jNNHuPRCfhFwnf HNlOiBj h1qhMBPiVHnvSB6tnRifV8W rbUK2FEKbs9y4Px05A93fE6 JvdXA+QGUcmDB0gSS3lQ4wD zAlIiB2 EVlgM492UhYrsDRsHpibw0a as9dsxCl5NdXiVZXwlaIcrP elULM2c0NkOs18V24eHWvvT HRoPSIy YOWiPCMexYgqak6fkW2qNm7 +JLQoeVF5nZG0tT4sCwSwZf P9BUxvC086NwMewBUsQgavP 42zU5Qp dXA+XSEbFar3WPRqtMlrSL2 phVRpTAtrAt7jFXR3WmOrTq XeBOrpO7BbQHQlyoqtjizwr IO1IGBs PPPvbS47Cl8xzGdvJj5jYPD cLDY4ENVubDWvH1LzyP5wRf BfFLXuKHMgW2CmpVDrWCirW 246IGxl PwL0QSIwuaSdF7KkPDQhuVx qHaO3i6H3Ic1DzXpgbEYvJF 6lWyMpBJa5P9AwCwv0UTXdv WqeCM8n lRSoUXggWr2cuGeuoZcwEN2 wJCDbvtpwa835VjPet2pvHZ WhgFRrKNjjCIN0Q86ty1F8G CMwMDAw NHZ7uWG6iF3wgOnoqzdkjSQ mdDsgdmVydGljYWwtYWxpZ2 27XXJihTdkPoIEEli7I5FvT nj2ROZo fVqfDY7eiYEpYEhmFh5ihFn lrLjkWM7hQZFdibbuc732Oq Fox9ryYMSfcBFdHMzaJVQ9K 46eg5B7 VSWlTPXfDPT3tOH2wZ9rxZg nbjogbGVmdDsgdmVydGljYW kvXXtdX983GXDbcAraYj6DM tj6A7Fk Qql2QCTpiOkqVI1ufQKtROz hWa9exReqtDrkNA1aRNGifh cqr004IcPpx0sqUAVkcGHuN GltZXM7 X29tx5I2UXRyLNLwWOH8aOU 5fH4xbGycemkpdBGwsGrjle DqwYzpHBmyXQwjF084HGNgz DsnPlBh eWVyOjwvdGQ+NK65td86G3M tRscwXrn2MZMrJCO5nIV6tS 7zOWGaPKskp0S1kPW1B1Scl tJboy1t b2xs (more content not included)... Normal [facility] Consent for Treatmenton Consent for Treatment [id number] D:127 Normal [facility] [place] Mamm Screen w/CAD if [...] VERY IMPORTANT TO YOUR HEALTH. THE CURRENT [place] [employer] GUIDELINES RECOMMENDS ANNUAL MAMMOGRAPHY BEGINNING AT AGE 40. THIS FACILITY UTILIZES A REMINDER SYSTEM TO ENSURE ALL PATIENTS RECEIVE REMINDER NOTIFICATIONS AT THE APPROPRIATE TIME BASED ON THE RECOMMENDATIONS OF THIS EXAM. Report \X09\ FINAL REPORT Dictated: 06/13/2021 2:35 pm Richy Barrera MD Signed (Electronic Signature): 06/13/2021 2:35 pm Signed by: Richy Barrera MD Transcribed by: AURELIA Technologist: VIGNESH Assessment: BI-RADS Category 2-Benign finding Recommendation: Normal interval follow-up Normal [facility] Physician Orderon 05-22-2021 Physician Order [id number] :127 Normal [facility] Basic metabolic 2000 panelOr dered By: Talita Ritchie on 11-07-2020 Anion gap [Moles/Vol] 14 mmol/L 10 - 20 mmol/L [facility] Calcium [Mass/Vol] 9.5 mg/dL 8.4 - 10. 2 mg/dL [facility] Chloride [Moles/Vol] 106 mmol/L 98 - 108 mmol/L [facility] Creatinine [Mass/Vol] 0.89 mg/dL 0.40 - 1.10 [facility] GFR/1.73 sq M.predicted CKD-EPI (S/P/Bld) [Vol rate/Area] 80 >=60 mL/min/1.73 m2 [facility] Glucose [Mass/Vol] 75 mg/dL 65 - 99 mg/dL [facility] [Moles/Vol] 24 mmol/L 21 - 32 mmol/L [facility] Interpretation and review of laboratory results Normal [facility] Potassium [Moles/Vol] 4.0 mmol/L 3.5 - 5.1 mmol/L [facility] Sodium [Moles/Vol] 140 mmol/L 135 - 145 mmol/L [facility] Urea nitrogen [Mass/Vol] 13 mg/dL 8 - 25 mg/dL [facility] Urea nitrogen/Creatinin e [Mass ratio] 14.6 mg/mg [facility] The eGFR should be u sed for monitoring renal function only and not for medication dosing. [facility] Destruction by neurolytic ag enton 12-23-2017 Destruction by neurolytic agent Talita Ritchie MD 12/23/2017 12:40 PM Botox Date/Time: 12/23/2017 12:18 PM Performed by: TALITA RITCHIE Authorized by: TALITA RITCHIE Invalid Interpretation Code [facility] Destruction by neurolytic ag enton 09-23-2017 Destruction by neurolytic agent Talita Ritchie MD 09/23/2017 1:17 PM Botox Date/Time: 09/23/2017 12:44 PM Performed by: TALITA RITCHIE Authorized by: TALITA RITCHIE Invalid Interpretation Code [facility] Destruction by neurolytic ag enton 06-24-2017 Destruction by neurolytic agent Talita Ritchie MD 06/24/2017 11:53 AM Botox Date/Time: 06/24/2017 11:28 AM Performed by: TALITA RITCHIE Authorized by: TALITA RITCHIE Invalid Interpretation Code [facility] Work Phone: Destruction by neurolytic ag enton 03-22-2017 Destruction by neurolytic agent Talita Ritchie MD 03/22/2017 4:15 PM Botox Date/Time: 03/22/2017 4:10 PM Performed by: TALITA RITCHIE Authorized by: TALITA RITCHIE Invalid Interpretation Code [facility] Work Phone: Vital Signs Date Time Vital Sign Value Performing Clinician Facility 06-27-2024 07:34-0500 Body height 162.6 cm Anuel Salazar [facility] Work Phone: [facility] 06-27-2024 07:34-0500 Body mass index (BMI) [Ratio] 54.93 kg/m2 Anuel Salazar [facility] Work Phone: [facility] 06-27-2024 07:34-0500 Body weight 145.15 kg Anuel Salazar [facility] Work Phone: [facility] 06-27-2024 07:34-0500 Diastolic blood pressure 70 mm[Hg] Anuel Salazar APRN-REVIEW RN Work Phone: [facility] 06-27-2024 07:34-0500 Heart rate 76 /min Anuel Salazar APRNGisselleREVIEW RN Work Phone: [facility] 06-27-2024 07:34-0500 SaO2% (BldA) [Mass fraction] 100 % Anuel Salazar APRN-REVIEW RN Work Phone: [facility] 06-27-2024 07:34-0500 Systolic blood pressure 118 mm[Hg] Anuel Salazar APRNGisselleREVIEW RN Work Phone: [facility] 06-14-2024 11:02-0500 Diastolic blood pressure 82 mm[Hg] Shahram Vernell DO Work Phone: [facility] 06-14-2024 11:02-0500 Heart rate 79 /min Shahram Vernell DO Work Phone: [facility] 06-14-2024 11:02-0500 SaO2% (BldA) [Mass fraction] 100 % Shahram Vernell DO Work Phone: [facility] 06-14-2024 11:02-0500 Systolic blood pressure 124 mm[Hg] Shahram Vernell DO Work Phone: [facility] 04-24-2024 13:53-0500 Body height 162.6 cm Wendy Hausermor CAUSTIC STRENGTH INSPECTOR Work Phone: [facility] 04-24-2024 13:53-0500 Body mass index (BMI) [Ratio] 53.96 kg/m2 Wendy Analisamor CA[employer]IC STRENGTH INSPECTOR Work Phone: [facility] 04-24-2024 13:53-0500 Body weight 142.6 kg Wendy Analisamor CAUSTIC STRENGTH INSPECTOR Work Phone: [facility] 04-24-2024 13:53-0500 Diastolic blood pressure 83 mm[Hg] Wendy Hausermor CAUSTIC STRENGTH INSPECTOR Work Phone: [facility] 04-24-2024 13:53-0500 Heart rate 67 /min Wendy Whiter CAUSTIC STRENGTH INSPECTOR Work Phone: [facility] 04-24-2024 13:53-0500 SaO2% (BldA) [Mass fraction] 97 % Wendy Whiter CAUSTIC STRENGTH INSPECTOR Work Phone: [facility] 04-24-2024 13:53-0500 Systolic blood pressure 124 mm[Hg] Wendy Whiter CAUSTIC STRENGTH INSPECTOR Work Phone: [facility] 03-02-2024 11:35-0400 Diastolic blood pressure 82 mm[Hg] Shahram Vernell DO Work Phone: [facility] 03-02-2024 11:35-0400 Heart rate 73 /min Shahram Vernell DO Work Phone: [facility] 03-02-2024 11:35-0400 SaO2% (BldA) [Mass fraction] 99 % Shahram Vernell DO Work Phone: [facility] 03-02-2024 11:35-0400 Systolic blood pressure 112 mm[Hg] Shahram Vernell DO Work Phone: [facility] 06-09-2023 11:37-0500 Body height 162.6 cm Gayatri Gaspar JOB PRINTER APPRENTICE-REVIEW RN Work Phone: [facility] 06-09-2023 11:37-0500 Body mass index (BMI) [Ratio] 53.3 kg/m2 Gayatripuma Gaspar JOB PRINTER APPRENTICE-REVIEW RN Work Phone: [facility] 06-09-2023 11:37-0500 Body weight 140.84 kg Gayatripuma Gaspar JOB PRINTER APPRENTICE-REVIEW RN Work Phone: [facility] 06-09-2023 11:37-0500 Diastolic blood pressure 90 mm[Hg] Gayatri Gaspar JOB PRINTER APPRENTICE-REVIEW RN Work Phone: [facility] 06-09-2023 11:37-0500 Heart rate 63 /min Gayatripuma Gaspar JOB PRINTER APPRENTICE-REVIEW RN Work Phone: [facility] 06-09-2023 11:37-0500 SaO2% (BldA) [Mass fraction] 99 % Gayatri Hubert JOB PRINTER APPRENTICE-REVIEW RN Work Phone: [facility] 06-09-2023 11:37-0500 Systolic blood pressure 138 mm[Hg] Gayatri Hubert JOB PRINTER APPRENTICE-REVIEW RN Work Phone: [facility] 11-07-2020 13:56-0400 Body height 162.6 cm Talita Ritchie MD Work Phone: [facility] 11-07-2020 13:56-0400 Diastolic blood pressure 73 mm[Hg] Talita Ritchie MD Work Phone: [facility] 11-07-2020 13:56-0400 Heart rate 71 /min Talita Ritchie MD Work Phone: [facility] 11-07-2020 13:56-0400 Systolic blood pressure 111 mm[Hg] Talita Ritchie MD Work Phone: [facility] 07-17-2019 12:32-0500 BP Diastolic 77 mm[Hg] [facility] 07-17-2019 12:32-0500 BP Systolic 119 mm[Hg] [facility] 07-17-2019 12:32-0500 Pulse (Heart Rate) 73 /min [facility] 04-06-2019 15:26-0400 BP Diastolic 69 mm[Hg] Talita Ritchie [facility] 04-06-2019 15:26-0400 BP Systolic 135 mm[Hg] Talita Ritchie [facility] 04-06-2019 15:26-0400 Height 163.8 cm Talita Ritchie [facility] 04-06-2019 15:26-0400 Pulse (Heart Rate) 58 /min Talita Ritchie [facility] 04-06-2019 15:26-0400 Respiratory Rate 16 /min Talita Ritchie [facility] 12-28-2018 12:57-0400 BP Diastolic 76 mm[Hg] Talita Ritchie [facility] 12-28-2018 12:57-0400 BP Systolic 132 mm[Hg] Talita Ritchie [facility] 12-28-2018 12:57-0400 Height 162.6 cm [facility] 12-28-2018 12:57-0400 Pulse (Heart Rate) 61 /min [facility] 12-28-2018 12:57-0400 Respiratory Rate 16 /min [facility] 09-27-2018 12:50-0400 BP Diastolic 65 mm[Hg] [facility] 09-27-2018 12:50-0400 BP Systolic 127 mm[Hg] [facility] 09-27-2018 12:50-0400 Height 163.8 cm [facility] 09-27-2018 12:50-0400 Pulse (Heart Rate) 66 /min [facility] 09-27-2018 12:50-0400 Respiratory Rate 16 /min [facility] 07-04-2018 09:19-0500 BMI (Body Mass Index) 61.11 kg/m2 [facility] 07-04-2018 09:19-0500 BP Diastolic 82 mm[Hg] [facility] 07-04-2018 09:19-0500 BP Systolic 124 mm[Hg] [facility] 07-04-2018 09:19-[address] [facility] 07-04-2018 09:19-0500 Pulse (Heart Rate) 63 /min [facility] 07-04-2018 09:19-[address] [facility] 10-18-2017 13:15-0400 BMI (Body Mass Index) 60.94 kg/m2 Alexandra [facility] 10-18-2017 13:15-0400 BP Diastolic 67 mm[Hg] Alexandra [facility] 10-18-2017 13:15-0400 BP Systolic 123 mm[Hg] Alexandra [facility] 10-18-2017 13:15-0400 Height 162.6 cm Alexandra [facility] 10-18-2017 13:15-0400 Pulse (Heart Rate) 66 /min Alexandra [facility] 10-18-2017 13:15-0400 Weight 161.03 kg Alexandra [facility] 09-23-2017 10:39-0400 BMI (Body Mass Index) 60.94 kg/m2 Alexandra [facility] 09-23-2017 10:39-0400 BP Diastolic 81 mm[Hg] Alexandra Sweet [facility] 09-23-2017 10:39-0400 BP Systolic 137 mm[Hg] Alexandra Sweet [facility] 09-23-2017 10:39-0400 Height 162.6 cm Alexandra Sweet [facility] 09-23-2017 10:39-0400 Pulse (Heart Rate) 61 /min Alexandra Sweet [facility] 09-23-2017 10:39-0400 Weight 161.03 kg Alexandra Sweet [facility] 08-09-2017 12:34-0500 BMI (Body Mass Index) 56.64 kg/m2 Alexandra Sweet [facility] 08-09-2017 12:34-0500 BP Diastolic 77 mm[Hg] Alexandra Sweet [facility] 08-09-2017 12:34-0500 BP Systolic 149 mm[Hg] Alexandraangélica Sweet [facility] 08-09-2017 12:34-0500 Height 162.6 cm Alexandra [facility] 08-09-2017 12:34-0500 Pulse (Heart Rate) 66 /min Alexandra [facility] 08-09-2017 12:34-0500 [facility] 08:26-0500 BP Diastolic 86 mm[Hg] Talita Rust [facility] Work Phone: 07-20-2017 08:26-0500 BP Systolic 159 mm[Hg] Talita Rust [facility] Work Phone: 07-20-2017 08:26-0500 Height 162.6 cm Talita Rust [facility] Work Phone: 07-20-2017 08:26-0500 Pulse (Heart Rate) 65 /min Talita Rust [facility] Work Phone: 07-20-2017 08:26-0500 Respiratory Rate 16 /min Talita Rust [facility] Work Phone: Encounters Encounter Date Encounter Type Care Provider Facility Start: 07-07-2024 End: 07-07-2024 Telephone encounter Emy BISHOP [facility] Pul[facility] Start: 06-27-2024 ambulatory ANUEL Schaffer [facility] Start: 06-27-2024 End: 06-27-2024 Office outpatient visit 15 minutes Anuel Schaffer Villanova JOB PRINTER APPRENTICE-REVIEW RN Work Phone: [facility] Card[facility] Comment on above: Hypertension, unspec ified type (Primary Dx); Cerebral aneurysm; LUIS MIGUEL on CPAP; PAC (premature atrial contraction); Palpitations Start: 06-27-2024 End: 06-27-2024 ambulatory ANUEL K [facility] Start: 06-26-2024 End: 06-26-2024 [facility] Start: 06-23-2024 End: 06-26-2024 Refill Ruth Shepherd MD Work Phone: [facility] Neurology Comment on above: Chronic migraine wit hout aura, intractable, with status migrainosus; Neuralgia and neuritis; Cerebral cavernous malformation Start: 06-14-2024 End: 06-14-2024 Bamboo flowsheet Shahram Vernell DO Work Phone: [facility] Start: 06-14-2024 End: 06-14-2024 Bamboo flowsheet Shahram Vernell DO Work Phone: [facility] Start: 06-14-2024 End: 06-14-2024 Patient encounter procedure Shahram Vernell DO Work Phone: [facility] Comment on above: Intractable chronic migraine without aura and without status migrainosus (CMS/HCC) (Primary Dx) Start: 06-14-2024 End: 06-14-2024 ambulatory SHAHRAM VERNELL Not Available Start: 06-05-2024 End: 06-05-2024 Refill Mallorie DENN[facility] Comment on above: Cerebral cavernous m alformation (Primary Dx) Start: 05-26-2024 End: 05-26-2024 ambulatory LILIAM Karime [facility] Start: 05-24-2024 End: 05-24-2024 Emergency department patient visit LILIAM Karime [facility] Start: 05-24-2024 End: 05-24-2024 ambulatory [facility] Start: 05-23-2024 End: 05-23-2024 Bamboo flowsheet Marisol Wallis PT [facility] Start: 05-23-2024 End: 05-23-2024 Bamboo flowsheet Amrisol Wallis PT [facility] Start: 05-23-2024 End: 05-23-2024 ambulatory Marisol Wallis PT [facility] Comment on above: Acute left ankle melody n (Primary Dx) Start: 05-16-2024 End: 05-16-2024 Bamboo flowsheet Ty Brink COOK CHIEF [facility] Start: 05-16-2024 End: 05-16-2024 Bamboo flowsheet Ty Brink [facility] Start: 05-16-2024 End: 05-16-2024 ambulatory Ty Brink [facility] Comment on above: Acute left ankle melody n (Primary Dx) Start: 05-09-2024 End: 05-09-2024 Bamboo flowsheet Marisol Wallis PT [facility] Start: 05-09-2024 End: 05-09-2024 Bamboo flowsheet Marisol Wallis PT [facility] Start: 05-09-2024 End: 05-09-2024 ambulatory Marisol Wallis PT [facility] Comment on above: Acute left ankle melody n (Primary Dx) Start: 05-02-2024 End: 05-02-2024 ambulatory Ty Villasenorink [facility] Comment on above: Acute left ankle melody n (Primary Dx) Start: 04-28-2024 End: 04-28-2024 Bamboo flowsheet Parminder Edu [facility] Start: 04-28-2024 End: 04-28-2024 Bamboo flowsheet Parminder Whaley [facility] Start: 04-28-2024 End: 04-28-2024 ambulatory Parminder Edu [facility] Comment on above: Acute left ankle melody n (Primary Dx) Start: 04-25-2024 End: 04-25-2024 ambulatory Ty Brink [facility] Comment on above: Acute left ankle melody n (Primary Dx) Start: 04-24-2024 End: 04-24-2024 Office outpatient visit 25 minutes Wendy Dominguez CAUSTIC STRENGTH INSPECTOR Work Phone: [facility] Comment on above: LUIS MIGUEL (obstructive sle ep apnea) (Primary Dx); Intractable chronic migraine without aura and without status migrainosus (CMS/HCC); Cerebral cavernous malformation; Seizure disorder (CMS/HCC) Start: 04-24-2024 End: 04-24-2024 Bamboo flowsheet Wendy Dominguez CAUSTIC STRENGTH INSPECTOR Work Phone: [facility] Start: 04-24-2024 End: 04-24-2024 Bamboo flowsheet Wendy Dominguez CAUSTIC STRENGTH INSPECTOR Work Phone: [facility] Start: 04-24-2024 End: 04-24-2024 ambulatory WENDY DOMINGUEZ Not Available Start: 04-21-2024 End: 04-21-2024 Bamboo flowsheet Parminder Whaley [facility] Start: 04-21-2024 End: 04-21-2024 Bamboo flowsheet Parminder Whaley [facility] Start: 04-21-2024 End: 04-21-2024 ambulatory Parminder Whaley [facility] Comment on above: Acute left ankle melody n (Primary Dx) Start: 04-18-2024 End: 04-18-2024 Bamboo flowsheet Ty Brink [facility] Start: 04-18-2024 End: 04-18-2024 Bamboo flowsheet Ty Brink [facility] Start: 04-18-2024 End: 04-18-2024 ambulatory Ty Brink [facility] Comment on above: Acute left ankle melody n (Primary Dx) Start: 04-12-2024 End: 04-12-2024 Bamboo flowsheet Татьяна Kelbley [facility] Start: 04-12-2024 End: 04-12-2024 Bamboo flowsheet Татьяна Kelbley [facility] Start: 04-12-2024 End: 04-12-2024 ambulatory Татьяна Kelbley [facility] Comment on above: Acute left ankle melody n (Primary Dx) Start: 04-06-2024 End: 04-06-2024 Bamboo flowsheet Parminder Whaley [facility] Start: 04-06-2024 End: 04-06-2024 Bamboo flowsheet Parminder Whalye [facility] Start: 04-06-2024 End: 04-06-2024 ambulatory Ty Brmarie [facility] Comment on above: Acute left ankle melody n (Primary Dx) Start: 03-30-2024 End: 03-30-2024 Bamboo flowsheet Parminder Whaley [facility] Start: 03-30-2024 End: 03-30-2024 Bamboo flowsheet Parminder Whaley [facility] Start: 03-30-2024 End: 03-30-2024 ambulatory Parminder Whaley [facility] Comment on above: Acute left ankle melody n (Primary Dx) Start: 03-27-2024 End: 03-27-2024 Bamboo flowsheet Ty Brink [facility] Start: 03-27-2024 End: 03-27-2024 Bamboo flowsheet Ty Brink [facility] Start: 03-27-2024 End: 03-27-2024 ambulatory Ty Brink [facility] Comment on above: Acute left ankle melody n (Primary Dx) Start: 03-22-2024 End: 03-22-2024 Bamboo flowsheet Parminder Whaley [facility] Start: 03-22-2024 End: 03-22-2024 Bamboo flowsheet Parminder Whaley [facility] Start: 03-22-2024 End: 03-22-2024 ambulatory Parminder Whaley [facility] Comment on above: Acute left ankle melody n (Primary Dx) Start: 03-17-2024 End: 03-17-2024 Bamboo flowsheet Parminder Whaley [facility] Start: 03-17-2024 End: 03-17-2024 Bamboo flowsheet Parminder Whaley [facility] Start: 03-17-2024 End: 03-17-2024 ambulatory Parminder Whaley [facility] Comment on above: Acute left ankle melody n (Primary Dx) Start: 03-15-2024 End: 03-15-2024 Bamboo flowsheet Reece Cheng PT Work Phone: [facility] Start: 03-15-2024 End: 03-15-2024 Bamboo flowsheet Reece Cheng PT Work Phone: [facility] Start: 03-15-2024 End: 03-15-2024 ambulatory Reece Cheng PT Work Phone: [facility] Comment on above: Acute left ankle melody n (Primary Dx) Start: 03-02-2024 End: 03-02-2024 Bamboo flowsheet Shahram Matt DO Work Phone: [employer] [facility] Start: 03-02-2024 End: 03-02-2024 Bamboo flowsheet Shahram Matt DO Work Phone: [employer] [facility] Start: 03-02-2024 End: 03-02-2024 Patient encounter procedure Shahramtrisha Matt DO Work Phone: [employer] [facility] Comment on above: Intractable chronic migraine without aura and without status migrainosus (CMS/HCC) (Primary Dx) Start: 03-02-2024 End: 03-02-2024 ambulatory SHAHRAM MATT Not Available Start: 02-29-2024 End: 02-29-2024 ambulatory [facility] Start: 02-10-2024 End: 02-10-2024 Refjaylyn Sevilla MA [employer] [facility] Comment on above: Seizure disorder (CM S/HCC) (Primary Dx) Start: 01-25-2024 End: 01-25-2024 ambulatory [facility] Start: 12-30-2023 End: 12-30-2023 ambulatory KATJA S [facility] Start: 12-22-2023 End: 12-22-2023 ambulatory [facility] Start: 12-22-2023 End: 12-22-2023 ambulatory [facility] Start: 12-13-2023 End: 12-13-2023 ambulatory [facility] Start: 12-08-2023 End: 12-08-2023 ambulatory [facility] Start: 12-07-2023 End: 12-07-2023 ambulatory SHAHRAM MATT Not Available Start: 12-06-2023 End: 12-06-2023 ambulatory [facility] Start: 11-30-2023 End: 11-30-2023 ambulatory MARIUM Schaffer [facility] Start: 11-25-2023 End: 11-25-2023 ambulatory [facility] Start: 11-25-2023 End: 11-25-2023 ambulatory [facility] Start: 11-22-2023 End: 11-22-2023 ambulatory [facility] Start: 11-09-2023 End: 11-09-2023 ambulatory [facility] Start: 11-06-2023 End: 11-06-2023 ambulatory QUINCY GONZALEZ [facility] Start: 11-05-2023 End: 11-05-2023 ambulatory ARMAND HERNANDEZ [facility] Start: 11-04-2023 End: 11-04-[address] [facility] Start: 11-04-2023 End: 11-04-2023 ambulatory [facility] Start: 10-14-2023 End: 10-14-2023 ambulatory [facility] Start: 09-30-2023 End: 09-30-2023 ambulatory ROC Evelina BETH [facility] Start: 08-30-2023 Orders Only Ruth Shepherd MD [facility] Comment on above: Degenerative disc di sease, cervical (Primary Dx) Start: 08-29-2023 End: 08-29-2023 ambulatory RUTH SHEPHERD [facility] Start: 08-27-2023 Telephone encounter Shagufta Ferris [facility] Neu[facility] Comment on above: neck issues ; Botuli num Toxin Injection Chronic migraine wit hout aura, intractable, with status migrainosus; Neuralgia and neuritis Start: 08-24-2023 End: 08-24-2023 ambulatory MARIUM GARCIA [facility] Start: 08-02-2023 End: 08-02-2023 ambulatory RUTH SHEPHERD [facility] Start: 07-13-2023 End: 07-13-2023 ambulatory KEN DICKEY [facility] Start: 07-07-2023 Refill Ruth Shepherd MD Work Phone: [facility] Neu[facility] Comment on above: Chronic migraine wit hout aura, intractable, with status migrainosus Start: 06-25-2023 Telephone encounter Jasmyn North RN [facility] Card[facility] Comment on above: Lopressor 25 mg for Pre CTA cors Start: 06-09-2023 End: 06-09-2023 Office outpatient visit 25 minutes Gayatri Gaspar JOB PRINTER APPRENTICE-REVIEW RN Work Phone: [facility] Pulmonary/Sleep Medicine Comment on above: LUIS MIGUEL (obstructive sle ep apnea) (Primary Dx); LUIS MIGUEL treated with BiPAP; BMI 50.0-59.9, adult ([facility]) Start: 06-09-2023 End: 06-09-2023 ambulatory GAYATRI GASPAR [facility] Start: 09-02-2022 End: 09-03-[address] SOILA NIÑO Facility:[facility] Start: 08-13-2022 End: 08-14-2022 ambulatory YVONNE KOLB Facility:[facility] Start: 07-30-2022 End: 07-31-2022 ambulatory YVONNE KOLB Facility:[facility] Start: 07-09-2022 End: 07-10-2022 ambulatory YVONNE KOLB Facility:[facility] Start: 06-16-2022 Encounter for preprocedural laboratory examination CANDY LEONARDO [facility] Start: 06-15-2022 End: 06-18-2022 ambulatory [facility] Facility:[facility] Start: 06-11-2022 Encounter for other preprocedural examination CANDY LEONARDO [facility] Start: 06-11-2022 Encounter for preprocedural cardiovascular examination CANDY LEONARDO [facility] Start: 06-11-2022 End: 06-12-2022 ambulatory CANDY LEONARDO Facility:[facility] Start: 06-11-2022 End: 06-12-2022 Encounter for preprocedural laboratory examination CANDY LEONARDO Facility:[facility] Start: 06-05-2022 End: 06-06-2022 ambulatory CANDY LEONARDO Facility:[facility] Start: 06-05-2022 End: 06-06-2022 Encounter for other preprocedural examination CANDY LEONARDO Facility:[facility] Start: 02-24-2022 End: 02-25-2022 ambulatory YVONNE CORTES Facility:[facility] Start: 12-24-2021 End: 12-25-[address] DOCTOR ALBERT Facility:[facility] Start: 12-02-2021 End: 12-03-2021 ambulatory YVONNE KOLB Facility:[facility] Start: 06-25-2021 ambulatory [facility] Start: 11-07-2020 End: 11-11-2020 ambulatory [facility] Start: 11-07-2020 End: 11-11-2020 ambulatory TALITA RITCHIE [facility] Start: 11-07-2020 End: 11-07-2020 Office outpatient visit 25 minutes Talita Ritchie MD Work Phone: [facility], Neuroscience Comment on above: Chronic migraine wit hout aura without status migrainosus, not intractable (Primary Dx); Migraine without aura and without status migrainosus, not intractable; Chronic nonintractable headache, unspecified headache type; Chronic midline low back pain with left-sided sciatica Start: 10-25-2020 End: 10-25-2020 Refill Courtney Dawson MA [facility] Comment on above: Chronic nonintractab le headache, unspecified headache type Start: 10-25-2020 Refill Denilson Jacobs CNP Work Phone: [facility] Comment on above: Chronic nonintractab le headache, unspecified headache type Start: 10-15-2020 ambulatory TALITA RITCHIE [facility] Start: 07-17-2019 End: 07-17-2019 Office outpatient visit 15 minutes [employer] Work Phone: [facility] Comment on above: Chronic nonintractab le headache, unspecified headache type Start: 04-06-2019 End: 04-06-2019 Office outpatient visit 25 minutes Talita Ritchie Work Phone: [facility] Comment on above: Chronic nonintractab le headache, unspecified headache type; Intractable chronic migraine without aura and without status migrainosus Start: 01-26-2019 Refill Talita Ritchie MD Work Phone: [facility] Comment on above: Chronic nonintractab le headache, unspecified headache type Start: 12-28-2018 End: 12-28-2018 Office outpatient visit 25 minutes Talita Ritchie Work Phone: [facility] Comment on above: Concussion without l oss of consciousness, initial encounter (Primary Dx); Migraine without aura and without status migrainosus, not intractable Start: 09-27-2018 End: 09-27-2018 Office outpatient visit 25 minutes Talita Ritchie Work Phone: [facility] Comment on above: Chronic nonintractab le headache, unspecified headache type Start: 07-04-2018 End: 07-04-2018 Office outpatient visit 25 minutes Action[employer] Reynaldo Work Phone: [facility] Comment on above: Intractable chronic migraine without aura and without status migrainosus (Primary Dx) Start: 12-23-2017 End: 12-23-2017 Patient encounter Talita Ritchie Work Phone: [facility] Start: 10-18-2017 End: 10-18-2017 Office/outpatient visit, est, level 2 Alexandra Sweet Work Phone: [facility] Start: 09-23-2017 End: 09-23-2017 Ambulatory Talita Ritchie Work Phone: [facility] Start: 09-23-2017 End: 09-23-2017 Office/outpatient visit, est, level 2 Alexandra Camp Kee Work Phone: [facility] Start: 08-09-2017 Office/outpatient vi sit, new, level 3 Talita Ritchie Work Phone: [facility] Start: 07-21-2017 Refill Talita Ritchie MD Work Phone: [facility] Comment on above: Chronic nonintractab le headache, unspecified headache type Start: 07-20-2017 Office/outpatient vi sit, est, level 4 Talita Ritchie Work Phone: [facility] Start: 06-24-2017 Ambulatory Talita Ritchie Work Phone: [facility] Start: 03-22-2017 End: 03-22-2017 Office outpatient visit 15 minutes Talita Ritchie Work Phone: [facility] Comment on above: Chronic migraine wit hout aura without status migrainosus, not intractable (Primary Dx) Procedures Date Procedure Procedure Detail Performing Clinician Start: 06-27-2024 Follow-up visit Follow-up ANUEL SALAZAR Start: 02-29-2024 Follow-up visit Follow-up PATTI LEONARD Start: 08-02-2023 Adult depression scr eening assessment Shagufta Ferris Start: 05-07-2023 Colonoscopy Gayatri Kre gel JOB PRINTER APPRENTICE-REVIEW RN Work Phone: Start: 08-07-2022 Mammography Reece perez PT Work Phone: Start: 08-03-2022 Adult depression scr eening assessment Gayatripuma Avelargel JOB PRINTER APPRENTICE-REVIEW RN Work Phone: Start: 12-23-2017 End: 12-23-2017 DESTRUCTION [...] 05-07-2033 Screening for malignant neoplasm of colon [facility] Start: 01-22-2032 DTaP,Tdap and Td Vaccines (2 - Td or Tdap) DTaP,Tdap and Td Vaccines (2 - Td or Tdap) [facility] Start: 12-29-2028 Tetanus vaccination [facility] Start: 06-27-2025 Adult BMI Screening Adult BMI Screening [facility] Start: 06-27-2025 Tobacco Screening Tobacco Screening [facility] Start: 05-29-2025 Medicare Annual Wellness (AWV) Medicare Annual Wellness (AWV) [facility] Start: 05-24-2025 Adult BMI Screening Adult BMI Screening [facility] Start: 05-24-2025 Tobacco Screening Tobacco Screening [facility] Start: 12-13-2024 End: 12-13-2024 Patient encounter procedure 12/13/2024 9:00 AM EDT Office Visit [facility] [address] [facility] [place] [address] Gayatri Gaspar, JOB PRINTER APPRENTICE-REVIEW RN [address], [address] [place] [address] [facility] Start: 10-17-2024 End: 10-17-2024 Patient encounter procedure 10/17/2024 8:15 AM EDT Office Visit [facility] [address] [place] [address] Gato Alcaraz MD [address] [place] [address] [facility] Start: 09-14-2024 End: 09-14-2024 Patient encounter procedure 09/14/2024 10:45 AM EDT Procedure Visit LUNA HERNANDEZ [address] [place] [phone] Shahram Matt DO [address] [place], [place] [id number] LUNA HERNANDEZ Start: 08-29-2024 End: 08-29-2024 Patient encounter procedure 08/29/2024 9:30 AM EDT Office Visit [facility] [address] [place] [phone] Patti Leonard DO [address] [facility] [place], [place] [phone] [facility] Start: 08-22-2024 Adult BMI Screening Adult BMI Screening [facility] Start: 08-02-2024 Depression Screening [facility] Screening [facility] Start: 08-02-2024 Tobacco Screening Tobacco Screening [facility] Start: 07-24-2024 End: 07-24-2024 Patient encounter procedure [facility] [address] Start: 06-27-2024 End: 06-27-2025 Wireless Telemetry (In Office) [facility] Work Phone: Comment on above: Expected: 06/27/2024, Expires: Start: 06-27-2024 End: 06-27-2024 Patient encounter procedure 06/27/2024 8:00 AM EST Office Visit [facility] Card[facility] [address] [place] [phone] Anuel Salazar, JOB PRINTER APPRENTICE-REVIEW RN [address] [place] [phone] [facility] Cardiology Start: 06-14-2024 Adult BMI Screening Adult BMI Screening [facility] Start: 06-14-2024 End: 06-14-2024 Patient encounter procedure [facility] [place] [address] Comment on above: Arrived Start: 06-09-2024 Adult BMI Screening Adult [facility] Screening [facility] Start: 06-09-2024 Tobacco Screening Tobacco Screening [facility] Start: 05-23-2024 End: 05-23-2024 ambulatory 05/23/2024 8:00 AM EST Treatment [facility] [address] [place] [address] Marisol Wallis, PT Arrived [facility] Comment on above: Arrived Start: 05-19-2024 End: 05-19-2024 ambulatory 05/19/2024 9:00 AM EST Treatment [facility] [address] [place] [address] Parminder Whaley, COOK CHIEF [facility] Start: 05-16-2024 End: 05-16-2024 ambulatory [facility] Comment on above: Arrived Start: 05-09-2024 End: 05-09-2024 ambulatory 05/09/2024 9:00 AM EST Treatment [facility] [address] [place] [address] Marisol Wallis, PT Arrived [facility] Comment on above: Arrived Start: 05-02-2024 End: 05-02-2024 ambulatory [facility] Start: 04-28-2024 End: 04-28-2024 ambulatory [facility] Comment on above: Arrived Start: 04-27-2024 End: 04-27-2024 ambulatory 04/27/2024 10:00 AM EST Treatment [facility] [address] [place] [address] Ty Camarillo, COOK CHIEF [facility] Start: 04-25-2024 End: 04-25-2024 ambulatory [facility] Start: 04-24-2024 End: 04-24-2024 Patient encounter procedure 04/24/2024 2:20 PM EST Office Visit [facility] [place] [address] [place] [phone] Wendy Dominguez, LUI [address] [place], [place] [facility] [place] [address] Start: 04-21-2024 End: 04-21-2024 ambulatory 04/21/2024 9:30 AM EST Treatment [facility] [address] [place] [address] Parminder Whaley, COOK CHIEF [facility] Start: 04-18-2024 End: 04-18-2024 ambulatory 04/18/2024 11:30 AM EST Treatment [facility] [address] [place] [address] Ty Camarillo, COOK CHIEF [facility] Start: 04-12-2024 End: 04-12-2024 ambulatory 04/12/2024 9:00 AM EST Treatment [facility] [address] [facility] [address] [place] [address] Татьяна Page, COOK CHIEF Arrived [facility] Comment on above: Arrived Start: 04-10-2024 End: 04-10-2024 Patient encounter procedure 04/10/2024 2:30 PM EST Office Visit [facility] Neu[facility] [address] [place] [phone] Ruth Shepherd MD [address] [place] [address], [address] [address] [facility] Start: 04-06-2024 End: 04-06-2024 ambulatory [facility] Comment on above: Arrived Start: 03-30-2024 End: 03-30-2024 ambulatory [facility] Comment on above: Arrived Start: 03-27-2024 End: 03-27-2024 ambulatory [facility] Comment on above: Arrived Start: 03-24-2024 End: 03-24-2024 ambulatory [facility] Start: 03-22-2024 End: 03-22-2024 ambulatory [facility] Comment on above: Arrived Start: 03-17-2024 End: 03-17-2024 ambulatory [facility] Comment on above: Arrived Start: 03-02-2024 End: 03-02-2024 Patient encounter procedure [facility] [place] [address] Comment on above: Arrived Start: 02-06-2024 COVID-19 Vaccine () COVID-19 Vaccine () [facility] Start: 02-06-2024 Influenza vaccination [facility] Start: 12-08-2023 End: 12-08-2023 Patient encounter procedure 12/08/2023 9:45 AM EDT Office Visit [facility] Pul[facility] [address] [facility] [place] [phone] Gayatri Gaspar, [place]OB [place] [address] [place] [address], [address] [place] [address] [facility] Start: 11-30-2023 End: 11-30-2023 Patient encounter procedure 11/30/2023 10:00 AM EDT Appointment [facility] - Neurophysiology [address] [facility] [address] [place] [address] [facility] Neurophysiology Start: 08-29-2023 End: 08-29-2023 Patient encounter procedure 08/29/2023 8:00 AM EDT Appointment [facility] [address] [place] [phone] Ruth Shepherd MD [address] [facility], [address] [place] [address] [facility] Start: 08-29-2023 Subsequent hospital visit by physician 08/29/2023 7:30 AM EDT Hospital Encounter [facility] [address] [place] [phone] Ruth Shepherd MD [address] [place] [address], [address] [place] [address] [facility] - MRI Start: 08-17-2023 End: 08-17-2023 Patient encounter procedure 08/17/2023 10:45 AM EDT Appointment [facility] - Neurophysiology [address] [place] [address] [address] [place] [address] [facility] Neuro[facility]iology Start: 08-08-2023 Screening for malignant neoplasm of breast Mammogram [facility] Start: 08-03-2023 Adult BMI Follow Up Plan Adult BMI Follow Up Plan [facility] Start: 08-03-2023 Depression Screening Depression Screening [facility] Start: 08-02-2023 End: 08-02-2023 Patient encounter procedure 08/02/2023 11:15 AM EST Office Visit [facility] [address] [place] [phone] Ruth Shepherd MD [address] [place] [address], [address] [place] [address] [facility] Start: 07-13-2023 End: 07-13-2023 Patient encounter procedure 07/13/2023 3:30 PM EST Appointment [facility] [place] [address] [place] [phone] [facility] - CT Start: 06-22-2023 End: 06-22-2023 Patient encounter procedure 06/22/2023 10:30 AM EST Appointment [facility] [place] [phone] [facility] [address] Start: 06-14-2023 End: 06-14-2023 Patient encounter procedure 06/14/2023 10:00 AM EST Appointment [facility] - Cardiovascular [address] [place] [phone] [place], [address] [place] [address] [facility] - Cardiovascular Start: 05-12-2023 Medicare Annual Wellness (AWV) Medicare Annual Wellness (AWV) [facility] Start: 02-05-2023 COVID-19 Vaccine () COVID-19 Vaccine () [facility] Start: 02-05-2023 Influenza vaccination Influenza Vaccine [facility] Start: 02-05-2022 Influenza vaccination Sequential Influenza Vaccine (#1) [facility] Start: 05-12-2021 End: 05-12-2021 Patient encounter procedure 05/12/2021 Office Visit Neurology Denilson Jacobs CNP [address] [place] [address] [phone] [facility], Neuroscience Start: 11-19-2020 COVID-19 Vaccine (3 - Booster for Moderna series) COVID-19 Vaccine (3 - Booster for Moderna series) [facility] Start: 11-07-2020 End: 11-07-2020 Patient encounter procedure 11/07/2020 Office Visit Neurology Talita Ritchie MD [address] [place] [address] [phone] [facility] Neuroscience Start: 11-09-2019 End: 11-09-2019 Office Visit 11/09/2019 Office Visit Neurology Talita Ritchie MD [address] [place] [address] [phone] [facility] Neuro[facility] Start: 10-21-2019 History and physical examination, annual for health maintenance Wellness Visit [facility] Start: 07-10-2019 End: 07-10-2019 Office Visit 07/10/2019 Office Visit Neurology Denilson Jacobs CNP [address] [place] [address] [phone] [facility], Neuroscience Start: 04-06-2019 End: 04-06-2019 Office Visit 04/06/2019 Office Visit Neurology Talita Ritchie MD [address] [place] [address] [phone] [facility] Physician [facility], Neuroscience Start: 02-05-2019 Influenza vaccination given SEQUENTIAL INFLUENZA VACCINE (#1) [facility] Start: 12-28-2018 End: 12-28-2018 Office Visit 12/28/2018 Office Visit Talita Sagastume MD [address] [place] [address] [phone] [facility] Neuroscience Start: 09-27-2018 End: 09-27-2018 Office Visit 09/27/2018 Office Visit Talita Sagastume MD [address] [place] [address] [phone] [facility] Neurological Physicians Start: 02-05-2018 Influenza vaccination [facility] Start: 02-05-2018 Influenza vaccination given SEQUENTIAL INFLUENZA VACCINE (#1) [facility] Start: 10-18-2017 End: 10-18-2017 Ambulatory 10/18/2017 Office Visit Physical Medicine and Rehabilitation Alexandra Sweet MD [address] [facility] [address] [place] [address] [phone] [facility] Neurological Physicians Start: 2017 Screening for malignant neoplasm of breast Mammogram [facility] Start: 2017 Screening mammography Mammogram [facility] Start: 09-23-2017 End: 09-23-2017 Ambulatory [facility] Physicians Start: 02-05-2017 Influenza vaccination SEQUENTIAL INFLUENZA VACCINE (#1) [facility] Work Phone: Start: 10-05-2007 Screening for malignant neoplasm of cervix [facility] Start: 1998 Screening for malignant neoplasm of cervix Pap Smear [facility] Start: 10-05-1995 Hepatitis C screening Hepatitis C Screening [facility] Start: 1992 HIV screening HIV Screening [facility] Start: 1989 COVID-19 Vaccine (1) COVID-19 Vaccine (1) [facility] Start: 1989 Depression screening using PHQ-9 (Patient Health Questionnaire 9) score [facility] Start: 1980 History and physical examination, annual for health maintenance Wellness Visit [facility] Start: 1977 Protein mass conc Mammogram [facility] Start: 1977 Screening for malignant neoplasm of cervix PAP SMEAR [facility] Start: 1977 Screening for malignant neoplasm of colon [facility] Start: 1977 Screening mammography Mammogram [facility] Start: 1977 Tetanus vaccination TETANUS EVERY 10 YR [facility] Work Phone: End: 12-29-2019 Basic metabolic 2000 panel Basic Metabolic Panel Lab Routine Concussion without loss of consciousness, initial encounter Migraine without aura and without status migrainosus, not intractable 1 Occurrences starting 12/28/2018 until 12/29/2019 [facility] Comment on above: 1 Occurrences starting 12/28/2018 until 12/29/2019 Basic metabolic 2000 panel Basic Metabolic Panel Lab Routine Concussion without loss of consciousness, initial encounter Migraine without aura and without status migrainosus, not intractable 12/28/2018 1:36 PM EDT [facility] End: 12-29-2019 Complete blood count with white cell differential, manual CBC and Differential Lab Routine Concussion without loss of consciousness, initial encounter Migraine without aura and without status migrainosus, not intractable 1 Occurrences starting 12/28/2018 until 12/29/2019 [facility] Comment on above: 1 Occurrences starting 12/28/2018 until 12/29/2019 Complete blood count with white cell differential, manual CBC and Differential Lab Routine Concussion without loss of consciousness, initial encounter Migraine without aura and without status migrainosus, not intractable 12/28/2018 1:36 PM EDT [facility] End: 12-29-2019 CT of head without contrast CT Head Or Brain Without Contrast Imaging Routine Concussion without loss of consciousness, initial encounter Migraine without aura and without status migrainosus, not intractable 1 Occurrences starting 12/28/2018 until 12/29/2019 [facility] Comment on above: 1 Occurrences starting 12/28/2018 until 12/29/2019 Immunizations Immunization Date Immunization Notes [facility] influenza virus vaccine, unspecified formulation Shahram Vernell DO Work Phone: [facility] 04-14-2021 influenza virus vaccine, unspecified formulation Gayatri Gaspar JOB PRINTER APPRENTICE-REVIEW RN Work Phone: [facility] [employer] 04-07-2017 influenza virus vaccine, unspecified formulation Reece Cheng PT Work Phone: [facility] Healthcare Payers Date Payer Category Payer Medicare (Managed Care) ANIA VALENZUELA [facility] [id number] 2020 Medicare ANTH MANAGED Richard JORGE MEDIBLUE ESSENTIAL/PLUS/CONNECT/SN P HMO [id number] 2020-Present [id number]. [id number] 2020 Medicare HMO ANTHEM MEDICARE [id number] 2019 Medicare [employer] MANAGED ME [place] AETNA MEDICARE PLAN (PPO) xxxxxxxx 2019-Present xxxxxxxx [id number]. [id number] 2019 Medicare [id number] 2015 Medicaid xxxxxxxxxxxx [id number] [address] [facility] [id number] 2015-Present [id number] 1.2.840.054554.1.13.385.2. [id number] 2015 Medicaid 1.2.840.392599. 1.13.385.2. [id number] 2013 Medicare MEDICARE MEDICAR E PART A & B xxxxxxxxxxx 2013-Present [place] xxxxxxxxxxx [id number]. [id number] 2013 Medicare [id number] 2013 Medicare 1.2.840.016415. 1.13.385.2. [id number] 1977 Unknown [id number] 2.16840.1.703997.3.579.2. 900 1977 Unknown [id number] 2.16.840.1.033931.3.579.2. 903 1977 Unknown [id number] 2.16840.1.122939.3.579.2. 903 1977 Unknown [id number] 2.16.840.1.047806.3.579.2. 903 1977 Unknown [id number] 2.16.840.1.821399.3.579.2. 593 1977 Unknown [id number] 2.16.840.1.653825.3.579.2. 593 1977 Unknown [id number] 2.16.840.1.596423.3.579.2. 59 1977 Unknown [id number] 2.16.840.1.665486.3.579.2. 593 1977 Unknown [id number] 2.16.840.1.137031.3.579.2. 59 1977 Unknown [id number] 2.16.840.1.778519.3.579.2. 59 1977 Unknown [id number] 2.16.840.1.844864.3.579.2. 1977 Unknown [id number] 2.16.840.1.446095.3.579.2. 59 1977 Unknown [id number] 2.16840.1.637897.3.579.2. 1977 Unknown [id number] 2.840.1.335252.3.579.2. 1977 Unknown [id number] 2.840.1.229986.3.579.2. 1285 1977 Unknown [id number] 2.840.1.600681.3.579.2. 1285 1977 Unknown [id number] 2.840.1.768530.3.579.2. 1285 1977 Unknown [id number] 2.840.1.146366.3.579.2. 1285 1977 Unknown [id number] 2.840.1.862081.3.579.2. 1285 1977 Unknown [id number] 2.840.1.272773.3.579.2. 1285 1977 Unknown [id number] 2.16840.1.167911.3.579.2. 1285 1977 Unknown [id number] 2.16.840.1.141801.3.579.2. 1285 1977 Unknown [id number] 2.16840.1.584092.3.579.2. 1285 1977 Unknown [id number] 2.16.840.1.273852.3.579.2. 1285 1977 Unknown [id number] 2.16.840.1.869802.3.579.2. 1285 1977 Unknown [id number] 2.16.840.1.821881.3.579.2. 1285 1977 Unknown [id number] 2.16.840.1.840451.3.579.2. 1285 1977 Unknown [id number] 2.16840.1.145507.3.579.2. 1285 1977 Unknown [id number] 2.16840.1.784002.3.579.2. 1258 1977 Unknown [id number] 2.840.1.468850.3.579.2. 1258 1977 Unknown [id number] 2.840.1.453736.3.579.2. 1258 1977 Unknown [id number] 2.840.1.782469.3.579.2. 1258 1977 Unknown [id number] 2.16840.1.596308.3.579.2. 1258 1977 Unknown [id number] 2.16840.1.227870.3.579.2. 1258 1977 Unknown [id number] 2.16840.1.481443.3.579.2. 1258 1977 Unknown [id number] 2.16840.1.159521.3.579.2. 1258 1977 Unknown [id number] 2.16840.1.283415.3.579.2. 1258 1977 Unknown [id number] 2.16840.1.270210.3.579.2. 1258 1977 Unknown [id number] 2.16840.1.559017.3.579.2. 1258 1977 Unknown [id number] 2.16840.1.655464.3.579.2. 1258 1977 Unknown [id number] 2.16840.1.963105.3.579.2. 1258 1977 Unknown [id number] 2.840.1.067144.3.579.2. 1258 1977 Unknown [id number] 2.840.1.794729.3.579.2. 1258 1977 Unknown [id number] 2.840.1.613697.3.579.2. 1258 1977 Unknown [id number] 2.840.1.202531.3.579.2. 1258 1977 Unknown [id number] 2..1.618968.3.579.2. 1258 1977 Unknown [id number] 2.840.1.412548.3.579.2. 1258 1977 Unknown [id number] 2.0.1.000526.3.579.2. 1285 1977 Unknown [id number] 2.840.1.101841.3.579.2. 1285 1977 Unknown [id number] 2..1.049590.3.579.2. 1285 1977 Unknown [id number] 2.840.1.105641.3.579.2. 1285 1977 Unknown [id number] 2.840.1.173918.3.579.2. 1285 1977 Unknown [id number] 2.840.1.834212.3.579.2. 1285 1977 Unknown [id number] 2.840.1.526130.3.579.2. 1285 1977 Unknown [id number] 2.16840.1.104809.3.579.2. 1285 1977 Unknown [id number] 2.16840.1.843164.3.579.2. 1285 1977 Unknown [id number] 2.16.840.1.012122.3.579.2. 1285 1977 Unknown [id number] 2.16840.1.842469.3.579.2. 1285 1977 Unknown [id number] 2.16840.1.505798.3.579.2. 1285 1977 Unknown [id number] 2.16840.1.510760.3.579.2. 1285 1977 Unknown [id number] 2.840.1.783914.3.579.2. 1285 1977 Unknown [id number] 2.840.1.959622.3.579.2. 1285 1977 Unknown [id number] 2.840.1.979328.3.579.2. 1285 1977 Unknown [id number] 2.0.1.299953.3.579.2. 1285 1977 Unknown [id number] 2.840.1.963187.3.579.2. 1285 1977 Unknown [id number] 2.840.1.354267.3.579.2. [facility]ly [facility] Medicaid [id number] .[id number] 1959 Medicare [id number] Medicare xxxxxxxxxx [id number] Medicare [id number] 2.840.1.059296.3.249.13 Social History Date Type Detail Facility Start: 10-18-2017 End: 09-30-2023 Tobacco smoking status [facility] Former smoker [employer] Phone: Start: 06-07-1996 End: 06-07-2011 History of tobacco use Current smoker [facility] Work Phone: Start: 10-18-2017 End: 06-19-2020 Cigarettes smoked current (pack per day) - Reported [facility] Start: 1975 Sex Assigned At Not on file [facility] Work Phone: Start: 07-20-2017 End: 04-06-2019 Alcohol intake Current non-drinker of alcohol (finding) [facility] Start: 05-13-2020 End: 09-30-2023 Tobacco use and exposure Never used [facility] Start: 10-08-2020 End: 11-07-2020 Exposure to SARS-CoV-2 (event) Not sure [facility] Start: 06-07-1996 End: 06-07-2011 History of tobacco use Cigarette Smoker [facility] Start: 06-09-2023 End: 08-02-2023 Alcohol intake Ex-drinker (finding) [facility] Start: 02-01-2019 End: 06-19-2020 Alcohol Use Disorder Identification Test - Consumption [AUDIT-C] [facility] Frequency of Alcohol Consumption Never [facility] Start: 1975 Sex Assigned At Female [facility] Start: 03-11-2022 Gender identity Identifies as female gender (finding) [facility] Start: 03-11-2022 Sexual orientation Heterosexual (finding) [facility] Start: 02-29-2024 End: 06-27-2024 Alcoholic beverage intake Lifetime non-drinker (finding) [facility] Start: 12-04-2023 Alcohol Comment caffeine 2 cups per day [facility] Start: 01-08-2015 Sex Female (finding) [facility] Clinical Notes 07-21-2017 to 07-07-2024 Telephone Encounter - EDNA Durham - 07/07/2024 11:02 AM ESTTelephone Encounter - Gayatri Gaspar [facility] - 07/07/2024 11:02 AM Deena Salazar JOB PRINTER APPRENTICE[facility] - 06/27/2024 8:00 AM EST Note Date & Type Note Facility 07-07-2024 Miscellaneous Notes Patient called office and stated that she needs new nebulizer supplies sent to [facility]. yes Order for Nebulizer Tubing Kit placed and faxed to [facility] per patient request. Operations Logistics Analyst called patient and informed her that order was sent to [facility], patient verbalized understanding. documented in this encounter [facility] 07-07-2024 Telephone encounter Note Patient called office and stated that she needs new nebulizer supplies sent to [facility]. [facility] 07-07-2024 Telephone encounter Note yes [facility] 07-07-2024 Telephone encounter Note Order for Nebulizer Tubing Kit placed and faxed to [facility] per patient request. [facility] 07-07-2024 Telephone encounter Note Operations Logistics Analyst called patient and informed her that order was sent to [facility], patient verbalized understanding. [facility] 06-27-2024 History of Presen t illness Narrative Brenda Novak Date of visit: 06/27/2024 Date of : 1975 Age: 48 y.o. Patient Active Problem List Diagnosis BMI 50.0-59.9, adult ([facility]) Visual impairment Seizures ([facility]) Scoliosis Polycystic ovary syndrome LUIS MIGUEL on CPAP Morbid obesity ([facility]) Migraines Hypothyroidism HTN (hypertension) Diabetes mellitus ([facility]) Cerebral aneurysm Cavernous hemangioma of brain ([facility]) Borderline diabetes B12 deficiency Asthma Arthritis Anemia Cervical spondylosis without myelopathy Allergies Allergen Reactions Bee Venom Protein (Honey Bee) Anaphylaxis Pineapple Anaphylaxis Venom-Wasp Anaphylaxis Aspirin D/t brain bleeds Beeswax Coconut Hives, Flushing and Headache Darvocet A500 [Propoxyphene N-Acetaminophen] Hallucinations Depakote [Divalproex] Feels paralyzed Heparin Analogues Other (See Comments) D/T brain bleed Ibuprofen D/t brain bleed Imitrex [Sumatriptan] Naproxen D/t brain bleed Nitroglycerin Flushing and Headache Feels like chest will explode Tramadol Pt unsure of allergy or reaction Vicodin [Hydrocodone-Acetaminophen] Hallucinations Adhesive Rash Latex Rash Current Outpatient Medications Medication Sig Dispense Refill albuterol (PROVENTIL HFA;VENTOLIN HFA) 90 mcg/actuation inhaler Inhale 2 puffs every 6 (six) hours as needed for wheezing or shortness of breath. 18 g 11 albuterol (PROVENTIL,VENTOLIN) 2.5 mg /3 mL (0.083 %) nebulizer solution USE 1 VIAL IN NEBULIZER EVERY 6 HOURS NEEDED FOR WHEEZING OR FOR SHORTNESS OF BREATH 360 mL 0 amLODIPine (NORVASC) 10 mg tablet Take 1 tablet (10 mg total) by mouth in the morning. atogepant (QULIPTA) 60 mg tablet TAKE 1 TABLET BY MOUTH IN THE MORNING 30 tablet 3 cyclobenzaprine (FLEXERIL) 10 mg tablet Take 1 tablet (10 mg total) by mouth every 8 (eight) hours as needed for muscle spasms. Or pain associated with menses 30 tablet 3 EPINEPHrine (EPIPEN) 0.3 mg/0.3 mL auto-injector Inject 0.3 mL (0.3 mg total) into the appropriate muscle as needed. EUTHYROX 88 mcg tablet Take 1 tablet (88 mcg total) by mouth in the morning. fluticasone furoate-vilanteroL (BREO ELLIPTA) 100-25 mcg/dose blister with device Inhale 1 puff in the morning. furosemide (LASIX) 20 mg tablet Take 2 tablets (40 mg total) by mouth daily. loratadine (CLARITIN) 10 mg tablet Take 1 tablet (10 mg total) by mouth in the morning. montelukast (SINGULAIR) 10 mg tablet Take 1 tablet (10 mg total) by mouth in the morning. nystatin (MYCOSTATIN) cream APPLY CREAM TOPICALLY TWICE DAILY (IN THE MORNING AND AT BEDTIME) 30 g 0 omeprazole (PriLOSEC) 20 mg capsule TAKE 1 CAPSULE BY MOUTH IN THE MORNING 30 MINUTES BEFORE MORNING MEAL potassium chloride (K-TAB,KLOR-CON) 20 mEq CR tablet Take 1 tablet (20 mEq total) by mouth in the morning. pregabalin (LYRICA) 100 mg capsule TAKE 1 CAPSULE BY MOUTH THREE TIMES DAILY 270 capsule 1 topiramate (TOPAMAX) 100 mg tablet Take 1 tablet by mouth twice daily 180 tablet 1 ubrogepant (UBRELVY) 100 mg tablet Take one tablet at onset of severe headache. May repeat in 2 hours if needed. Limit 2 / 24hrs. Limit 2/week and 10/month 10 tablet 2 No current facility-administered medications for this visit. Chief Complaint Patient presents with Follow-up 1 year History of Present Illness TS is a 48 yo F who presents to the office today for her annual visit. She has a hx of HTN, LUIS MIGUEL on CPAP, DMII, HLD, cerebral aneurysm, and seizures. TTE from 06/14/23 had EF of 60-65% with no WMAs nor significant valvulopathy. Lexiscan from 2022 did not show ischemia. CT of cores in 05/2023 showed normal coronary anatomy, no stenosis or plaques, calcium score of 0. She does continue to intermittently get chest pain accompanied by palpitations and a feeling of fluttering in her chest. It moves down her arms and takes away her breath. It last happened this past May, she headed into the ER and her workup was negative. She states she has these palpitations about once a month. Today, she does not have current CP, SOB, no syncope. Past Medical History: Diagnosis Date Allergic Anemia Arthritis Asthma B12 deficiency Back pain Always Borderline diabetes Brain bleed ([facility]) Breathlessness lying flat Cavernous hemangioma of brain ([facility]) Cerebral aneurysm diagnosed in 2010 Chest pain Clotting disorder ([facility]) Brain bleeds Diabetes mellitus ([facility]) Borderline Eczema Fibromyalgia, primary Fragility of teeth HTN (hypertension) Hyperlipidemia Hypothyroidism Migraines Morbid obesity ([facility]) Neck pain Obesity LUIS MIGUEL on CPAP Peripheral neuropathy Polycystic ovary syndrome Rheumatoid arthritis ([facility]) Scoliosis When I was little Acute Seizures ([facility]) stress related, no episodes since 2013, never officially diagnosed Varicella 3 times child Visual impairment No data recorded No data recorded No data recorded Past Surgical History: Procedure Laterality Date ADENOIDECTOMY 2002 ANKLE SURGERY Right 06/2022 reconstructive ankle/foot/heel surger CHOLECYSTECTOMY 12/2014 COLONOSCOPY DIAGNOSTIC / SCREENING N/A 05/07/2023 Performed by Cintia Owens MD at [facility] FRACTURE SURGERY Reconstructed foot surgery HYSTEROSCOPY INJECTION BLOCK NERVE MEDIAL BRANCH: bilat C 2/3, 3/4 Bilateral 11/05/2023 Performed by Armand Hernandez MD at [facility] TONSILLECTOMY 2002 Family History Problem Relation Age of Onset Cancer Mother Hypertension Mother Thyroid disease Mother Arthritis Mother Diabetes Father Bleeding Disorder Father Heart attack Father Hypertension Father Stroke Father Diabetes Brother Learning disabilities Brother Stroke Paternal Uncle Vision loss Paternal Uncle Diabetes Maternal Grandmother Diabetes Paternal Grandmother Stroke Paternal Grandmother Prostate cancer Paternal Grandfather Social History Socioeconomic History Marital status: Spouse name: Not on file Number of children: Not on file Years of education: Not on file Highest education level: Not on file Occupational History Not on file Tobacco Use Smoking status: Former Current packs/day: 0.00 Average packs/day: 0.5 packs/day for 15.0 years (7.5 ttl pk-yrs) Types: Cigarettes Start date: 06/07/1996 Quit date: 06/07/2011 Years since quittin.0 Smokeless tobacco: Never Vaping Use Vaping status: Never Used Substance and Sexual Activity Alcohol use: Never Drug use: Never Sexual activity: Defer Partners: Male control/protection: I.U.D. Other Topics Concern Caffeine Use No Social History Narrative Not on file Social Drivers of Health Financial Resource Strain: Not on file Food Insecurity: No Food Insecurity (06/27/2024) Hunger Screening Food Insecurity - Worry: Never True Food Insecurity - Inability: Never True Transportation Needs: Not on file Physical Activity: Not on file Stress: Not on file Social Connections: Not on file Interpersonal Safety: Not on file Housing Instability: Not on file Review of Systems Review of Systems Constitutional: Negative. HENT: Negative. Eyes: Negative. Respiratory: Negative. Hematologic/Lymphatic: Bruises/bleeds easily. Skin: Negative. Musculoskeletal: Negative. Gastrointestinal: Negative. Neurological: Positive for headaches. Psychiatric/Behavioral: Negative. Allergic/Immunologic: Positive for environmental allergies. CARDIOVASCULAR: Please review HPI. Physical Examination General appearance: Alert, oriented and cooperative. In no acute distress. Skin: Warm and dry to touch. Head: Normocephalic, without obvious abnormality, atraumatic. Ears, Nose, Mouth, Throat: Throat clear without erythema or exudate. Dentition intact. Eyes: Conjunctivae unremarkable, EOM intact. Neck: No JVD, No carotid bruit. Neck supple, trachea midline. Respiratory: Clear to auscultation bilaterally, no use of accessory muscles. Cardiovascular: RRR with normal S1 and S2 with no murmurs. Gastrointestinal: Soft, non-tender. Bowel sounds normal. Musculoskeletal: No peripheral edema. Neurologic: Oriented to time, person and place, affect appropriate. No focal/major motor defects noted. Psychiatric: Appropriate mood, memory and judgement. VITAL SIGNS: BP 118/70 (BP Site: Left Arm, BP Postition: Sitting) Pulse 76 Ht 162.6 cm (5' 4 ) Wt (!) 145.2 kg (320 lb) SpO2 100% BMI 54.93 kg/m Orders Placed or Reconciled This Encounter Medications loratadine (CLARITIN) 10 mg tablet Sig: Take 1 tablet (10 mg total) by mouth in the morning. fluticasone furoate-vilanteroL (BREO ELLIPTA) 100-25 mcg/dose blister with device Sig: Inhale 1 puff in the morning. Medications Discontinued During This Encounter Medication Reason omeprazole (PriLOSEC OTC) 20 mg EC tablet Therapy completed IMPRESSIONS/PLAN 1. Hypertension, unspecified type 2. Cerebral aneurysm 3. LUIS MIGUEL on CPAP 4. PAC (premature atrial contraction) - Wireless Telemetry (In Office); Future 5. Palpitations - Wireless Telemetry (In Office); Future According to the revised cardiac risk index, pt is of low risk. Risk is nonprohibitive. PLAN Have ordered 30 day MCOT to investigate palpitations. Her echo and CT cores were unremarkable. BP and HR are controlled Lipid panel is in appropriate range with LDL 82, HDL is 45. Letter of clearance has been sent to podiatry. Recommend follow up in 2 months to discuss monitor findings. TODAYS ORDERS Orders Placed This Encounter Procedures Wireless Telemetry (In Office) FOLLOW UP No follow-ups on file. PCP: SERENE GARCIA Referring Physician: Liliam Mckeon, LEONARD-REVIEW RN [id number] [place] [address] Anuel Salazar APRN-FLAVIA 06/27/24 0835 documented in this encounter [facility] 06-27-2024 Instructions SERENE Victoria - 06/27/2024 8:00 AM EST Complete 30 day monitor for as long as you can tolerate! It is coming in the mail. Lipid panel is in a great range Your echo showed good heart function Your cardiac CT showed clean coronary arteries. BP and HR are well controlled. Continue cardiac medications. Recommend follow up in 2 months. Please call the office if you develop new or worsening symptoms and we will see you sooner. documented in this encounter [facility] 06-26-2024 Miscellaneous Notes Called patient to remind them to bring their most current copy of their medication list with them to their appt. Patient verbalizes understanding. documented in this encounter [facility] 06-26-2024 Telephone encounter Note Called patient to remind them to bring their most current copy of their medication list with them to their appt. Patient verbalizes understanding. [facility] 06-23-2024 Miscellaneous Notes Received a Fax Refill Auth [facility] [address] [facility] [address] [place] [address] [phone] RN reviewed refill request for Qulipta. Dosage and directions verified. Prescription pended for physician to review and sign. Last appt: 08/02/23 Next appt: needs follow up appt Last refilled: 02/28/24 30 day supply with 3 refills [facility] 06-23-2024 Telephone encounter Note Received a Fax Refill Auth Request for Qulipta 60 Mg [facility] [address] [place] [phone] [facility] 06-23-2024 Telephone encounter Note RN reviewed refill request for Qulipta. Dosage and directions verified. Prescription pended for physician to review and sign. Last appt: 08/02/23 Next appt: needs follow up appt Last refilled: 02/28/24 30 day supply with 3 refills [facility] 06-14-2024 History of Presen t illness Narrative Images from the original note were not included. Procedure - Therapeutic injection, Botulinum Toxin, Chronic Migraine ONLY APPROVED FOR 155 Indication Chronic Migraine 48-year-old female with chronic migraine that has been intractable to medications. The patient does meet all criteria for intractable chronic migraine with 15 or more headache days per month with 8 or more being migraine. These last more than 4 hours and are worse with exertion. She has tried and failed multiple different classes of medication. She has received Botox injections in the past. She did get good benefit from the 1st set of injections. She had better control it did start to wear off the last couple of weeks. She needs repeat injections today. Identification The patient was positively identified by name and date of . Consent The procedure with risks and benefits was explained to the patient. The risks included but were not limited to bleeding/bruising, weakness, ptosis, dysphagia, infection, and . Informed consent for the procedure was obtained and witnessed. All further questions were answered during this visit. Site Prep The areas to be injected were sterilized with 70% isopropanol alcohol. Lot # [id number] Exp: 08/2026 Dilution: 1:1 Procedure Procerus 5 units Tool Coordinator, L 5 units Tool Coordinator, R 5 units Frontalis, L 5+5 units Frontalis, R 5+5 units Temporalis, L 5+5+5+5 units Temporalis, R 5+5+5+5 units Occipitalis, L 5+5+5 units Occipitalis, R 5+5+5 units Paraspinalis cervicis, L 5+5 units Paraspinalis cervicis, R 5+5 units Trapezius, L 5+5+5 units Trapezius, L 5+5+5 units Other TOTAL UNITS INJECTED 155 WASTED 45 Disposition The patient tolerated the procedure well. Post-op care was discussed. The patient is aware that duration of action is ~ 90 days, and that delay in reinjection often results in recurrence of migraines Patient Instructions The patient was instructed to call or return for any excessive,weakness or any other unexpected symptoms. Assessment Chronic migraine without aura, intractable, without status migrainosus - G43.719 documented in this encounter [facility] 06-05-2024 Telephone encounter Note Oarrs reviewed due now Patient has been getting 90 day supplies. I did set this up for 90 days [facility] 06-05-2024 Miscellaneous Notes Oarrs reviewed due now Patient has been getting 90 day supplies. I did set this up for 90 days Patient calls requesting refill of Lyrica. Per last OV note we will be taking over all prescriptions from previous neurologist. documented in this encounter [facility] 06-05-2024 Telephone encounter Note Patient calls requesting refill of Lyrica. Per last OV note we will be taking over all prescriptions from previous neurologist. [facility] 05-24-2024 Note XR CHEST 1 VW Procedure: Chest x-ray performed Number of views:1 History:Chest pain Comparison:04/23/2023 Findings: The heart and lungs show no acute findings, and the mediastinum and agus are grossly negative . Impression: 1. No acute change. Finalized by Richy Taveras MD on 05/24/2024 2:14 PM [facility] 05-23-2024 History of Presen t illness Narrative Physical Therapy Treatment Visit Patient Name: Brenda Novak Today's Date: 05/23/2024 Encounter Diagnoses Name Primary? Acute left ankle pain Yes Visit number: 15 (3 of 6) Timed Code Treatment: 30 minutes Total Treatment Time: 30 minutes Time In: 0800 Time Out: 0841 History: Pt. Presents to PT with left ankle pain. 3-4 weeks she sprained her left ankle while walking in garage. [place] ankle twist outward. X-ray: negative. Wearing CAM boot for last 3 weeks. Precautions: universal Subjective: Pt states ankle is still doing well. Would like to hold PT until after MRI results are known. MRI is scheduled for tomorrow. Will see again on Jun 13. Pain: 0/10 left ankle currently Objective: PT Evaluation (03/15/24) Left ankle ROM: DF 5 degree, EV 5 deg, INV 15 deg, PF 55 deg Joint: talocural limitation Flexibility: moderate calf muscle tightness Strength: dorsiflexion 4/5, planterflexion 4-/5, EV 4-/5 with pain, INV 4/5 Gait: CAM boot Treatment: Manual Therapy: () Delivered manual ther to left ankle foot PROM and STM/IASTM, gastroc / soleus stretching Joint mobilization, Soft Tissue Mobilization, Myofascial Release Therapeutic Exercise: (30 minutes) Ther ex to improve left ankle/ foot functional mobility and strength per ex grid. Slowly progressing volume and toward more WB exercises. Additional minutes unsupervised. Therapeutic Activity: Exercises to improve dynamic activities, functional tasks, functional mobility to return to prior activity level Neuromuscular re-education: () Dynamic and static balancing activity using various surfaces, single leg, NBOS, re-bounder to improve L LE foot ankle proprioception Modalities: () Discontinued into this date due to pt completing full dose. Declined CP at end of session. Assessment: Pt has participated in 15 PT session with start of POC on 03/15/24 post left ankle strain. Pt is now ambulating in normal footwear. Strength left ankle eversion 4/5 with pain, 4/5 PF. Pt states left ankle continues to give out on her occasionally. Instability noted with single leg activities. LEFS score has progressed to 61/80. Pt has completed a full dose of iontophoresis with dexamethasone. Will hold PT until MRI result are reviewed and per MD recommendation. Outcome Measure: 39/80 Short Term Goal: To be met in 2 weeks Goal 1: Pt to be instructed in home exercise program. - met [employer] Goals: To be met in 10 weeks Goal 1: Pt to report independence and compliance with home program. - met Goal 2: Pt. Will report of 0/10 left ankle pain while walking/standing for long periods of time to help improve her quality of life and return to PLOF. - progressing Goal 3: Pt. Will demonstrate normal left ankle ROM grossly in all planes to allow her to walk/stand for long periods to return to PLOF. - met Goal 4: Pt. Will demonstrate normal calf muscle flexibility to help return to PLOF. - met Goal 5: Pt. Will demonstrate 5/5 left ankle strength grossly in all planes to allow her to walk/stand for long periods of time to return to PLOF. - progressing Pt will benefit from skilled PT for 2x/week from 03/15/24 to 05/24/24 to address the above impairments. I hereby deem this POC medically necessary. Please sign below. Date: documented in this encounter [facility] 05-09-2024 History of Presen t illness Narrative Physical Therapy Treatment Visit Patient Name: Brenda Novak Today's Date: 05/09/2024 Encounter Diagnoses Name Primary? Acute left ankle pain Yes Visit number: 13 (1 of 6) Timed Code Treatment: 30 minutes Total Treatment Time: 30 minutes Time In: 0900 Time Out: 934 History: Pt. Presents to PT with left ankle pain. 3-4 weeks she sprained her left ankle while walking in garage. [place]aw [place]aw ankle twist outward. X-ray: negative. Wearing CAM boot for last 3 weeks. Precautions: universal Subjective: Pt states not having any pain today. MRI is scheduled for 05/24/24. Pain: 0/10 left ankle currently Objective: PT Evaluation (03/15/24) Left ankle ROM: DF 5 degree, EV 5 deg, INV 15 deg, PF 55 deg Joint: talocural limitation Flexibility: moderate calf muscle tightness Strength: dorsiflexion 4/5, planterflexion 4-/5, EV 4-/5 with pain, INV 4/5 Gait: CAM boot Treatment: Manual Therapy: () Delivered manual ther to left ankle foot PROM and STM/IASTM, gastroc / soleus stretching Joint mobilization, Soft Tissue Mobilization, Myofascial Release Therapeutic Exercise: (30 minutes) Ther ex to improve left ankle/ foot functional mobility and strength per ex grid. Slowly progressing volume and toward more WB exercises. 5 minutes unsupervised. Therapeutic Activity: Exercises to improve dynamic activities, functional tasks, functional mobility to return to prior activity level Neuromuscular re-education: () Dynamic and static balancing activity using various surfaces, single leg, NBOS, re-bounder to improve L LE foot ankle proprioception Modalities: () Discontinued into this date due to pt completing full dose. Declined CP at end of session. Assessment: Pt has participated in 13 PT session with start of POC on 03/15/24 post left ankle strain. Pt requires occasional cues for proper form with exercise and to avoid compensation. Strength left ankle eversion 4/5 with pain, 4/5 PF. Will continue. Outcome Measure: 39/80 Short Term Goal: To be met in 2 weeks Goal 1: Pt to be instructed in home exercise program. Senior Living Goals: To be met in 10 weeks Goal 1: Pt to report independence and compliance with home program. Goal 2: Pt. Will report of 0/10 left ankle pain while walking/standing for long periods of time to help improve her quality of life and return to PLOF. Goal 3: Pt. Will demonstrate normal left ankle ROM grossly in all planes to allow her to walk/stand for long periods to return to PLOF. Goal 4: Pt. Will demonstrate normal calf muscle flexibility to help return to PLOF. Goal 5: Pt. Will demonstrate 5/5 left ankle strength grossly in all planes to allow her to walk/stand for long periods of time to return to PLOF. Pt will benefit from skilled PT for 2x/week from 03/15/24 to 05/24/24 to address the above impairments. I hereby deem this POC medically necessary. Please sign below. Date: documented in this encounter [facility] 04-21-2024 History of Presen t illness Narrative Physical Therapy Treatment Visit Patient Name: Brenda Novak Today's Date: 04/21/2024 Encounter Diagnoses Name Primary? Acute left ankle pain Yes Visit number: 9 (3 of 6) Timed Code Treatment: 30 minutes Total Treatment Time: 40 minutes + 8 min for Ionto To-Go-Patch Time In: 929 Time Out: 1020 History: Pt. Presents to PT with left ankle pain. 3-4 weeks she sprained her left ankle while walking in garage. Paw Paw ankle twist outward. X-ray: negative. Wearing CAM boot for last 3 weeks. Precautions: universal Subjective: Pt reported that overall pain is reduced. Pain along lateral ankle. Pain: 1/10 left ankle depending on activity Objective: PT Evaluation (03/15/24) Left ankle ROM: DF 5 degree, EV 5 deg, INV 15 deg, PF 55 deg Joint: talocural limitation Flexibility: moderate calf muscle tightness Strength: dorsiflexion 4/5, planterflexion 4-/5, EV 4-/5 with pain, INV 4/5 Gait: CAM boot Treatment: Manual Therapy: (10 minutes) Delivered manual ther to left ankle foot PROM and STM, gastroc / soleus stretching Joint mobilization, Soft Tissue Mobilization, Myofascial Release Therapeutic Exercise: (5 minutes supervised) Ther ex to improve left ankle/ foot functional mobility and strength per ex grid. Slowly progressing volume and toward more WB exercises. 10 minutes unsupervised. Therapeutic Activity: Exercises to improve dynamic activities, functional tasks, functional mobility to return to prior activity level Neuromuscular re-education: (15 minutes supervised) Dynamic and static balancing activity using various surfaces, single leg, NBOS, re-bounder to improve L LE foot ankle proprioception Modalities: (No IFC) (8 minutes, unsupervised) To-Go long release (14 hours) Ionto patch for inflammation reduction. Assessment: Pt has participated in 9 PT session with start of POC on 03/15/24 post left ankle strain. Reports weekly improvement in left ankle pain. Demos weakness in eversion 4-/5. Continued proprioception ex with pt tolerating well but challenged. Continued Iontophoresis to lateral L ankle, instructed pt to take off in 14 hours PT treatment to focus improving ankle ROM/flexibility/strength and decrease pain. Follow up Outcome Measure: 39/80 Short Term Goal: To be met in 2 weeks Goal 1: Pt to be instructed in home exercise program. Senior Living Goals: To be met in 10 weeks Goal 1: Pt to report independence and compliance with home program. Goal 2: Pt. Will report of 0/10 left ankle pain while walking/standing for long periods of time to help improve her quality of life and return to PLOF. Goal 3: Pt. Will demonstrate normal left ankle ROM grossly in all planes to allow her to walk/stand for long periods to return to PLOF. Goal 4: Pt. Will demonstrate normal calf muscle flexibility to help return to PLOF. Goal 5: Pt. Will demonstrate 5/5 left ankle strength grossly in all planes to allow her to walk/stand for long periods of time to return to PLOF. Pt will benefit from skilled PT for 2x/week from 03/15/24 to 05/24/24 to address the above impairments. I hereby deem this POC medically necessary. Please sign below. Date: Cosigned by Reece Cheng, PT at 04/24/2024 9:50 AM EST documented in this encounter [facility] 04-18-2024 History of Presen t illness Narrative Physical Therapy Treatment Visit Patient Name: Brenda Novak Today's Date: 04/18/2024 Encounter Diagnoses Name Primary? Acute left ankle pain Yes Visit number: 8 (2 of 6) Timed Code Treatment: 45 minutes Total Treatment Time: 55 minutes + 15 min for Ionto To-Go-Patch Time In: 1130 Time Out: 1230 History: Pt. Presents to PT with left ankle pain. 3-4 weeks she sprained her left ankle while walking in garage. [place] ankle twist outward. X-ray: negative. Wearing CAM boot for last 3 weeks. Precautions: universal Subjective: Pt reported that overall pain is reduced. She is careful on stepping on it. It feels like it is going to give out . Pain along lateral ankle. Pain: 1/10 left ankle depending on activity Objective: PT Evaluation (03/15/24) Left ankle ROM: DF 5 degree, EV 5 deg, INV 15 deg, PF 55 deg Joint: talocural limitation Flexibility: moderate calf muscle tightness Strength: dorsiflexion 4/5, planterflexion 4-/5, EV 4-/5 with pain, INV 4/5 Gait: CAM boot Treatment: Manual Therapy: (10 minutes) Delivered manual ther to left ankle foot PROM and STM, gastroc / soleus stretching Joint mobilization, Soft Tissue Mobilization, Myofascial Release Therapeutic Exercise: (15 minutes supervised) Ther ex to improve left ankle/ foot functional mobility and strength per ex grid. Slowly progressing volume and toward more WB exercises Therapeutic Activity: Exercises to improve dynamic activities, functional tasks, functional mobility to return to prior activity level Neuromuscular re-education: (15 minutes supervised) Dynamic and static balancing activity using various surfaces, single leg, NBOS, re-bounder to improve L LE foot ankle proprioception Modalities: (15 minutes) Post session pt sitting: IFC with ice to left ankle for pain relieve (15 minutes, unsupervised) To-Go long release (14 hours) Ionto patch for inflammation reduction. Assessment: Pt has participated in 8 PT session with start of POC on 03/15/24 post left ankle strain. Reports weekly improvement in left ankle pain. Demos weakness in eversion 4-/5. Progressed proprioception ex with pt tolerating well but challenged. Discussed adding tandem stance and single leg balance to HEP. Continued Iontophoresis to lateral L ankle, instructed pt to take off in 14 hours PT treatment to focus improving ankle ROM/flexibility/strength and decrease pain. Follow up Outcome Measure: 39/80 Short Term Goal: To be met in 2 weeks Goal 1: Pt to be instructed in home exercise program. [employer] Goals: To be met in 10 weeks Goal 1: Pt to report independence and compliance with home program. Goal 2: Pt. Will report of 0/10 left ankle pain while walking/standing for long periods of time to help improve her quality of life and return to PLOF. Goal 3: Pt. Will demonstrate normal left ankle ROM grossly in all planes to allow her to walk/stand for long periods to return to PLOF. Goal 4: Pt. Will demonstrate normal calf muscle flexibility to help return to PLOF. Goal 5: Pt. Will demonstrate 5/5 left ankle strength grossly in all planes to allow her to walk/stand for long periods of time to return to PLOF. Pt will benefit from skilled PT for 2x/week from 03/15/24 to 05/24/24 to address the above impairments. I hereby deem this POC medically necessary. Please sign below. Date: Cosigned by Reece Cheng, PT at 04/19/2024 1:07 PM EST documented in this encounter [facility] 03-15-2024 History of Presen t illness Narrative Physical Therapy Evaluation Visit Patient Name: Brenda Novak Today's Date: 03/15/2024 Encounter Diagnoses Name Primary? Acute left ankle pain Yes Visit number: 1 Timed Code Treatment Minutes: 60 minutes Total Treatment Time: 60 minutes Time In: Time Out: History: Pt. Presents to PT with left ankle pain. 3-4 weeks she sprained her left ankle while walking in garage. [place] ankle twist outward. X-ray: negative. Wearing CAM boot for last 3 weeks. Precautions: universal Subjective Pain: 5/10 Objective: PT Evaluation (03/15/24) Left ankle ROM: DF 5 degree, EV 5 deg, INV 15 deg, PF 55 deg Joint: talocural limitation Flexibility: moderate calf muscle tightness Strength: dorsiflexion 4/5, planterflexion 4-/5, EV 4-/5 with pain, INV 4/5 Gait: CAM boot Treatment: PT evaluation (20 minutes) Education: HEP education with demonstration, Educated on Eval Findings and POC Manual Therapy: Passive ROM, Joint mobilization, Soft Tissue Mobilization, Myofascial Release, Muscle Energy Technique, Neural Mobilization, Myofascial Cupping, Dry Needling, IASTM, and Scar mobilization Therapeutic Exercise: (10 minutes) exercises in grid, Strength, Endurance, Flexibility, ROM, HEP, Neural Mobilization, Power, and Core Stability Therapeutic Activity: Exercises to improve dynamic activities, functional tasks, functional mobility to return to prior activity level Neuromuscular re-education: Balance Training, Muscle Facilitation, Dynamic Stability, Core Stabilization, and Blood Flow Restriction Training (BFRT) Modalities:(15 minutes) sitting: IFC with ice to left ankle; Heat, Ice, Electrical Stimulation, Ultrasound, Cervical Mechanical Traction, Lumbar Mechanical Traction, Iontophoresis, and Fluidotherapy Assessment: Pt. Has participated in 1 PT session with start of POC on 03/15/24. Pt. Will benefit from skilled PT services. PT treatment to focus improving ankle ROM/flexibility/strength and decrease pain. Outcome Measure: 39/80 Short Term Goal: To be met in 2 weeks Goal 1: Pt to be instructed in home exercise program. Senior Living Goals: To be met in 10 weeks Goal 1: Pt to report independence and compliance with home program. Goal 2: Pt. Will report of 0/10 left ankle pain while walking/standing for long periods of time to help improve her quality of life and return to PLOF. Goal 3: Pt. Will demonstrate normal left ankle ROM grossly in all planes to allow her to walk/stand for long periods to return to PLOF. Goal 4: Pt. Will demonstrate normal calf muscle flexibility to help return to PLOF. Goal 5: Pt. Will demonstrate 5/5 left ankle strength grossly in all planes to allow her to walk/stand for long periods of time to return to PLOF. Pt will benefit from skilled PT for 2x/week from 03/15/24 to 05/24/24 to address the above impairments. I hereby deem this POC medically necessary. Please sign below. Date: documented in this encounter [facility] 03-02-2024 History of Presen t illness Narrative Images from the original note were not included. Procedure - Therapeutic injection, Botulinum Toxin, Chronic Migraine Indication Chronic Migraine 48-year-old female with chronic migraine that has been intractable to medications. She meets all criteria for intractable chronic migraine with 15 or more headache days per month with 8 or more being migraine. These last more than 4 hours and are worse with exertion. She has tried and failed multiple different classes of medication. She has received Botox injections in the past. These are medically necessary procedure and we are starting with her 1st set of Botox injections with us here today. Identification The patient was positively identified by name and date of . Consent The procedure with risks and benefits was explained to the patient. The risks included but were not limited to bleeding/bruising, weakness, ptosis, dysphagia, infection, and . Informed consent for the procedure was obtained and witnessed. All further questions were answered during this visit. Site Prep The areas to be injected were sterilized with 70% isopropanol alcohol. Lot # [id number] Exp: 06/2026 Dilution: 1:1 Procedure Procerus 5 units Tool Coordinator, L 5 units Tool Coordinator, R 5 units Frontalis, L 5+5 units Frontalis, R 5+5 units Temporalis, L 5+5+5+5 units Temporalis, R 5+5+5+5 units Occipitalis, L 5+5+5 units Occipitalis, R 5+5+5 units Paraspinalis cervicis, L 5+5 units Paraspinalis cervicis, R 5+5 units Trapezius, L 5+5+5 units Trapezius, L 5+5+5 units Other TOTAL UNITS INJECTED 155 WASTED 45 Disposition The patient tolerated the procedure well. Post-op care was discussed. The patient is aware that duration of action is ~ 90 days, and that delay in reinjection often results in recurrence of migraines Patient Instructions The patient was instructed to call or return for any excessive,weakness or any other unexpected symptoms. Assessment Chronic migraine without aura, intractable, without status migrainosus - G43.719 documented in this encounter [facility] 02-10-2024 Telephone encounter Note Patient calls stating that she is in need of refills of topiramate. States that she was getting it from Dr. Shepherd. Asking for us to take over. [facility] 02-10-2024 Miscellaneous Notes Patient calls stating that she is in need of refills of topiramate. States that she was getting it from Dr. Shepherd. Asking for us to take over. documented in this encounter [facility] 08-27-2023 Miscellaneous Notes Received refill request for Lyrica (pregabalin) 100 mg via patient call. Last refill was e-scribed on 03/08/23 90 days + 1 refill Prescription verified and pended to for approval and signature. Next follow up is to be around March 2024 [facility] Telephone encounter Note Received refill request for Lyrica (pregabalin) 100 mg via patient call. Last refill was e-scribed on 03/08/23 90 days + 1 refill Prescription verified and pended to for approval and signature. Next follow up is to be around March 2024 [facility]23 Miscellaneous Notes Patient [phone] states that they had a Botox procedure [...] Patient is agreeable. documented in this encounter [facility] 08-27-2023 Telephone encounter Note Patient [phone] states that they had a Botox procedure 08/02/23 and now is experiencing neck pain. Patient states that they are also having difficulty controlling and holding their neck up. Patient has requested a call back from clinical staff. [facility] 08-27-2023 Telephone encounter Note Spoke with patient. She reports the [...] a response we will call patient back. [facility] 08-27-2023 Telephone encounter Note Response from Dr DENT: If symptoms are from Botox it should improve with time. The ED will only be able to help with pain relief. Encourage patient to get MRI's done as scheduled on 08/29/23 and let us know how she is feeling next week. Spoke with patient to convey comments and recommendation in message noted below. Patient is agreeable. [facility] 06-25-2023 Miscellaneous Notes P/c from pt requesting 1 metoprolol lopressor 25 mg tablet d/t her CTA cors scheduled 06/22/23 being rescheduled for 07/13/23. Pt had taken the 1 tablet the night before the 06/22/23 CTA but then it was canceled the morning of 06/22/23. Previous printed metoprolol 25 mg prescription found to confirm sig and dosage. Pt would like the 1 tablet sent to [facility] in [place]. Med pending signature. documented in this encounter [facility] 06-25-2023 Telephone encounter Note P/c from pt requesting 1 metoprolol lopressor 25 mg tablet d/t her CTA cors scheduled 06/22/23 being rescheduled for 07/13/23. Pt had taken the 1 tablet the night before the 06/22/23 CTA but then it was canceled the morning of 06/22/23. Previous printed metoprolol 25 mg prescription found to confirm sig and dosage. Pt would like the 1 tablet sent to [facility] in [place]. Med pending signature. [facility] 06-09-2023 History of Presen t illness [...] humidifier. Cleaning supplies with soap and water. [place] Sleepiness Scale: Sitting and Reading: Slight Chance [...] Always Borderline diabetes Cavernous hemangioma of brain ([facility]) Cerebral aneurysm diagnosed in 2010 Diabetes mellitus ([facility]) Borderline HTN (hypertension) Hypothyroidism Migraines Morbid obesity ([facility]) LUIS MIGUEL on CPAP Polycystic ovary syndrome Scoliosis When I was little Acute Seizures ([facility]) stress related, no episodes since 2013, never [...] 2.31 05/21/2023 No results found. DATA: BIPAP-Auto: 19/01/ Re-titration: 02/2020 Titration: 10/2015 PS06/2015 w/ AHI of 9 DME: [facility] Data card was available for PAP usage data download. PAP compliance is excellent. PAP data card download 05/09/23 - 06/07/23 Device: AirCurve 10 VAuto Pressure: 15/8/4 Percent days with device use =80% Average [...] not to drive if sleepy, and to pull out operator if sleepiness occurs while driving. Above plan [...] errors that have escaped final proofreading. Gayatri Carlson [facility] Office: [phone] 2:51 PM on 06/09/2023 CC: MARIUM GARCIA, SERENE Kilgore 06/09/23 1451 SERENE Flanagan 06/09/23 1452 SERENE Flanagan 06/09/23 1453 documented in this encounter [facility] 06-09-2023 Instructions SERENE Flanagan - 06/09/2023 11:45 AM EST If you re looking for general health and wellness resources, please visit [email or web address]. documented in this encounter [facility] 09-02-2022 Note PROCEDURE: XR ANKLE RT [...] authenticated by: SOILA NIÑO Date: 2022-09-02 11:34 [facility] 09-02-2022 Note PROCEDURE: XR ANKLE RT MIN [...] authenticated by: SOILA NIÑO Date: 2022-09-02 11:34 [facility] 08-14-2022 Note PROCEDURE: XR ANKLE RT MIN [...] authenticated by: SOILA NIÑO Date: 2022-08-14 06:58 [facility] 08-14-2022 Note PROCEDURE: XR ANKLE RT MIN [...] by: SOILA NIÑO Date: 2022-08-14 06:58 [facility] 07-30-2022 Note PROCEDURE: XR ANKLE RT MIN [...] authenticated by: SOILA NIÑO Date: 2022-07-30 18:53 [facility] 07-30-2022 Note PROCEDURE: XR ANKLE RT MIN [...] authenticated by: SOILA NIÑO Date: 2022-07-30 18:53 [facility] 07-10-2022 Note PROCEDURE: XR FOOT R T [...] authenticated by: CORBY MARQUEZ Date: 2022-07-10 08:27 [facility] 07-10-2022 Note PROCEDURE: XR FOOT R T [...] authenticated by: CORBY MARQUEZ Date: 2022-07-10 08:27 [facility] 06-15-2022 Note PROCEDURE: XR ANKLE RT 2V [...] authenticated by: SOILA NIÑO Date: 2022-06-15 15:00 [facility] 06-15-2022 Note PROCEDURE: XR ANKLE RT MIN [...] authenticated by: SOILA NIÑO Date: 2022-06-15 14:56 [facility] 12-24-2021 Note PROCEDURE: XR ANKLE RT MIN [...] authenticated by: SOILA NIÑO Date: 2021-12-24 21:49 [facility] 12-03-2021 Note PROCEDURE: XR FOOT R T MIN 3 VIEWS COMPARISON: 08/01/2019 HISTORY: Pain in right foot FINDINGS: BONES:No acute fracture or dislocation. Stable degenerative changes with marginal osteophyte formation. Enthesopathic spurring of the calcaneus. SOFT TISSUES:Negative. No visible soft tissue swelling. EFFUSION:None visible. OTHER: Negative. IMPRESSION: Stable degenerative changes Electronically authenticated by: CORBY MARQUEZ Date: 2021-12-03 07:41 [facility] 11-07-2020 Instructions Erma, Talita Rasmussen MD - 11/07/2020 2:10 PM EDT 1. Lab work 2. Physical therapy referral for back pain (okay to do locally) 3. Follow up with REVIEW RN in six months documented in this encounter [facility] 11-07-2020 History of Presen t illness Narrative [facility] DATE OF VISIT: 11/07/20 PATIENT [...] considered. Follow up with six months with REVIEW RN or sooner if problems. MDM: 2 stable chronic illnesses; prescription drug management Thank you for allowing me to participate in the care of this patient. If you have any questions, please feel free to contact my office. Talita Ritchie MD, ABPN Neurologist [facility] _ Chief Complaint Patient presents with Headache says had a clark everyday in August, good since August INTERVAL HISTORY: At today's visit, she last saw our REVIEW RN in the office and was continued on [...] POSSIBLE OPEN; Surgeon: Alan Fall MD; Location: [facility] Main OR; Service: steroid injections to back [...] Social Gatherings with Friends and Family: Attends Alevism Services: Active Member of Clubs or Organizations: Attends Club or Organization Meetings: Marital Status: Allergies: Coconut, Honey bee treatment [bee venom protein (honey bee)], Pineapple, Venom-wasp, Aspirin, Coconut oil, Darvocet a500 [propoxyphene n-acetaminophen], Depakote [divalproex], Heparin analogues, Imitrex [sumatriptan succinate], Latex, Nitroglycerin, Vicodin [hydrocodone-acetaminophen], and Adhesive Stickles, Talania Chapito Home Medication Instructions Prior to Surgery CECILY: Printed on:11/07/20 9485 Medication Information Take last dose on Take [...] 2011 - normal documented in this encounter [facility] 10-25-2020 Miscellaneous Notes Patient needs emgality refill documented in this encounter [facility] 07-21-2017 Telephone encounter Note Can't send electronic, will call in script. [facility] 07-21-2017 Miscellaneous Notes Can't send electronic, will call in script. documented in this encounter [facility] Evaluation note Diagnosis Chronic nonintractable headache, unspecified headache type [facility] Chronic migraine without aura without status migrainosus, not intractable- Primary Migraine without aura and without status migrainosus, not intractable Chronic nonintractable headache, unspecified headache type Chronic midline low back pain with left-sided sciatica [facility] Diagnosis Chronic nonintractable headache, unspecified headache type [facility] Diagnosis Chronic nonintractable headache, unspecified headache type [facility] Diagnosis Chronic nonintractable headache, unspecified headache type [facility] Diagnosis LUIS MIGUEL (obstructive sleep apnea)- Primary Obstructive sleep apnea (adult) (pediatric) LUIS MIGUEL treated with BiPAP BMI 50.0-59.9, adult (CMS-HCC) [facility] Diagnosis Chronic migraine without aura, intractable, with status migrainosus [facility] Diagnosis Chronic migraine without aura, intractable, with status migrainosus Neuralgia and neuritis [facility]* Diagnosis Degenerative disc disease, cervical- Primary [facility]* Diagnosis Acute left ankle pain- Primary documented in [facility] encounter [facility]* Diagnosis Acute left ankle pain- Primary [facility] Diagnosis Acute left ankle pain- Primary [facility]* Diagnosis Acute left ankle pain- Primary [facility] Diagnosis Acute left ankle pain- Primary [facility]* Diagnosis LUIS MIGUEL (obstructive sleep apnea)- Primary Obstructive sleep apnea (adult) (pediatric) Intractable chronic migraine without aura and without status migrainosus (CMS/HCC) Cerebral cavernous malformation Congenital anomaly of cerebrovascular system Seizure disorder (CMS/HCC) Unspecified epilepsy without mention of intractable epilepsy [facility] Diagnosis Acute left ankle pain- Primary [facility]* Diagnosis Seizure disorder (CMS/HCC)- Primary Unspecified epilepsy without mention of intractable epilepsy [facility]* Diagnosis Intractable chronic migraine without aura and without status migrainosus (CMS/HCC)- Primary [facility]* Diagnosis Cerebral cavernous malformation- Primary Congenital anomaly of cerebrovascular system [facility]* Diagnosis Intractable chronic migraine without aura and without status migrainosus (CMS/HCC)- Primary [facility]* Diagnosis Chronic migraine without aura, intractable, with status migrainosus Neuralgia and neuritis Cerebral cavernous malformation Congenital anomaly of cerebrovascular system [facility] Diagnosis Hypertension, unspecified type- Primary Cerebral aneurysm Cerebral aneurysm, nonruptured LUIS MIGUEL on CPAP PAC (premature atrial contraction) Supraventricular premature beats Palpitations [facility]* Diagnosis Mild persistent asthma, unspecified whether complicated- Primary [facility] [...] Health SystemInstructionsNot on filedocumented in this encounter [facility] Consultation (Routine) - Pending Review Specialty Diagnoses / Procedures Referred By Violeta durham Referred To Contact Neurosurgery Diagnoses Degenerative disc disease, cervical Ruth Shepherd MD [address] [place] [address] Roc Beth MD [address] [place] [id number] Referral ID Status Reason Start Date Expiration Date Visits Requested Visits Authorized [id number] Pending Review Specialty Services Required 08/30/2023 08/29/2024 1 1 [facility] - Outpatient (Routine) - Authorized Specialty Diagnoses / Procedures Referred By Violeta durham Referred To Contact Physical Therapy Diagnoses Sprain of other ligament of left ankle, initial encounter Procedures [place] PHYSICAL THERAPY EVALUATION LOW COMPLEX 20 MINS Candy Leonardo MD [address] [place] [address] [place] [address] Phone: tel: fax: [facility] [address] [address] Phone: tel: fax: Referral ID Status Reason Start Date Expiration Date V isits Requested Visits Authorized [id number] Authorized 03/15/2024 05/13/2024 6 6 [facility]* Rehabilitation - Outpatient (Routine) - Closed Specialty Diagnoses / Procedures Referred By Contac t Referred To Contact Physical Therapy Diagnoses Sprain of other ligament of left ankle, initial encounter Procedures VT PHYSICAL THERAPY EVALUATION LOW COMPLEX 20 MINS Candy Leonardo MD [address] [place] [address] [place] [address] Phone: tel: fax: [facility] [address] [address] Phone: tel: fax: Referral ID Status Reason Start Date Expiration Date Visits Re quested Visits Authorized [id number] Closed 03/15/2024 05/13/2024 6 6 [facility] N[facility]* Rehabilitation - Outpatient (Routine) - Authorized Specialty Diagnoses / Procedures Referred By Contac t Referred To Contact Physical Therapy Diagnoses Sprain of other ligament of left ankle, initial encounter Procedures VT THER PX 1/> AREAS EACH 15 MIN NEUROMUSC REEDUCA VT THERAPEUTIC PX 1/> AREAS EACH 15 MIN EXERCISES PHYS/OCC THERAPY SS VT MANUAL THERAPY TQS 1/> REGIONS EACH 15 MINUTES Candy Leonardo MD [address] [facility] [place] [address] Phone: tel: fax: [facility] [address] [address] Phone: tel: fax: Referral ID Status Reason Start Date Expiration Date V isits Requested Visits Authorized [id number] Authorized 04/12/2024 06/10/2024 6 6 [facility]* Rehabilitation - Outpatient (Routine) - Closed Specialty Diagnoses / Procedures Referred By Hectorac t Referred To Contact Physical Therapy Diagnoses Sprain of other ligament of left ankle, initial encounter Procedures VT THER PX 1/> AREAS EACH 15 MIN NEUROMUSC REEDUCA VT THERAPEUTIC PX 1/> AREAS EACH 15 MIN EXERCISES PHYS/OCC THERAPY SS VT MANUAL THERAPY TQS 1/> REGIONS EACH 15 MINUTES Candy Leonardo MD [address] [place] [address] [place] [address] Phone: tel: fax: [facility] [address] [address] Phone: tel: fax: Referral ID Status Reason Start Date Expiration Date Visits Re quested Visits Authorized [id number] Closed 04/12/2024 06/10/2024 6 6 [facility]* Rehabilitation - Outpatient (Routine) - Authorized Specialty Diagnoses / Procedures Referred By Violeta t Referred To Contact Physical Therapy Diagnoses Sprain of other ligament of left ankle, initial encounter Procedures VT THER PX 1/> AREAS EACH 15 MIN NEUROMUSC REEDUCA VT THERAPEUTIC PX 1/> AREAS EACH 15 MIN EXERCISES PHYS/OCC THERAPY SS VT MANUAL THERAPY TQS 1/> REGIONS EACH 15 MINUTES Candy Leonardo MD [address] [place] [address] [place] [address] Phone: tel: fax: [facility] [address] [address] Phone: tel: fax: Referral ID Status Reason Start Date Expiration Date V isits Requested Visits Authorized [id number] Authorized 05/08/2024 07/06/2024 6 6 [facility] Assessments Diagnosis Myofascial pain - Primary Unspecified [...] Botox in this encounter* Patient Instructions - Talita Ritchie MD - 03/22/2017 3:48 PM EDT [...] back of arms, abdomen, or thigh Denilson Jacbos CNP Additional Instructions: Call my bacteriologist medical, Courtney Dawson, at [phone] with any questions in this encounter* Patient Instructions* Talita Ritchie MD - 09/27/2018 1:07 PM EDT [...] 80 mg daily 2. Follow up with REVIEW RN in three months documented in this encounter* Patient Instructions* Denilson Jacobs CNP - 07/17/2019 12:57 PM EST Denilson Jacobs CNP Additional Instructions: Call my bacteriologist medical, Courtney Dawson, at [phone] with any questions documented in this encounter [...] repeat Botox injections Talita Ritchie MD Neurologist [facility] * Talita Ritchie MD [...] following dosages: Frontalis 20 units (4 sites) Tool Coordinator 10 units (2 sites) Procerus 5 units [...] in 12 weeks Talita Ritchie MD Neurologist [facility] in this encounter* Denilson Jacobs CNP - 06/29/2018 10:22 AM EST NEUROLOGY Follow-up (Outpatient) on 07/04/2018 [facility] at [address] [place] [address] / [phone] (office) / [phone] (fax) Provider: Denilson Jacobs CNP - - - - - - - - - - - - - - - - - - - - - - - - - - - - - - - - - - - - - - - - - Patient: Brenda Daysantos (: 1975) Neurology Assessment on 07/04/2018 for [...] today. She [place] 2[place]2 hours away from [place] and wondered if there is a specialist closer to [facility]. No orders of the defined types were [...] 10/02/2018) for follow up with Dr. Ritchie. Signed, [...] Abnormal movements: none Rapid alternating movements: normal Qjpbhs-ej-vqpc intact bilaterally Qruu-et-acws intact bilaterally Rhomberg - negative MOTOR - [...] cerebellar hemisphere Brain MRA 2011 - normal in this encounter* Talita Ritchie MD - 09/27/2018 12:48 PM EDT [facility] DATE OF VISIT: 09/27/18 PATIENT [...] referal to headache specialist Dr. Cassidy at [facility] can be considered in the future. Thank you for allowing me to participate in the care of this patient. If you have any questions, please feel free to contact my office. Talita Ritchie MD, ABPN Neurologist [facility] Chief Complaint Patient presents with Headache good in the beginning of the month, thinks the shot is wearing off at the end of month, says havingminor clark during the month but they only last an hr INTERVAL HISTORY: At today's visit, she last saw our REVIEW RN in the office. She was started on [...] POSSIBLE OPEN; Surgeon: Alan Fall MD; Location: [facility] Main OR; Service: steroid injections to back [...] Instructions Prior to Surgery CECILY: Printed on:09/27/18 3590 Medication Information Take last dose on Take [...] Knee flexion Dorsiflexion Plantarflexion Toe spread COORDINATION: Jhyuyj-fq-siru intact bilaterally SENSATION: Light touch equal in [...] Ritchie MD - 12/28/2018 1:00 PM EDT [facility] DATE OF VISIT: 12/28/18 PATIENT [...] referal to headache specialist Dr. Cassidy at [facility] can be considered in the future. Thank you for allowing me to participate in the care of this patient. If you have any questions, please feel free to contact my office. Talita Ritchie MD, ABPN Neurologist [facility] Chief Complaint Patient presents [...] POSSIBLE OPEN; Surgeon: Alan Fall MD; Location: [facility] Main OR; Service: steroid injections to back [...] file Gets together: Not on file Attends voodoo service: Not on file Active member of [...] Nitroglycerin; Vicodin [hydrocodone-acetaminophen]; and Adhesive Stickles, Brenda Contreras Medication Instructions Prior to Surgery CECILY: Printed on:12/28/18 1322 Medication Information Take last dose on Take [...] Knee flexion Dorsiflexion Plantarflexion Toe spread COORDINATION: Wnyfqm-qe-lnve intact bilaterally SENSATION: Light touch equal in [...] Ritchie MD - 04/06/2019 3:52 PM EDT [facility] DATE OF VISIT: 04/06/19 PATIENT [...] stopped. Follow up with three months with REVIEW RN. Thank you for allowing me to participate in the care of this patient. If you have any questions, please feel free to contact my office. Talita Ritchie MD, ABPN Neurologist [facility] Chief Complaint Patient presents [...] POSSIBLE OPEN; Surgeon: Alan Fall MD; Location: [facility] Main OR; Service: steroid injections to back [...] file Gets together: Not on file Attends voodoo service: Not on file Active member of [...] Latex; Nitroglycerin; Vicodin [hydrocodone-acetaminophen]; and Adhesive Stickles, Talania Chapito Home Medication Instructions Prior to Surgery CECILY: Printed on:04/06/19 2186 Medication Information Take last dose on Take [...] Knee flexion Dorsiflexion Plantarflexion Toe spread COORDINATION: Nqhpid-qy-bmyx intact bilaterally SENSATION: Light touch equal in [...] PM EST NEUROLOGY Follow-up (Outpatient) on 07/17/2019 [facility] at [address] [place] [address] / [phone] (office) / [phone] (fax) Provider: Denilson Jacobs CNP - - [...] Location: all over head Quality: sharp Severity: 03/16 Associated symptoms: photophobia, phonophobia and nausea Duration: [...] Abnormal movements: none Rapid alternating movements: normal Tqtyyj-ab-etss intact bilaterally Qdhv-lz-pjuz intact bilaterally MOTOR - MUSCLE STRENGTH: Right [...] normal documented in this encounter Advance Directives Latest Code Status on File Code Status Date Activated Date Inactivated Comments Full Code - Unverified 12/28/2014 10:25 AM 12/29/2014 11 :58 AM Documents on File Type Date Recorded 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 [employer] 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 anation Advance Directives and Living Will Latest Code Status on File Code Status Date Activated Date Inactivated Comments Full Code - Unverified 12/28/2014 10:25 AM 12/29/2014 11 :58 AM Documents on File Type Date Recorded 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 [employer] Expl anation Advance Directives and Living Will [...] Or Brain Without Contrast Talita Ritchie MD [address] [facility] [address] [place] [address] Status Reason Specialty Diagnoses / Procedures Re ferred By Contact Referred To Contact Pending Review Diagnoses Chronic nonintractable headache, unspecified headache type Denilson Jacobs CNP [address] [facility] [address] [place] [address] Status Reason Specialty Diagnoses / Procedures Referred By Contact Referred To Contact Authorized Specialty Services Required/Patien t's Best Interest Physical Therapy Diagnoses Chronic midline low back pain with left-sided sciatica Talita Ritchie MD [address] [facility] [address] [place] [address] Status Reason Specialty Diagnoses / Procedures Re ferred By Contact Referred To Contact Closed Diagnoses Chronic nonintractable headache, unspecified headache type Talita Ritchie MD [address] [facility] [address] [place] [address] Summary Purpose Family History No Family History [...] Reason Onset Date Comments Med Refill 08/27/2023 Specialty Diagnoses / Procedures Referred By Contac t Referred To Contact Physical Therapy Diagnoses Sprain of other ligament of left ankle, initial encounter Procedures [place] PHYSICAL THERAPY EVALUATION LOW COMPLEX 20 MINS Candy Leonardo MD [address] [place] [address] [place] [address] [address] [facility] [place] [address] Referral ID Status Reason Start Date Expiration Date V isits Requested Visits Authorized [id number] Authorized 03/15/2024 05/13/2024 6 6 Reason Comments Botulinum Toxin Injection Reason Onset Date Comments Med Refill 06/05/2024 Reason Comments Follow-up 1 year INFORMATION SOURCE (unrecogn ized section and content) DATE CREATED AUTHOR 11/11/2020 [facility] DATE CREATED AUTHOR AUTHOR'S ORGANIZ ATION 06/24/2021 [facility] DATE CREATED AUTHOR AUTHOR'S ORGANIZ ATION 07/26/2021 [facility] DATE CREATED AUTHOR AUTHOR'S ORGANIZ ATION 09/11/2022 [facility] DATE CREATED AUTHOR AUTHOR'S ORGANIZ ATION 12/05/2023 [facility] DATE CREATED AUTHOR AUTHOR'S ORGANIZ ATION 03/03/2024 [facility] DATE CREATED AUTHOR AUTHOR'S ORGANIZ ATION 06/20/2024 [facility] Specialists [facility] DATE CREATED AUTHOR AUTHOR'S ORGANIZ ATION 06/28/2024 [facility] Care Teams (unrecognized sec tion and content) Car Conditioner Relationship Specialty Start Date End Date Enio Dupont MD [address] [place] [id number] PCP - General Internal Medicine 11/08/19 Car Conditioner Relationship Specialty Start Date End Date October, Jeremiah Lund MD [address] [place] [address] PCP - General Family Medicine 12/24/14 11/07/19 Enio Dupont MD [address] [place] [address] PCP - General Internal Medicine 11/08/19 Car Conditioner Relationship Specialty Start Date End Date October, Jeremiah Lund MD [address] [place] [address] PCP - General Family Medicine 12/24/14 11/07/19 Enio Dupont MD [address] [place] [address] PCP - General Internal Medicine 11/08/19 Car Conditioner Relationship Specialty Start Date End Date Marium Garcia DO [address] [place] [address] PCP - General Family Medicine 05/08/22 Car Conditioner Relationship Specialty Start Date End Date Marium Garcia DO [address] [place] [address] PCP - General Family Medicine 05/08/22 Car Conditioner Relationship Specialty Start Date End Date Marium Garcia DO [address] [place] [address] PCP - General Family Medicine 05/08/22 Car Conditioner Relationship Specialty Start Date End Date Marium Garcia DO [address] [place] [address] PCP - General Family Medicine 05/08/22 Car Conditioner Relationship Specialty Start Date End Date Marium Garcia DO [address] [place] [address] PCP - General Family Medicine 12/2/22 Car Conditioner Relationship Specialty Start Date End Date Malaika Jc MD [address] [place] [address] PCP - [facility] Medicine 10/13/22 Car Conditioner Relationship Specialty Start Date End Date Malaika Jc MD [address] [place] [address] PCP - General [facility] Medicine 10/13/22 Car Conditioner Relationship Specialty Start Date End Date Malaika Jc MD [address] [place] [address] PCP - General [facility] Medicine 10/13/22 Car Conditioner Relationship Specialty Start Date End Date Malaika Jc MD [address] [place] [address] PCP - General [facility] Medicine 10/13/22 Car Conditioner Relationship Specialty Start Date End Date Malaika Jc MD [address] [place] [address] PCP - [facility] Medicine 10/13/22 Car Conditioner Relationship Specialty Start Date End Date Malaika Jc MD [address] [place] [address] PCP - General [facility] Medicine 10/13/22 Car Conditioner Relationship Specialty Start Date End Date Malaika Jc MD [address] [place] [address] PCP - General [facility] Medicine 10/13/22 Car Conditioner Relationship Specialty Start Date End Date Malaika Jc MD [address] [place] [address] PCP - General Family Medicine 10/13/22 Car Conditioner Relationship Specialty Start Date End Date Malaika Jc MD [address] [place] [address] PCP - General Family Medicine 10/13/22 Car Conditioner Relationship Specialty Start Date End Date Malaika Jc MD [address] [place] [address] PCP - General Family Medicine 10/13/22 Car Conditioner Relationship Specialty Start Date End Date Malaika Jc MD [address] [place] [address] PCP - General Family Medicine 10/13/22 Car Conditioner Relationship Specialty Start Date End Date Malaika Jc MD [address] [place] [address] PCP - General Family Medicine 10/13/22 Car Conditioner Relationship Specialty Start Date End Date Malaika Jc MD [address] [place] [address] PCP - General Family Medicine 10/13/22 Car Conditioner Relationship Specialty Start Date End Date Malaika Jc MD [address] [place] [address] PCP - General Family Medicine 10/13/22 Car Conditioner Relationship Specialty Start Date End Date Malaika Jc MD [address] [place] [address] PCP - General Family Medicine 10/13/22 Car Conditioner Relationship Specialty Start Date End Date Unallocated, [place] [address] PCP - General Family Medicine 05/25/24 Car Conditioner Relationship Specialty Start Date End Date Unallocated, Sonny Cabrera MD [address] [place] [address] PCP - General Family Medicine 05/25/24 Liliam Mckeon MD [address] [place] [address] Referring Physician Family Medicine 06/14/24 Shahram Matt DO [address] [place], [place] [id number] Referring Physician Neurology 06/14/24 Car Conditioner Relationship Specialty Start Date End Date Unallocated, Sonny Cabrera MD [facility] [place] [address] PCP - General Family Medicine 05/25/24 Liliam Mckeon MD [address] [place] [address] Referring Physician Family Medicine 06/14/24 Shahram Matt DO [address] [place] [address] Referring Physician Neurology 06/14/24 Car Conditioner Relationship Specialty Start Date End Date Liliam Mckeon JOB PRINTER APPRENTICE-REVIEW RN [address] [place] [phone] PCP - General Nurse Practitioner 12/22/23 Car Conditioner Relationship Specialty Start Date End Date Liliam Mckeon JOB PRINTER APPRENTICE-REVIEW RN [address] [phone] PCP - General Nurse Practitioner 12/22/23 Car Conditioner Relationship Specialty Start Date End Date Bogdan Mckeonine KarimeSERENE [address] [place] [address] PCP - General Nurse Practitioner 12/22/23 Car Conditioner Relationship Specialty Start Date End Date Ajevelin LiliamSERENE Dykes [address] [place] [address] PCP - General Nurse Practitioner 12/22/23 FOR RECORDS PERTAINING TO PATIENTS WHO ARE [...] BE BASED ON THE PRIMARY CLINICAL RECORDS. [facility] [employer] provides no warranty or guarantee of the accuracy or completeness of information in this document.
== END 2024-07-11 07:56 | disposition home or self-care (01) ==
LOC: RAD 07:55
PROVIDERS: Visit Provider Podiatrist Foot & Ankle Surgery
DX: M25.571 Pain in right ankle and joints of right foot (principal)
CPT/HCPCS: 73610

== ENCOUNTER 2024-12-14 12:10 | Outpatient (OUT) | payer MEDICARE, MEDICAID, SELFPAY ==
--- OUTSIDE RECORDS SUMMARY | 2024-08-08 05:30 | XMS_ITS ---
Author Organization [facility] in [place] Address [address] [place] [address] Care Team Providers Care Motorcycle Fabricator Name Role Phone None, Unknown or Primary Care Provider Unavailab Young Carroll [phone] Allergies Allergen (clinical drug ingredient) Drug/Non Drug Allergy documented on EMR Reaction Allergy Type Onset Date Status aspirin Aspirin Unknown Drug Allergy Active Darvocet-N 50 Unknown Drug Allergy Act danelle valproate Depakote Unknown Drug Allergy Active sumatriptan Imitrex Unknown Drug Allergy Activ e Motrin Unknown Drug Allergy Active naproxen Naprosyn Unknown Drug Allergy Active naproxen Naproxen Unknown Drug Allergy Active Vicodin Unknown Drug Allergy Active Wasp Venom Unknown Drug Allergy Active Pineapple Extract Unknown Drug Allergy Active Bee Sting Unknown Allergy Active coconut oil Coconut Oil Unknown Drug Allergy Act danelle heparin Heparin Unknown Drug Allergy Active Latex Latex Unknown Allergy Active nitroglycerin Nitroglycerin Unknown Drug Allergy Active REASON FOR VISIT 1 month f/u Medications Medication SIG (Take, Route, Frequency, Duration) Notes Start Date End Date Status Potassium Chloride Valeria ER 10 MEQ 1 tablet with food Orally Twice a day Active Omeprazole 20 MG 1 capsule 30 minutes before morning meal Orally Once a day Active Multivitamin - 1 tablet Orally Once a day Active Topiramate 100 MG 1 tablet Orally Once a day Active Montelukast Sodium 10 MG 1 tablet Orally Once a day Active Lyrica 100 MG 1 capsule Orally Onc e a day Active Euthyrox 88 MCG 1 tablet in the morn ing on an empty stomach Orally Once a day Active Loratadine 10 MG 1 tablet Orally Once a day Active Furosemide 20 MG 1 tablet Orally Once a day Active Breo Ellipta 100-25 MCG/ACT 1 puff Inhalation Once a day Active amLODIPine Besylate 5 MG 1 tablet Orally Once a day Active Albuterol Sulfate HFA 108 (90 Base) MCG/ACT Inhalation for 30 Days Active Emgality 120 MG/ML as directed Subcutaneous Active Nurtec Active Social History Tobacco Use: Social History Observation Description Date Details (start date - stop date) Former Smoker NA - NA Tobacco Use/Smoking Question Answer Notes Patient is a former smoker Section Notes: former smoker Vital Signs Heart Rate 81 /min 08/08/2024 Respiratory Rate 16 /min 08/08/2024 Height 64 in 08/08/2024 Weight 350 lbs 08/08/2024 BMI 60.07 kg/m2 08/08/2024 Oximetry 98 % 08/08/2024 Patient reported weight Encounters Encounter Location Date Provider Diagnosis [facility] (PODIATRY) [address] [place] [address] [place] [address] 08/08/2024 Young Peña Osteochondral defect of ankle M95.8 and Other specified joint disorders, left ankle and foot M25.872 Assessments Encounter Date Diagnosis (ICD Code) Assessment Notes Treatment Notes Treatment Clinical Notes Section Notes 08/08/2024 Osteochondral defect of ankle (ICD-10 - M95.8) Patient presents for follow up for osteochondral defect of left talus. At last visit she underwent corticosteroid injection and had temporary relief. Given that she is unable to undergo surgery at this point in time she requested an additional corticosteroid injection. I educated her on the potential risks and benefits of corticosteroid injections and that it is likely that she may not receive much more benefit than she did from the first but given she is doing everything she can to postpone surgery I believe that the risks outweigh the benefits.After consent was obtained the skin over the anterior medial ankle was prepared with Betadine followed by alcohol and an injection consisting of 1 cc of Celestone and 1 cc of Marcaine was injected into the tibiotalar joint via anterior medial approach was administered. Patient tolerated the injection well and the injection site was dressed with a Band-Aid. She will follow-up in my new office once I am credentialed under her insurance. She may call this office in the meantime with any issues or concerns. I again did offer referral information which she declined 08/08/2024 Other specified joint disorders, left ankle and foot (ICD-10 - M25.872) 08/08/2024 Other Patient also requested and I believe she would recieve benefit from a wheelchair to help her mobility especially on long distances. A prescription was provided. Plan Of Treatment Treatment Notes Assessment Notes Osteochondral defect of ankle Patient pr esents for follow up for osteochondral defect of left talus. At last visit she underwent corticosteroid injection and had temporary relief. Given that she is unable to undergo surgery at this point in time she requested an additional corticosteroid injection. I educated her on the potential risks and benefits of corticosteroid injections and that it is likely that she may not receive much more benefit than she did from the first but given she is doing everything she can to postpone surgery I believe that the risks outweigh the benefits.After consent was obtained the skin over the anterior medial ankle was prepared with Betadine followed by alcohol and an injection consisting of 1 cc of Celestone and 1 cc of Marcaine was injected into the tibiotalar joint via anterior medial approach was administered. Patient tolerated the injection well and the injection site was dressed with a Band-Aid. She will follow-up in my new office once I am credentialed under her insurance. She may call this office in the meantime with any issues or concerns. I again did offer referral information which she declined Other Patient also request ed and I believe she would recieve benefit from a wheelchair to help her mobility especially on long distances. A prescription was provided. Progress Notes * Brenda SIMMSDOB: [birth year] (48 yo F)Acc No.[id number]:08/08/2024 Follow Up Patient: Brenda MORENO Provider: Nica Peña DPM, MS :1975 A ge:48 Y S ex:Female Date:08/08/2024 Address:[address] [place] [address], [address] [place], [place] [id number] Pcp:Unknown or None Check In:09:18 AM ESTCheck O ut:10:59 AM EST Subjective: * Chief Complaints: * 1 month f/u * HPI: G eneral: Patient here to follow up left ankle/foot pain. Patient rolled her foot and heard a snap in her lateral ankle DOI:9.14.24. Pt alternates between ASO and CAM boot, depending on activity. Injection to ankle on 07/11/24 helped for about one week. Rates pain today 08/14. She has had surgery to the right ankle in the past, s/p right ankle arthroscopy, open repair of OCD, lateral displacement calcaneal osteotomy, right tibia bone marrow harvest DOS: 06.15.2022. She remains very happy with her right ankle and is not limited in any way from her right ankle however continues to have daily limitation with her left ankle. * ROS: G eneral/Constitutional: Chills d enies. F ever d enies. W eight gain?denies. W eight loss d enies. S kin: Skin Ulcers d enies. S kin lesion(s) d enies. ? C ardiovascular: Difficulty breathing on exertion d enies. L eg cramps?denies. E shai d enies. C hest pain d enies. R espiratory: Difficulty breathing d enies. D yspnea d enies.?Cough d enies. G astrointestinal: Diarrhea d enies. N ausea d enies. V omiting?denies. M usculoskeletal: Bone/Joint Symptoms d enies. C danica Pain d enies.?Leg cramps d enies. N eurologic: Numbness d enies. T ingling d enies . G ait abnormality d enies. ? H ematology: Anemia D enies. E asy bruising d enies. ? A ll Other Systems: Review of Systems (ROS) S ee HPI for details,All others negative except those mentioned in HPI. * Active Problem List M95.8 Osteochondral defect of ankle Modified On:06/01/2023W/U Status:confirmed M25.571 Arthralgia of right ankle Modified On:06/01/2023/U Status:confirmed M25.372 Left ankle instabili ty Modified On:08/13/2022/U Status:confirmed M25.871 Ankle impingement sy ndrome, right Modified On:06/01/2023/U Status:confirmed S93.421S Sprain of deltoid li gament of right ankle, sequela Modified On:06/01/2023/U Status:confirmed M76.61 Achilles tendinitis, right leg Modified On:06/01/2023/U Status:confirmed M25.571 Right ankle pain Modified On:07/05/2024/U Status:confirmed M25.572 Left ankle pain Modified On:07/11/2024/U Status:confirmed M19.072 Primary osteoarthrit is, left ankle and foot Modified On:07/11/2024/U Status:confirmed * Medical History: * Surgical History: r ight ankle arthroscopy, open repair of osteochondral defect, lateral displacement calcaneal osteotomy, bone graft harvest Dr. Peña 06/15/2022all bladder surgery 2015tonsillectomy and adenoidectomy 2002 * Hospitalization/Major Diagno stic Procedure: s ee above * Family History: M other: alive. F ather: diagnosed with Unspecified essential hypertension. B rother(s): diagnosed with Diabetes mellitus without mention of complication, type II or unspecified type, not stated as uncontrolled. P aternal Grandfather: diagnosed with Unspecified essential hypertension. P aternal Grandmother: diagnosed with Diabetes mellitus without mention of complication, type II or unspecified type, not stated as uncontrolled, Unspecified heart disease. M aternal Grandfather: diagnosed with Diabetes mellitus without mention of complication, type II or unspecified type, not stated as uncontrolled, Unspecified essential hypertension, Unspecified heart disease. M aternal Grandmother: diagnosed with Diabetes mellitus without mention of complication, type II or unspecified type, not stated as uncontrolled, Unspecified heart disease. * Social History: T obacco Use: T obacco Use/Smoking P atient is a f ormer smoker f ormer smoker. * Medications: T akingAlbuterol Sulfate HFA 108 (90 Base) MCG/ACT Aerosol Solution Inhalation amLODIPine Besylate 5 MG Tablet 1 tablet Orally Once a day Breo Ellipta(Fluticasone Furoate-Vilanterol) 100-25 MCG/ACT Aerosol Powder Breath Activated 1 puff Inhalation Once a day Emgality(Galcanezumab-gnlm) 120 MG/ML Solution Auto-injector as directed Subcutaneous Euthyrox(Levothyroxine Sodium) 88 MCG Tablet 1 tablet in the morning on an empty stomach Orally Once a day Furosemide 20 MG Tablet 1 tablet Orally Once a day Loratadine 10 MG Tablet 1 tablet Orally Once a day Lyrica(Pregabalin) 100 MG Capsule 1 capsule Orally Once a day Montelukast Sodium 10 MG Tablet 1 tablet Orally Once a day Multivitamin(Multiple Vitamin) - Tablet 1 tablet Orally Once a day Nurtec Omeprazole 20 MG Capsule Delayed Release 1 capsule 30 minutes before morning meal Orally Once a day Potassium Chloride Valeria ER 10 MEQ Tablet Extended Release 1 tablet with food Orally Twice a day Topiramate 100 MG Tablet 1 tablet Orally Once a day Taking Albuterol Sulfate HFA 108 (90 Base) MCG/ACT Aerosol Solution Inhalation Taking amLODIPine Besylate 5 MG Tablet 1 tablet Orally Once a day Taking Breo Ellipta(Fluticasone Furoate-Vilanterol) 100-25 MCG/ACT Aerosol Powder Breath Activated 1 puff Inhalation Once a day Taking Emgality(Galcanezumab-gnlm) 120 MG/ML Solution Auto-injector as directed Subcutaneous Taking Euthyrox(Levothyroxine Sodium) 88 MCG Tablet 1 tablet in the morning on an empty stomach Orally Once a day Taking Furosemide 20 MG Tablet 1 tablet Orally Once a day Taking Loratadine 10 MG Tablet 1 tablet Orally Once a day Taking Lyrica(Pregabalin) 100 MG Capsule 1 capsule Orally Once a day Taking Montelukast Sodium 10 MG Tablet 1 tablet Orally Once a day Taking Multivitamin(Multiple Vitamin) - Tablet 1 tablet Orally Once a day Taking Nurtec Taking Omeprazole 20 MG Capsule Delayed Release 1 capsule 30 minutes before morning meal Orally Once a day Taking Potassium Chloride Valeria ER 10 MEQ Tablet Extended Release 1 tablet with food Orally Twice a day Taking Topiramate 100 MG Tablet 1 tablet Orally Once a day DiscontinueddexAMETHasone Sodium Phosphate 4 MG/ML Solution 1.5ml-2.5ml topically up to 3 times weekly with physical therapy Ubrelvy(Ubrogepant) 100 MG Tablet 1 tablet may take second dose at least 2 hours after first dose as needed Orally Once a day Medication List reviewed and reconciled with the patientDiscontinued dexAMETHasone Sodium Phosphate 4 MG/ML Solution 1.5ml-2.5ml topically up to 3 times weekly with physical therapy Discontinued Ubrelvy(Ubrogepant) 100 MG Tablet 1 tablet may take second dose at least 2 hours after first dose as needed Orally Once a day Medication List reviewed and reconciled with the patient * Allergies: D epakoteNaproxenNitroglycerinImitrexHeparinVicodinNaprosynMotrinDarvocet-N 50AspirinLatexPineapple ExtractCoconut OilWasp VenomBee Stingno[Allergies Verified] Objective: * Vitals: W t:350lbs, Ht: 64 in, HR:81/min, RR:16/min, BMI:60.07Index, Pain scale:31-10, Oxygen sat %:98%, Ht-cm: 162.56 cm, Wt-k.76 kg. Patient reported weight. * Examination: P odiatry Examination: SKIN: s kin intact, n o sign of infection. MUSCULOSKELETAL: P ain on palpation over the anterior ankle but no pain over the malleoli, navicular tuberosity or fifth metatarsal base. Anterior drawer is seemingly negative but with mild guarding. NEUROLOGICAL: l ight touch sensation intact, n egative tinel's sign. VASCULAR: P edal pulses palpable, C apillaryrefill is brisk to toe, D igitalhair intact. Assessment: * Assessment: 1. O steochondral defect of ankle - M95.8 (Primary) 2 . O ther specified joint disorders, left ankle and foot - M25.872 Plan: * Treatment: 2. O thers Notes: Patient also requested and I believe she would recieve benefit from a wheelchair to help her mobility especially on long distances. A prescription was provided. * Procedure Codes: 2 0605 ASPIRINJ. INTER., Modifiers: LT * * Sign off status: Completed Visit Status: C HK (Check Out) true * Provider: Nica Peña DPM, MS Date: 0 08/08/2024 Generated for Paul colin/Delia/Adam on: 0 12/14/2024 12:14 PM EDT History and Physical Notes * Examination Category Sub-Category Detail Notes Category Not es Podiatry Examination SKIN: skin intact, no sign of infection MUSCULOSKELETAL: Pain on palpation ov er the anterior ankle but no pain over the malleoli, navicular tuberosity or fifth metatarsal base. Anterior drawer is seemingly negative but with mild guarding NEUROLOGICAL: light touch sensatio n intact, negative tinel's sign VASCULAR: Pedal pulses palpable, Capillary refill is brisk to toe, Digital hair intact
--- OUTSIDE RECORDS SUMMARY | 2024-08-16 06:50 | XMS_ITS ---
Author Organization [facility] in [place] Address [address] [place] [address] Care Team Providers Care Tier And Detonator Name Role Phone None, Unknown or Primary Care Provider Unavailab Young Carroll [phone] Encounters Encounter Location Date Provider Diagnosis [facility] (PODIATRY) [address] [place] [address] [place] [address] 08/16/2024 Young Peña Plan Of Treatment No Information Progress Notes * DEMI BrendaDOB: [birth year] (48 yo F)Acc No.[id number]:08/16/2024 Patient: Brenda MORENO :1975 A ge:48 Y S ex:Female Address:[address], [address], [place], [address] * true * Date: Generated for Kathyi ng/Favioletg/eTransmitting on: 0 12/14/2024 12:13 PM EDT
--- OUTSIDE RECORDS SUMMARY | 2024-08-17 09:01 | XMS_ITS ---
Author Organization [facility] in [place] Address [address] [place] [address] Care Team Providers Care Dovetailer Name Role Phone None, Unknown or Primary Care Provider Unavailab Young Carroll [phone] Encounters Encounter Location Date Provider Diagnosis [facility] (PODIATRY) [address] [place] [address] [place] [address] 08/17/2024 Young Peña Plan Of Treatment No Information Progress Notes * Brenda SIMMSDOB: [birth year] (48 yo F)Acc No.[id number]:08/17/2024 Patient: Brenda MORENO :1975 A ge:48 Y S ex:Female Address:[address], [address], [place], [address] Subjective: * Chief Complaints: * * Medical History: * Surgical History: * Hospitalization/Major Diagno stic Procedure: * Medications: Objective: * Vitals: * Physical Examination: Assessment: Plan: * Treatment: * Procedure Codes: * Addendum: * true * Date: Generated for Kathyi dixie/Delia/eTransmitting on: 0 12/14/2024 12:13 PM EDT
--- OUTSIDE RECORDS SUMMARY | 2024-09-04 06:00 | XMS_ITS ---
Author Organization [facility] Address [address] [place] [id number] Care Team Providers Care Food Checkers And Cashiers Supervisor Name Role Phone Ghazal Garcia Primary Care Provider Liliam Mckeon [phone] REASON FOR VISIT 3 month Allergies Social History Sex Assigned At : Social History Observation Description Sex Assigned At Female Encounters Encounter Location Date Provider Diagnosis Main [address] [place], [place] [id number] 09/04/2024 Liliam Mckeon Plan Of Treatment Next Appt Details Provider Name:Ghazal Garcia , 05/21/2025 08:45:00 AM, [address] [place], [phone], Progress Notes * Brenda SIMMSDOB:[birth year] (49 yo F)Acc No.[id number]:09/04/2024 Medical Note Patient: Yeimi ONEIL Brenda Lucinda Provider: DANNI Santos :1975 A ge:48 Y S ex:Female Date:09/04/2024 [address] [place] Pcp:Ghazal Garcia Subjective: * Chief Complaints: * 1 . 3 month Allergies. * Medical History: Objective: * Vitals: Assessment: Plan: * Treatment: * Billing Information: * Visit Code: * Procedure Codes: * Electronic signature of DANNI Marcus on 12/14/2024 at 12:13 PM EDT Sign off status: Pending * Provider: DANNI Santos Date: 0 09/04/2024 Generated for Paul colin/Delia/Adam on: 0 12/14/2024 12:13 PM EDT
--- OUTSIDE RECORDS SUMMARY | 2024-12-14 12:13 | XMS_ITS | Encounter Summary ---
Author Organization [facility] Address [address] [place] [address] Care Team Providers Care Trade Analyst Name Role Phone Jeremiah Topete MD Primary Care Provider [phone] Enio Dupont MD Primary Care Provider + Encounter Details Date Type Department Care Team (Late st Contact Info) Description 10/19/2017 Documentation [facility], Neuroscience [address] [place] [address] [place] [address] [place] [address] [address] [id number] Social History Tobacco Use Types Packs/Day Years Used Date Smoking Tobacco: Former Cigarettes 0.5 10 0 12/26/1998 - 12/26/2008 Smokeless Tobacco: Never Alcohol Use Standard Drinks/Week Comments No 0 (1 standard drink = 0.6 oz pur e alcohol) Comments No Sex and Gender Information Value Date Recorded Sex Assigned at Not on file Legal Sex Female 10:12 AM EDT Gender Identity Female 04/05/2018 9:28 AM EDT Sexual Orientation Straight 06/27/2018 4: 58 AM EST documented as of this encounter Plan of Treatment Not on file documented as of this encounter Visit Diagnoses Not on filedocumented in this encounter Additional Health Concerns Assessment Noted Time PHQ-2 Depression Total Score: 1 08/10/19 18 12:00 PM EST documented as of this encounter Care Teams Trade Analyst Relationship Specialty Start Date End Date October, Jeremiah Lund MD [address] [place] [address] PCP - General Family Medicine 12/24/14 11/07/19 Enio Dupont MD [address] [place] [phone] PCP - General Internal Medicine 11/08/19 documented as of this encounter
--- OUTSIDE RECORDS SUMMARY | 2024-12-14 12:13 | XMS_ITS | Encounter Summary ---
Author Organization [facility] Address [address] [place] [address] Care Team Providers Care Black And White Printer Operator Name Role Phone Rosalinda Garcia MD Primary Care Provider [phone] Source Comments In the event this information is protected by the Federal Confidentiality of Alcohol and Drug AbusePatient Records regulations: The Federal rules restrict any use of the information to criminally investigate or prosecute any alcohol or drug abuse patient.[facility] Encounter Details Date Type Department Care Team (Late st Contact Info) Description 01/03/2024 Lab [facility] [address] [place] [address] Israel Unger MD [address] [place] [address] Person encountering health services to consult on behalf of another person Social History Tobacco Use Types Packs/Day Years Used Date Smoking Tobacco: Never Assessed Comments Unknown Sex and Gender Information Value Date Recorded Sex Assigned at Not on file Legal Sex Female 12:15 PM EDT Gender Identity Not on file Sexual Orientation Not on file documented as of this encounter Plan of Treatment Not on file documented as of this encounter Procedures Procedure Name Priority Date/Time Associated Diagnosis Comments SURGICAL PATHOLOGY REFERENCE LAB CONSULT Routine 01/03/2024 8:45 PM EDT Person encountering health services to consult on behalf of another person documented in this encounter Results * SURGICAL PATHOLOGY REFERENCE LAB CONSULT (01/03/2024 8:45 PM EDT) Case Report Surgical Pathology Report Case: [id number] Authorizing Provider: Israel Unger MD Collected: 01/03/2024 08:45 PM Ordering Location: [facility] Received: 01/03/2024 08:35 PM [facility] Pathologist: Grady Rodrigues MD Specimen: Block(s) and/or Slide(s), 8 SLIDES / 1 BLOCK [id number]; A 01/04/2024 5:23 PM EDT [facility] FINAL DIAGNOSIS Review of outside slides A. Uterus, endometrium, biopsy - Extensive endometrial glandular and stromal breakdown with focal gland crowding, see comment - Focal progestational effect 01/04/2024 5:23 PM EDT [facility] at 1723 EDT Diagnosis Comment Thank you for the opportunity to review slides from this 48-year-old patient. The stromal breakdown has elicited surface metaplastic change, which is not interpreted as neoplastic. Focal gland crowding is also present. The differential diagnosis includes artifactual gland crowding due to stromal breakdown and focal nonatypical hyperplasia. Continuous Washer Operator slides were shown at gynecologic pathology [...] hyperplasia, an endometrial curettage should be considered. 01/04/2024 5:23 PM EDT [facility] Clinical History CONSULT REQUESTED 01/04/2024 5:23 PM EDT [facility] Performing Lab Diagnostic interpretation performed at [facility], [address] [place] [address] CLIA# [id number] Boat Fueler: Erik Brush M.D. 01/04/2024 5:23 PM EDT [facility] Blocks or Slides PARAFFIN EMBEDDED TISSUE BLOCK SPECIMEN / Unknown 01/03/2024 8:45 PM EDT 01/03/2024 8:35 PM EDT us Israel Unger MD SURGICAL PATHOLOGY Final Result [facility] [address] [place] [address], documented in this encounter Visit Diagnoses Diagnosis Person encountering health services to consult on behalf of another person Other person consulting on behalf of another person documented in this encounter Care Teams Black And White Printer Operator Relationship Specialty Start Date End Date Rosalinda Garcia MD PCP - General Neurology 11/16/12 documented as of this encounter
--- OUTSIDE RECORDS SUMMARY | 2024-12-14 12:13 | XMS_ITS | Patient Health Record ---
Author Organization [facility] [place] Address [address] [place] [address] Care Team Providers Care Construction Consultant Name Role Phone None, Unknown or Primary Care Provider Unavailab Candy Carroll Unavailable [phone] Allergies Allergen (clinical drug ingredient) Drug/Non Drug [...] Active nitroglycerin Nitroglycerin Unknown Drug Allergy Active Results Component Value Reference Range Notes XR ankle LT min 3V (Not yet reviewed by provider) Interpretation: Performing Lab: Notes/Report: Source Facility: [facility] [place] [address] [facility] [place] [id number] XRay Report Signed Patient: BRENDA SIMMS MR#: [id number] : 1975 Acct:[id number] Age/Sex: 48 / F ADM Date: 07/11/24 Loc: RAD Attending Dr: Candy Peña D.P.M. Ordering Physician: Candy Peña D.P.M. Date of Service: 07/11/24 Procedure(s): XR ankle LT min 3V Accession Number(s): [id number] cc: Candy Peña D.P.M.; Physician,Non-Staff [place] [id number] Patient Name: BRENDA SIMMS MRN: [id number] date: 1975 Sex: F Assigned Patient Location: RAD Current Patient Location: Accession/Order Number: [id number] Exam Date: 07/11/2024 08:05 Report Date: 07/13/2024 10:24 At the request of: CANDY PEÑA Procedure: XR ankle LT min 3V PROCEDURE: XR ankle LT min 3V COMPARISON: 02/22/2024 HISTORY: Right Ankle Pain FINDINGS: BONES:No acute fracture or dislocation. Stable corticated bone fragments along the inferior medial malleolus, remote injuries. Degenerative changes with marginal osteophyte formation and enthesopathic spurring of the calcaneus SOFT TISSUES:Negative. No visible soft tissue swelling. EFFUSION:None visible. OTHER: Negative. XR/XR ankle LT min 3V IMPRESSION: Degenerative changes, no acute fracture Electronically authenticated by: CORBY MARQUEZ Date: 07/13/2024 10:24 Dictated By: Corby Marquez M.D. 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 Ordering Physician: Candy Peña D.P.M. Date of Service: 07/11/24 Procedure(s): XR ankle LT min 3V Accession Number(s): [id number] cc: Candy Peña D.P.M.; Physician,Non-Staff [place] [address] Patient Name: BRENDA SIMMS MRN: [id number] date: 1975 Sex: F Assigned Patient Location: [facility] Current Patient Location: Accession/Order Numb er: [id number] Exam Date: 07/11/2024 08:05 Report Date: 07/13/2024 10:24 At the request of: CANDY PEÑA Procedure: XR ankle LT min 3V PROCEDURE: XR ankle LT min 3V COMPARISON: 02/22/2024 HISTORY: Right Ankle Pain FINDINGS: BONES:No acute fract ure or dislocation. Stable corticated bone fragments along the inferior medial malleolus, remote injuries. Degenerative changes with marginal osteophyte formation and enthesopathic spurring of the calcaneus SOFT TISSUES:Negativ e. No visible soft tissue swelling. EFFUSION:None visible. OTHER: Negative. X R/XR ankle LT min 3V IMPRESSION: Degenerative changes , no acute fracture Electronically authe nticated by: CORBY MARQUEZ Date: 07/13/2024 10:24 Dictated By: Corby Marquez M.D. Signed By: 07/13/24 1026 DD/ 1024 TD/TT: Metal Building Assembler: Reason For Referral Reason [facility] for wheelchair as requested by patient Diagnosis 1 Sprain of other liga ment of left ankle, initial encounter (S93.492A) Diagnosis 2 Left ankle instabili ty (M25.372) Referral Organization [facility] (PODIATRY) Referring Provider First Name Candy [facility]erring Provider [facility] Referring Provider Speciality Podiatry Referred Provider Specialty Other suppli er Referral Priority Routine Reason evaluation and treat ment -- see attached order Diagnosis 1 Sprain of other liga ment of left ankle, initial encounter (S93.492A) Referral Organization [facility] ([facility]) Referring Provider First Name Candy Referring Provider Last Name [facility] Referring Provider Speciality Podiatry Referred Provider [facility] Hayder COLÓN Referred Provider Specialty Physical Med icine and Rehabilitation Referral Priority Routine Medications Medication SIG (Take, Route, Frequency, Duration) Notes Start Date End Date Status Euthyrox 88 MCG 1 tablet in the morn ing on an empty stomach Orally Once a day Active Emgality 120 MG/ML as directed Subcutaneous Active Loratadine 10 MG 1 tablet Orally Once a day Active Furosemide 20 MG 1 tablet Orally Once a day Active Topiramate 100 MG 1 tablet Orally Once a day Active Breo Ellipta 100-25 MCG/ACT 1 puff Inhalation Once a day Active amLODIPine Besylate 5 MG 1 tablet Orally Once a day Active Potassium Chloride Valeria ER 10 MEQ 1 tablet with food Orally Twice a day Active Montelukast Sodium 10 MG 1 tablet Orally Once a day Active Lyrica 100 MG 1 capsule Orally Onc e a day Active Albuterol Sulfate HFA 108 (90 Base) MCG/ACT Inhalation for 30 Days Active Omeprazole 20 MG 1 capsule 30 minutes before morning meal Orally Once a day Active Nurtec Active Multivitamin - 1 tablet Orally Once a day Active Social History Tobacco Use: Social History Observation Description Date Details (start date - stop date) Former Smoker NA - NA Tobacco Use/Smoking Question Answer Notes Patient is a former smoker Section Notes: former smoker former smoker former smoker former smoker former smoker former smoker former smoker former smoker former smoker former smoker former smoker former smoker Problems Problem Type SNOMED Code ICD Code Onset Dates Problem Status W/U Status Risk Notes Problem 4192407403200950 Primary osteoarthritis, left ankle and foot (M19.072) Active confirmed Problem 444379127894516 Achilles tendinitis, right leg (M76.61) Active confirmed Problem 79830222099768676 Sprain of deltoid ligament of right ankle, sequela (S93.421S) Active confirmed Problem Arthralgia of the ankle and/or foot (019790476) Right ankle pain (M25.571) Active confirmed Problem Arthralgia of the ankle and/or foot (105341874) Left ankle pain (M25.572) Active confirmed Problem 7180388350033381 Left ankle instability (M25.372) Active confirmed Problem 103997067 Osteochondral defect of ankle (M95.8) Active confirmed Problem 64971565478421585 Arthralgia of right ankle (M25.571) Active confirmed Problem 083114929 Ankle impingement syndrome, right (M25.871) Active confirmed Vital Signs Heart Rate 81 /min 08/08/2024 Patient reporte d weight Temperature 98.0 degrees Fahrenheit 07/11/2024 Respiratory Rate 16 /min 08/08/2024 Patient rep orted weight Oximetry 98 % 08/08/2024 Patient reporte d weight Height 64 in 08/08/2024 Patient reporte d weight Weight 350 lbs 08/08/2024 Patient reporte d weight BMI 60.07 kg/m2 08/08/2024 Patient reporte d weight Encounters Encounter Location Date Provider Diagnosis [facility] (PODIATRY) [address] [place] [address] [place] [address] 08/16/2024 Candy Peña [facility] (PODIATRY) [address] [place] [address] [place] [address] 08/17/2024 Candy Peña [facility] (PODIATRY) [address] [place] [address] [place] [address] 02/22/2024 Candy Peña Sprain of other ligament of left ankle, initial encounter S93.492A and Left ankle instability M25.372 [facility] (PODIATRY) [address] [place] [address] [place] [address] 03/14/2024 Candy Watsonlaura Sprain of other ligament of left ankle, initial encounter S93.492A [facility] (PODIATRY) [address] [place] [address] [place] [address] 04/25/2024 Candy Peña Osteochondral defect of ankle M95.8 ; Sprain of other ligament of left ankle, initial encounter S93.492A and Left ankle instability M25.372 [facility] (PODIATRY) [address] [place] [address] [place] [address] 06/13/2024 Candy Shirleylaura Left ankle instability M25.372 ; Osteochondral defect of ankle M95.8 ; Sprain of other ligament of left ankle, initial encounter S93.492A and Strain of muscle(s) and tendon(s) of peroneal muscle group at lower leg level, left leg, initial encounter S86.312A [facility] (PODIAT[facility]) [address] [place] [address] [place] [address] 07/11/2024 Candy Peña Primary osteoarthritis, left ankle and foot M19.072 ; Other specified joint disorders, left ankle and foot M25.872 ; Osteochondral defect of ankle M95.8 and Left ankle pain M25.572 [facility] ([facility]OD[facility]) [address] [place] [address] [place] [address] 08/08/2024 Candy Peña Osteochondral defect of ankle M95.8 and Other specified joint disorders, left ankle and foot M25.872 Assessments Encounter Date Diagnosis (ICD Code) Assessment Notes Treatment Notes Treatment Clinical Notes Section Notes 02/22/2024 Sprain of other ligament of left ankle, initial encounter (ICD-10 - S93.492A) Patient seen and evaluated. Patient education provided and all questions answered to her satisfaction. She has difficulty walking in an Aircast splint which she was placed in the ER. Therefore I recommended a cam boot which was fitted and dispensed today. She is much too tender to begin physical therapy therefore I recommended that she follow-up in 2 to 3 weeks for repeat evaluation and hopeful transition to ASO and physical therapy.No new x-rays needed at follow-up 02/22/2024 Left ankle instability (ICD-10 - M25.372) 03/14/2024 Sprain of other ligament of left ankle, initial encounter (ICD-10 - S93.492A) Patient follows up for left ankle sprain. She has not made much improvement on her own I recommended physical therapy with iontophoresis and modalities. Continue ankle bracing. If she is not any better at follow-up may consider MRI. She will follow-up in 6 weeks no new x-rays are necessary 04/25/2024 Osteochondral defect of ankle (ICD-10 - M95.8) Patient seen and evaluated. Patient has seen some improvement but is still having subjective symptoms of instability as well as painful clicking and popping of the ankle. The symptoms she relates are similar to her contralateral ankle which required osteochondral defect repair. There is high concern for osteochondral defect of the left ankle therefore I ordered an MRI today. She will follow-up after the MRI is obtained. Continue bracing and current activity level. No x-rays needed at next appointment 04/25/2024 Sprain of other ligament of left ankle, initial encounter (ICD-10 - S93.492A) 06/13/2024 Left ankle instability (ICD-10 - M25.372) Patient was seen and evaluated. Patient education provided and all questions answered to her satisfaction. Her right ankle continues to do well and having no major issues with that however her left ankle she relates that does cause her issues and has difficulty with uneven surfaces. I related that the findings on her left ankle are very similar to what her right ankle and to repair her left ankle would require 3 weeks of nonweightbearing then progressive protected weightbearing for an additional 5 to 6 weeks.I specifically discussed the need for left lateral ankle stabilization, peroneal tendon repair and osteochondral defect repair.Additionally the other concern with her left ankle is that she does have findings on both medial and lateral talar dome with the large defect noted in the posterior third of the medial talar dome which can be somewhat more difficult to fix given its location. She is not confident that she wants to undergo surgery at this time therefore I recommended that she consider her options and call with any updates otherwise she will follow-up in 6 weeks. Continue OTC pain medicine, ASO ankle brace shoe and activity modification. She did do physical therapy which did not seem to help much. No new x-rays are needed at follow-up 06/13/2024 Osteochondral defect of ankle (ICD-10 - M95.8) 07/11/2024 Primary osteoarthritis, left ankle and foot (ICD-10 - M19.072) Patient presents for follow-up regarding her left ankle which has increased in pain substantially over the last week causing her to return to the cam boot most of the day. Prior to that week she was using mostly the ASO ankle brace. I discussed potential need for surgical intervention but patient would like to postpone for as long as possible so I recommended to continue wearing the cam boot as pain allows and may transition to the ASO if her pain continues to improve. She cannot take NSAIDs for history of brain bleed. I recommended and patient agreed to undergo corticosteroid injection.Skin over the anterior medial ankle was prepared with Betadine followed by alcohol and an injection of 1 cc of Celestone was injected into the ankle through an anterior medial portal. Patient tolerated the injection well and the injection site was dressed with a Band-Aid. She will follow-up in 4 weeks no new x-rays needed 07/11/2024 Other specified joint disorders, left ankle and foot (ICD-10 - M25.872) 08/08/2024 Osteochondral defect of ankle (ICD-10 - [...] left ankle and foot (ICD-10 - M25.872) 07/11/2024 Osteochondral defect of ankle (ICD-10 - M95.8) 06/13/2024 Sprain of other ligament of left ankle, initial encounter (ICD-10 - S93.492A) 04/25/2024 Left ankle instability (ICD-10 - M25.372) 06/13/2024 Strain of muscle(s) and tendon(s) of peroneal muscle group at lower leg level, left leg, initial encounter (ICD-10 - S86.312A) 07/11/2024 Left ankle pain (ICD-10 - M25.572) 07/11/2024 Other 08/08/2024 Other Patient also requested and I believe she would recieve benefit from a wheelchair to help her mobility especially on long distances. A prescription was provided. Plan Of Treatment Pending Test Test Name Order Date XR Ankle LT (3 views) * (164) 07/11/2024 MRI Ankle LT w/o contrast (Hind Foot) XR ankle LT min 3V 07/13/2024 Insurance Providers Payer Name Payer Address Payer Phone Subscriber Number Group Number Insured Name Patient Relationship to Insured Coverage Start Date Coverage End Date [employer] ACCESS PPO PLUS LOCAL PLAN [address] [place] [address] [id number] 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 Peña 06/15/2022 Hospitalization History Reason Date(Month/Year) see above
--- OUTSIDE RECORDS SUMMARY | 2024-12-14 12:13 | XMS_ITS | Clinical Summary ---
Author Organization [facility] Address [address] [place] [address] Care Team Providers Care Otolaryngology Physician Name Role Phone Enio Dupont MD Primary Care Provider + Allergies Active Allergy Reactions Criticality Noted Date Comments Adhesive Rash Low 12/26/2014 Aspirin Other (See Comments) 12/26/2014 (d/t brain bleed) Coconut Anaphylaxis High 12/28/2018 Coconut Oil Hives 03/21/2015 Propoxyphene N-Acetaminophen Other (See Comments) 12/26/2014 hallucination Divalproex Other (See Comments) 12/26/2014 Paralyzed Heparin Analogues Other (See Comments) 12/27/19 15 D/T brain bleed Bee Venom Protein (Honey Bee) Anaphylaxis High 03/21/2015 Sumatriptan Succinate Other (See Comments) 12/06 Muscle tightness Latex Hives 12/26/2014 Nitroglycerin Other (See Comments) 12/26/2014 Migraine/BOWER Pineapple Anaphylaxis High 11/09/2019 Venom-Wasp Anaphylaxis High 03/21/2015 Hydrocodone-Acetaminoph en Other (See Comments) 12/26/2014 hallucination Medications EPINEPHrine 1:1,000 (EPIPEN) 0.3 mg/0.3 mL (1:1,000) AtIn Inject 0.3 mg into the shoulder, thigh, or buttocks once. Active multivitamin (THERAGRAN) per tablet Take 1 tablet by mouth daily. Active potassium chloride (MICRO-K) 10 MEQ CR capsule Take 10 mEq by mouth daily. Active furosemide (LASIX) 20 MG tablet Take 20 mg by mouth daily. Active metFORMIN (GLUCOPHAGE-XR) 750 MG 24 hr tablet Take 750 mg by mouth daily with breakfast. Active albuterol 90 mcg/actuation inhaler Inhale 2 puffs every 4 (four) hours as needed for wheezing. Active nebulizer accessories Kit by Miscellaneous route . Active levothyroxine (SYNTHROID, LEVOTHROID) 88 MCG tablet Take 88 mcg by mouth once daily . Active montelukast (SINGULAIR) 10 mg tablet Take 10 mg by mouth nightly . Active amLODIPine (NORVASC) 5 MG tablet Take 5 mg by mouth daily . Active cyanocobalamin (B-12) 1000 MCG tablet Take 1,000 mcg by mouth daily . Active calcium acetate,phosphat bind, (PHOSLO) 667 mg capsule Take 1,334 mg by mouth 2 (two) times a day . Active cholecalciferol, vitamin D3, (VITAMIN D3 ORAL) Take by mouth . Active fluticasone/vilant etienne (BREO ELLIPTA INHL) Inhale . Active topiramate (TOPAMAX) 100 MG tabletIndications: Migraine without aura and without status migrainosus, not intractable Take 1 (one) tablet (100 mg total) by mouth 2 (two) times a day . 180 tablet 1 11/08/19 21 Active pregabalin (LYRICA) 100 MG capsuleIndications :Chronic nonintractable headache, unspecified headache type Take 1 (one) capsule (100 mg total) by mouth 3 (three) times a day 90 days/fill . 270 capsule 1 11/08/19 21 Active galcanezumab-gnlm (Emgality Pen) 120 mg/mL PenIndications:Chr onic nonintractable headache, unspecified headache type Inject 1 mL (120 mg total) under the skin every 28 days . 1 Syringe 11 11/08/19 21 Active Active Problems Problem Noted Date Diagnosed Date Chronic midline low back pain with left-sided sc iatica 11/07/2020 Myofascial pain dysfunction syndrome 08/09/2017 Chronic migraine without aur a without status migrainosus, not intractable 03/22/2017 Sleep apnea, obstructive 10/03/2015 Assessment & Plan (10/03/2015 12:33 PM EDT): The patient has severe apnea when in rem sleep. In rem sleep there were 45 Events per hour with significant hypoxia. However she is not able to comply with CPAP. She places CPAP 12 cm water fullface mask on every night but is averaging only 2 hours and 48 minutes. This is not sufficient. She explains that she feels suffocated by the fullface mask. Her medical equipment company is in her home town [place] [facility], fax. She needs to do better. She understands what we found she understands that the apnea is serious will cause complications. I will address that she return to the equipment company and find a different mask that she will use. Also, she will return to the sleep Center for a trial of BiPAP. Cholecystitis 12/28/2014 Assessment & Plan (12/29/2014 7:03 AM EDT): 39 year old female s/p LS cholecystectomy 12/28 - Tolerating regular diet - pain well controlled with po pain meds - HWIV - d/c IV, d/c home after lunch if continues to improve Sleep apnea 12/26/2014 Episodic lightheadedness 12/26/2014 Resolved Problems Problem Noted Date Diagnosed Date Resolved Date Intractable chronic migraine without aura and without status migrainosus 03/26/2016 11/07/2020 Migraine without aura 12/26/20142020 Medication overuse headache 12/26/2014 11/09/2019 Family History Medical History Relation Comments Diabetes Brother Diabetes Father Hypertension Father Stroke Father Diabetes Maternal Grandmother Heart disease Maternal Grandmother Migraines Mother Cancer Paternal Grandfather Diabetes Paternal Grandmother Transient ischemic attack Paternal Grandmother Seizures Paternal Uncle Transient ischemic attack Paternal Uncle Relation Status Comments Brother Alive Father Alive Maternal Grandmother Mother Alive Paternal Grandfather Paternal Grandmother Paternal Uncle Social History Tobacco Use Types Packs/Day Years Used Date Smoking Tobacco: Former Cigarettes 0.5 10 0 12/26/1998 - 12/26/2008 Smokeless Tobacco: Never Tobacco Cessation:Counseling Given: No Alcohol Use Standard Drinks/Week Comments No 0 (1 standard drink = 0.6 oz pur e alcohol) Comments No Sex and Gender Information Value Date Recorded Sex Assigned at Not on file Legal Sex Female 10:12 AM EDT Gender Identity Female 04/05/2018 9:28 AM EDT Sexual Orientation Straight 06/27/2018 4: 58 AM EST Last Filed Vital Signs Vital Sign Reading Time Taken Comments Blood Pressure 111/73 11/07/2020 1:56 PM EDT Pulse 71 11/07/2020 1:56 PM EDT Temperature 36.9 C (98.4 F) 12/29/2014 7:48 AM EDT Respiratory Rate 16 04/06/2019 3:26 PM EDT Oxygen Saturation 95% 11/21/2015 9:00 AM EDT Inhaled Oxygen Concentration - - Weight 161.5 kg (356 lb) 07/04/2018 9:19 AM EST Height 162.6 cm (5' 4 ) 11/07/2020 1:56 PM EDT Body Mass Index 61.11 07/04/2018 9:19 AM EST Plan of Treatment Health Maintenance Due Date Last Done Comments CT Colonography 1975 Colonoscopy 1977 Colorectal Cancer Screening/Monitoring 1975 Fecal DNA 1975 Fecal occult blood test (FOBT,FIT) 1975 Wellness Visit 1980 Depression Screening/Follow-Up (PHQ-2/9) 1989 HIV Screening 1992 Hepatitis C Screening 10/05/1995 Pap Smear 1998 Cervical Cancer Screening 10/05/2007 HPV/Cotest 10/05/2007 COVID-19 Vaccine (2023-2 5 season) 2024 09/24/2020, 08/27/2020 Influenza Vaccine (#1) 2025 05/08/2020 Tetanus: Every 10yrs 12/29/2028 12/29/2018 Pneumococcal Vaccine: Ped or At-Risk Aged Out No longer eligible b ased on patient's age to complete this topic Insurance MEDICAID [place] ANTHEM MEDIBLUE ESSENTIAL/PLUS/CONNECT/SNP HMO Advance Directives For more information, please contact: [phone] * Full Code - Unverified (Latest Code Status on File) Date Activated Date Inactivated Comments 12/28/2014 10:25 AM 12/29/2014 11:58 AM Care Teams Otolaryngology Physician Relationship Specialty Start Date End Date Enio Dupont MD [address] [place] [phone] PCP - General Internal Medicine 11/08/19
--- OUTSIDE RECORDS SUMMARY | 2024-12-14 12:14 | XMS_ITS | Clinical Summary ---
Author Organization [facility] Address [address] [place] [address] Care Team Providers Care Lead Producer Name Role Phone Rosalinda Garcia MD Primary Care Provider [phone] Social History Tobacco Use Types Packs/Day Years Used Date Smoking Tobacco: Never Assessed Comments Unknown Sex and Gender Information Value Date Recorded Sex Assigned at Not on file Legal Sex Female 12:15 PM EDT Gender Identity Not on file Sexual Orientation Not on file Plan of Treatment Health Maintenance Due Date Last Done Comments Anxiety Screening 10/05/1995 Depression Screening 10/05/1995 HIV Screening 10/05/1995 Hepatitis C Screening 10/05/1995 DTaP,Tdap,Td Vaccine (1 - Tdap) 1996 Hepatitis B Vaccine (1 of 3 - 19+ 3-dose series) 10/04 Cervical Cancer Screening [address] Colonography 2022 Cologuard (FIT-DNA) 2022 Colonoscopy 2022 Colorectal Cancer Screening 2022 Diabetes Screening 2022 Fecal Occult Blood 2022 Lipid Screening 2022 Sigmoidoscopy 2022 Covid-19 Vaccine ( season) 2024 Influenza Vaccine (#1) 2025 Insurance MEDICAID [place] ANTHEM MEDICARE ADVANTAGE HMO Care Teams Lead Producer Relationship Specialty Start Date End Date Rosalinda Garcia MD PCP - General Neurology 11/16/12
--- OUTSIDE RECORDS SUMMARY | 2024-12-14 12:14 | XMS_ITS | Clinical Summary ---
Author Organization [facility] Address [address] [place] [address] Care Team Providers Care Dock Operator Name Role Phone Unallocated, Noms Provider Primary Care Provi alex Liliam Mckeon MD Unavailable Libertad Matt DO Unavailable Allergies Active Allergy Reactions Criticality Noted Date Comments Aspirin Unknown 12/26/2014 Other Reaction(s): Other (See Comments) (d/t brain bleed) D/t brain bleeds Bee Venom Anaphylaxis High 03/21/2015 Beeswax 02/01/2019 Coconut Fatty Acid Anaphylaxis,Headache ,Hi ves High 12/28/2018 Other Reaction(s): Flushing Heparin 12/26/2014 Other Reaction(s): Other (See Comments) D/T brain bleed Hydrocodone-Acetaminop hen Hallucinations,Unknown 12/26/2014 hallucination Other Reaction(s): Unknown Ibuprofen 02/01/2019 Other Reaction(s): Unknown D/t brain bleed Latex Unknown,Hives,Rash Low 12/26/2014 Naproxen Unknown 02/01/2019 D/t brain bleed Nitroglycerin Headache,Unknown 12/26/2014 Other Reaction(s): Flushing, Other (See Comments) Migraine/BOWER Feels like chest will explode Pineapple Anaphylaxis High 11/09/2019 Propoxyphene Hallucinations 12/26/2014 Other Reaction(s): Other (See Comments) hallucination Sumatriptan Unknown 12/26/2014 Muscle tightness Valproic Acid Unknown 12/26/2014 Other Reaction(s): Other (See Comments) Paralyzed Feels paralyzed Wound Dressing Adhesive Rash Low 12/26/2014 Medications albuterol HFA 90 mcg/act inhaler Inhale 2 puffs every 6 (six) hours if needed 3 Active EPINEPHrine (Epipen) 0.3 MG/0.3ML injection syringe Inject 0.3 mg into the shoulder, thigh, or buttocks Daily as needed Active furosemide (Lasix) 20 MG tablet Take 40 mg by mouth in the morning. Active nystatin (Mycostatin) cream APPLY CREAM TOPICALLY TWICE DAILY (IN THE MORNING AND AT BEDTIME) 3 Active omeprazole (PriLOSEC) [address] capsule TAKE 1 CAPSULE BY MOUTH IN THE MORNING 30 MINUTES BEFORE MORNING MEAL 4 Active amLODIPine (Norvasc) 10 MG tablet Take 10 mg by mouth Daily 4 Active Breo Ellipta 100-25 MCG/ACT aerosol powder 4 Active levothyroxine (Synthroid, Levoxyl) 88 MCG tablet Take 88 mcg by mouth in the morning. Active potassium chloride CR (K-Tab) 20 MEQ ER tablet Take 20 mEq by mouth in the morning. Active cyclobenzaprine (Flexeril) 5 MG tablet Take 10 mg by mouth if needed for muscle spasms Active loratadine (Claritin) 10 MG tablet Take 10 mg by mouth in the morning. Active montelukast (Singulair) 10 MG tabletIndication s:Chronic daily headache Take 1 tablet (10 mg) by mouth at bedtime 30 tablet 2 5 Active Rimegepant Sulfate (Nurtec) 75 MG tablet dispersibleIndic ations:Intractab le chronic migraine without aura and without status migrainosus Take 75 mg by mouth Daily as needed (migraine) 8 tablet 11 5 025 Active topiramate (Topamax) 100 MG tabletIndication s:Seizure disorder (HCC) Take 1 tablet (100 mg) by mouth in the morning and 1 tablet (100 mg) before bedtime. 180 tablet 2 5 025 Active pregabalin (Lyrica) 100 MG capsuleIndicatio ns:Cerebral cavernous malformation (HHS-HCC) Take 1 capsule (100 mg) by mouth in the morning and 1 capsule (100 mg) in the evening and 1 capsule (100 mg) before bedtime. 270 capsule 5 025 Active Ubrogepant (Ubrelvy) 100 MG tablet Take 100 mg by mouth if needed (1 tablet at the onset of a migraine. may repeat in 2 hours. No more than 2 times per day, twice per week) 025 Discontinu ed(Therapy completed) Atogepant (Qulipta) 60 MG tabletIndication s:Intractable chronic migraine without aura and without status migrainosus Take 1 tablet by mouth in the morning. 30 tablet 2 5 025 topiramate (Topamax) 100 MG tabletIndication s:Seizure disorder (HCC) Take 1 tablet (100 mg) by mouth in the morning and 1 tablet (100 mg) before bedtime. 60 tablet 2 5 025 Discontinu ed(Reorder ) pregabalin (Lyrica) 100 MG capsuleIndicatio ns:Cerebral cavernous malformation (HHS-HCC) Take 1 capsule (100 mg) by mouth in the morning and 1 capsule (100 mg) in the evening and 1 capsule (100 mg) before bedtime. 90 capsule 2 5 025 Discontinu ed(Reorder ) Active Problems Problem Noted Date Diagnosed Date Intractable chronic migraine without aura and without status migrainosus 11/21/2024 Cerebral cavernous malformation (HHS-HCC) 2024 Encounters Date Type Department Care Team Description 11/21/2024 10:40 AM EDT Office Visit [facility] [address] [place] [address] [place] [phone] Estevan Mai MD Intractable chronic migraine without aura and without status migrainosus (Primary Dx); Seizure disorder (HCC); Cerebral cavernous malformation (HHS-HCC) 11/21/2024 Travel 11/20/2024 Bamboo flowsheet [facility] [id number] [facility] [place] [id number] Estevan Mai MD 11/20/2024 Travel from Last 3 Months Family History Medical History Relation Name Comments Diabetes Brother Obesity Brother Asthma Father Ryan Stickles Diabetes Father Ryan Stickles Hyperlipidemia Father Ryan Stickles Hypertension Father Ryan Stickles Obesity Father Ryan Stickles Seizures Father Ryan Stickles Stroke Father Ryan Stickles Hypertension Mother Janeen Felter Migraines Mother Janeen Felter Neuropathy Mother Janeen Felter Obesity Mother Janeen Felter Arthritis Other Diabetes Other Heart disease Other Seizures Other Stroke Other Thyroid disease Other Relation Name Status Comments Brother Father Ryan Stickles Mother Janeen Felter Alive Other Social History Tobacco Use Types Packs/Day Years Used Date Smoking Tobacco: Former Cigarettes 0.3 14.7 0 10/05/1995 - 05/17/2011 Smokeless Tobacco: Never Tobacco Cessation:Counseling Given: Not Answered Alcohol Use Standard Drinks/Week Comments Never 0 (1 standard drink = 0.6 oz pur e alcohol) caffeine 2 cups per day Comments Unknown Sex and Gender Information Value Date Recorded Sex Assigned at Not on file Legal Sex Female 7:27 PM EDT Gender Identity Female 08/19/2022 7:27 PM EDT Sexual Orientation Not on file Last Filed Vital Signs Vital Sign Reading Time Taken Comments Blood Pressure 132/80 07/24/2024 12:45 PM EST Pulse 65 07/24/2024 12:45 PM EST Temperature - - Respiratory Rate - - Oxygen Saturation 99% 07/24/2024 12:45 PM EST Inhaled Oxygen Concentration - - Weight 150 kg (330 lb) 11/21/2024 10:41 AM EDT Height 162.6 cm (5' 4 ) 11/21/2024 10:41 AM EDT Body Mass Index 56.64 11/21/2024 10:41 AM EDT Plan of Treatment Upcoming Encounters Date Type Department Care Team (Late st Contact Info) Description 02/21/2025 11:40 AM EDT Office Visit [facility] [address] [facility] [address] [place] [phone] Estevan Mai MD [address] [facility] [address] [place] [address] [id number] Health Maintenance Due Date Last Done Comments CT Colonography 1977 FIT-DNA 1977 FIT 1977 FOBT 1977 Sigmoidoscopy 1977 Pap Smear 1998 Cervical Cancer Screening 10/05/2007 HPV/Cotest 10/05/2007 Medicare Annual Wellness (AWV) 05/12/2023 05/12/2022 Influenza Vaccine (#1) 2025 , 04/14/2021, 04/07/2017, Additional history exists Mammogram 09/20/2025 09/20/2024, 03/0 08/2022, 05/30/2019, Additional history exists Colonoscopy 05/07/2033 05/07/2023 Colorectal Cancer Screening 05/07/2033 Procedures Procedure Name Priority Date/Time Associated Diagnosis Comments BI MAMMOGRAM SCREENING TOMOSYNTHESIS BILATERAL Routine 05/30/2019 12:00 PM EST from Last 3 Months or Most Recently Relevant to Health Maintenance Insurance [employer] [place]ICAID [place] Care Teams Dock Operator Relationship Specialty Start Date End Date Unallocated, Noms Deborah, [address] [place], [place] [phone] PCP - General Family Medicine 05/25/24 Liliam Mckeon MD [address] [place] [address] Referring Physician Family Medicine 06/14/24 Libertad Matt DO [address] [place] [address] Referring Physician Neurology 06/14/24
--- OUTSIDE RECORDS SUMMARY | 2024-12-14 12:14 | XMS_ITS | Patient Health Record ---
Author Organization [facility] vices Address [address] [place], [place] [id number] Care Team Providers Care Pin Inserter Name Role Phone Ghazal Garcia Primary Care Provider Verna Pineda Unavailable [phone] Irlanda Nelson Unavailable [phone] Liliam Mckeon Unavailable Allergies Allergen (clinical drug ingredient) Drug/Non Drug Allergy documented on EMR Reaction Allergy Type Onset Date Status Antiinhibitor Coagulant Cmplx Due to bleeding condition Drug Allergy Active Coconut Flavor Headache , Hives , Rash Comments: skin turns red Drug Allergy Active valproate Depakote Comments: feels like she is paralyzed Drug Allergy Active acetaminophen / hydrocodone HYDROcodone-Acetam inophen Comments: hallucinations Drug Allergy Active ibuprofen Ibuprofen Comments: no NSA ID due to brain bleeds Drug Allergy Active sumatriptan Imitrex Unknown Drug Allergy Activ e ibuprofen Motrin IB Comments: due to brain bleed Drug Allergy Active naproxen Naproxen Comments: due to brain bleed Drug Allergy Active Pineapple Flavor Hives Drug Allergy Active Latex Gloves Rash Drug Allergy Acti ve aspirin Aspirin Adult Low Strength Comments: brain bleeding Drug Allergy Active Bee Sting Hives Allergy Active nitroglycerin Nitroglycerin Headache Drug Allergy Active Results Component Value Reference Range Notes TSH WITH REFLEX FT4 Reviewed date:08/29/2024 09:16:17 PM Interpretation: Performing Lab: Notes/Report: TSH 2.48 0.49-4.67 uIU/mL PERFORMED A [facility] [address],[place] [address] LIPID PROFILE Reviewed date:08/29/2024 09:16:17 PM Interpretation: Performing Lab: Notes/Report: CHOLESTEROL 154 150-200 mg/dL TRIGLYCERIDE 98 27-150 mg/dL HDL CHOLESTEROL 47 >39 mg/dL HDL <40 mg/dL - High Risk HDL > or = 40mg/dL- Desirable HDL >60 mg/dL - Negative Risk VERY LOW LIPOPROTEIN 20 0-30 mg/dL LDL (CALC) 87 <130 mg/dL LDL <100 mg/dL - Desirable LDL >160 mg/dL - High Risk CHOLESTEROL:HDL 3.3 1.0-5.0 PERFORMED AT [address] [address] COMPREHENSIVE METABOLIC PANE L Reviewed date:08/29/2024 09:16:17 PM Interpretation: Performing Lab: Notes/Report: Reported eGFR is based on the CKD-EPI 2020 equation that does not use a race coefficient. PERFORMED AT [address] [address] SODIUM 139 134-146 mmol/L POTASSIUM 3.6 3.5-5.0 mmol/L CHLORIDE 105 98-109 mmol/L CARBON DIOXIDE 24 22-32 mmol/L ANION GAP 10 5-15 mmol/L BLOOD UREA NITROGEN 15 5-23 mg/dL CREATININE 0.85 0.40-1.00 mg/dL METHOD TRACE ABLE TO IDMS STANDARD GLUCOSE 99 65-99 mg/dL CALCIUM 9.4 8.5-10.5 mg/dL TOTAL PROTEIN 7.5 6.0-8.0 g/dL ALBUMIN 4.3 3.2-5.3 g/dL ALKALINE PHOSPHATASE 98 39-130 U/L AST 14 0-41 U/L ALT 18 0-31 U/L BILIRUBIN,TOTAL 0.4 0.3-1.2 mg/dL eGFR (CKD-EPI) NON-RACE DEPENDENT 86 >59 ml/min/1.73sq.m VITAMIN B12 Reviewed date:08/29/2024 09:16:17 PM Interpretation: Performing Lab: Notes/Report: VITAMIN B12 320 180-914 pg/mL PERFORMED AT [address],[place] [address] POCT A1C Reviewed date:11/29/2024 08:35:54 AM Interpretation: Performing Lab: Notes/Report: COMPREHENSIVE METABOLIC PANE L Reviewed date:05/29/2024 06:50:01 AM Interpretation: Performing Lab: Notes/Report: PERFORMED AT [address],[place] [address] not use a race coefficient. CKD-EPI 2020 equation that does Reported eGFR is based on the SODIUM 141 134-146 mmol/L POTASSIUM 4.0 3.5-5.0 mmol/L CHLORIDE 108 98-109 mmol/L CARBON DIOXIDE 22 22-32 mmol/L ANION GAP 11 5-15 mmol/L BLOOD UREA NITROGEN 20 5-23 mg/dL CREATININE 0.93 0.40-1.00 mg/dL METHOD TRACE ABLE TO IDNC STANDARD GLUCOSE 99 65-99 mg/dL CALCIUM 9.5 8.5-10.5 mg/dL TOTAL PROTEIN 7.3 6.0-8.0 g/dL ALBUMIN 4.1 3.2-5.3 g/dL ALKALINE PHOSPHATASE 98 39-130 U/L AST 12 0-41 U/L ALT 13 0-31 U/L BILIRUBIN,TOTAL 0.3 0.3-1.2 mg/dL eGFR (CKD-EPI) NON-RACE DEPENDENT 77 >59 ml/min/1.73sq.m LIPID PROFILE Reviewed date:05/29/2024 06:50:08 AM Interpretation: Performing Lab: Notes/Report: CHOLESTEROL 143 150-200 mg/dL TRIGLYCERIDE 81 27-150 mg/dL HDL CHOLESTEROL 45 >39 mg/dL HDL <40 mg/dL - High Risk HDL > or = 40mg/dL- Desirable HDL >60 mg/dL - Negative Risk VERY LOW LIPOPROTEIN 16 0-30 mg/dL LDL (CALC) 82 <130 mg/dL LDL <100 mg/dL - Desirable LDL >160 mg/dL - High Risk CHOLESTEROL:HDL 3.2 1.0-5.0 PERFORMED AT [address], [place] [address] THYROID PROFILE Reviewed date:05/29/2024 06:49:52 AM Interpretation: Performing Lab: Notes/Report: TSH 1.98 0.49-4.67 uIU/mL NEW REFEREN CE RANGE FOR PEDIATRIC PATIENTS FREE T4 0.75 0.61-1.60 ng/dL NEW REFERENCE RANGE FOR PEDIATRIC PATIENTS PERFORMED AT [address], [place] [address] VITAMIN B12 Reviewed date:12/23/2023 07:34:42 AM Interpretation: Performing Lab: Notes/Report: VITAMIN B12 >1500 180-914 pg/mL PERFORMED AT [address], [place] [address] CBC W/AUTO DIFF Reviewed date:06/01/2024 07:37:38 AM Interpretation: Performing Lab: Notes/Report: WBC 9.0 3.6-11.0 THDS/CMM RBC 4.75 3.80-5.20 MILL/CMM HGB 15.4 11.9-16.0 G/DL HCT 46.2 35-47 % MCV 97 75-100 fL MCH 32.4 26.0-33.0 pg MCHC 33.3 32.0-35.0 g/dl RDW 12.8 11.2-14.8 % PLATELET 367 140-440 THOUS/CMM NEUTROPHILS 58.0 45-75 % LYMPHOCYTES 30.7 20-45 % MONOCYTES 8.6 0-13 % EOSINOPHILS 2.1 0-5 % BASOPHILS 0.4 0-2 % IMMATURE GRAN 0.2 0-2 % ABS NEUTROPHILS 5.22 1.9-8.0 K/uL ABS LYMPHOCYTES 2.76 0.9-5.2 K/uL ABS MONOCYTES 0.77 0.1-1.0 K/uL ABS EOSINOPHILS 0.19 0.0-0.80 K/uL ABS BASOPHILS 0.04 0.0-0.2 K/uL ABS IMMATURE GRAN 0.02 0.00-0.06 K/uL UNLESS OTHERWISE INDICATED, ALL TESTING PERFORMED AT: [employer] [address] [place] [address] SILVER RECOVERY OPERATOR: DARION BARBER M.D. [place] NUMBER [id number] CAP ACCREDITATION AUID [id number] HEMOGLOBIN A1C (GLYCO-HGB) Reviewed date:08/29/2024 09:16:17 PM Interpretation: Performing Lab: Notes/Report: HEMOGLOBIN A1C 5.2 4.4-5.6 % NOTE ADA Guidelines Result HgbA1c Normal : less than 5.7 % Prediabetes : 5.7 % to 6.4 % Diabetes : > 6.4 % Use with caution in patients with abnormal hemoglobin variants as the half-life of red blood cells and in vivo glycation rates are affected. AVERAGE GLUCOSE 103 PERFORMED AT [facility] [address] [facility],[place] [address] Reason For Referral No Information Medications Medication SIG (Take, Route, Frequency, Duration) Notes Start Date End Date Status Blood Glucose Test - USE TO CHECK BLOOD SUGARS In Vitro THREE TIMES DAILY for 90 days USE WHAT IS COVERED BY PT INSURANCE 08/29/2024 Active 1st Choice Lancets Thin - USE TO CHECK BLOOD SUGARS THREE TIMES DAILY for 90 days USE WHAT IS COVERED BY PT INSURANCE 08/29/2024 Active Alcohol Wipes 70 % USE TO CHECK BLOOD SUGARS Externally THREE TIMES DAILY for 90 days 08/29/2024 Active Potassium Chloride ER 20 MEQ 1 tablet with food Orally Once a day for 90 days Active Furosemide 20 MG Take 1 tablet by mouth twice daily for 90 Active Omeprazole 20 MG 1 capsule 1/2 to 1 hour before morning meal Orally Once a day for 90 days Active Topiramate 100 MG TAKE 1 TABLET BY MOUTH TWICE DAILY Oral Once a day for 30 days Active Clobetasol Propionate 0.05 % 1 application Externally Twice a day 08/29/2024 Active EpiPen 2-Chris 0.3 MG/0.3ML as directed Injection as needed for 90 days 10/29/2022 Active Albuterol Sulfate (2.5 MG/3ML) 0.083% 3 mL as needed Inhalation as needed Active Breo Ellipta 100-25 MCG/INH 1 puff Inhalation Once a day Active Levothyroxine Sodium 88 MCG 1 tablet in the morning on an empty stomach Orally Once a day for 90 days Active Albuterol Sulfate HFA 108 (90 Base) MCG/ACT 2 puffs as needed Inhalation as needed for 25 days Active amLODIPine Besylate 10 MG Take 1 tablet by mouth once daily for 90 Active Glucometer USE TO CHECK BLOOD SUGARS THREE TIMES DAILY for 30 days Active Rimegepant Sulfate 75 MG 1 tablet on the tongue and allow to dissolve Orally Active Montelukast Sodium 10 MG 1 tablet Orally Once a day for 90 days Active Cetirizine HCl 10 MG 1 tablet Orally Once a day for 90 days 08/29/2024 Active Nystatin 520531 UNIT/GM 1 application Externally Twice a day Active Cyclobenzaprine HCl 10 MG 1 tablet as needed Orally three times daily 05/29/2024 Active Qulipta 60 MG 1 tablet Orally Once a day Active Lyrica 100 MG 1 capsule Orally three times daily 10/29/2022 Active Immunizations Vaccine Route Administration Date Status Comme nts *Wxmekbmin-Vysyormhz-Ugqet te IM Intramuscular 05/29/2024 Administered Social History Tobacco Use: Social History Observation Description Date Details (start date - stop date) Never Smoker NA - NA Sex Assigned At : Social History Observation Description Sex Assigned At Female Household Question Answer Notes Number of adults in household: 2 Tobacco Use/Smoking Question Answer Notes Tobacco use: former smoker patient enter ed data When did you start smoking? 10/05/1995 fernando garcia entered data When did you stop smoking? 05/17/2011 susie zuluaga entered data How long has it been since you last smoked? > 10 years patient entered data CAGE-AID Questionnaire (2018 Edition) Question Answer Notes Have you ever felt that you ought to cut down on your drinking or drug use? No patient entered data Have people annoyed you by c riticizing your drinking or drug use? No patient entered data Have you ever felt bad or gu ilty about your drinking or drug use? No patient entered data Have you ever had a drink or used drugs first thing in the morning to steady your nerves or to get rid of a hangover? No patient entered data CAGE-AID Score 0 Interpretation Negative PRAPARE Question Answer Notes Date Completed/Updated: 12/13/2023 yinka nt entered data What is your current housing situation? I have housing patient entered data Are you worried about losing your housing? No patient entered data What is the highest level of school that you have finished? High school diploma or GED patient entered data What is your current work situation? Otherwise unemployed but not seeking work (ex. 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 Check all that apply I do not have problems meeting my needs Has lack of transportation k ept you from medical appointments, meetings, work or from getting things needed for daily living? No How often do you see or talk to people that you care about and feel close to? (For example: talking to friends on the phone, visiting friends or family, going to mu-ism or club meetings) More than 5 times a week patient entered data How stressed are you? Stress is when someone feels tense, nervous, anxious, or can't sleep at night because their mind is troubled Not at all patient entered data In the past year have you sp ent more than 2 nights in a row in a long term, long-term, longterm center, or juvenile correctional facility? No patient entered data Are you a refugee? No patient en tered data What country are you from? [place] susie zuluaga entered data Do you feel physically and emotionally safe where you currently live? Yes patient entered data In the past year, have you b een afraid of your partner or ex-partner? 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) Active confirmed Problem 85761977 Migraine without status migrainosus, not intractable, unspecified migraine type (G43.909) Active confirmed Problem 375628042 Edema, unspecified type (R60.9) Active confirmed Problem Cavernous hemangioma of brain (338813999) Cavernous hemangioma of brain (D18.02) Active confirmed Comment:Recent MRI confirmed this finding again, CTA no stenosis, MRI showed mild extravasation of blood into parenchyma, has a neurologist but would like to change to a new neurologist will make the referral BP under control,Story: Had imaging before and 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 Lowe takes care of asthma as well She has overlap syndrome. sleep studyresults ?,Story:Mild persistent asthma using inhaler 1-2 month, no night time Allergy to dust mites 09/[address] care [address] Lowe, Problem Allergic rhinitis (67075691) Allergic rhinitis (J30.9) 007 Active confirmed Problem Hypertension (87286909) HTN (hypertension) (I10) Active confirmed Comment:On Amlodipine 5 mg daily BP is in 120-130 stable No issues, Problem Obstructive sleep apnea syndrome (58240360) LUIS MIGUEL on CPAP (G47.33) Active confirmed Comment:under control, on it since 2014, use it regularly, had problem recently has upcoming helio to recheck pressure, Problem Venous insufficiency of leg (disorder) (173687408) Venous insufficiency (I87.2) Active confirmed Story:Compress ion stockings, Vital Signs Heart Rate 70 /min 11/29/2024 Roger Espinoza 11/29/2024 08:24:02 AM EDT > Temperature 98.0 degrees Fahrenheit 11/29/2024 Emma Nair 11/29/2024 08:24:02 AM EDT > Respiratory Rate 18 /min 11/29/2024 Alexander Espinoza 11/29/2024 08:24:02 AM EDT > Blood pressure diastolic 78 mm Hg 11/29/2024 Emma Coleman 11/29/2024 08:24:02 AM EDT > Oximetry 99 % 11/29/2024 Roger Espinoza 11/29/2024 08:24:02 AM EDT > Height-cm 165.10 cm 11/29/2024 Roger Espinoza 11/29/2024 08:24:02 AM EDT > Weight-kg 151.14 kg 11/29/2024 Roger Espinoza 11/29/2024 08:24:02 AM EDT > Height 65.00 in 11/29/2024 Roger Espinoza 11/29/2024 08:24:02 AM EDT > Blood pressure systolic 120 mm Hg 11/29/2024 Emma Nair 11/29/2024 08:24:02 AM EDT > Weight 333.2 lbs 11/29/2024 Roger Epsinoza 11/29/2024 08:24:02 AM EDT > BMI 55.44 kg/m2 11/29/2024 Roger Espinoza 11/29/2024 08:24:02 AM EDT > Encounters Encounter Location Date Provider Diagnosis Main [address] [place] [id number] 05/29/2024 Liliam Mckeon Well adult exam Z00. 00 ; BMI 50.0-59.9, adult Z68.43 ; Obesity, morbid, BMI 50 or higher E66.01 ; Screening for cardiovascular condition Z13.6 and Flu vaccine need Z23 [address] [facility] [id number] 08/29/2024 [facility] Seasonal allergies J 30.2 ; Scalp psoriasis L40.9 ; Prediabetes R73.03 ; Hypothyroidism, unspecified type E03.9 ; HTN (hypertension) I10 ; Vitamin B12 deficiency E53.8 ; Body mass index (BMI) of 50-59.9 in adult Z68.43 and Obesity, morbid, BMI 50 or higher E66.01 Main [address] [place] [id number] 11/29/2024 [facility] Prediabetes R73.03 ; Scalp psoriasis L40.9 ; Obesity, morbid, BMI 50 or higher E66.01 and Body mass index (BMI) of 50-59.9 in adult Z68.[address] [place], [place] [id number] 12/23/2023 Liliam Myerholtz Main [address] [place], [place] [id number] 01/12/2024 Liliam Myerholtz Medication refill Z7 6.[address] [place], [place] [id number] 01/27/2024 Irlanda Nelson [place] [address] [place] [address] 02/09/2024 Verna Pirzada Main [address] [place], [place] [id number] 02/23/2024 Liliam Myerholtz Hypothyroidism, unspecified type E03.[address] [place], [place] [id number] 05/02/2024 Liliam Myerholtz Main [address] [place], [place] [id number] 05/02/2024 Liliam Myerholtz Main [address] [place], [place] [id number] 05/18/2024 Liliam Myerholtz Seasonal allergies J 30.[address] [place], [place] [id number] 05/25/2024 Liliam Myerholtz Screening for cardiovascular condition Z13.[address] [place], [place] [id number] 06/01/2024 Liliam Myerholtz Main [address] [place], [place] [id number] 06/19/2024 Liliam Myerholtz GERD without esophag itis K21.[address] [place], [place] [id number] 08/29/2024 [facility] Main [address] [place], [place] [id number] 11/06/2024 [facility] GERD without esophag itis K21.[address] [place], [place] [id number] 07/16/2024 Liliam Myerholtz Main [address], [place] [id number] 07/16/2024 Liliam Mckeon GERD without esophag itis K21.9 ; HTN (hypertension) I10 and Hypothyroidism, unspecified type E03.9 Main [address] [place] [id number] 07/16/2024 Liliam Mckeon [address] [place] [id number] 12/12/2024 [facility] Anaphylactic reactio n to bee sting, accidental or unintentional, sequela T63.441S ; GERD without esophagitis K21.9 and Hypothyroidism, unspecified type E03.9 Main [address] [place] [id number] 12/12/2024 [facility] Assessments Encounter Date Diagnosis (ICD Code) Assessment Notes Treatment Notes Treatment Clinical Notes Section Notes 01/12/2024 Medication refill (ICD-10 - Z76.0) 02/23/2024 Hypothyroidism, unspecified type (ICD-10 - E03.9) 05/18/2024 Seasonal allergies (ICD-10 - J30.2) 05/25/2024 Screening for cardiovascular condition (ICD-10 - Z13.6) 05/29/2024 Well adult exam (ICD-10 - Z00.00) Patient presents to office today for their Annual Wellness Visit. Education was provided on healthy nutrition, including a diet rich in fruits and vegetables, minimizing simple carbohydrates, salt, and saturated fats. Encouraged regular cardiovascular exercise such as walking at least 30 minutes daily, 5 times per week. Emphasized preventive health measures and educated pt on fall prevention and community-based lifestyle interventions to help reduce health risks and promote healthy living. 05/29/2024 BMI 50.0-59.9, adult (ICD-10 - Z68.43) Body Mass Index: Care Instructions material was published 06/19/2024 GERD without esophagitis (ICD-10 - K21.9) 07/16/2024 GERD without esophagitis (ICD-10 - K21.9) 08/29/2024 Seasonal allergies (ICD-10 - J30.2) Continuing Singulair at this time. New RX sent for Cetirizine 10mg 1QD, replacing pt's Loratadine 10mg, PVU F/U 3 months or PRN 08/29/2024 Scalp psoriasis (ICD-10 - L40.9) RX sent for Clobetasol for pt to use as needed at this time for her scalp, short bursts only for flare-ups F/U 3 months or PRN 11/06/2024 GERD without esophagitis (ICD-10 - K21.9) 11/29/2024 Prediabetes (ICD-10 - R73.03) Pt A1C stable at this time Pt encouraged to continue w/ healthy diet and exercise F/U 6 months or PRN 11/29/2024 Scalp psoriasis (ICD-10 - L40.9) Pt is stable on current medications. Will continue current medications. F/u 6 months & PRN 12/12/2024 Anaphylactic reaction to bee sting, accidental or unintentional, sequela (ICD-10 - T63.441S) 12/12/2024 GERD without esophagitis (ICD-10 - K21.9) 11/29/2024 Obesity, morbid, BMI 50 or higher (ICD-10 - E66.01) 08/29/2024 Prediabetes (ICD-10 - R73.03) Sending in RX's for testing supplies d/t pt's prediabetes Ordering labs at this time Encouraged pt to eat healthy and exercise F/U 3 months or PRN 07/16/2024 HTN (hypertension) (ICD-10 - I10) 05/29/2024 Obesity, morbid, BMI 50 or higher (ICD-10 - E66.01) 05/29/2024 Screening for cardiovascular condition (ICD-10 - Z13.6) 07/16/2024 Hypothyroidism, unspecified type (ICD-10 - E03.9) 08/29/2024 Hypothyroidism, unspecified type (ICD-10 - E03.9) Ordering labs, checking pt's Thyroid levels at this time as she reports some symptoms. Will call pt w/ results if values are abnormal and make any medication changes F/U 3 months or PRN 12/12/2024 Hypothyroidism, unspecified type (ICD-10 - E03.9) 11/29/2024 Body mass index (BMI) of 50-59.9 in adult (ICD-10 - Z68.43) 08/29/2024 HTN (hypertension) (ICD-10 - I10) HTN stable. Will continue current medications. Encouraged healthy diet and exercise. F/u 3 months & PRN Ordering labs at this time. 05/29/2024 Flu vaccine need (ICD-10 - Z23) 08/29/2024 Vitamin B12 deficiency (ICD-10 - E53.8) Ordering labs to assess 08/29/2024 Body mass index (BMI) of 50-59.9 in adult (ICD-10 - Z68.43) 08/29/2024 Obesity, morbid, BMI 50 or higher (ICD-10 - E66.01) Plan Of Treatment Next Appt Details Provider Name:Ghazal Garcia , 05/21/2025 08:45:00 AM, [address], [id number], Insurance Providers Payer Name Payer Address Payer Phone Subscriber Number Group Number Insured Name Patient Relationship to Insured Coverage Start Date Coverage End Date [place] [employer] [address] [place] [address] [id number] [facility] Stickles , [place] Self - patient is the insured 0 [employer] [address] [place], [place] [id number] Stickles , Talania Self - patient is the insured 7 Medicare NGS PPS [address] [place], [place] [id number] [id number] Stickles , Talania Self - patient is the insured 4 0 Medical (General) History Medical History History ICD Code Adult hypothyroidism Allergic rhinitis (477.9) Asthma, mild persistent B12 deficiency Cavernous hemangioma of brain Health examination of defined subpopulat ion (V70.5) HTN (hypertension) Migraine headache Morbid obesity with body mass index (BMI ) of 40.0 or higher LUIS MIGUEL on CPAP Polycystic Ovarian Disease Pre-diabetes Urticaria (708.) Surgical History Surgery Date(Month/Year) Tonsillectomy and adenoidectomy Cholecystectomy R ankle 06/15/2022 nerve block done in neck 11/05/2023 complete hysterectomy 11/09/2024
--- NOTE | 2024-12-14 13:21 | CT_ITS ---
The [address] [address] Patient Name: ELIAS SIMMS MRN: [id number] date: 1975 Sex: F Assigned Patient Location: [place] Current Patient Location: [place] Accession/Order Number: [id number] Exam Date: 12/14/2024 20:29 Report Date: 12/14/2024 20:40 At the request of: CANDY LEONARDO DPM Procedure: CT ankle LT wo con CT left ankle without contrast TECHNIQUE: The CT exam was performed using one or more the following dose reduction techniques: Automated exposure control, adjustment of the MA and/or Kv according to patient size, or use of the iterative reconstruction technique. COMPARISON: None HISTORY: Osteochondral defect of the left ankle. Presurgical assessment Medial osteochondral defect of the talar dome identified. This measures up to 9 mm. There is adjacent to the mid to posterior portion of the medial malleolus. Multiloculated cystic change and adjacent sclerosis identified. Ankle mortise preserved. Marginal spurring of the ankle mortise present. Well-corticated 7 mm bony density is inferior to the medial malleolus. Likely corresponds of prior injury. Chronic changes of the tip of the lateral malleolus. Subtalar joint intact. There is superior enthesophyte of the talar neck. Minor marginal spurring of the talonavicular joint. Cuboid intact. Large inferior calcaneal spur present. Small posterior Achilles tendon insertion enthesophyte of calcaneus present. Incidental bony island of the posterior portion of the cuboid. Visualized cuneiform unremarkable. There is adequate alignment of the tendons with CT imaging. Adequate signal of the muscle. In the medial portion of the ankle there is fatty prominence present. The somewhat encapsulated measuring up to 3.7 cm. Likely represents lipoma. CT/CT ankle LT wo con IMPRESSION: 9 mm osteochondral defect of the medial corner of the talar dome. The large medial anterior spurring of talar dome. Ankle mortise degenerative change. Chronic bony density inferior to the medial malleolus. Posterior and inferior calcaneal spurring. Impression dictated by: Shreyas Christian M.D. 12/14/2024 8:40 PM [facility]ictation [facility] Electronically authenticated by: [id number] Y Date: 12/14/2024 20:40
--- NOTE | 2024-12-14 13:34 | PM.PRESUREVA ---
History of Present Illness History of Present Illness Chief complaint: Primary Osteoarthritis Left Ankle/Foot, Other [place] Narrative: Patient presents for presurgical testing. The patient reports ongoing left ankle pain after a twisting injury in February 2024. She states her ankle feels unstable. She was wearing a boot but discontinued about 6 weeks ago. She states she has clicking and popping in her ankle and increased pain with ambulation. She denies new injury or trauma, weakness, numbness, tingling, or any other complaints. Review of Systems ROS Narrative REVIEW OF SYSTEMS: Negative except as stated in HPI, ten or more systems reviewed. Constitutional: No fever, chills, weakness ENT: No sore throat or epistaxis Cardiovascular: No chest pain. Chronic dyspnea on exertion Respiratory: No cough Gastrointestinal: No abdominal pain, constipation, diarrhea, or vomiting Genitourinary: No dysuria or hematuria Neurological: No numbness, tingling, weakness, or headache Psychiatric: No mood changes [facility] Medical History (Updated 12/14/24 @ 13:40 by Wendy Diaz NP) Ankle pain ?M25.579 - Pain in unspecified ankle and joints of unspecified foot (ICD-10) Arthritis of left ankle ?M19.072 - Primary osteoarthritis, left ankle and foot (ICD-10) Articular cartilage disorder of left ankle ?M24.172 - Other articular cartilage disorders, left ankle (ICD-10) Osteochondral defect of talus ?M95.8 - Other specified acquired deformities of musculoskeletal system (ICD-10) Left ankle sprain ?S93.402A - Sprain of unspecified ligament of left ankle, initial encounter (ICD-10) Arthritis ?M19.90 - Unspecified osteoarthritis, unspecified site (ICD-10) LUIS MIGUEL on CPAP ?G47.33 - Obstructive sleep apnea (adult) (pediatric) (ICD-10) Asthma ?J45.909 - Unspecified asthma, uncomplicated (ICD-10) Sleep apnea ?G47.30 - Sleep apnea, unspecified (ICD-10) Cavernous hemangioma of brain ?D18.02 - Hemangioma of intracranial structures (ICD-10) Migraine ?G43.909 - Migraine, unspecified, not intractable, without status migrainosus (ICD-10) Cerebral aneurysm (2010) ?I67.1 - Cerebral aneurysm, nonruptured (ICD-10) Seizure-like activity (2013) ?R56.9 - Unspecified convulsions (ICD-10) Seasonal allergies ?J30.2 - Other seasonal allergic rhinitis (ICD-10) PCOS (polycystic ovarian syndrome) ?E28.2 - Polycystic ovarian syndrome (ICD-10) GERD (gastroesophageal reflux disease) ?K21.9 - Gastro-esophageal reflux disease without esophagitis (ICD-10) Extremity edema ?R60.0 - Localized edema (ICD-10) Palpitations ?R00.2 - Palpitations (ICD-10) Hypertension ?I10 - Essential (primary) hypertension (ICD-10) Hypothyroidism ?E03.9 - Hypothyroidism, unspecified (ICD-10) Surgical History (Updated 12/14/24 @ 12:59 by Wendy Diaz NP) S/P epidural steroid injection ?Z92.241 - Personal history of systemic steroid therapy (ICD-10) History of colonoscopy ?Z98.890 - Other specified postprocedural states (ICD-10) History of tonsillectomy and adenoidectomy (2002) ?Z90.89 - Acquired absence of other organs (ICD-10) History of cholecystectomy (2014) ?Z90.49 - Acquired absence of other specified parts of digestive tract (ICD-10) History of hysterectomy (11/09/24) ?Z90.710 - Acquired absence of both cervix and uterus (ICD-10) History of ankle surgery (06/11/21) ?Z98.890 - Other specified postprocedural states (ICD-10) Family History (Updated 12/14/24 @ 12:59 by Wendy Diaz NP) Other Family history of diabetes mellitus Family history of hypertension Family history of prostate cancer Family history of seizures Family history of stroke Family history of uterine cancer Social History (Updated 12/14/24 @ 12:55 by Wendy Diaz NP) Within the past year, how often did you have a drink containing alcohol: never Score interpretation: A score less than 3 is consistent with normal alcohol consumption. Smoking status: Never smoker Non-prescribed substance use: denies use Highest level of school completed/degree received: high school graduate Little interest or pleasure in doing things: not at all Feeling down, depressed, or hopeless: not at all Meds Home Medications and Allergies Home Medications ?Medication ?Instructions ?Recorded ?Confirmed ?Type albuterol sulfate 2.5 mg/3 mL 2.5 mg inhalation Q8H 12/14/24 12/14/24 History (0.083 %) solution for nebulization albuterol sulfate 90 mcg/actuation 2 inh inhalation Q4H PRN shortness 12/14/24 12/14/24 History aerosol inhaler of breath or wheezing amlodipine 10 mg tablet 10 mg PO QPM 12/14/24 12/14/24 History atogepant 60 mg tablet (Qulipta) 60 mg PO DAILY 12/14/24 12/14/24 History cetirizine 10 mg capsule (All Day 10 mg PO DAILY 12/14/24 12/14/24 History Allergy (cetirizine)) clobetasol 0.05 % topical gel 1 applic topical DAILY 12/14/24 12/14/24 History epinephrine 0.3 mg/0.3 mL 0.3 ml IM Q30M PRN anaphylaxis 12/14/24 12/14/24 History injection, auto-injector fluticasone furoate 100 1 inh inhalation Q24H 12/14/24 12/14/24 History mcg-vilanterol 25 mcg/dose inhalation powder (Breo Ellipta) furosemide 20 mg tablet 40 mg PO DAILY 12/14/24 12/14/24 History levothyroxine 88 mcg tablet 88 mcg PO DAILY 12/14/24 12/14/24 History montelukast 10 mg tablet 10 mg PO QPM 12/14/24 12/14/24 History nystatin 100,000 unit/gram topical 1 applic topical .four times a day 12/14/24 12/14/24 History powder PRN rash omeprazole 20 mg capsule,delayed 20 mg PO DAILY 12/14/24 12/14/24 History release potassium chloride 20 mEq 20 meq PO DAILY 12/14/24 12/14/24 History tablet,extended release pregabalin 100 mg capsule 100 mg PO TID 12/14/24 12/14/24 History rimegepant 75 mg disintegrating 75 mg PO DAILY PRN migraine 12/14/24 12/14/24 History tablet (Nurtec ODT) headache topiramate 100 mg tablet 100 mg PO Q12H 12/14/24 12/14/24 History Allergies Allergy/AdvReac Type Severity Reaction Status Date / Time aspirin Allergy Unknown brain bleed Verified 12/14/24 12:51 divalproex sodium Allergy Unknown paralysis Verified 12/14/24 12:51 heparin Allergy Unknown brain bleed Verified 12/14/24 12:51 hydrocodone Allergy Unknown Unknown Verified 12/14/24 12:51 ibuprofen (From Motrin) Allergy Unknown brain bleed Verified 12/14/24 12:51 latex Allergy Unknown Rash Verified 12/14/24 12:51 naproxen Allergy Unknown brain bleed Verified 12/14/24 12:51 propoxyphene Allergy Unknown Unknown Verified 12/14/24 12:51 sumatriptan Allergy Unknown Unknown Verified 12/14/24 12:51 tramadol Allergy Unknown Unknown Verified 12/14/24 12:51 adhesive Allergy Rash Verified 12/14/24 12:52 bee venom protein (honey bee) Allergy Anaphylaxis Verified 12/14/24 12:51 coconut Allergy Hives Verified 12/14/24 12:51 pineapple Allergy Hives Verified 12/14/24 12:51 venom-wasp Allergy Anaphylaxis Verified 12/14/24 12:51 nitroglycerin AdvReac Unknown Headache Verified 12/14/24 12:51 Exam Narrative Exam Narrative: Constitutional: Awake, alert, comfortable, well-appearing, nontoxic, interactive, vital signs as charted Head: Normocephalic, atraumatic Neck: Supple, normal appearance, normal range of motion, no meningeal signs, no lymphadenopathy Respiratory: No respiratory distress, breath sounds clear Cardiovascular: Regular rate and rhythm, strong and regular heart tones Musculoskeletal: Diffuse left ankle tenderness with palpation, range of motion limited due to pain, good capillary refill, sensation intact Skin: No rashes or induration, no lesions, only visible skin inspected Neuro: No neurological deficits, normal sensation Psychiatric: Oriented ?3, normal affect Assessment and Plan Assessment and Plan (1) Left ankle sprain: (2) Osteochondral defect of talus: (3) Articular cartilage disorder of left ankle: (4) Arthritis of left ankle: (5) Ankle pain: Plan Left ankle arthroscopy, possible arthrotomy with ligament repairs as needed scheduled with Dr. Peña December 26, 2024.
[2024-12-14 13:37] LABS: Hematocrit 43.2 % (36.0-48.0); Hemoglobin 14.8 g/dL (12.0-16.0); Immature Granulocytes Abs Auto 0.02 10^3/uL (0.00-0.03); Immature Granulocytes Pct Auto 0.3 % (0.0-0.5); Lymphocytes Absolute Auto 2.6 10^3/uL (1.2-3.8); Mean Corpuscular HGB Conc 34.3 g/dL (29.9-35.2); Mean Corpuscular Hemoglobin 32.0 pg (26.7-34.0); Mean Corpuscular Volume 93.3 fL (81.0-99.0); Platelet Count 222 10^3/uL (150-450); Red Blood Count 4.63 10^6/uL (4.20-5.40); White Blood Count 7.4 10^3/uL (4.0-11.0)
[2024-12-14 13:43] LABS: Anion Gap 14.2; Blood Urea Nitrogen 17.0 mg/dL (7.0-18.0); Calcium 8.9 mg/dL (8.5-10.1); Carbon Dioxide 26.5 mmol/L (21.0-32.0); Chloride 106 mmol/L (98-107); Estimated GFR (African America >60 (>=60 mL/min/1.73m^2); Estimated GFR (Non-African Ame >60 (>=60 mL/min/1.73m^2); Glucose 110 mg/dL (74-106); Potassium 3.7 mmol/L (3.5-5.1); Sodium 143 mmol/L (136-145)
--- NOTE | 2024-12-14 14:01 | ECG_ITS ---
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
== END 2024-12-14 12:11 | disposition home or self-care (01) ==
PROVIDERS: Visit Provider Podiatrist Foot & Ankle Surgery
DX: Z01.810 Encounter for preprocedural cardiovascular examination (principal); Z01.812 Encounter for preprocedural laboratory examination; Z01.818 Encounter for other preprocedural examination; M93.272 Osteochondritis dissecans, left ankle and joints of left foot; M77.32 Calcaneal spur, left foot
CPT/HCPCS: 73700; 80048; 85025; 93005; G0463